=== PATIENT | male | born 1995 ===

== ENCOUNTER 2018-08-06 10:58 | Inpatient (IN) | payer OTHER ==
[~2018-08-06] VITALS: Ht 167.6 cm; Wt 66.7 kg
[2018-08-07 02:30] VITALS: BP 116/72
[2018-08-07] MEDS ORDERED: magnesium hydroxide 30ml (MOM) UD suspension PO PRN (02:40)
[2018-08-07] MEDS ORDERED: mag hydrox/Alum hydrox/simeth 30ml oral suspension PO PRN (02:40)
--- NOTE | 2018-08-07 03:26 | NUR ---
Pt admitted to the unit at 0130, he was ambulatory, he was in leg and arm shackles, was escorted by security, [facility] Interventional Radiology Tech, and [facility]. Pt here by court order to try to restore competency so he can stand trial for his charges (shoplifting, false ID to police officers). Pt was cooperative with admit, he did appear somewhat paranoid, eyes were wide open, would look around when there were noises in the hallway. He denies any A/V hallucinations, denies any delusions, he is a poor historian and does not know the year, month, date, does not understand why he is here. He denies any hx of mental hx tx or dx in the past. He denies any current ETOH or drug use and tox screen negative. Skin check completed by myself and [facility] and pt has no issues at this time.
[2018-08-07 07:45] VITALS: BP 108/70
[2018-08-07 09:06] LABS: HEMOGLOBIN A1C 5.3 % (4.5-6.2)
[2018-08-07 09:07] LABS: CHOL/HDL RATIO 2.8 (0.00-4.99); CHOLESTEROL 122 MG/DL (0-200); HDL CHOLESTEROL 44 MG/DL (35-60); LDL CHOLESTEROL 72 MG/DL (50-100); TRIGLYCERIDES 42 MG/DL (20-135)
[2018-08-07] MEDS ORDERED: tuberculin, purif. prot. deriv. 5 units/0.1ml ID ONE (10:00)
--- NOTE | 2018-08-07 15:29 | NUR ---
Nursing Note: Chief Complaint: Compet[facility] for competency Report received from nurse with use of SBAR: MAGGIE Brown Diagnosis/presenting symptoms: Patient is only oriented x 1. Assessment What has happened this shift: Patient sleeping at change of shift and up before breakfast sitting in Community Room. Patient isolates and is only oriented x 1. Patient does not know the year, the season or who is President. Patient denies Suicidal ideation and depression. Patient is soft spoken and small in stature. Patient states he lives with his family and he was in [facility]. Patient found several times during the day staring at signs and from a distance then close up. Patient does not appear to be psychotic but appears to be disorganized. Bizarre behavior. Possibly thought blocking. S/I, H/I: Denies A/VH: N/A Sleep: no naps during the day ADL's: Independent Group attendance: no Were meds taken: yes Any med S/E: No Mental Status Exam Appearance:Neat and clean Eye contact: Fair Behavior: Pleasant, but guarded and withdrawn Speech: Soft, WNL Mood: Cooperative Affect: Blunted Thought process: Poverty of thought, blocking, disorganized. Thought Content: Cognition: Oriented x 1 Insight: Poor Judgment: Poor Interventions PRN's used: None Therapeutic interventions: Established rapport, provided active listening, maintained a safe and therapeutic environment, ensured pt. contract for safety, provided medication education, encouraged group attendance, and maintained Q 15 min safety checks. Restraints/seclusion/emergency medication: N/A Justification of Continued Inpatient Treatment: Court ordered treatment.
[2018-08-07 19:48] VITALS: BP 115/75
--- NOTE | 2018-08-07 21:16 | NUR ---
Nursing Note: Chief Complaint: Competency Legal hold: Court Ordered, [facility] for Competency Client on involuntary status for competency Report received from nurse with use of SBAR: MAGGIE Brown Diagnosis/presenting symptoms: Patient is only oriented x 1. Assessment What has happened this shift: Pt was walking in the hallway at change of shift. 1:1 completed at bedside. Pt denies s/i. pt is slow to answer questions, unable to state why he is here. Pt is internally preoccupied and talks to himself at times. Pt reports sleep, appetite are good. Pt spends the evening, pacing the hallways and staring out windows. Pt nods to answer questions rather than saying yes or no at times. Pt thought process is disorganized. S/I, H/I: Denies A/VH: Pt was noticed to be responding to internal stimuli. Sleep: pt states "good" ADL's: Independent Group attendance: no Were meds taken: yes Any med S/E: No Mental Status Exam Appearance: adequately groomed/dressed Eye contact: Fair, pt looks at this financial underwriter briefly during conversation when answering then quickly looks away. Behavior: cooperative, directable Speech: Soft, WNL Mood: pleasant, denies depression, denies anxiety/worry/sadness Affect: Blunted Thought process: Poverty of thought, blocking, disorganized. Thought Content: pt states he is from [place], shows me his scrub top to tell me where he is. Cognition: Oriented x 1 Insight: Poor Judgment: Poor Interventions PRN's used: None Therapeutic interventions: Established rapport, provided active listening, maintained a safe and therapeutic environment, ensured pt. contract for safety, and maintained Q 15 min safety checks. Restraints/seclusion/emergency medication: N/A Justification of Continued Inpatient Treatment: Court ordered treatment.
[2018-08-08 08:00] VITALS: BP 93/67
--- NOTE | 2018-08-08 14:11 | NUR ---
Nursing Note: Chief Complaint: [facility]et[facility] for competency Report received from nurse with use of SBAR: Nasir SERRANO Diagnosis/presenting symptoms: Patient is only oriented x 1. Assessment What has happened this shift: Patient sleeping at change of shift and up before breakfast and pacing in the ybarra. Patient isolates and is only oriented x 1. Patient does not initiate conversation with peers or staff. Patient answers questions in short sentences or 1-2 word answers. Patient does not know the year, the season but was able to identify President Ena as president. Patient denies Suicidal ideation and depression. Patient is soft spoken and small in stature. Patient still staring a wall posters for long periods of time. Patient also came out of his room without a shirt and was advised to put a shirt on and pt complied. Pt denies visual/auditory hallucinations but appears to be disorganized, with bizarre behavior. Possibly thought blocking. S/I, H/I: Denies A/VH: N/A Sleep: no naps during the day ADL's: Independent Group attendance: no Were meds taken: yes Any med S/E: No Mental Status Exam Appearance:Neat and clean Eye contact: Fair Behavior: Pleasant, but guarded and withdrawn Speech: Soft, WNL Mood: Cooperative Affect: Blunted Thought process: Poverty of thought, blocking, disorganized. Thought Content: Cognition: Oriented x 1 Insight: Poor Judgment: Poor Interventions PRN's used: None Therapeutic interventions: Established rapport, provided active listening, maintained a safe and therapeutic environment, ensured pt. contract for safety, provided medication education, encouraged group attendance, and maintained Q 15 min safety checks. Restraints/seclusion/emergency medication: N/A Justification of Continued Inpatient Treatment: Court ordered treatment.
[2018-08-08 19:56] VITALS: BP 122/80
--- NOTE | 2018-08-08 20:24 | NUR ---
Patients previous elopement band was not on him, when asked about it his answer was not legible. This video game script writer placed a new elopement band on the patient. He seemed irritated by this and flipped off this video game script writer and resumed pacing.
--- NOTE | 2018-08-09 00:08 | NUR ---
Nursing Note: Chief Complaint: Competency Legal hold: Court Ordered, [facility] for Competency Client on involuntary status for competency Report received from nurse with use of SBAR: Mable SERRANO Diagnosis/presenting symptoms: Patient is only oriented x 1. Assessment What has happened this shift: Patient paces the halls, stares at doors and signs for long periods of time. When aligner typewriter says hello to pt he just stares, and keeps walking. Pt agreed to assessment but looks afraid when aligner typewriter is listening to his lungs and bowel sounds. Sterilization Tech reassures pt constantly while talking. Pt refuses any medication, aligner typewriter educates pt on the medications prescribed but he politely declines and keeps pacing. Pt had elopement band on yesterday, staff noticed it was off, put a new one on which he was upset about and stuck his middle finger up at staff member after she applied it to his wrist. Pt admits to being tired but will not go to bed and continues to pace and look around nervously as if someone is following him. He will stop randomly in front of doorways and just stare at a spot on the wall for minutes at a time. He also laughs to himself or smiles occasionally while pacing. S/I, H/I: Denies A/VH: denies, but appears to be responding to internal stimuli at times Sleep:see sleep assessment notation ADL's: Independent Group attendance: shift mgr, no groups Were meds taken: pt refused medication Any med S/E: None reported, none observed Mental Status Exam Appearance:Neat and clean Eye contact: Fair Behavior: paces the hallways, looks around in paranoia, polite but withdrawn Speech: Soft, sparse Mood: anxious Affect: withdrawn, paranoid Thought process: Poverty of thought, blocking, disorganized. Thought Content: unable to assess Cognition: Oriented x 1 Insight: Poor Judgment: Poor Interventions PRN's used: None Therapeutic interventions: 1:1 provided active listening, maintained a safe and therapeutic environment, provided medication education, encouraged group attendance, and maintained Q 15 min safety checks. Restraints/seclusion/emergency medication: N/A Justification of Continued Inpatient Treatment: Court ordered treatment.
[2018-08-09 08:00] VITALS: BP 103/56
--- NOTE | 2018-08-09 14:17 | NUR ---
Nursing Note: Chief Complaint: Competency [facility] hold[facility] for competency Report received from nurse with use of SBAR: MAGGIE Krishna Diagnosis/presenting symptoms: Patient is only oriented x 1. Assessment What has happened this shift: Patient sleeping at change of shift and had to be awoken for breakfast. Patient isolates and is only oriented x 1. Patient looks less bright today with depressed affect. Patient asked questions and all his answers were "I don't know." When patient asked about depression and suicidal ideation still says he doesn't know. Patient still acting bizarre and staring at the wall. Now patient is sitting in the T.V. room staring out the window. Pt appears to be disorganized, with bizarre behavior. S/I, H/I: unk A/VH: N/A Sleep: no naps during the day ADL's: Independent Group attendance: no Were meds taken: no Any med S/E: No Mental Status Exam Appearance:Neat and clean Eye contact: Fair Behavior: Pleasant, but guarded and withdrawn Speech: Soft, WNL Mood: Cooperative Affect: Blunted, depressed Thought process: Poverty of thought, blocking, disorganized. Thought Content: unknown Cognition: Oriented x 1 Insight: Poor Judgment: Poor Interventions PRN's used: None Therapeutic interventions: Established rapport, attempted to provided active listening, maintained a safe and therapeutic environment, ensured pt. contract for safety, provided medication education, encouraged group attendance, and maintained Q 15 min safety checks. Restraints/seclusion/emergency medication: N/A Justification of Continued Inpatient Treatment: Court ordered treatment.
--- NOTE | 2018-08-09 16:56 | NUR ---
Psychosocial and Activity Assessments: Assessments were completed by this therapist and entered. Patient was aloof/withdrawn providing very little information to this therapist. What is known, was based on the evaluation report provided by [facility] psychiatrist, Dr. Allan M.D. 08/08/18. Mary Perea MA., POLYMERIZATION HELPER #[id number] [facility] Art Therapist
[2018-08-09 19:44] VITALS: BP 106/54
[2018-08-09] MEDS: olanzapine 10mg tablet PO SCH (20:30)
--- NOTE | 2018-08-09 22:48 | NUR ---
Nursing Note: Chief Complaint: Competency Legal hold: Court Ordered, [facility] for Competency Client on involuntary status for competency Report received from nurse with use of SBAR: Mable SERRANO Diagnosis/presenting symptoms: Patient is only oriented x 1. Assessment What has happened this shift: Patient paces the halls this shift, smiles politely at fiction and nonfiction writer prose and says hello and walks away. Pt is in green hospital scrubs, then disappears into his room and is wearing jeans, a t-shirt and sneakers. He takes a handful of snacks from the community room and walks down the ybarra carrying them. Pt is unaware that anyone is watching him and abruptly stops in the hallway and throws all the food and drinks up into the air and watches them fall around him. He then quickly gathers them back up into his arms smiling and keeps walking. Pt took his medication tonight without issue. When fiction and nonfiction writer prose asked if he is feeling suicidal or depressed he answers, "no I'm not. " Business Analyst Ecommerce then asks if patient is having any auditory or visual hallucinations to which he denies but fiction and nonfiction writer prose witnesses him staring at the wall or at the floor for long periods of time as if something is there. he also watches his right foot suspiciously for a few minutes after conversing with fiction and nonfiction writer prose. Business Analyst Ecommerce encourages pt to lay down soon to try to get some sleep. Pt agrees that he will but continues to look down at his foot. S/I, H/I: Denies A/VH: denies, but appears to be responding to internal stimuli at times Sleep:see sleep assessment notation ADL's: Independent Group attendance: night order selector, no groups Were meds taken:yes Any med S/E: None reported, none observed Mental Status Exam Appearance:Neat and clean Eye contact: Fair Behavior: paces the hallways, looks around in paranoia, polite but withdrawn Speech: Soft, sparse Mood: anxious Affect: bizarre Thought process: Poverty of thought, blocking, disorganized. Thought Content: unable to assess Cognition: Oriented x 1 Insight: Poor Judgment: Poor Interventions PRN's used: None Therapeutic interventions: 1:1 provided active listening, maintained a safe and therapeutic environment, provided medication education, encouraged group attendance, and maintained Q 15 min safety checks. Restraints/seclusion/emergency medication: N/A Justification of Continued Inpatient Treatment: Court ordered treatment.
[2018-08-10 08:00] VITALS: BP 103/53
--- NOTE | 2018-08-10 12:32 | NUR ---
Patient brought from [facility] by court order, incompetent to stand trial. Addendum: 08/10/18 at 1234 by Marlin Hastings RN Amended: Links added.
--- NOTE | 2018-08-10 17:21 | NUR ---
Nursing Note: Chief Complaint: Competency Legal hold[facility] for competency Report received from nurse with use of SBAR: Anju SERRANO Diagnosis/presenting symptoms: F29 - Unspecified psychosis not due to a substance or known physiological condition Assessment What has happened this shift: Patient is observed sitting by the window watching the rain. He states that he slept well the night before and is observed resting periodically during the day. He denies AV/H but is observed talking to self in the ybarra. He eats meals provided and also consumes multiple sugar packets. He does not answer when asked why he is eating sugar packets. RN attempted to educate patient r/t high sugar consumption, patient walked away. S/I, H/I: Denies A/VH: denies, observed talking to self Sleep: slept well at night and took naps during the day ADL's: Independent Group attendance: no Were meds taken: no morning meds to administer Any med S/E: None reported, no IMs or tremors observed Mental Status Exam Appearance: appropriate Eye contact: direct occasionally, looks around often Behavior: paces the hallways, looks around in paranoia, polite but withdrawn Speech: Soft tone, not conversational Mood: reports good mood, appears anxious Affect: restricted Thought process: Poverty of thought Thought Content: unable to assess Cognition: Oriented x 2 Insight: Poor Judgment: Poor Interventions PRN's used: None Therapeutic interventions: 1:1 communication including active listening and positive feedback, maintained a safe and therapeutic environment, provided medication education, encouraged group attendance, and maintained Q 15 min safety checks. Restraints/seclusion/emergency medication: N/A Justification of Continued Inpatient Treatment: Court ordered treatment.
[2018-08-10 20:00] VITALS: BP 116/70
[2018-08-10] MEDS: olanzapine 10mg tablet PO SCH (20:20)
--- NOTE | 2018-08-10 22:11 | NUR ---
Nursing Note: Chief Complaint: Competency Legal hold: Court Ordered, [facility] for Competency Client on involuntary status for competency Report received from nurse with use of SBAR: Marie SERRANO Diagnosis/presenting symptoms: Patient is only oriented x 1. Assessment What has happened this shift: Patient paces the halls, smiles at staff occasionally. He stops and stand sin the hallway and stares at the wall for a few minutes. He also talks to himself under his breath. Pt has snack in the community room and is using the remote to change the channel. He doesn't stay on a single channel for more than 15 seconds at a time. He then gets [employer] magazines out and opens them up on the table and is seen flexing his arm muscles over them looking down at the magazines whispering things to himself. Pt denies any suicidal ideation or hallucinations but is seen responding to internal stimuli multiple times. Pt asks communications writer, "how do you feel?" Tire Stripper says "I am good" and pt gets up and walks away abruptly. S/I, H/I: Denies A/VH: denies, but appears to be responding to internal stimuli at times Sleep:see sleep assessment notation ADL's: Independent Group attendance: operations supervisor 2nd shift, no groups Were meds taken:yes Any med S/E: None reported, none observed Mental Status Exam Appearance:clean Eye contact: Fair Behavior: paces the hallways smiles occasionally, talks to self Speech: Soft, sparse Mood: anxious Affect: bizarre Thought process: Poverty of thought, blocking, disorganized. Thought Content: unable to assess Cognition: Oriented x 1 Insight: Poor Judgment: Poor Interventions PRN's used: None Therapeutic interventions: 1:1 provided active listening, maintained a safe and therapeutic environment, and maintained Q 15 min safety checks. Restraints/seclusion/emergency medication: N/A Justification of Continued Inpatient Treatment: Court ordered treatment.
[2018-08-11 07:27] VITALS: BP 101/47
--- NOTE | 2018-08-11 17:04 | NUR ---
Nursing Note: Chief Complaint: Competency Legal hold: Court Ordered, [facility] for Competency Client on involuntary status for competency Report received from nurse with use of SBAR: Anju SERRANO Diagnosis/presenting symptoms: F29 - Unspecified psychosis not due to a substance or known physiological condition Assessment What has happened this shift: Patient is observed sleeping at change of shift. He gets up and eats with others for both breakfast and lunch. He states that he slept ok the night before. He denies AV/H but appears to be responding to internal stimuli as he is observed talking to self and saying things under his breath. He paces the ybarra throughout the day. He makes eye contact and asks staff for a towel to take a shower. His overall demeanor is calm and pleasant. Patient appears to be paranoid at times, looking around often. S/I, H/I: Denies A/VH: denies, observed talking to self Sleep: slept well at night and took naps during the day ADL's: Independent, showered Group attendance: yes Were meds taken: no morning meds to administer Any med S/E: None reported, no IMs or tremors observed Mental Status Exam Appearance: clean, well groomed Eye contact: direct occasionally, looks around often Behavior: paces the hallways, polite but reserved Speech: Soft tone, answers most questions, not conversational Mood: good Affect: restricted Thought process: Thought Content: unable to formally assess Cognition: Oriented x 3 Insight: Poor, denies hallucinations Judgment: fair Interventions PRN's used: none Therapeutic interventions: 1:1 communication including active listening and positive feedback, maintained a safe and therapeutic environment, encouraged group attendance, and maintained Q 15 min safety checks. Restraints/seclusion/emergency medication: N/A Justification of Continued Inpatient Treatment: Court ordered treatment.
[2018-08-11 20:09] VITALS: BP 107/69
[2018-08-11] MEDS ORDERED: olanzapine 10mg tablet PO SCH (21:00)
[2018-08-11] MEDS: olanzapine 10mg tablet PO SCH (21:28)
[2018-08-11] MEDS ORDERED: OLANZapine 2.5MG tablet PO ONE ×2 (23:15→23:25)
--- NOTE | 2018-08-12 00:25 | NUR ---
Nursing Note: Chief Complaint: Psychosis Legal hold: Court Ordered, [facility] for Competency Client on involuntary status for GD/Competency to stand trial Report received from nurse with use of SBAR: MAGGIE Isaac Why are they here: Pt. sent to [facility] for evaluation from [facility] in order to assess his competency to stand trial for shoplifting, showing false ID, and indecent exposure. Per report pt. has been "Zoning out" at home, exhibiting possible s/s of psychosis, and does not understand what he is being charged for. Diagnosis/presenting symptoms: Pt. exhibits s/s of paranoid delusions and possible h/a AEB restlessness, pacing, mumbling to self, and exhibiting internalized preoccupation. Assessment What has happened this shift: Pt. up pacing the hallway at beginning of the shift, he continued to do this throughout the shift until going to bed at approximately 2300. He was also observed by staff to be intently staring at exits or out windows, mumbling to self, and intently tracing the braille lettering at the entrance of room doorways. This senior grant writer approached pt. and attempted to establish rapport, he presents as paranoid, restless, and abruptly walks away down the hallway. 1:1 completed, pt. continues to exhibit s/s of paranoid delusions and possible h/a AEB restlessness, pacing, mumbling to self, and exhibiting internalized preoccupation. He will answer questions with minimal response, exhibits latency of response, and minimally engages. This senior grant writer questions pt. regarding what time he would like to take his HS medication, he states, "I don't take medication," however he is cooperative with taking medications and care this shift. S/I, H/I: Denies A/VH: Denies, however mumbles to self and is internally preoccupied Sleep: Reports he is able to sleep well ADL's: Ambulates, eats, and uses BR independently Group attendance: Attended HS snack Were meds taken: Yes, Zyprexa increased to 10mg this HS, pt. compliant with medication increase. Any med S/E: None Mental Status Exam Appearance: Neat and appropriately dressed in hospital attire. Eye contact: Poor, continually looks away as it he is seeing things that are not there Behavior: Cooperative, however withdrawn and restless Speech: Mumbles, inaudible at times, responds only minimally to questions Mood: Paranoid Affect: Flat Thought process: Thought blocking and poverty of thought r/t mental illness Thought Content: Paranoid delusions, possible A/V/H, and internally preoccupied Cognition: A&O X2 (name and town) Insight: Poor Judgment: Poor Interventions PRN's used: None Therapeutic interventions: Introduced self and established rapport, maintained a safe and therapeutic environment, reoriented to reality as needed, monitored behaviors and assessed need for intervention, and maintained Q 15 min safety checks. Restraints/seclusion/emergency medication: N/A Justification of Continued Inpatient Treatment: Pt. requires medication adjustments and continued therapeutic intervention. He is not at baseline and not competent to stand trial.
[2018-08-12 08:00] VITALS: BP 124/77
--- NOTE | 2018-08-12 17:13 | NUR ---
Nursing Note: Chief Complaint: Compet[facility] hold[facility] for competency Report received from nurse with use of SBAR: MAGGIE Salvador Diagnosis/presenting symptoms: F29 - Unspecified psychosis not due to a substance or known physiological condition Assessment What has happened this shift: Patient is observed sleeping at change of shift. He joins others for breakfast in the group room. He requests to take a shower and politely waits for a turn. Direct eye contact is made. Patients eyes dart around less today than in previous shifts worked and response to questions asked has improved. Responses continue to be minimal, patient is not conversational. He paces the ybarra. S/I, H/I: Denies A/VH: denies, observed talking to self Sleep: slept well at night and took naps during the day ADL's: Independent, showered Group attendance: yes Were meds taken: no morning meds to administer Any med S/E: None reported, no IMs or tremors observed Mental Status Exam Appearance: clean, well groomed Eye contact: direct occasionally, looks around often Behavior: paces the hallways, polite but reserved Speech: Soft tone, answers most questions, not conversational Mood: good Affect: restricted Thought process: Thought Content: unable to formally assess Cognition: Oriented x 3 Insight: Poor, denies hallucinations Judgment: fair Interventions PRN's used: none Therapeutic interventions: 1:1 communication including active listening and positive feedback, maintained a safe and therapeutic environment, encouraged group attendance, and maintained Q 15 min safety checks. Restraints/seclusion/emergency medication: N/A Justification of Continued Inpatient Treatment: Court ordered treatment.
[2018-08-12 19:00] VITALS: BP 120/77
[2018-08-12] MEDS ORDERED: olanzapine 10mg tablet PO SCH ×2 (21:00)
[2018-08-12] MEDS: OLANZapine 5mg rapidly disint. tablet PO SCH (21:01)
--- NOTE | 2018-08-12 23:55 | NUR ---
Nursing Note: Chief Complaint: Psychosis Legal hold: Court Ordered, [facility] for Competency Client on involuntary status for GD/Competency to stand trial Report received from nurse with use of SBAR: MAGGIE Isaac Why are they here: Pt. sent to [facility] for evaluation from [facility] in order to assess his competency to stand trial for shoplifting, showing false ID, and indecent exposure. Per report pt. has been "Zoning out" at home, exhibiting possible s/s of psychosis, and does not understand what he is being charged for. He remains incompetent to stand trial. Diagnosis/presenting symptoms: Pt. exhibits s/s of paranoid delusions and response to internal stimuli AEB continued restlessness, pacing, mumbling to self at times, and difficulty with reciprocal interactions. Assessment What has happened this shift: Pt. up pacing the hallway at beginning of the shift, however intensity with which he does so is decreased and pt. is not checking exits/staring out windows as he was doing yesterday. 1:1 completed, pt. continues to be cooperative with medications and assessment. This teletypewriter installer questioned him about how his day was, pt. stated, "Ok, I went to a group but then I left." Pt. presents with decreased paranoia and is able to respond more clearly to questions without muttering to self, longer responses to questions, and decreased latency in response time. However, continues to exhibit s/s of paranoid delusions and response to internal stimuli AEB continued restlessness, pacing, mumbling to self at times, and difficulty with reciprocal interactions. S/I, H/I: Denies A/VH: Denies, however mumbles to self and is internally preoccupied Sleep: Reports he is able to sleep well ADL's: Pt. is unable to assist this teletypewriter installer with making his bed this shift r/t in ability to focus long enough on the task, states, "I'm going to walk." Group attendance: Attended one group today, however walked out early Were meds taken: Yes, Zyprexa increased to 15mg this HS, pt. compliant with medication increase. Any med S/E: None Mental Status Exam Appearance: Neat and appropriately dressed in hospital attire. Eye contact: Improving, able to focus with less difficulty and less distractible Behavior: Cooperative, with continued restlessness/pacing Speech: Able to respond more clearly to questions without muttering, longer responses to questions, and decreased latency in response time. Mood: Pleasant, decreased paranoia Affect: Flat Thought process: Thought blocking and poverty of thought r/t mental illness Thought Content: Paranoid delusions, possible A/V/H, and internally preoccupied Cognition: A&O X2 (name and town) Insight: Poor Judgment: Poor Interventions PRN's used: None Therapeutic interventions: Provided active listening, maintained a safe and therapeutic environment, reoriented to reality as needed, monitored behaviors and assessed need for intervention, provided medication education, and maintained Q 15 min safety checks. Restraints/seclusion/emergency medication: N/A Justification of Continued Inpatient Treatment: Pt. requires medication adjustments and continued therapeutic intervention. He is not at baseline and not competent to stand trial.
[2018-08-13 08:02] VITALS: BP 104/71
--- NOTE | 2018-08-13 16:03 | NUR ---
Initial: Pt admit psychosis,NOS to Behavioral Health unit. PO intake 75-100% meeting nutrition needs. Pt has no edema or wounds. No nutritional diagnosis at this time. [facility] 08/12/18. Will continue to follow. Rec: 1. Continue with regular diet 2. wt per rx Addendum: 08/13/18 at [address] Amended: Links added. Addendum: 08/13/18 at [address] I have reviewed and agree with note by [employer]. Janet Gatica RD
--- NOTE | 2018-08-13 16:33 | NUR ---
RN Nursing Note: Chief Complaint: Competency Legal hold: Court Ordered, [facility] for Competency Client on involuntary status for competency Report received from nurse Madeleine RN w/use of SBAR Diagnosis/presenting symptoms: F29 - Unspecified psychosis not due to a substance or known physiological condition Assessment What has happened this shift: Responses continue to be minimal, patient is not conversational. He paces the halls. He eats his meals w/peers and attends groups w/prompting. He remains isolated most of the day does not interact w/peers or staff. S/I, H/I: Denies A/VH: denies yet seen talking to self as he paces the halls Sleep: Sleeps on and off throughout the dayshift ADL's: Independent Group attendance: Y Were Meds taken: No AM Meds prescribed Any med S/E: None observed or reported Mental Status Exam Appearance: clean, well groomed Eye contact: direct occasionally, looks around often Behavior: paces the hallways, reserved Speech: Soft tone, answers most questions, not conversational Mood: good Affect: restricted Thought process: unk Thought Content: unable to formally assess Cognition: A/Ox3 Insight: Poor, denies hallucinations Judgment: fair Interventions PRN's used: N/A Therapeutic interventions: 1:1 assessment established rapport, provided active listening, maintained a safe and therapeutic environment, encouraged ADLs and group attendance, and maintained Q 15 min safety checks. Restraints/seclusion/emergency medication: N/A Justification of Continued Inpatient Treatment: Court ordered treatment.
[2018-08-13 19:30] VITALS: BP 124/73
[2018-08-13] MEDS: OLANZapine 5mg rapidly disint. tablet PO SCH (20:15)
--- NOTE | 2018-08-14 01:14 | NUR ---
RN Nursing Note: Chief Complaint: Competency Legal hold: Court Ordered, [facility] for Competency Client on involuntary status for competency Report received from nurse Khalida RN w/use of SBAR Diagnosis/presenting symptoms: F29 - Unspecified psychosis not due to a substance or known physiological condition Assessment What has happened this shift: Patient is in his room or pacing the halls save for his time sleeping. He responds to direct questions. The patient responds politely to this specification writer. His affect is restricted. The patient is advised that he is in a safe place. S/I, H/I: Denies A/VH: Patient denies at this time. Sleep: Sleeps on senior account director. ADL's: Independent Group attendance: No group on nights. Were Meds taken: Patient is medication compliant. Any med S/E: None observed or reported Mental Status Exam Appearance: clean, well groomed Eye contact: direct occasionally, looks around often Behavior: paces the hallways, reserved Speech: Soft tone, answers most questions, not conversational Mood: good Affect: restricted Thought process: unk Thought Content: unable to formally assess Cognition: A/Ox3 Insight: Poor, denies hallucinations Judgment: fair Interventions PRN's used: N/A Therapeutic interventions: 1:1 assessment established rapport, provided active listening, maintained a safe and therapeutic environment, encouraged ADLs and group attendance, and maintained Q 15 min safety checks. Restraints/seclusion/emergency medication: N/A Justification of Continued Inpatient Treatment: Court ordered treatment.
[2018-08-14 08:37] VITALS: BP 107/66
--- NOTE | 2018-08-14 17:02 | NUR ---
RN Nursing Note: Chief Complaint: Competency Legal hold: Court Ordered, [facility] for Competency Client on involuntary status for competency Report received from nurse MAGGIE Iyer w/use of SBAR Diagnosis/presenting symptoms: F29 - Unspecified psychosis not due to a substance or known physiological condition Assessment What has happened this shift: Pt changed clothes at least four times today; he changed from campoverde t-shirt and blue jeans to green scrubs back and forth multiple times. He also paced the halls most of the day with a pleasant smile on his face. He continues to be seen with his mouth moving at times and makes poor eye contact looking away as if he is seeing something beside or behind him. Responses continue to be minimal. He eats his meals w/peers rarely stays in groups. JUAN CARLOS Colvin added am Zyprexa 5mg. S/I, H/I: Denies A/VH: denies yet seen talking to self as he paces the halls Sleep: Sleeps on and off throughout the dayshift ADL's: Independent Group attendance: Y Were Meds taken: No AM Meds prescribed today starting tomorrow low AM dose of olanzapine. Any med S/E: None observed or reported Mental Status Exam Appearance: clean, well groomed Eye contact: direct occasionally, looks around often Behavior: paces the hallways, reserved Speech: Soft tone, answers most questions, not conversational Mood: good Affect: restricted Thought process: unk Thought Content: unable to formally assess Cognition: A/Ox3 Insight: Poor, denies hallucinations Judgment: fair Interventions PRN's used: N/A Therapeutic interventions: 1:1 assessment established rapport, provided active listening, maintained a safe and therapeutic environment, encouraged ADLs and group attendance, and maintained Q 15 min safety checks. Restraints/seclusion/emergency medication: N/A Justification of Continued Inpatient Treatment: Court ordered treatment.
[2018-08-14 19:00] VITALS: BP 123/79
[2018-08-14] MEDS: OLANZapine 5mg rapidly disint. tablet PO SCH (22:00)
--- NOTE | 2018-08-15 03:09 | NUR ---
RN Nursing Note: Chief Complaint: Competency Legal hold: Court Ordered, [facility] for Competency Client on involuntary status for competency Report received from nurse MAGGIE Iyer w/use of SBAR Diagnosis/presenting symptoms: F29 - Unspecified psychosis not due to a substance or known physiological condition Assessment What has happened this shift: Patient paces the hallways during most of the shift prior to going to sleep. He is awake and well oriented. He is well groomed. Patient only answers direct questions. Patient denies S/I or H/I. His affect is flat his mood restricted. When asked how he would describe his thoughts the patient states "I can't." The day shift RN reports the patient was speaking to himself earlier while pacing the halls. The patient is polite. He appears depressed but will not discuss this. Patient is reassured that he is in a safe place. Q15 minute rounding is being done for patient safety. S/I, H/I: Denies A/VH: Patient denies at this time. Sleep: Sleeping following NOC medication administration. ADL's: Independent Group attendance: None on nights. Were Meds taken: Patient is medication compliant. Any med S/E: None observed or reported Mental Status Exam Appearance: clean, well groomed Eye contact: direct occasionally, looks around often Behavior: paces the hallways, reserved Speech: Soft tone, answers most questions, not conversational Mood: good Affect: restricted Thought process: Unknown. Thought Content: Unable to formally assess Cognition: A/Ox3 Insight: Poor, denies hallucinations Judgment: Fair Interventions PRN's used: N/A Therapeutic interventions: 1:1 assessment established rapport, provided active listening, maintained a safe and therapeutic environment, encouraged ADLs and group attendance, and maintained Q 15 min safety checks. Restraints/seclusion/emergency medication: N/A Justification of Continued Inpatient Treatment: Court ordered treatment. Addendum: 08/15/18 at 0321 by Jaylon Grimaldo RN The above report should have read report received from MAGGIE Gaxiola with use of [place].
[2018-08-15 07:49] VITALS: BP 107/71
[2018-08-15] MEDS: OLANZapine 5mg rapidly disint. tablet PO SCH ×2 (08:20→21:24)
--- NOTE | 2018-08-15 13:47 | NUR ---
RN Nursing Note: Chief Complaint: Competency Legal hold: Court Ordered, [facility] for Competency Client on involuntary status for competency Report received from nurse MAGGIE Iyer w/use of SBAR Diagnosis/presenting symptoms: F29 - Unspecified psychosis not due to a substance or known physiological condition Assessment What has happened this shift: Pt awake, alert, paces unit, isolates to self, is restricted and avoidant of staff, has poor eye contact and poverty of speech, possible thought blocking though denies having difficulty formulating thoughts, denies depression, anxiety, SI/HI/AH/VH, answers, "no" to most questions, occasionally will throw in a "not really." Pt is unable to verbalize why he is here, [place] [facility], knew it was Thursday but thought the year was 2017, was unable to state the month, pt reluctantly took his morning Zydis, comes to the community room for meals, showered today, P.A. increased his HS Zydis from 15 mg to 20 mg today. Pt was tachycardic this am with a pulse of 115, not an unusual finding for this pt. S/I, H/I: Pt denies A/VH: Patient denies. Sleep: Slept per noc shift report ADL's: Independent Group attendance: No groups so far today Were Meds taken: Yes Any med S/E: None observed or reported Mental Status Exam Appearance: clean, well groomed Eye contact: poor Behavior: Guarded, restrictive, isolative to self, paces unit Speech: Clear, soft, limited Mood: Stable Affect: Flat Thought process: No obvious disorganization, difficult to determine due to poverty of speech Thought Content: Unable to assess, pt does not express his thoughts Cognition: A/O X 2 Insight: Poor Judgment: Fair Interventions PRN's used: N/A Therapeutic interventions: 1:1 assessment, reality orientation, encouragement to ask questions and express thoughts/feelings, encouragement to perform ADLs, medication administration/monitoring, Q 15 minute checks. Restraints/seclusion/emergency medication: N/A Justification of Continued Inpatient Treatment: Court ordered treatment until determination made as to pt's competency to stand trial.
[2018-08-15 19:55] VITALS: BP 115/82
--- NOTE | 2018-08-16 04:57 | NUR ---
RN Nursing Note: Chief Complaint: Competency Legal hold: Court Ordered, [facility] for Competency Client on involuntary status for competency Report received from nurse MAGGIE Iyer w/use of SBAR Diagnosis/presenting symptoms: F29 - Unspecified psychosis not due to a substance or known physiological condition Assessment What has happened this shift: Pt awake, alert, one word answers or no answers at all to questions. Poor eye contact and poverty of speech. Pt denies depression, anxiety, SI/HI/AH/VH, Pt is unable to verbalize why he is here. Cooperative with care took HS meds without problem. Mother here to visit. [place]er speaking only. Niece was able to interpret. Pt agreed to have information shared and was present with Mom and Niece. All questions about medications and program here answered. Mom cried through much of the visit. Pt unemotional. Mom has questions for physician encouraged to call tomorrow, note left for Dr. Lemus. S/I, H/I: Pt denies A/VH: Patient denies. Sleep: Asleep at this time. ADL's: Independent Group attendance: No groups so far today Were Meds taken: Yes Any med S/E: None observed or reported Mental Status Exam Appearance: clean, well groomed Eye contact: poor Behavior: Guarded, restrictive, isolative to self, paces unit Speech: Clear, soft, limited Mood: Stable Affect: Flat Thought process: No obvious disorganization, difficult to determine due to poverty of speech
[2018-08-16 08:00] VITALS: BP 111/64
[2018-08-16] MEDS: OLANZapine 5mg rapidly disint. tablet PO SCH ×2 (08:00→20:29)
--- NOTE | 2018-08-16 17:27 | NUR ---
RN Nursing Note Chief Complaint: Competency Legal hold: Court Ordered, [facility] for Competency Client on involuntary status for competency Report received from nurse Lisha RN w/use of SBAR Diagnosis/presenting symptoms: F29 - Unspecified psychosis not due to a substance or known physiological condition Assessment What has happened this shift: Pt up at change of shift, pacing the hallways. Pt mumbles to himself as he paces. Makes fair eye contact; attempt to engage patient in conversation while walking with him in the hallway. He answers questions with brief responses. Oriented to self and place. Believes it is 2017, but could not guess a month. Oriented patient to July 2018, and he replies "Oh, nice!". Did not participate in any group activities today. S/I, H/I: denies A/VH: denies. Sleep: no complaints or reports of poor sleep from staff ADL's: Independent Group attendance: no Were Meds taken: yes Any med S/E: None observed or reported Mental Status Exam Appearance: clean, well groomed Eye contact: poor Behavior: Guarded, paces, isolates Speech: clear, quiet, hypoverbal Mood: Stable Affect: constricted Thought process: No obvious disorganization, difficult to determine due to poverty of speech Thought Content: Unable to assess Cognition: A/O X 2 Insight: Poor Judgment: Fair Interventions PRN's used: N/A Therapeutic interventions: 1:1 assessment, reality orientation, encouraged to participate in groups and to engage in conversation, provided therapeutic environment Restraints/seclusion/emergency medication: N/A Justification of Continued Inpatient Treatment: Court ordered treatment until determination made as to pt's competency to stand trial.
[2018-08-16 19:55] VITALS: BP 110/70
--- NOTE | 2018-08-17 03:09 | NUR ---
RN Nursing Note: Chief Complaint: Competency Legal hold: Court Ordered, [facility] for Competency Client on involuntary status for competency Report received from nurse MAGGIE Iyer w/use of SBAR Diagnosis/presenting symptoms: F29 - Unspecified psychosis not due to a substance or known physiological condition Assessment What has happened this shift: Pt awake, alert, one word answers or no answers at all to questions. Eye contact slightly improved since last shift. Pt denies depression, anxiety, SI/HI/AH/VH, Pt is unable to verbalize why he is here. Cooperative with care took HS meds without problem. S/I, H/I: Pt denies A/VH: Patient denies. Sleep: Asleep at this time. ADL's: Independent Group attendance: No groups so far today Were Meds taken: Yes Any med S/E: None observed or reported Mental Status Exam Appearance: clean, well groomed Eye contact: poor Behavior: Guarded, restrictive, isolative to self, paces unit Speech: Clear, soft, limited Mood: Stable Affect: Flat Thought process: No obvious disorganization, difficult to determine due to poverty of speech
[2018-08-17 08:03] VITALS: BP 115/83
[2018-08-17] MEDS: OLANZapine 5mg rapidly disint. tablet PO SCH ×2 (08:10→20:48)
--- NOTE | 2018-08-17 17:01 | NUR ---
RN Nursing Note Chief Complaint: Competency Legal hold: Court Ordered, [facility] for Competency Client on involuntary status, 1370, for competency Report received from nurse Lisha RN w/use of SBAR Diagnosis/presenting symptoms: F29 - Unspecified psychosis not due to a substance or known physiological condition Assessment What has happened this shift: Pt up at change of shift pacing the hallway as he was yesterday morning. Attempted to engage patient in conversation, but he only responds with "I don't know". He did report the correct month and year. Does not attend groups despite encouragement to attend. S/I, H/I: denies A/VH: denies Sleep: no complaints ADL's: Independent Group attendance: no Were Meds taken: yes Any med S/E: None observed or reported Mental Status Exam Appearance: wearing green scrubs Eye contact: fair Behavior: guarded, paces Speech: quiet, mumbles, poverty of speech Mood: no complaints Affect: constricted Thought process: difficult to assess due to poverty of speech Thought Content: Unable to assess Cognition: A/O X 3 Insight: Poor Judgment: Fair Interventions PRN's used: N/A Therapeutic interventions: 1:1 assessment, reality orientation, encouraged to participate in groups and to engage in conversation, provided therapeutic environment Restraints/seclusion/emergency medication: N/A Justification of Continued Inpatient Treatment: Court ordered treatment until determination made as to pt's competency to stand trial.
[2018-08-17 20:20] VITALS: BP 124/79
--- NOTE | 2018-08-18 02:03 | NUR ---
RN Nursing Note Chief Complaint: Competency Legal hold: Court Ordered, [facility] for Competency Client on involuntary status, 1370, for competency Report received from nurse Mary RN w/use of SBAR Diagnosis/presenting symptoms: F29 - Unspecified psychosis not due to a substance or known physiological condition Assessment What has happened this shift: Pt pacing the hallway at change of shift. Poor eye contact, one word or no answers to questions. Attempted to engage patient in conversation, but he only responds with "I don't know". Came to snack and said "Thank you for the popcorn" without any prompting. S/I, H/I: denies A/VH: denies Sleep: no complaints ADL's: Independent Group attendance: no Were Meds taken: yes Any med S/E: None observed or reported Mental Status Exam Appearance: wearing green scrubs Eye contact: poor Behavior: guarded, paces Speech: quiet, mumbles, poverty of speech Mood: no complaints Affect: constricted Thought process: difficult to assess due to poverty of speech Thought Content: Unable to assess Cognition: A/O X 3 Insight: Poor Judgment: Fair Interventions PRN's used: N/A Therapeutic interventions: 1:1 assessment, reality orientation, encouraged to participate in groups and to engage in conversation, provided therapeutic environment Restraints/seclusion/emergency medication: N/A Justification of Continued Inpatient Treatment: Court ordered treatment until determination made as to pt's competency to stand trial.
[2018-08-18 08:00] VITALS: BP 112/70
[2018-08-18] MEDS: OLANZapine 5mg rapidly disint. tablet PO SCH ×2 (08:53→20:12)
[2018-08-18 09:42] VITALS: BP 112/70
--- NOTE | 2018-08-18 16:51 | NUR ---
RN Nursing Note Chief Complaint: Competency Legal hold: Court Ordered, [facility] for Competency Client on involuntary status, 1370, for competency Report received from nurse Lisha RN w/use of SBAR Diagnosis/presenting symptoms: F29 - Unspecified psychosis not due to a substance or known physiological condition Assessment What has happened this shift: Client awake at shift change and walking in ybarra. Attempts made throughout day to engage in conversation. Responds with one word answers. Eating many sugar packets on AM, resulting in sugar and other condiments being kept in nurses station. When asked about his eating sugar, he responded saying I dont know. Attended meals but did not engage in groups. Appears content to walk halls and simply be on the unit without distress. Paces halls often and stares out windows. S/I, H/I: denies A/VH: denies Sleep: no complaints ADL's: Independent Group attendance: no Were Meds taken: yes Any med S/E: None observed or reported Mental Status Exam Appearance: wearing green scrubs Eye contact: fair Behavior: guarded, paces Speech: quiet, mumbles, poverty of speech Mood: no complaints Affect: constricted Thought process: difficult to assess due to poverty of speech Thought Content: Unable to assess Cognition: A/O X 3 Insight: Poor Judgment: Fair Interventions PRN's used: N/A Therapeutic interventions: 1:1 assessment, reality orientation, encouraged to participate in groups and to engage in conversation, provided therapeutic environment Restraints/seclusion/emergency medication: N/A Justification of Continued Inpatient Treatment: Court ordered treatment until determination made as to pt's competency to stand trial.
[2018-08-18 19:54] VITALS: BP 124/78
--- NOTE | 2018-08-18 21:14 | NUR ---
RN Nursing Note Chief Complaint: Competency Legal hold: Court Ordered, [facility] for Competency Why are they here: Client on involuntary status, 1370, for competency review Report received from MAGGIE Gupta Diagnosis/presenting symptoms: F29 - Unspecified psychosis not due to a substance or known physiological condition Assessment What has happened this shift: Pt was pacing in the hallway at change of shift. Had pt show me to his room and had pt assist me with making his beds. Pts bedding wall all piled up on his bed and the bed wasnt made. He seemed happy to help. Pt was pleasant and cooperative. He answered questions minimally and kept attempting to leave the room. I kept asking him to come back to finish the assessment and towards the end he became somewhat agitated. He is content to just pace the hallway. Pt denies s/i, denies hearing voices, seems bothered when asking about his medications and gets up to leave the room. Pt is somewhat avoidant w/staff and stares at doors leading out of the unit, but isnt attempting to open them. Pt was med compliant. S/I, H/I: denies A/VH: denies Sleep: nods yes when asked about sleep and sleeps during the night, ADL's: Independent Group attendance: states he attended but isnt able to talk about what they discussed today Were Meds taken: yes Any med S/E: None observed or reported Mental Status Exam Appearance: wearing scrubs, fixes hair in the mirror before going to bed, adequately groomed. Eye contact: fair Behavior: pacing the hallway, stays away from other staff and patients Speech: quiet, mumbles, poverty of speech Mood: pleasant, cooperative Affect: constricted Thought process: difficult to assess due to poverty of speech Thought Content: Unable to assess Cognition: A/O X 3 Insight: Poor Judgment: Fair Interventions PRN's used: N/A Therapeutic interventions: 1:1 assessment, reality orientation, encouraged to participate in groups and to engage in conversation, provided therapeutic environment Restraints/seclusion/emergency medication: N/A Justification of Continued Inpatient Treatment: Court ordered treatment until determination made as to pt's competency to stand trial.
[2018-08-19 08:00] VITALS: BP 112/68
[2018-08-19] MEDS: OLANZapine 5mg rapidly disint. tablet PO SCH ×2 (08:04→20:55)
--- NOTE | 2018-08-19 09:45 | NUR ---
Reassessment: Documented PO intake continues at 100% meeting nutrient needs. [facility] 08/18. Will continue to follow. Recommendations: 1) Continue with regular diet 2) Weekly wt Addendum: 08/19/18 at [address] Amended: Links added.
--- NOTE | 2018-08-19 17:40 | NUR ---
Nursing Progress Note: Chief Complaint: Competency Legal hold: 1370 Court Ordered [facility] Client on involuntary status for competency. Report received from MAGGIE New with use of SBAR. Why are they here: Pt is here on a court order to help determine competency. Diagnosis/presenting symptoms: Unspecified psychosis Assessment What has happened this shift: Pt was sleeping at the change of shift. He was cooperative with medication administration. He indicated that he slept OK. Pt was sitting in a chair in his room during the assessment. He avoided eye contact. Pt answered questions with a "yes" or "no" and did not offer additional information. Unable to fully assess pt because he walked out of the room during the assessment. Pt paced in the halls during the day. He was socially withdrawn and did not interact with other patients. His affect was constricted. Pt appeared to be responding to internal stimuli as he spent time staring at an area on the wall, looked away and then began staring at the area again. When asked what he was looking at, he did not respond. A meeting was conducted with the pt, Dr. Sanford, and several staff members to educate the pt regarding his upcoming court appearance. Pt was cooperative, but repeatedly looked around the room. He answered questions with minimal words. When asked his age, he said 20 and then 23. He is actually 22. S/I, H/I: unable to assess A/VH: unable to assess Sleep: pt indicated he slept well ADL's: independent Group attendance: no Were meds taken: yes Any med S/E: none noted Mental Status Exam Appearance: Pt is neatly groomed with his hair well-combed. Eye contact: avoidant Behavior: Pacing Speech: Minimal speech Mood: Guarded Affect: Constricted Thought process: Appears to be responding to internal stimuli Thought Content: unable to assess Cognition: A&Ox3 Insight: poor Judgment: poor Interventions PRN's used: None Therapeutic interventions: 1:1 therapeutic assessment, active listening, medication education, Q15min safety checks, therapeutic milieu Restraints/seclusion/emergency medication: None Justification of Continued Inpatient Treatment: pt here to assess competency. Pt appears to respond to internal stimuli, paces, isolates, and has minimal communication with staff.
[2018-08-19 20:00] VITALS: BP 134/79
[2018-08-19 21:45] VITALS: BP 134/79
--- NOTE | 2018-08-20 03:23 | NUR ---
Nursing Note: Chief Complaint: Psychosis Legal hold: Court Ordered, [facility] for Competency Client on involuntary status for GD/Competency to stand trial Report received from nurse with use of SBAR: MAGGIE Lopez Why are they here: Pt. sent to [facility] for evaluation from [facility] in order to assess his competency to stand trial for shoplifting, showing false ID, and indecent exposure. Per report pt. has been "Zoning out" at home, exhibiting possible s/s of psychosis. Pt. attended a mock trial today, 08/19/18 and was able to voice to staff that he understands what he is being charged for and feels ashamed for what he did. Diagnosis/presenting symptoms: Pt. continues to exhibits s/s of psychosis, paranoia, and response to internal stimuli AEB continued restlessness, pacing, mumbling to self at times, and difficulty with reciprocal interactions. However, response length to questions has improved along with attention span. Assessment What has happened this shift: Pt. up pacing the hallway at beginning of the shift, continues to do so throughout the shift, however does make eye contact with and smile at this caption writer several times and paranoia appears to be improved. However, pt does stop and stare at the wall periodically as if experiencing visual h/a and continues to mumble under his breath. 1:1 completed, pt. is cooperative and remains guarded, however appears able to focus with less difficulty and is less distractible. His response length to questions has improved along with his attention span. Pt. denies any S/I, H/I, or H/A. He agrees that his medications are helpful and states, "They help me retain knowledge." When questioned regarding groups, pt. reports he has been attending all groups and feels that they are also helpful, "We talk and do art; it helps for a while." He also reports he feels he is ready to go home, and voices that he lives with his parents and has a good relationship with them. S/I, H/I: Denies A/VH: Denies, however mumbles to self and is internally preoccupied Sleep: Reports he is able to sleep well ADL's: Pt. preforms tasks independently and attention span has improved Group attendance: Pt. reports he has been attending groups and enjoys them Were meds taken: Yes Any med S/E: None Mental Status Exam Appearance: Neat and appropriately dressed in hospital attire. Eye contact: Fair Behavior: Cooperative, with continued restlessness/pacing, psychomotor activity WNL Speech: Soft, mumbles at times, but will repeat self when asked to Mood: Pleasant, decreased paranoia Affect: Flat Thought process: Thought blocking and poverty of thought r/t mental illness Thought Content: Paranoid delusions, possible A/V/H, and internally preoccupied Cognition: A&O X3 (not to reason here) Insight: Poor Judgment: Poor to fair Interventions PRN's used: None Therapeutic interventions: Provided active listening, maintained a safe and therapeutic environment, reoriented to reality as needed, monitored behaviors and assessed need for intervention, provided medication education, and maintained Q 15 min safety checks. Restraints/seclusion/emergency medication: N/A Justification of Continued Inpatient Treatment: Pt. requires continued therapeutic intervention, he is not at baseline and not competent to stand trial.
[2018-08-20 08:00] VITALS: BP 124/74
[2018-08-20] MEDS: OLANZapine 5mg rapidly disint. tablet PO SCH ×2 (08:00→21:29)
--- NOTE | 2018-08-20 17:23 | NUR ---
Nursing Progress Note: Chief Complaint: Competency Legal hold: 137[address] Court Ordered [facility] Client on involuntary status for competency. Report received from MAGGIE Escobar with use of SBAR. Why are they here: Pt is here on a court order to help determine competency. Diagnosis/presenting symptoms: Unspecified psychosis Assessment What has happened this shift: Pt was pacing the halls at the change of shift. He avoided eye contact while walking by this assembly instructions writer in the hallway. Minimal response to questions. The pt was observed watching TV at times. He did not attend groups. Pt appeared to be responding to internal stimuli and talking as he was walking in the hallway. He is quiet and withdrawn. Avoids social interactions with staff and other patients. He changed his clothes multiple times throughout the day. S/I, H/I: unable to assess A/VH: unable to assess Sleep: napped ADL's: independent Group attendance: no Were meds taken: yes Any med S/E: none noted Mental Status Exam Appearance: Pt initially dressed in scrubs, but changed into street clothes. Eye contact: Pt avoided eye contact Behavior: Pacing, avoided social interactions with staff and other patients Speech: Minimal speech Mood: Isolating to self Affect: Constricted Thought process: Appears to be responding to internal stimuli Thought Content: unable to assess Cognition: A&Ox3 Insight: poor Judgment: poor Interventions PRN's used: None Therapeutic interventions: 1:1 therapeutic assessment, active listening, medication education, Q15min safety checks, therapeutic milieu Restraints/seclusion/emergency medication: None Justification of Continued Inpatient Treatment: pt here to assess competency. Pt appears to respond to internal stimuli, paces, isolates, and has minimal communication with staff.
[2018-08-20 19:05] VITALS: BP 125/78
--- NOTE | 2018-08-21 04:33 | NUR ---
Chief Complaint: Competency Legal hold: 137[address] Court Ordered [facility] Client on involuntary status for competency. Report received from MAGGIE Lopez with use of SBAR. Why are they here: Pt is here on a court order to help determine competency. Diagnosis/presenting symptoms: Unspecified psychosis Assessment: This patient paces the hallways for the first hour and a half following shift change. The patient does not speak until spoken to, he will however nod in recognition in the hallway. When questioned the patient denies hallucinations, he denies S/I or H/I. This patients affect is flat. Patient is medication compliant, he smiles once in a while. The patient did not eat his dinner. He is polite. He did not eat his dinner. S/I, H/I: unable to assess A/VH: unable to assess Sleep: Good. ADL's: Independent Group Attendance: No groups on night. Were meds taken: yes Any med S/E: No Mental Status Exam Appearance: Street clothes. Eye contact: Pt avoided eye contact Behavior: Pacing, avoided social interactions with staff and other patients Speech: Minimal speech Mood: Isolating to self Affect: Constricted Thought process: Appears to be responding to internal stimuli Thought Content: unable to assess Cognition: A&Ox3 Insight: poor Judgment: poor Interventions PRN's used: None Therapeutic interventions: 1:1 therapeutic assessment, active listening, medication education, Q15min safety checks, therapeutic milieu Restraints/seclusion/emergency medication: None Justification of Continued Inpatient Treatment: pt here to assess competency. Pt appears to respond to internal stimuli, paces, isolates, and has minimal communication with staff.
[2018-08-21] MEDS: OLANZapine 5mg rapidly disint. tablet PO SCH ×2 (07:49→20:32)
[2018-08-21 08:00] VITALS: BP 108/75
--- NOTE | 2018-08-21 14:15 | NUR ---
NURSING PROGRESS NOTE Chief Complaint: Psychosis Legal hold: Court Ordered, [facility] for Competency Client on involuntary status for GD/Competency to stand trial Report received from nurse with use of SBAR: MAGGIE Lopez Why are they here: Pt. sent to [facility] for evaluation from [facility] in order to assess his competency to stand trial for shoplifting, showing false ID, and indecent exposure. Per report pt. has been "Zoning out" at home, exhibiting possible s/s of psychosis. Pt. attended a mock trial today, 08/19/18 and was able to voice to staff that he understands what he is being charged for and feels ashamed for what he did. Diagnosis/presenting symptoms: Pt. continues to exhibits s/s of psychosis, paranoia, and response to internal stimuli AEB continued restlessness, pacing, mumbling to self at times, and difficulty with reciprocal interactions. However, response length to questions has improved along with attention span. Assessment What has happened this shift: Pt. up pacing the hallway. Changes clothing several times during shift, however does make eye contact with and smile at times. Cooperative and quiet. Denies any S/I, H/I, or H/A. He is not attending therapy groups today but he did go out on the patio with others. No other changes today. S/I, H/I: Denies A/VH: Denies, however mumbles to self and is internally preoccupied Sleep: Reports he is able to sleep well ADL's: Pt. preforms tasks independently and attention span has improved Group attendance: None Were meds taken: Yes Any med S/E: None Mental Status Exam Appearance: Neat and appropriately dressed in hospital attire. Eye contact: Fair Behavior: Cooperative, with continued restlessness/pacing, psychomotor activity WNL Speech: Soft, mumbles at times, but will repeat self when asked to Mood: Pleasant, decreased paranoia Affect: Flat Thought process: Thought blocking and poverty of thought r/t mental illness Thought Content: Paranoid delusions, possible A/V/H, and internally preoccupied Cognition: A&O X3 Insight: Poor Judgment: Poor to fair Interventions PRN's used: None Therapeutic interventions: Provided active listening, maintained a safe and therapeutic environment, reoriented to reality as needed, monitored behaviors and assessed need for intervention, provided medication education, and maintained Q 15 min safety checks. Restraints/seclusion/emergency medication: N/A Justification of Continued Inpatient Treatment: Pt. requires continued therapeutic intervention, he is not at baseline and not competent to stand trial.
[2018-08-21 19:00] VITALS: BP 124/73
--- NOTE | 2018-08-22 00:34 | NUR ---
NURSING PROGRESS NOTE Chief Complaint: Psychosis Legal hold: Court Ordered, [facility] for Competency Client on involuntary status for GD/Competency to stand trial Report received from nurse with use of SBAR: MAGGIE Centeno Why are they here: Pt. sent to [facility] for evaluation from [facility] in order to assess his competency to stand trial for shoplifting, showing false ID, and indecent exposure. Per report pt. has been "Zoning out" at home, exhibiting possible s/s of psychosis. Pt. attended a mock trial today, 08/19/18 and was able to voice to staff that he understands what he is being charged for and feels ashamed for what he did. Diagnosis/presenting symptoms: F29.9 Psychosis NOS F12.10 Cannibis abuse Pt. continues to exhibits s/s of psychosis, paranoia, and response to internal stimuli AEB continued restlessness, pacing, mumbling to self at times, and difficulty with reciprocal interactions. However, response length to questions has improved along with attention span. Assessment Patient visible on the unit pacing most of the beginning of the shift. Patient is responding more when staff initiates interaction with him, but patient does not initiate interaction with others. Patient affect remains flat and patient observed responding to internal stimuli at times. Patient does deny depression and denies suicidal thoughts and denies auditory hallucinations. Patient asleep by 2200. S/I, H/I: Denies A/VH: Denies, however mumbles to self and is internally preoccupied Sleep: Reports he is able to sleep well ADL's: Pt. preforms tasks independently and attention span has improved Group attendance: None Were meds taken: Yes Any med S/E: None Mental Status Exam Appearance: Neat and appropriately dressed in hospital attire. Eye contact: Fair Behavior: Cooperative, with continued restlessness/pacing, psychomotor activity WNL Speech: Soft, mumbles at times, but will repeat self when asked to Mood: Pleasant, decreased paranoia Affect: Flat Thought process: Thought blocking and poverty of thought r/t mental illness Thought Content: Paranoid delusions, possible A/V/H, and internally preoccupied Cognition: A&O X3 Insight: Poor Judgment: Poor to fair Interventions PRN's used: None Therapeutic interventions: Provided active listening, maintained a safe and therapeutic environment, reoriented to reality as needed, monitored behaviors and assessed need for intervention, provided medication education, and maintained Q 15 min safety checks. Restraints/seclusion/emergency medication: N/A Justification of Continued Inpatient Treatment: Pt. requires continued therapeutic intervention, he is not at baseline and not competent to stand trial.
[2018-08-22 08:00] VITALS: BP 106/58
[2018-08-22] MEDS: OLANZapine 5mg rapidly disint. tablet PO SCH ×2 (08:06→20:23)
--- NOTE | 2018-08-22 12:39 | NUR ---
NURSING PROGRESS NOTE Chief Complaint: Psychosis Legal hold: Court Ordered, [facility] for Competency Client on involuntary status for GD/Competency to stand trial Report received from nurse with use of SBAR: MAGGIE Fortune Why are they here: Pt. sent to [facility] for evaluation from [facility] in order to assess his competency to stand trial for shoplifting, showing false ID, and indecent exposure. Diagnosis/presenting symptoms: F29.9 Psychosis NOS F12.10 Cannibis abuse Pt exhibits some negative symptoms of psychosis such as poor eye contact, avoidance, isolating to self, impaired social skills, pacing, frequent clothing changes, and poverty of speech. Assessment: What has happened this shift: Pt continues to isolate to self, avoids social interaction and eye contact, paces hallways, returns to room and comes out wearing different clothes, he is cooperative with meds and assessment but continues to have poverty of speech, answers questions with 1-2 word answers, denies all symptoms, does not have any questions regarding his situation or treatment plan. S/I, H/I: Pt denies A/VH: Pt denies though hesitant/paused when asked about hearing voices, asked him if he heard anything else such as music or noises, pt again responded "no." Sleep: Slept well per noc shift report ADL's: Independent, needs reminders/encouragement for showers Group attendance: No groups today Were meds taken: Yes Any med S/E: None noted or reported Mental Status Exam Appearance: Clean Eye contact: Fair Behavior: Calm, restless, paces most of shift, frequent clothing changes, isolates to self/does not socialize with staff or peers Speech: Soft, clear, limited (poverty of speech) Mood: Pleasant Affect: Flat Thought process: Poverty of thought, thought blocking Thought Content: Pt does not express thoughts or feelings remains constricted, avoidant Cognition: A&O X 2 Insight: Poor Judgment: Poor to fair Interventions PRN's used: None Therapeutic interventions: 1:1 assessment, attempt to establish rapport, encouragement of self care, encourage to express thoughts/feelings, medication administration/monitoring, Q 15 minute checks. Restraints/seclusion/emergency medication: N/A Justification of Continued Inpatient Treatment: Pt exhibiting negative symptoms, does not seem competent to stand trial.
--- NOTE | 2018-08-23 03:12 | NUR ---
Nursing Note: Chief Complaint: Competency Legal hold: Court Ordered, [facility] for Competency Client on involuntary status for competency Report received from nurse with use of SBAR: Marguerite SERRANO Diagnosis/presenting symptoms: Patient is only oriented x 1. Assessment What has happened this shift: Patient paces the halls, smiles at staff occasionally. He says hello to justowriter operator and asks how writers day was. He stands nervously fidgeting with his hands and after a few words walks away. Pt takes his medication without issue. When asked if he is feeling suicidal or depressed he denies both. He smiles nervously and walks away again. He also talks to himself under his breath occasionally but remains pleasant. S/I, H/I: Denies A/VH: denies, but appears to be responding to internal stimuli at times Sleep:see sleep assessment notation ADL's: Independent Group attendance: cage shift manager, no groups Were meds taken:yes Any med S/E: None reported, none observed Mental Status Exam Appearance:clean Eye contact: Fair Behavior: paces the hallways smiles occasionally, talks to self Speech: Soft, sparse Mood: anxious Affect: pleasant Thought process: Poverty of thought, blocking, disorganized. Thought Content: unable to assess Cognition: Oriented x 1 Insight: Poor Judgment: Poor Interventions PRN's used: None Therapeutic interventions: 1:1 provided active listening, maintained a safe and therapeutic environment, and maintained Q 15 min safety checks. Restraints/seclusion/emergency medication: N/A Justification of Continued Inpatient Treatment: Court ordered treatment.
[2018-08-23] MEDS: OLANZapine 5mg rapidly disint. tablet PO SCH ×2 (07:55→20:48)
[2018-08-23 08:00] VITALS: BP 120/69
--- NOTE | 2018-08-23 16:51 | NUR ---
Nursing Progress Note: Chief Complaint: Competency Legal hold: Court Ordered, [facility] for Competency Client on involuntary status for competency Report received from [facility] with use of SBAR. Diagnosis/presenting symptoms: Patient is only oriented x 1. Assessment What has happened this shift: Patient paces hallways, talks to himself under his breath. Was seen staring at ceiling for a few minutes. Did not want to talk, answers one or two questions, then leaves room. S/I, H/I: Denies A/VH: denies, but appears to be responding to internal stimuli at times Sleep: Good. ADL's: Independent Group attendance: None. Were meds taken:yes Any med S/E: None reported, none observed Mental Status Exam Appearance:clean Eye contact: Avoidance. Behavior: paces the hallways smiles occasionally, talks to self Speech: Soft, clear. Mood: Depressed. Affect: flat. Thought process: Poverty of thought, blocking, disorganized. Thought Content: unable to assess Cognition: Oriented x 1 Insight: Poor Judgment: Poor Interventions PRN's used: None Therapeutic interventions: 1:1 provided active listening, maintained a safe and therapeutic environment, and maintained Q 15 min safety checks. Restraints/seclusion/emergency medication: N/A Justification of Continued Inpatient Treatment: Court ordered treatment.
[2018-08-23 20:23] VITALS: BP 135/80
--- NOTE | 2018-08-24 03:06 | NUR ---
Nursing Note: Chief Complaint: [facility] for [facility] Report received from nurse with use of SBAR: Nasima SERRANO Diagnosis/presenting symptoms: Patient is only oriented x 1. Assessment What has happened this shift: Patient paces the hallways. He is pleasant on approach and says hello but keeps moving. He is constantly fidgeting with his hands and if he stands still he shifts foot to foot. He looks around nervously at times. Patient changed his clothes twice this shift. Manager Summer asks how patient is feeling he says, "good." Manager Summer then asks if patient has a favorite color he says, "green." Manager Summer then asks if he has a favorite animal and he replies, "a lion because he's the melissa of the [employer]." Patient still denies any depression or thoughts of suicide. S/I, H/I: Denies A/VH: denies, but appears to be responding to internal stimuli at times Sleep:see sleep assessment notation ADL's: Independent Group attendance: casino shift manager, no groups Were meds taken:yes Any med S/E: None reported, none observed Mental Status Exam Appearance:clean Eye contact: Fair Behavior: paces the hallways smiles occasionally Speech: Soft, sparse Mood: anxious Affect: bizarre at times Thought process: Poverty of thought, blocking, disorganized. Thought Content: unable to assess Cognition: Oriented x 1 Insight: Poor Judgment: Poor Interventions PRN's used: None Therapeutic interventions: 1:1 provided active listening, maintained a safe and therapeutic environment, and maintained Q 15 min safety checks. Restraints/seclusion/emergency medication: N/A Justification of Continued Inpatient Treatment: Court ordered treatment.
[2018-08-24 08:00] VITALS: BP 122/67
[2018-08-24] MEDS: OLANZapine 5mg rapidly disint. tablet PO SCH ×2 (08:36→20:35)
--- NOTE | 2018-08-24 17:26 | NUR ---
Nursing Progress Note: Chief Complaint: Competency Legal hold: Court Ordered, [facility] for Competency Client on involuntary status for competency Report received from [facility] with use of SBAR. Diagnosis/presenting symptoms: Patient is only oriented x 1. Assessment What has happened this shift: Patient paces hallways, talks to himself under his breath. Patient was avoidant of conversation only answering a few questions, then walked away. S/I, H/I: Denies A/VH: denies, but appears to be responding to internal stimuli at times Sleep: Good. ADL's: Independent Group attendance: None. Were meds taken:yes Any med S/E: None reported, none observed Mental Status Exam Appearance:clean Eye contact: Avoidance. Behavior: paces the hallways smiles occasionally, talks to self. Withdrawn. Speech: Soft, clear. Mood: Depressed. Affect: flat. Thought process: Poverty of thought, blocking, disorganized. Thought Content: unable to assess Cognition: Oriented x 1 Insight: Poor Judgment: Poor Interventions PRN's used: None Therapeutic interventions: 1:1 provided active listening, maintained a safe and therapeutic environment, and maintained Q 15 min safety checks. Restraints/seclusion/emergency medication: N/A Justification of Continued Inpatient Treatment: Court ordered treatment. Addendum: 08/24/18 at 1733 by Mary Rodriguez RN Mary Daly RN logged into my computer. Note written by Jose M Vasquez RN
[2018-08-24 20:00] VITALS: BP 113/73
--- NOTE | 2018-08-25 02:48 | NUR ---
Nursing Note: Chief Complaint: Competency Legal hold: Court Ordered, [facility] for Competency Client on involuntary status for competency Report received from nurse with use of SBAR: Nasima SERRANO Diagnosis/presenting symptoms: Patient is only oriented x 1. Assessment What has happened this shift: Patient's mother and older brother came to visit. He sits with them for awhile talking. He occasionally gets up and walks away from them and down the ybarra then returns to their company in the community room. After they leave engineering writer asks how his visit went, he responds ,"good." He has a small piece of string wrapped tightly around his finger that looks like it cam from his scrubs. He wraps it and unwraps it nervously while talking with engineering writer then throws it away sporadically. S/I, H/I: Denies A/VH: denies, but appears to be responding to internal stimuli at times Sleep:see sleep assessment notation ADL's: Independent Group attendance: night time nanny, no groups Were meds taken:yes Any med S/E: None reported, none observed Mental Status Exam Appearance:clean Eye contact: Fair Behavior: paces the hallways, fidgets Speech: Soft spoken Mood: anxious Affect: withdrawn Thought process: Poverty of thought, blocking, disorganized. Thought Content: unable to assess Cognition: Oriented x 1 Insight: Poor Judgment: Poor Interventions PRN's used: None Therapeutic interventions: 1:1 provided active listening, maintained a safe and therapeutic environment, and maintained Q 15 min safety checks. Restraints/seclusion/emergency medication: N/A Justification of Continued Inpatient Treatment: Court ordered treatment.
[2018-08-25 08:00] VITALS: BP 115/67
[2018-08-25] MEDS: OLANZapine 5mg rapidly disint. tablet PO SCH ×2 (08:26→20:30)
--- NOTE | 2018-08-25 17:24 | NUR ---
RN Progress Note: Chief Complaint: Competency Legal hold: Court Ordered, [facility] for Competency Client on involuntary status for competency Report received from MAGGIE Patel with use of SBAR. Diagnosis/presenting symptoms: Patient is only oriented x 1. Assessment What has happened this shift: Patient quiet; refuses groups when encouraged; isolates and paces hallway. S/I, H/I: Denies A/VH: appears to be responding to internal stimuli mumbles while pacing halls Sleep: Good. ADL's: Independent Group attendance: N/A Were meds taken: Y Any med S/E: None reported or observed Mental Status Exam Appearance: hospital scrubs neat and clean Eye contact: Poor, avoids Behavior: withdrawn; avoids all contact. Speech: Soft, clear. Mood: depressed Affect: flat. Thought process: Poverty of thought Thought Content: unable to assess Cognition: unable to assess Insight: Poor Judgment: Poor Interventions PRN's used: None Therapeutic interventions: attempted to establish rapport; encouraged pm group; maintained safe and therapeutic environment; monitored q15min safety checks Restraints/seclusion/emergency medication: N/A Justification of Continued Inpatient Treatment: Court ordered treatment.
[2018-08-25 20:00] VITALS: BP 125/77
--- NOTE | 2018-08-25 23:40 | NUR ---
Nursing Note: Chief Complaint: Competency Legal hold: Court Ordered, [facility] for Competency Client on involuntary status for competency. Report received from nurse Khalida RN with use of SBAR Diagnosis/presenting symptoms: Patient is only oriented x 1. Assessment What has happened this shift: Patient is in bed at change of shift, he gets up shortly after and paces the ybarra. HE tells this conventional underwriter his day was "good" and while trying to initiate 1:1 assessment he walks the halls. Patient presents as preoccupied, and when attempting to have conversation patient appears to always be ready to leave, and not engaged. HE even ate his evening snack while walking the halls. He stops and stares randomly at the atkins, doors, and looks up into the air. He is compliant with his evening medications. S/I, H/I: Denies A/VH: Denies, but does appear to be responding to internal stimuli Sleep: Currently sleeping ADL's: Independent Group attendance: None this shift Were meds taken: Yes Any med S/E: None reported, none observed Mental Status Exam Appearance: Clean Eye contact: Fair Behavior: Constantly pacing the hallways when awake Speech: Soft spoken, one worded responses Mood: Anxious Affect: Congruent to mood, and seems withdrawn Thought process: Poverty of thought Thought Content: Unable to assess Cognition: Some deficits Insight: Poor Judgment: Poor Interventions PRN's used: None Therapeutic interventions: 1:1 assessment, provided active listening to help establish rapport. Maintained a safe and therapeutic environment. Administered medications as ordered. Maintained Q 15 minute checks for safety. Restraints/seclusion/emergency medication: N/A Justification of Continued Inpatient Treatment: Court ordered treatment.
[2018-08-26 08:00] VITALS: BP 94/63
[2018-08-26] MEDS: OLANZapine 5mg rapidly disint. tablet PO SCH ×2 (08:10→20:53)
--- NOTE | 2018-08-26 10:56 | NUR ---
Reassessment: Documented PO intake 75-100% however noted that pt refused dinner 08/25; pt likely meeting nutrient needs. LBM 08/24. Will continue to follow. Recommendations: 1) Continue with regular diet 2) Weekly wt Addendum: 08/26/18 at [address] Amended: Links added.
--- NOTE | 2018-08-26 14:12 | NUR ---
RN Progress Note: Chief Complaint: Competency Legal hold: Court Ordered, [facility] for Competency Client on involuntary status for competency Report received from MAGGIE Coleman with use of SBAR. Diagnosis/presenting symptoms: Patient is only oriented x 1. Assessment What has happened this shift: Patient quiet; refuses groups when encouraged; isolates and paces hallway. This nurse asked him if he feels better now compared to admit he responded, yes. S/I, H/I: Denies A/VH: appears to be responding to internal stimuli mumbles while pacing halls Sleep: Good. ADL's: Independent Group attendance: N/A Were meds taken: Y Any med S/E: None reported or observed Mental Status Exam Appearance: hospital scrubs neat and clean Eye contact: Poor, avoids Behavior: withdrawn; avoids all contact. Speech: Soft, clear. Mood: depressed Affect: flat. Thought process: Poverty of thought Thought Content: unable to assess Cognition: unable to assess Insight: Poor Judgment: Poor Interventions PRN's used: None Therapeutic interventions: attempted to establish rapport; encouraged all groups; maintained safe and therapeutic environment; monitored q15min safety checks Restraints/seclusion/emergency medication: N/A Justification of Continued Inpatient Treatment: Court ordered treatment.
[2018-08-26 19:00] VITALS: BP 134/84
--- NOTE | 2018-08-26 23:13 | NUR ---
Nursing Note: Chief Complaint: Competency Legal hold: Court Ordered, [facility] for Competency Client on involuntary status for competency. Report received from nurse Khalida RN with use of SBAR Diagnosis/presenting symptoms: Patient is only oriented x 1. Assessment What has happened this shift: Patient walking the ybarra at the change of shift. He randomly stops and will stare at the wall or breonna hinges. He does not interact with others and when not walking the halls he sits in a chair in his room in the dark. He agrees to a 1:1 assessment at the bedside, he makes fair eye contact but only answers with 1 worded responses to questions. He is compliant with his evening medications, and after he eats snack he turns himself to bed. S/I, H/I: Denies A/VH: Denies, but does appear to be responding to internal stimuli Sleep: Currently sleeping ADL's: Independent Group attendance: None this shift Were meds taken: Yes Any med S/E: None reported, none observed Mental Status Exam Appearance: Well groomed, but food stains are ntoed on his green scrubs Eye contact: Fair Behavior: Constantly pacing the hallways when awake Speech: Soft spoken, one worded responses Mood: Anxious Affect: Congruent to mood, and seems withdrawn Thought process: Poverty of thought Thought Content: Unable to assess Cognition: Some deficits Insight: Poor Judgment: Poor Interventions PRN's used: None Therapeutic interventions: 1:1 assessment, provided active listening to help establish rapport. Maintained a safe and therapeutic environment. Administered medications as ordered. Maintained Q 15 minute checks for safety. Restraints/seclusion/emergency medication: N/A Justification of Continued Inpatient Treatment: Court ordered treatment.
[2018-08-27 07:52] VITALS: BP 103/54
[2018-08-27] MEDS: OLANZapine 5mg rapidly disint. tablet PO SCH ×2 (08:33→20:19)
--- NOTE | 2018-08-27 16:07 | NUR ---
RN Nursing Note Chief Complaint: Competency Legal hold: Court Ordered, [facility] for Competency Client on involuntary status for competency. Report received from nurse Virginia RN with use of SBAR Diagnosis/presenting symptoms: Pt. sent to [facility] for evaluation from [facility] in order to assess his competency to stand trial for shoplifting, showing false ID, and indecent exposure. Assessment: What has happened this shift: Patient hallways throughout the day. He eats meals in the main room w/peers. He attends groups but leaves in between pacing the halls again. He agrees to 1:1 assessment and is cooperative throughout the assessment however does not answer questions. S/I, H/I: Denies A/VH: Denies, appears to be responding to internal stimuli as he is seen and heard mumbling to self. Sleep: does not sleep this shift ADL's: Independent Group attendance: In and out does not participate Were meds taken: Y Any med S/E: None reported, none observed Mental Status Exam Appearance: Well groomed Eye contact: Fair Behavior: Constantly pacing the hallways when awake Speech: Soft spoken, one worded responses Mood: Anxious Affect: Congruent to mood, and seems withdrawn Thought process: Poverty of thought Thought Content: Unable to assess Cognition: Some deficits Insight: Poor Judgment: Poor Interventions PRN's used: None Therapeutic interventions: 1:1 assessment, provided active listening to help establish rapport. Encouraged attendance and participation w/groups. Encouraged ADLs in afternoon. Maintained a safe and therapeutic environment. Administered medications as ordered. Monitored for SEs. Maintained Q 15 minute checks for safety. Restraints/seclusion/emergency medication: N/A Justification of Continued Inpatient Treatment: Court ordered treatment.
[2018-08-27 19:54] VITALS: BP 123/67
--- NOTE | 2018-08-27 22:10 | NUR ---
Nursing Note: Chief Complaint: Competency Legal hold: Court Ordered, [facility] for Competency Client on involuntary status for competency. Report received from nurse Khalida RN with use of SBAR Diagnosis/presenting symptoms: Patient is only oriented x 1. Assessment What has happened this shift: Patient is in his room in bed at the change of shift. He agrees to a 1:1 assessment. He states his day was "good" when asked if he did anything fun today he states "No." pauses then states "Just slept and ate." He responds to questions appropriately, and appears less nervous this evening around staff. He walks the halls a couple times, eats a snack in his room. He is compliant with his evening medications, then goes to bed. S/I, H/I: Denies A/VH: Denies, but does appear to be responding to internal stimuli Sleep: Currently sleeping ADL's: Independent Group attendance: None this shift Were meds taken: Yes Any med S/E: None reported, none observed Mental Status Exam Appearance: Well groomed, clean clothes this shift Behavior: Occasional pacing, then sits in room in the dark Speech: Soft spoken, one worded responses Mood: Anxious Affect: Congruent to mood, and seems withdrawn Thought process: Poverty of thought Thought Content: Unable to assess Cognition: Some deficits Insight: Poor Judgment: Poor Interventions PRN's used: None Therapeutic interventions: 1:1 assessment, provided active listening to help establish rapport. Maintained a safe and therapeutic environment. Administered medications as ordered. Maintained Q 15 minute checks for safety. Restraints/seclusion/emergency medication: N/A Justification of Continued Inpatient Treatment: Court ordered treatment.
[2018-08-28] MEDS: OLANZapine 5mg rapidly disint. tablet PO SCH ×2 (07:55→20:26)
[2018-08-28 08:00] VITALS: BP 117/106
[2018-08-28 09:30] VITALS: BP 110/66
--- NOTE | 2018-08-28 16:15 | NUR ---
RN Nursing Note Chief Complaint: Competency Legal hold: Court Ordered, [facility] for Competency Client on involuntary status for competency. Report received from MAGGIE Bond with use of SBAR. Diagnosis/presenting symptoms: PC [id number] F29 Psychosis NOS F12.10 Cannibis abuse Pt. sent to [facility] for evaluation from [facility] in order to assess his competency to stand trial for shoplifting, showing false ID, and indecent exposure. Assessment: What has happened this shift: Received patient pacing hallways which he did periodically throughout the shift. Patient more responsive to staff initiating interaction with him. Patient more open to answering questions during nursing assessment. Patient continues to have flat affect; though, patient denies auditory and visual hallucinations and denies suicidal thoughts. Patient out for meals, but refused both groups. S/I, H/I: Denies A/VH: Denies, appears to be responding to internal stimuli as he is seen and heard mumbling to self. Sleep: does not sleep this shift ADL's: Independent Group attendance: In and out does not participate Were meds taken: Y Any med S/E: None reported, none observed Mental Status Exam Appearance: Well groomed Eye contact: Fair Behavior: Constantly pacing the hallways when awake Speech: Soft spoken, one worded responses Mood: Anxious Affect: Congruent to mood, and seems withdrawn Thought process: Poverty of thought Thought Content: Unable to assess Cognition: Some deficits Insight: Poor Judgment: Poor Interventions PRN's used: None Therapeutic interventions: 1:1 assessment, provided active listening to help establish rapport. Encouraged attendance and participation w/groups. Encouraged ADLs in afternoon. Maintained a safe and therapeutic environment. Administered medications as ordered. Monitored for SEs. Maintained Q 15 minute checks for safety. Restraints/seclusion/emergency medication: N/A Justification of Continued Inpatient Treatment: Court ordered treatment.
[2018-08-28 19:00] VITALS: BP 112/77
[2018-08-28] MEDS: LORazepam 1 MG tablet PO PRN (20:28)
--- NOTE | 2018-08-29 03:13 | NUR ---
RN PROGRESS NOTE: Chief Complaint: Incompetent to stand trial. Legal hold: Court Ordered. Client on involuntary status for competency. Report received from nurse with use of SBAR: Jorge SERRANO Diagnosis/presenting symptoms: Psychosis, paranoia, isolation, antisocial. Assessment: Why are they here: The patient brought in by Torrey Екатерина on court order to try and restore competency so he can stand trial for indecent exposure, shoplifting, and showing false ID to officers. What has happened this shift: the patient was pacing the halls at shift change. He agreed to 1:1 in his room. "I don't know why I'm here, [facility] brought me." The patient gives poor eye contact, has latency when responding, and avoids contact with people. He gives mostly one word answers and walks away when he's done talking. The patient spent most of the evening pacing or standing still staring at atkins. He accepted snacks, was provided HS meds, then went to bed. S/I, H/I: Denies A/VH: Denies, but can be seen apparently talking to himself. Sleep: has been asleep since HS med pass. ADL's: Independent Group attendance: No groups at night. Were meds taken:yes Any med S/E: None noted. Mental Status Exam: Appearance:Clean well groomed man wearing street clothes. Eye contact: Avoids. Behavior: Paces the halls, isolates to self. Speech: Soft, latent responses. Mood: Blunted,Anxious Affect: Flat Thought process: Thought blocking, poverty. Thought Content: Unable to assess. Cognition: Oriented x 1 Insight: Poor Judgment: Poor Interventions: PRN's used: None Therapeutic interventions: 1:1 provided active listening, maintained a safe and therapeutic environment, and maintained Q 15 min safety checks. Restraints/seclusion/emergency medication: N/A Justification of Continued Inpatient Treatment: Court ordered treatment.
[2018-08-29 07:39] VITALS: BP 122/61
[2018-08-29] MEDS: OLANZapine 5mg rapidly disint. tablet PO SCH ×2 (08:47→20:46)
--- NOTE | 2018-08-29 17:20 | NUR ---
RN Nursing Note Chief Complaint: Competency Legal hold: Court Ordered, [facility] for Competency Client on involuntary status for competency. Report received from nurse Nasir RN with use of SBAR Diagnosis/presenting symptoms: Pt. sent to [facility] for evaluation from [facility] in order to assess his competency to stand trial for shoplifting, showing false ID, and indecent exposure. Assessment: Patient stayed in bed throughout the shift except to get up for meals. Accepted medication without event. Chose not to speak with staff when approached. What has happened this shift: S/I, H/I: Denies A/VH: Denies, appears to be responding to internal stimuli as he is seen and heard mumbling to self. Sleep: does not sleep this shift ADL's: Independent Group attendance: N/A Were meds taken: Y Any med S/E: None reported, none observed Mental Status Exam Appearance: Well groomed Eye contact: Fair Behavior: Isolated in his room today Speech: Soft spoken, one worded responses Mood: Anxious Affect: Congruent to mood, and seems withdrawn Thought process: Poverty of thought Thought Content: Unable to assess Cognition: Some deficits Insight: Poor Judgment: Poor Interventions PRN's used: None Therapeutic interventions: 1:1 assessment, provided active listening to help establish rapport. Patient chose not to participate. Encouraged attendance and participation w/groups. Encouraged ADLs in afternoon. Maintained a safe and therapeutic environment. Administered medications as ordered. Monitored for SEs. Maintained Q 15 minute checks for safety. Restraints/seclusion/emergency medication: N/A Justification of Continued Inpatient Treatment: Court ordered treatment.
[2018-08-29 20:32] VITALS: BP 124/80
--- NOTE | 2018-08-30 02:03 | NUR ---
RN PROGRESS NOTE: Chief Complaint: Incompetent to stand trial. Legal hold: Court Ordered. Client on involuntary status for competency. Report received from nurse with use of SBAR: Leesa SERRANO Diagnosis/presenting symptoms: Schizophrenia, paranoia, isolation, antisocial behavior. Assessment: Why are they here: The patient brought in by [facility] on court order to try and restore competency, so he can stand trial for indecent exposure, shoplifting, and showing false ID to Officers. What has happened this shift: the patient was found isolating in his room. He had a visit from his parents in the group room, but the patient just sits there, and doesn't engage in conversation with them. They don't seem bothered by his silence, as it seems to be his normal behavior. The patient only stayed in group room with them for ~15 minutes, then got up and walked out. This also didn't seem to disturb them. The patient walked back to his room and climbed on his bed. He chose not to speak to staff when approached. The patient accepted his HS medication, then went to sleep. S/I, H/I: Denies A/VH: Denies, but can be seen apparently talking to himself. Sleep: has been asleep since HS med pass. ADL's: Independent. Group attendance: No groups at night. Were meds taken: Yes. Any med S/E: None noted. Mental Status Exam: Appearance:Clean well groomed man with jet black hair wearing green scrubs. Eye contact: Avoids. Behavior: Paces the halls, isolates to self and room. Speech: Soft, latent responses. Mood: Anxious. Affect: Flat. Thought process: Thought blocking, poverty. Thought Content: Unable to assess. Cognition: Oriented to self and place. Insight: Poor. Judgment: Poor. Interventions: PRN's used: None. Therapeutic interventions: 1:1 provided active listening, encouraged participation, maintained a safe and therapeutic environment, and maintained Q 15 min safety checks. Restraints/seclusion/emergency medication: N/A Justification of Continued Inpatient Treatment: Court ordered treatment.
[2018-08-30 08:00] VITALS: BP 111/58
[2018-08-30] MEDS: OLANZapine 5mg rapidly disint. tablet PO SCH ×2 (08:09→20:30)
--- NOTE | 2018-08-30 16:21 | NUR ---
RN Progress Note Chief Complaint: Paranoid Schizophrenia Legal hold: 5250 ends 09/08@3725 Client on involuntary status for GD Report received from MAGGIE Best with use of SBAR. Why are they here: History of paranoid schizophrenia diagnosed at age 24. Found by family in his apartment on the floor in a catatonic state, admitted to [facility] two weeks ago for stabilization of electrolytes, catatonia, and extremely low WBC count. Medically stable, admitted for medication stabilization. Diagnosis/presenting symptoms: paranoid schizophrenia catatonia Assessment: What has happened this shift: This morning during 1:1 assessment reinforced unit rules; by encouraging pt. to not eat in his room; participation in the program requires attending groups and good hygiene requires daily showers. When his breakfast tray first came pt refused to come out of his room so his tray was left in the eating area. Pt later joined the others coming out of his room with some prompting and ate his breakfast. At lunch pt again came out and ate with the his peers. He also joined the others during the am group for a few minutes. S/I, H/I:Denies A/VH: Denies Sleep: Naps on and off throughout the day ADL's: Independent Group attendance: No Were meds taken: Y Any med S/Es: Y Mental Status Exam Appearance: Disheveled; wearing the same clothes he has worn for the past week. Eye contact: Fair Behavior: Quiet; keeps to himself will isolate if allowed too. Speech: Clear, pressured Mood: Withdrawn Affect: Blunted Thought process: Paranoid Thought Content: Appears paranoid Cognition: Some deficit Insight: Poor Judgment: Poor Interventions PRN's used: N/A Therapeutic interventions: provided active listening, established rapport; maintained safe and therapeutic environment; educated unit program; educated on medication and medication side effects; monitored for side effects; maintained Q 15 minute safety checks. Restraints/seclusion/emergency medication: none Justification of Continued Inpatient Treatment: Pt is in need of further medication stabilization he remains paranoid appears to be responding to internal stimuli; remains GD.
[2018-08-30 20:00] VITALS: BP 115/79
--- NOTE | 2018-08-30 22:31 | NUR ---
RN PROGRESS NOTE: Chief Complaint: Incompetent to stand trial. Legal hold: Court Ordered. Client on involuntary status for competency. Report received from nurse with use of SBAR: Leesa SERRANO Diagnosis/presenting symptoms: Schizophrenia, paranoia, isolation, antisocial behavior. Assessment: Why are they here: The patient brought in by [facility] on court order to try and restore competency, so he can stand trial for indecent exposure, shoplifting, and showing false ID to Officers. What has happened this shift: The patient was in his room alone at shift change He was approached later for 1:1, but would only say that he's "OK." The patient later came out to get some snacks, then went right to his room. He patient accepted his HS meds, then went to bed. S/I, H/I: Denies A/VH: Denies. Sleep: Good. ADL's: Independent. Group attendance: No groups at night. Were meds taken: Yes. Any med S/E: None noted. Mental Status Exam: Appearance:Clean well groomed man with jet black hair wearing green scrubs. Eye contact: Avoids. Behavior: Paces the halls, isolates to self and room. Speech: Soft, latent responses. Mood: Anxious. Affect: Flat. Thought process: Thought blocking, poverty. Thought Content: Unable to assess. Cognition: Oriented to self and place. Insight: Poor. Judgment: Poor. Interventions: PRN's used: None. Therapeutic interventions: 1:1 provided active listening, encouraged participation, maintained a safe and therapeutic environment, and maintained Q 15 min safety checks. Restraints/seclusion/emergency medication: N/A Justification of Continued Inpatient Treatment: Court ordered treatment.
[2018-08-31] MEDS: OLANZapine 5mg rapidly disint. tablet PO SCH ×2 (07:29→20:28)
[2018-08-31 08:00] VITALS: BP 103/57
--- NOTE | 2018-08-31 14:39 | NUR ---
RN Nursing Note Chief Complaint: Competency Legal hold: Court Ordered, [facility] for Competency Client on involuntary status for competency. Report received from nurse Nasir RN with use of SBAR Diagnosis/presenting symptoms: Pt. sent to [facility] for evaluation from [facility] in order to assess his competency to stand trial for shoplifting, showing false ID, and indecent exposure. Assessment What has happened this shift: Patient spent the majority of his day in bed. He was easily awakened in the morning and took his medications without incident. He got up for meals but slept inbetween. He answers closed questions. He states his mood is "good" and that he is just tired. He only says a few words, but it is more than last time this nurse worked with him. S/I, H/I: Denies A/VH: Denies Sleep: napping ADL's: Independent. Group attendance: None this shift Were meds taken: Yes Any med S/E: None reported or observed Mental Status Exam Appearance: disheveled, poor hygiene Eye contact: good Behavior: calm, cooperative Speech: Normal rate and rhythm Mood: "good" Affect: slightly restricted Thought process: unable to assess Thought Content: unable to assess Cognition: A/Ox4 Insight: Poor Judgment: Poo Interventions PRN's used: None Therapeutic interventions: 1:1 assessment, provided active listening to help establish rapport. Patient chose not to participate. Encouraged attendance and participation w/groups. Encouraged ADLs in afternoon. Maintained a safe and therapeutic environment. Administered medications as ordered. Monitored for SE Maintained Q 15 minute checks for safety. Restraints/seclusion/emergency medication: N/A Justification of Continued Inpatient Treatment: Court ordered treatment.
[2018-08-31 19:42] VITALS: BP 120/72
--- NOTE | 2018-08-31 21:50 | NUR ---
RN Nursing Note Chief Complaint: Competency Legal hold: Court Ordered, [facility] for Competency Client on involuntary status for competency. Report received from nurse CHAVO RN with use of SBAR Diagnosis/presenting symptoms: Pt. sent to [facility] for evaluation from [facility] in order to assess his competency to stand trial for shoplifting, showing false ID, and indecent exposure. Assessment What has happened this shift: PT was in his room at change of shift. 1:1 assessment completed at bedside. Pt is more talkative than usual. He generally answers closed ended questions only but today he added more to his statements. Denies S/I, states his day was good and he did "art" and saw someone "wearing doctors clothes." Pt reports he is sleeping good and appetite is good. Pts mother and another female, possibly his aunt came to visit. Pt told them he was too tired to visit and said some things in sami to them. Encouraged pt to spend some time visiting but he states he just wants to go to bed and returned to his bed. Pt was med compliant. Pts visitors speak limited occitan, sami is their first language. They would like to meet with the doctor in person to speak about pts care. Offered to provide their phone contact to the doctor but they would like to come in and they will be back Thursday or Thursday at 10am visit. S/I, H/I: Denies A/VH: Denies Sleep: reports he has been sleeping good at night ADL's: Independent. Group attendance: pt states he went to art group but notes for day shift show no attendance. Were meds taken: Yes Any med S/E: None reported or observed Mental Status Exam Appearance: disheveled, poor hygiene Eye contact: good Behavior: calm, cooperative Speech: Normal rate and rhythm, soft spoken Mood: "good" Affect: constricted Thought process: thought blocking, hesitates before answering questions Thought Content: unable to assess Cognition: A/Ox3 Insight: Poor Judgment: Poor Interventions PRN's used: None Therapeutic interventions: 1:1 assessment, encouraged visit w/his family, Maintained a safe and therapeutic environment. Administered medications as ordered. Monitored for SE Maintained Q 15 minute checks for safety. Restraints/seclusion/emergency medication: N/A Justification of Continued Inpatient Treatment: Court ordered treatment.
[2018-09-01 07:52] VITALS: BP 105/49
[2018-09-01] MEDS: OLANZapine 5mg rapidly disint. tablet PO SCH ×2 (08:29→20:28)
--- NOTE | 2018-09-01 09:40 | NUR ---
Reassessment: Documented PO intake fluctuates with recent intake 75-100% meeting nutrient needs. Current wt is stable with admit wt. LB 08/31. Will continue to follow. Recommendations: 1) Continue with regular diet 2) Monitor need for ONS 3) Weekly wt Addendum: 09/01/18 at [address] Amended: Links added.
--- NOTE | 2018-09-01 15:37 | NUR ---
RN Nursing Note Chief Complaint: Competency Legal hold: Court Ordered, [facility] for Competency Client on involuntary status for competency. Report received from nurse Virgen RN with use of SBAR Diagnosis/presenting symptoms: Pt. sent to [facility] for evaluation from [facility] in order to assess his competency to stand trial for shoplifting, showing false ID, and indecent exposure. Assessment What has happened this shift: Pt continues to isolated to self, went back to bed after meals today, declines to attend groups, observed pacing in the halls though less than usual, did not observe any outfit changes this shift, so far pt has remained in green scrubs with a long sleeved shirt underneath. When asked the pt how he was doing today he replied, "good." Pt denied depression, anxiety and all other symptoms. Notified STEWART Atkins and IDT that the pt's mom is planning on visiting this Thursday between -, she is Cypriot speaking only and would like to speak with his doctor. SW stated she could arrange for a topper packer to be present. S/I, H/I: Pt denies A/VH: Pt denies Sleep: no complaints, naps after meals ADL's: Independent. Group attendance: Pt declined to attend groups Were meds taken: Yes Any med S/E: None reported or observed Mental Status Exam Appearance: disheveled Eye contact: fair to good Behavior: calm, withdrawn, isolative, paces Speech: soft spoken, poverty of speech Mood: "good" Affect: blunted, constricted Thought process: thought blocking Thought Content: poverty of thought Cognition: A/Ox3 Insight: Poor Judgment: Poor Interventions PRN's used: None Therapeutic interventions: 1:1 assessment, encouragement to attend groups, express thoughts and feelings, medication administration/monitoring, Q 15 min checks. Restraints/seclusion/emergency medication: N/A Justification of Continued Inpatient Treatment: Court ordered treatment.
[2018-09-01 19:45] VITALS: BP 119/78
[2018-09-01 20:00] VITALS: BP 119/78
--- NOTE | 2018-09-01 21:38 | NUR ---
Nursing Progress note The patient has been isolating to his room in the dark and then periodically walks out in the ybarra. He initiates no social contact with peers or staff. He was observed mumbling to himself but he denies psychotic symptoms. He appears clean and appropriately dressed. During the evening assessment he was polite and have minimal verbal responses during the evening nursing assessment. He stated his mood was "good" and his energy level was "good" He denies anxiety. He denied having auditory or visual hallucinations despite being observed mumbling to himself. He denies thoughts to harm himself or others. He denies side effects to medications. He did know he was taking zyprexa. He was oriented to day and date. He stated he did not know his mental health diagnosis. His insight is poor. He does not believe he has a mental illness and he denies feeling he needs to take psychiatric medications. He was not able to state why he was court mandated into treatment.
[2018-09-02 08:00] VITALS: BP 98/51
[2018-09-02] MEDS: OLANZapine 5mg rapidly disint. tablet PO SCH (08:00)
--- NOTE | 2018-09-02 09:37 | NUR ---
Zyprexa zydis 5mg not available until now, 0937.
--- NOTE | 2018-09-02 16:54 | NUR ---
RN Nursing Note Chief Complaint: Competency Legal hold: Court Ordered, [facility] for Competency Client on involuntary status for competency. Report received from nurse Josie RN with use of SBAR Diagnosis/presenting symptoms: F29 - Unspecified psychosis not due to a substance or known physiological condition Pt. sent to [facility] in order to assess his competency to stand trial for shoplifting, showing false ID, and indecent exposure. Assessment What has happened this shift: Patient isolates to his room. Occasionally he is observed walking the halls. He eats his meals with others in the group room. He takes all his medications as prescribed without any issue. He denies any needs. He is not conversational but answers all questions asked. Pt's mom is planning on visiting this Thursday, interpretor will be provided. S/I, H/I: Pt denies A/VH: Pt denies Sleep: no complaints, naps after meals ADL's: Independent. Group attendance: no Were meds taken: Yes Any med S/E: None reported or observed Mental Status Exam Appearance: appropriate Eye contact: fair to good Behavior: calm, withdrawn, isolative, paces Speech: soft spoken, poverty of speech Mood: states he is good Affect: blunted, constricted Thought process: thought blocking Thought Content: unable to formally assess. Cognition: A/Ox3 Insight: Poor Judgment: fair Interventions PRN's used: None Therapeutic interventions: 1:1 assessment, therapeutic communication that included positive feedback, medication education, maintained safe and therapeutic environment, Q 15 min checks. Restraints/seclusion/emergency medication: N/A Justification of Continued Inpatient Treatment: Court ordered treatment.
[2018-09-02 19:00] VITALS: BP 120/70
[2018-09-02] MEDS: olanzapine 10mg tablet PO SCH (21:13)
--- NOTE | 2018-09-03 01:28 | NUR ---
Nursing Note: Chief Complaint: Competency Legal hold: Court Ordered, [facility] for Competency Client on involuntary status for competency Report received from nurse with use of SBAR: Marie RN Diagnosis/presenting symptoms: Patient is only oriented x 1. Assessment What has happened this shift: Patient is asleep at shift change. He sleeps the entirety of the shift except when sign writer letterer or painter assesses him and HS medication administration. Pt was cooperative and polite. He answered questions but was not conversational. He does not say much and goes back to sleep after assessment. S/I, H/I: Denies A/VH: denies Sleep:see sleep assessment notation ADL's: Independent Group attendance: cook night, no groups Were meds taken:yes Any med S/E: None reported, none observed Mental Status Exam Appearance:clean Eye contact: Fair Behavior: sleeps in bed, only wakes up for assessment Speech: Soft spoken Mood: tired Affect: bland Thought process: Poverty of thought, blocking, disorganized. Thought Content: unable to assess Cognition: Oriented x 1 Insight: Poor Judgment: Poor Interventions PRN's used: None Therapeutic interventions: 1:1 provided active listening, maintained a safe and therapeutic environment, and maintained Q 15 min safety checks. Restraints/seclusion/emergency medication: N/A Justification of Continued Inpatient Treatment: Court ordered treatment.
[2018-09-03 07:48] VITALS: BP 94/59
[2018-09-03] MEDS: OLANZAPINE 5 MG TABLET PO SCH (08:00)
--- NOTE | 2018-09-03 14:10 | NUR ---
RN Progress Note: Chief Complaint: Competency Legal hold: Court Ordered, [facility] for Competency Client on involuntary status for competency. Report received from nurse Anju SERRANO with use of SBAR Diagnosis/presenting symptoms: Psychosis NOS, cannabis abuse. Pt. sent to [facility] for evaluation from [facility] in order to assess his competency to stand trial for shoplifting, showing false ID, and indecent exposure, pt isolative, poverty of thought & speech Assessment What has happened this shift: Pt denied depression, anxiety, SI/HI/AH/VH, returned to room after breakfast and napped. Pt is A/O X 4, however, often answers questions initially with "I don't know" but when questions repeated or worded again another way, he answers correctly. Pt continues to isolate to self, does attend groups if encouraged to go or walked to group with staff. Mom was supposed to come for a visit today and speak with psychiatrist but she did not show up. S/I, H/I: Pt denies A/VH: Pt denies Sleep: no complaints, naps after meals ADL's: Independent. Group attendance: Pt attended groups but leaves early Were meds taken: Yes Any med S/E: None noted or reported Mental Status Exam Appearance: disheveled Eye contact: fair to good Behavior: calm, withdrawn, isolative, paces at times Speech: soft spoken, poverty of speech Mood: "good" Affect: blunted, constricted Thought process: thought blocking Thought Content: poverty of thought Cognition: A/Ox4 Insight: Poor Judgment: Poor Interventions PRN's used: None Therapeutic interventions: 1:1 assessment, encouragement to attend groups, express thoughts and feelings, medication administration/monitoring, Q 15 min checks. Restraints/seclusion/emergency medication: N/A Justification of Continued Inpatient Treatment: Court ordered treatment.
[2018-09-03 20:00] VITALS: BP 110/63
[2018-09-03] MEDS: olanzapine 10mg tablet PO SCH (21:22)
--- NOTE | 2018-09-04 00:47 | NUR ---
Nursing Note: Chief Complaint: Competency Legal hold: Court Ordered, [facility] for Competency Client on involuntary status for competency Report received from nurse with use of SBAR: Marguerite SERRANO Diagnosis/presenting symptoms: Patient is only oriented x 1. Assessment What has happened this shift: Patient rests in bed most of shift quietly. He gets up occasionally to get a snack and pace a few times before laying back down. Pt was pleasant and polite. He answers questions but does not engage in conversation. He is cooperative during assessment and smiles occasionally. S/I, H/I: Denies A/VH: denies Sleep:see sleep assessment notation ADL's: Independent Group attendance: film processing shift supervisor, no groups Were meds taken:yes Any med S/E: None reported, none observed Mental Status Exam Appearance:clean Eye contact: Fair Behavior: paces the hallways or rests in bed Speech: Soft, sparse Mood: tired Affect: flat Thought process: Poverty of thought, blocking, disorganized. Thought Content: unable to assess Cognition: Oriented x 1 Insight: Poor Judgment: Poor Interventions PRN's used: None Therapeutic interventions: 1:1 provided active listening, maintained a safe and therapeutic environment, and maintained Q 15 min safety checks. Restraints/seclusion/emergency medication: N/A Justification of Continued Inpatient Treatment: Court ordered treatment.
[2018-09-04 08:00] VITALS: BP 109/69
[2018-09-04] MEDS: OLANZAPINE 5 MG TABLET PO SCH (08:17)
--- NOTE | 2018-09-04 15:50 | NUR ---
RN Progress Note: Chief Complaint: Competency Legal hold: Court Ordered, [facility] for Competency Client on involuntary status for competency. Report received from nurse Anju SERRANO with use of SBAR Diagnosis/presenting symptoms: Psychosis NOS, cannabis abuse. Pt. sent to [facility] for evaluation from [facility] in order to assess his competency to stand trial for shoplifting, showing false ID, and indecent exposure, pt isolative, poverty of thought & speech Assessment What has happened this shift: Pt up out of bed more today, continues to deny all symptoms. Pt encouraged to attend groups, attended both groups, leaves early but attempts to stick it out for awhile, pt observed sitting in community room during morning group in very back row of chairs, bouncing his knees up and down. Tech also reported that he had noticed that the pt was moving his legs more today. Spoke with pt to assess for possible side effects of meds, pt denies having difficulty keeping his legs still or feeling as though he has to move all the time, "no, I'm good." Acknowledged the efforts that the patient has been making in attending groups, gave positive feedback, pt nodded, improved eye contact noted. Pt also sits for short periods of time watching TV or movies in rec room and community room, continues to pace frequently. S/I, H/I: Pt denies A/VH: Pt denies Sleep: slept 9 hours per noc shift report ADL's: Independent. Group attendance: Pt attended groups but leaves early Were meds taken: Yes Any med S/E: pt denies medication side effects Mental Status Exam Appearance: messy hair Eye contact: good Behavior: calm, cooperative, restless Speech: soft spoken, poverty of speech Mood: "I'm good." Affect: anxious, restricted Thought process: organized, answers questions with very short appropriate responses Thought Content: poverty of thought, does not express thoughts or feelings Cognition: A/Ox4 Insight: Poor Judgment: fair Interventions PRN's used: None Therapeutic interventions: 1:1 assessment, encouragement to attend groups, express thoughts and feelings, medication administration/monitoring for effect/side effects, Q 15 min checks. Restraints/seclusion/emergency medication: N/A Justification of Continued Inpatient Treatment: Court ordered treatment.
[2018-09-04 20:00] VITALS: BP 123/77
[2018-09-04] MEDS: olanzapine 10mg tablet PO SCH (20:41)
--- NOTE | 2018-09-04 22:20 | NUR ---
RN Progress Note Chief Complaint: Competency Legal hold: Court Ordered, [facility] for Competency Report received from MAGGIE Brown with use of SBAR Diagnosis/presenting symptoms: Psychosis NOS, cannabis abuse. Pt sent to [facility] from [facility] in order to assess his competency to stand trial for shoplifting, showing false ID, and indecent exposure. Assessment What has happened this shift: Pt awake and walking the halls at change of shift. Met with RN for 1:1 assessment at the bedside after dinner. Pt lying in bed with the covers pulled up around his face, but opens his eyes and makes eye contact immediately when this RN walked in the room. He is able to name the day of the week, month, and year, and knows where he is. Repeatedly states "I don't know" when asked when his last BM was or of any adverse effects to medications, though no involuntary movements or tremors are observed. Pt unable to name the medication he is taking, and when told it is Zyprexa and asked if he knows what it is for, he responds "bowel movements?" Educated patient on use of Zyprexa, but he is not able to demonstrate comprehension. Asked pt what he did today, and he responds "I woke up, ate, and that's about it". S/I, H/I: denies A/VH: denies Sleep: no sleep issues reported ADL's: Independent. Group attendance: no evening groups Were meds taken: Yes Any med S/E: pt denies medication side effects, no tremors observed Mental Status Exam Appearance: messy hair, unshaven, wearing green scrubs Eye contact: good Behavior: calm, cooperative Speech: soft spoken, poverty of speech, mumbles at times Mood: no complaints Affect: constricted Thought process: goal-directed Thought Content: does not express thoughts, difficult to assess Cognition: A/Ox4 Insight: Poor Judgment: fair Interventions PRN's used: None Therapeutic interventions: 1:1 assessment, encouragement to engage in conversation, medication education Restraints/seclusion/emergency medication: N/A Justification of Continued Inpatient Treatment: Court ordered treatment.
[2018-09-05 07:43] VITALS: BP 135/65
[2018-09-05] MEDS: OLANZAPINE 5 MG TABLET PO SCH (08:53)
--- NOTE | 2018-09-05 15:03 | NUR ---
RN Progress Note: Chief Complaint: Competency Legal hold: Court Ordered, [facility] for Competency Client on involuntary status for competency. Report received from nurse Del Real RN with use of SBAR Diagnosis/presenting symptoms: Psychosis NOS, cannabis abuse. Pt. sent to [facility] for evaluation from [facility] in order to assess his competency to stand trial for shoplifting, showing false ID, and indecent exposure, pt isolative, poverty of thought & speech Assessment What has happened this shift: Pt presents with improved eye contact, more receptive of staff interaction, still denies all symptoms, can't remember when he last had a bowel movement but denies any discomfort, abdomen soft, bowel sounds present X 4. Asked pt if he knew why he was taking Zyprexa, pt replied, "because it's necessary." Pt could not elaborate further but agrees that he is doing better and seems to realize that the medication has been helping, medication education provided. Offered to listen anytime pt wants to talk or share how he is feeling, or if he has any questions or concerns. S/I, H/I: Pt denies A/VH: Pt denies Sleep: slept well per noc shift report ADL's: Independent. Group attendance: No groups today Were meds taken: Yes Any med S/E: pt denies medication side effects Mental Status Exam Appearance: messy hair Eye contact: good Behavior: calm, pleasant, cooperative Speech: soft spoken, poverty of speech Mood: Improved Affect: blunted, restricted Thought process: organized, answers questions with short appropriate responses Thought Content: Does not often express thoughts or feelings Cognition: A/Ox4 Insight: fair Judgment: fair Interventions PRN's used: None Therapeutic interventions: 1:1 assessment, therapeutic conversation, encouragement to express thoughts and feelings, medication education, administration/monitoring for effect/side effects, Q 15 min checks. Restraints/seclusion/emergency medication: N/A Justification of Continued Inpatient Treatment: Court ordered treatment.
[2018-09-05 20:00] VITALS: BP 106/56
[2018-09-05] MEDS: olanzapine 10mg tablet PO SCH (20:57)
--- NOTE | 2018-09-05 21:42 | NUR ---
RN PROGRESS NOTE: Chief Complaint: Incompetent to stand trial. Legal hold: Court Ordered. Client on involuntary status for competency. Report received from nurse with use of SBAR: Kevin SERRANO Diagnosis/presenting symptoms: Schizophrenia, paranoia, isolation, antisocial behavior. Assessment: Why are they here: The patient brought in by [facility] on court order to try and restore competency, so he can stand trial for indecent exposure, shoplifting, and showing false ID to Officers. What has happened this shift: The patient was found asleep at shift change. When his room was entered for 1:1, he immediately sat up. When asked if he wanted to come out of his room for a snack, "no." He was asked if he felt uncomfortable around other people, "no." the patient did not want to answer any questions. He took his HS meds, then went back to bed. S/I, H/I: Denies A/VH: Denies. Sleep: Good. ADL's: Independent. Group attendance: No groups at night. Were meds taken: Yes. Any med S/E: None noted. Mental Status Exam: Appearance: Disheveled man with messy, jet black hair wearing street clothes. Eye contact: Avoids. Behavior: Isolates to self and room. Speech: Soft, latent responses. Mood: Blunted. Affect: Flat. Thought process: Thought blocking, poverty. Thought Content: Unable to assess. Cognition: Oriented to self and place. Insight: Poor. Judgment: Poor. Interventions: PRN's used: None. Therapeutic interventions: 1:1 provided active listening, encouraged participation, maintained a safe and therapeutic environment, and maintained Q 15 min safety checks. Restraints/seclusion/emergency medication: N/A Justification of Continued Inpatient Treatment: Court ordered treatment.
[2018-09-06 08:00] VITALS: BP 108/65
[2018-09-06] MEDS: OLANZAPINE 5 MG TABLET PO SCH (08:02)
--- NOTE | 2018-09-06 09:35 | NUR ---
Reassessment: Documented PO intake fluctuates with recent intake 75-100% meeting nutrient needs. Current wt is stable with admit wt. Will continue to follow. Recommendations: 1) Continue with regular diet 2) Weekly wt Addendum: 09/06/18 at [address] Amended: Links added.
--- NOTE | 2018-09-06 16:28 | NUR ---
RN Progress Note: Chief Complaint: Competency Legal hold: Court Ordered, [facility] for Competency Client on involuntary status for competency. Report received from nurse Kika SERRANO with use of SBAR Diagnosis/presenting symptoms: Psychosis NOS, cannabis abuse. Pt. sent to [facility] for evaluation from [facility] in order to assess his competency to stand trial for shoplifting, showing false ID, and indecent exposure, pt isolative, poverty of thought & speech Assessment What has happened this shift: Received pt in bed sleeping w/o distress. Awoke and ate breakfast in group room. Reports feeling good. Did not want to shower today and appears a bit disheveled wearing green scrubs. Continues to communicate with one and two word answers. Mood is pleasant and pt cooperative with staff and other pts. Was seen eating multiple sugar packets and when asked why, he just shrugs his shoulders. Attended afternoon group and stated he enjoyed it. Spent large portion of day pacing the halls. Encouraged him to make his needs known to staff to which he responds ok. Does not seem to be bothered by being in a locked unit. Encouraged continued group attendance and communication with staff. S/I, H/I: Pt denies A/VH: Pt denies Sleep: slept well per noc shift report ADL's: Independent. Group attendance: Attended afternoon group Were meds taken: Yes Any med S/E: pt denies medication side effects Mental Status Exam Appearance: messy hair Eye contact: good Behavior: calm, pleasant, cooperative Speech: soft spoken, poverty of speech Mood: Improved Affect: blunted, restricted Thought process: organized, answers questions with short appropriate responses Thought Content: Does not often express thoughts or feelings Cognition: A/Ox4 Insight: fair Judgment: fair Interventions PRN's used: None Therapeutic interventions: 1:1 assessment, therapeutic conversation, encouragement to express thoughts and feelings, medication education, administration/monitoring for effect/side effects, Q 15 min checks. Restraints/seclusion/emergency medication: N/A Justification of Continued Inpatient Treatment: Court ordered treatment.
[2018-09-06 20:00] VITALS: BP 113/76
[2018-09-06] MEDS: olanzapine 10mg tablet PO SCH (21:23)
--- NOTE | 2018-09-07 04:20 | NUR ---
RN PROGRESS NOTE: Chief Complaint: Incompetent to stand trial. Legal hold: Court Ordered. Client on involuntary status for competency. Report received from nurse with use of SBAR: MAGGIE Gupta. Diagnosis/presenting symptoms: Schizophrenia, paranoia, isolation, antisocial behavior. Assessment: Why are they here: The patient brought in by [facility] on court order to try and restore competency, so he can stand trial for indecent exposure, shoplifting, and showing false ID to Officers. What has happened this shift: The patient was found asleep at shift change. When his room was entered for 1:1, he did not want to wake up. He would not talk. He was offered snacks if he came out, but shook his head no. He takes his HS meds without problem, then lies down and covers his head. He makes no complaints and voices no needs or wants. S/I, H/I: Denies A/VH: Denies. Sleep: Good. ADL's: Independent. Group attendance: No groups at night. Were meds taken: Yes. Any med S/E: None noted. Mental Status Exam: Appearance: Disheveled man with messy, jet black hair, wearing green scrubs. Eye contact: Avoids. Behavior: Isolates to self and room. Speech: Soft, latent responses. Mood: Blunted. Affect: Flat. Thought process: Thought blocking, poverty. Thought Content: Unable to assess. Cognition: Oriented to self and place. Insight: Poor. Judgment: Poor. Interventions: PRN's used: None. Therapeutic interventions: 1:1 provided active listening, encouraged participation, maintained a safe and therapeutic environment, and maintained Q 15 min safety checks. Restraints/seclusion/emergency medication: N/A Justification of Continued Inpatient Treatment: Court ordered treatment.
--- NOTE | 2018-09-07 07:50 | NUR ---
RN Progress Note: Out of room dressed in green scrubs, using a walker to move down the ybarra, due to left foot incisional wound that makes pressure on foot painful. Patient stated he was ready to take his medications if he could have applesauce "because my stomach hurts me every morning when I wake up." Patient given applesauce and medications. Refused Motrin due to stomach upset. Dr. Nash here to see patient. Informed of patient's daily upset stomach. Dr. Nash stated he would change patient's AM Pepcid to Protonix. Dr. Nash also stated he would be changing patient's Ativan to Klonopin this morning. When speaking with patient, he admits "to hearing voices, they're bad, really bad." Patient believes "I'm not gonna get better. I doubt these meds will help. I'm too far gone." Patient stated "Last night was bad. The voices were loud and I was feeling really horny. It made me feel like a bad person." Informed it was normal for him to feel sexual desires. Patient stated "No, it's never gonna happen." Patient presents as anxious and restless while talking to staff. Legs are shaking back and forth. Says he has to get up and "move around." Addendum: 09/07/18 at 1808 by Gisselle Chamorro RN Notes are not for this patient
[2018-09-07 08:00] VITALS: BP 99/54
[2018-09-07] MEDS: OLANZAPINE 5 MG TABLET PO SCH (09:43)
--- NOTE | 2018-09-07 18:09 | NUR ---
RN Nursing Note Chief Complaint: Competency Legal hold: Court Ordered, [facility] for Competency Client on involuntary status for competency. Report received from nurse Nasir RN with use of SBAR Diagnosis/presenting symptoms: Pt. sent to [facility] for evaluation from [facility] in order to assess his competency to stand trial for shoplifting, showing false ID, and indecent exposure. Assessment: Patient stayed in bed throughout the shift except to get up for meals and occasionally pace the halls. Stays dressed in green scrubs. Accepted medication without event or comment. Chose not to speak with staff when approached or participate in any assessments. Attended group therapies briefly. What has happened this shift: S/I, H/I: Denies A/VH: Denies, appears to be responding to internal stimuli as he is seen and heard mumbling to self. Sleep: does not sleep this shift ADL's: Independent Group attendance: N/A Were meds taken: Y Any med S/E: None reported, none observed Mental Status Exam Appearance: Well groomed Eye contact: Fair Behavior: Isolated in his room today Speech: Soft spoken, one worded responses Mood: Anxious Affect: Congruent to mood, and seems withdrawn Thought process: Poverty of thought Thought Content: Unable to assess Cognition: Some deficits Insight: Poor Judgment: Poor
[2018-09-07] MEDS: olanzapine 10mg tablet PO SCH (20:12)
[2018-09-07 20:13] VITALS: BP 111/79
--- NOTE | 2018-09-07 23:32 | NUR ---
Nursing Progress Note: The patient has mainly been isolating in his room in bed in the dark. He has not been observed socializing with peers or staff. During the evening assessment he replies with vague minimal soft, monotone responses. He was oriented to day and date. When asked directly he denies any psychiatric symptoms and every thing was "good" He denies auditory or visual hallucinations. He denied feeling paranoid. His insight and judgement are very poor. He did not know that he was in a psychiatric hospital or why he was here. He stated he did not believe he had a mental illness or that he needed medications. He was compliant with his HS zyprexa but did not know what he was taking. Medication education provided. He denied that he had side effects to medications. He stated that his discharge plan was to return home to live with his family.
[2018-09-08 08:00] VITALS: BP 115/75
[2018-09-08] MEDS: OLANZAPINE 5 MG TABLET PO SCH (08:34)
--- NOTE | 2018-09-08 17:21 | NUR ---
RN Progress Note: Asleep upon change of shift observation. Awakened for vital signs and notified of breakfast. Patient got up, dressed in green scrubs. Ate 100% of his meal. Accepted AM medication without event. Allowed staff to minimally interact with him. When asked what brought him to the hospital, patient responded "indecent exposure." Asked if he graduated high school, patient responded "it was a continuation school." When asked if he ever had a job patient said "no." When asked what he did after high school, patient stated "I worked at [employer]. I was bad" Patient then got up and walked away. Remained in green scrubs throughout the day. Paced up and down the halls for greater part of the shift. Per mother, patient is obsessed with walking and exercise. Patient presents as intellectually delayed. Lacks insight and cause and effect reasoning at this time. Also presents with poor social skills and will not initiate conversation with anyone. Guarded and keeps to himself.
[2018-09-08 20:00] VITALS: BP 115/66
[2018-09-08] MEDS: olanzapine 10mg tablet PO SCH (20:03)
--- NOTE | 2018-09-09 01:45 | NUR ---
Nursing Note: Chief Complaint: Competency Legal hold: Court Ordered, [facility] for Competency Client on involuntary status for competency Report received from nurse with use of SBAR: Leesa RN Diagnosis/presenting symptoms: Patient is only oriented x 1. Assessment What has happened this shift: Patient rests in bed most of shift quietly. He gets up occasionally to get a snack and pace a few times before laying back down. Pt was pleasant and polite. He answers questions but does not engage in conversation. He is cooperative during assessment and smiles occasionally. S/I, H/I: Denies A/VH: denies Sleep:see sleep assessment notation ADL's: Independent Group attendance: awake overnight monitor, no groups Were meds taken:yes Any med S/E: None reported, none observed Mental Status Exam Appearance:clean Eye contact: Fair Behavior: paces the hallways or rests in bed Speech: Soft, sparse Mood: tired Affect: flat Thought process: Poverty of thought, blocking, disorganized. Thought Content: unable to assess Cognition: Oriented x 1 Insight: Poor Judgment: Poor Interventions PRN's used: None Therapeutic interventions: 1:1 provided active listening, maintained a safe and therapeutic environment, and maintained Q 15 min safety checks. Restraints/seclusion/emergency medication: N/A Justification of Continued Inpatient Treatment: Court ordered treatment.
[2018-09-09 07:54] VITALS: BP 108/77
[2018-09-09] MEDS: OLANZAPINE 5 MG TABLET PO SCH (08:15)
--- NOTE | 2018-09-09 16:22 | NUR ---
RN Progress Note: Chief Complaint: Competency Legal hold: Court Ordered, [facility] for Competency Client on involuntary status for competency. Report received from Anju SERRANO with use of SBAR Diagnosis/presenting symptoms: Psychosis NOS, cannabis abuse. Pt. sent to [facility] for evaluation from [facility] in order to assess his competency to stand trial for shoplifting, showing false ID, and indecent exposure, pt isolative, poverty of thought & speech Assessment What has happened this shift: Received pt in bed sleeping w/o distress. Awoke and ate breakfast in group room. Reports feeling OK without any physical issues or pain. Did not shower today and appears unkempt wearing green scrubs. Continues to communicate with one and two word answers. Mood is pleasant and pt cooperative with staff and other pts. Attended groups with minimal participation. Walked up and down hallways and took naps with his free time. Participated in mock court exercise today. Encouraged continued group attendance and communication with staff, as he remains withdrawn and minimally communicative. Attended and ate breakfast and lunch with others and tolerated it well. Took AM med w/o complaint or question. S/I, H/I: Pt denies A/VH: Pt denies Sleep: slept well per noc shift report ADL's: Independent. Group attendance: Attended groups today Were meds taken: Yes Any med S/E: pt denies medication side effects Mental Status Exam Appearance: messy hair Eye contact: good Behavior: calm, pleasant, cooperative Speech: soft spoken, poverty of speech Mood: Improved Affect: blunted, restricted Thought process: organized, answers questions with short appropriate responses Thought Content: Does not often express thoughts or feelings Cognition: A/Ox4 Insight: fair Judgment: fair Interventions PRN's used: None Therapeutic interventions: 1:1 assessment, therapeutic conversation, encouragement to express thoughts and feelings, medication education, administration/monitoring for effect/side effects, Q 15 min checks. Restraints/seclusion/emergency medication: N/A Justification of Continued Inpatient Treatment: Court ordered treatment.
[2018-09-09 19:00] VITALS: BP 123/69
[2018-09-09] MEDS: olanzapine 10mg tablet PO SCH (20:38)
--- NOTE | 2018-09-10 00:45 | NUR ---
Nursing Note: Chief Complaint: Competency Legal hold: Court Ordered, [facility] for Competency Client on involuntary status for competency Report received from nurse with use of SBAR: MAGGIE Gupta Diagnosis/presenting symptoms: Patient is only oriented x 1. Assessment What has happened this shift: Patient is in his room laying in bed in the dark at ilana change of shift. He occasionally will come out pace the halls, and then return back to his room in the dark. He is cooperative this shift for a 1:1 assessment, and is compliant with his evening medications. He answers with one worded responses, and appears anxious/nervous during assessment. After his evening medications he spends the remainder of his shift in bed. S/I, H/I: Denies A/VH: Denies Sleep:see Currently sleeping see sleep assessment ADL's: Independent Group attendance: No groups this shift Were meds taken:Yes Any med S/E: None reported, none observed Mental Status Exam Appearance: WNL, in clean green scrubs Eye contact: Fair Behavior: Stays in his bed or paces halls Speech: Soft, minimal Mood: "good" Affect: Flat Thought process: Poverty of thought, thought blocking Thought Content: Unable to assess Cognition: Oriented x 1 Insight: Poor Judgment: Poor Interventions PRN's used: None Therapeutic interventions: 1:1 assessment, provided active listening to help maintain rapport. Maintained a safe and therapeutic environment. Administered medications as ordered. Maintained Q 15 minute checks for safety. Restraints/seclusion/emergency medication: N/A Justification of Continued Inpatient Treatment: Court ordered treatment.
[2018-09-10 08:00] VITALS: BP 102/62
[2018-09-10] MEDS: OLANZAPINE 5 MG TABLET PO SCH (08:24)
--- NOTE | 2018-09-10 17:34 | NUR ---
Nursing Note: Chief Complaint: Competency Legal hold: Court Ordered, [facility] for Competency Client on involuntary status for competency Report received from nurse with use of SBAR: MAGGIE Coleman Diagnosis/presenting symptoms: PC 1368C-Rastafari F29 Psychosis NOS F12.10 Cannibis abuse Assessment What has happened this shift: Received patient awake pacing the unit. Patient up in visible on the unit most of the day. Patient does not initiate interaction with others, but does respond when staff talk to him. Patient will exhibit slight smile but generally has a flat/blunted affect. Patient denies depression and denies auditory hallucinations at this time. Patient attended group with minimal participation and was out of his room for meals. S/I, H/I: Denies A/VH: Denies Sleep:8.5 hours last night ADL's: Independent Group attendance: No groups this shift Were meds taken:Yes Any med S/E: None reported, none observed Mental Status Exam Appearance: WNL, in clean green scrubs Eye contact: Fair Behavior: Stays in his bed or paces halls Speech: Soft, minimal Mood: "good" Affect: Flat Thought process: Poverty of thought, thought blocking Thought Content: Unable to assess Cognition: Oriented x 1 Insight: Poor Judgment: Poor Interventions PRN's used: None Therapeutic interventions: 1:1 assessment, provided active listening to help maintain rapport. Maintained a safe and therapeutic environment. Administered medications as ordered. Maintained Q 15 minute checks for safety. Restraints/seclusion/emergency medication: N/A Justification of Continued Inpatient Treatment: Court ordered treatment.
[2018-09-10 19:00] VITALS: BP 116/71
[2018-09-10] MEDS: olanzapine 10mg tablet PO SCH (21:11)
--- NOTE | 2018-09-11 02:53 | NUR ---
Chief Complaint: Competency Legal hold: Court Ordered, [facility] for Competency Client on involuntary status for competency Report received from nurse with use of SBAR: MAGGIE Patel Diagnosis/presenting symptoms: PC 1368C-Islam; F29 Psychosis NOS; F12.10 Cannibis abuse Assessment What has happened this shift: Patient pacing in ybarra when received, then returned to room to lie down the rest of the shift. Administered medications without incident. cooperative with 1:1 assessment, answered questions with short answers. Flat, nonengaging affect. S/I, H/I: Denies A/VH: Denies Sleep: see sleep assessment notation ADL's: Independent Group attendance: assembler 1st shift, no group Were meds taken:Yes Any med S/E: none reported or observed Mental Status Exam Appearance: clean, wearing green scrubs Eye contact: Fair Behavior: pacing in ybarra at shift change, in bed in the dark the rest of the shift Speech: clear, soft spoken, short answers Mood: Quiet, restless Affect: Flat Thought process: Unable to assess, pt does not engage in conversation Thought Content: Unable to assess Cognition: Oriented x 2 Insight: Poor Judgment: Poor PRN's used: N/A Therapeutic interventions: 1:1 assessment, . Maintained a safe and therapeutic environment. Administered medications as ordered. Maintained Q 15 minute checks for safety. Restraints/seclusion/emergency medication: N/A Justification of Continued Inpatient Treatment: Court ordered treatment
[2018-09-11 07:59] VITALS: BP 107/61
[2018-09-11] MEDS: OLANZAPINE 5 MG TABLET PO SCH (08:40)
--- NOTE | 2018-09-11 17:39 | NUR ---
Nursing Note: Chief Complaint: [facility] for competency Report received from nurse with use of SBAR: MAGGIE Rene Diagnosis/presenting symptoms: PC 1368C-Taoist F29 Psychosis NOS F12.10 Cannabis abuse Assessment What has happened this shift: Patient continues to be visible on the unit pacing the hallways slowly for a lot of the shift. Patient did attend meals and groups. Patient would begin the group sitting in the back with minimal to no participation and get up partway through the group, pays for a few minutes and then return for a few minutes. Patient more agreeable with nursing assessment today and stated that he denied auditory hallucinations and suicidal thoughts at this time. Patient thinks hes ready for his court hearing and stated he was not scared or anxious for the hearing. Patient affect remains flat. S/I, H/I: Denies A/VH: Denies Sleep:8.5 hours last night ADL's: Independent Group attendance: No groups this shift Were meds taken:Yes Any med S/E: None reported, none observed Mental Status Exam Appearance: WNL, in clean green scrubs Eye contact: Fair Behavior: Stays in his bed or paces halls Speech: Soft, minimal Mood: "good" Affect: Flat Thought process: Poverty of thought, thought blocking Thought Content: Unable to assess Cognition: Oriented x 1 Insight: Poor Judgment: Poor Interventions PRN's used: None Therapeutic interventions: 1:1 assessment, provided active listening to help maintain rapport. Maintained a safe and therapeutic environment. Administered medications as ordered. Maintained Q 15 minute checks for safety. Restraints/seclusion/emergency medication: N/A Justification of Continued Inpatient Treatment: Court ordered treatment.
[2018-09-11 19:20] VITALS: BP 123/73
[2018-09-11] MEDS: olanzapine 10mg tablet PO SCH (21:03)
--- NOTE | 2018-09-12 00:21 | NUR ---
Nursing Note: Chief Complaint: Competency Legal hold: Court Ordered, [facility] for Competency Client on involuntary status for competency Report received from nurse with use of SBAR: MAGGIE Rene Diagnosis/presenting symptoms: PC 1368C-Caodaism F29 Psychosis NOS F12.10 Cannabis abuse Assessment What has happened this shift: Received patient pacing the unit slowly. Patient continues to have flat affect and resistive to conversation, keeping all answers very short. Patient does not initiate interaction with peers. Patient denies depression and denies suicidal ideation. Patient denies auditory hallucinations. Patient asleep by 2245. S/I, H/I: Denies A/VH: Denies Sleep:8.5 hours last night ADL's: Independent Group attendance: No groups this shift Were meds taken:Yes Any med S/E: None reported, none observed Mental Status Exam Appearance: WNL, in clean green scrubs Eye contact: Fair Behavior: Stays in his bed or paces halls Speech: Soft, minimal Mood: "good" Affect: Flat Thought process: Poverty of thought, thought blocking Thought Content: Unable to assess Cognition: Oriented x 1 Insight: Poor Judgment: Poor Interventions PRN's used: None Therapeutic interventions: 1:1 assessment, provided active listening to help maintain rapport. Maintained a safe and therapeutic environment. Administered medications as ordered. Maintained Q 15 minute checks for safety. Restraints/seclusion/emergency medication: N/A Justification of Continued Inpatient Treatment: Court ordered treatment.
[2018-09-12 07:50] VITALS: BP 115/60
[2018-09-12] MEDS: OLANZAPINE 5 MG TABLET PO SCH (08:16)
--- NOTE | 2018-09-12 15:52 | NUR ---
Nursing Progress Note: Chief Complaint: Competency Legal hold: Court Ordered, [facility] for Competency Client on involuntary status for competency Report received from Jorge with use of SBAR Diagnosis/presenting symptoms: PC 1368C-Zoroastrian F29 Psychosis NOS F12.10 Cannabis abuse Assessment What has happened this shift: Patient is awake for breakfast and then paced halls for much of the day. Sits in group room for a few minutes and wanders hallways again. Took nap after breakfast. Patient is resistant to care, conversation. Patient is medication compliant. Answers a few questions, then leaves. S/I, H/I: Denies A/VH: Denies Sleep: 6.75 hours. ADL's: Independent Group attendance: No Were meds taken:Yes Any med S/E: None reported, none observed Mental Status Exam Appearance: Dark complected young man with facial hair, wearing green scrubs. Eye contact: Fair Behavior: Stays in his bed or paces halls Speech: Soft, minimal Mood: "good" Affect: Flat Thought process: Poverty of thought, thought blocking Thought Content: Unable to assess Cognition: Oriented x 1 Insight: Poor Judgment: Poor Interventions PRN's used: None Therapeutic interventions: 1:1 assessment, provided active listening to help maintain rapport. Maintained a safe and therapeutic environment. Administered medications as ordered. Maintained Q 15 minute checks for safety. Restraints/seclusion/emergency medication: N/A Justification of Continued Inpatient Treatment: Court ordered treatment.
[2018-09-12 19:29] VITALS: BP 119/69
[2018-09-12] MEDS: olanzapine 10mg tablet PO SCH (20:45)
--- NOTE | 2018-09-12 22:47 | NUR ---
Nursing Progress Note: Chief Complaint: Competency Legal hold: Court Ordered, [facility] for Competency Client on involuntary status for competency Report received from RN with use of SBAR Diagnosis/presenting symptoms: PC 1368C-Yarsanism F29 Psychosis NOS F12.10 Cannabis abuse Assessment What has happened this shift: Patient is awake pacing halls. Engaged patient in small talke asking him how many miles he thinks he walks in a day, he responsed with "a couple". Sits in group room for a few minutes and wanders hallways again. Patient is responsive to taking medications however remains resistant to care, conversation. Answers a few questions, poor eye contact, quickly walks away. S/I, H/I: Denies A/VH: Denies Sleep: See sleep assessment ADL's: Independent Group attendance: NA Were meds taken:Yes Any med S/E: None reported, none observed Mental Status Exam Appearance: Dark complected young man with facial hair, wearing green scrubs. Eye contact: Fair Behavior: Stays in his bed or paces halls Speech: Soft, minimal Mood: "good" Affect: Flat Thought process: Poverty of thought, thought blocking Thought Content: Unable to assess Cognition: Oriented x 1 Insight: Poor Judgment: Poor Interventions PRN's used: None Therapeutic interventions: 1:1 assessment, provided active listening to help maintain rapport. Maintained a safe and therapeutic environment. Administered medications as ordered. Maintained Q 15 minute checks for safety. Restraints/seclusion/emergency medication: N/A Justification of Continued Inpatient Treatment: Court ordered treatment.
[2018-09-13 08:00] VITALS: BP 103/56
[2018-09-13] MEDS: OLANZAPINE 5 MG TABLET PO SCH (08:08)
--- NOTE | 2018-09-13 13:37 | NUR ---
Reassessment: Pt PO 75-100% meals meeting needs. LBM 09/12. No nutrition concerns at this time. Recommendations: 1) Continue with regular diet 2) Weekly wt Addendum: 09/13/18 at [address] Amended: Links added.
--- NOTE | 2018-09-13 16:46 | NUR ---
Nursing Progress Note: Chief Complaint: Competency Legal hold: Court Ordered, [facility] for Competency Client on involuntary status for competency Report received from Stephanie with use of SBAR Diagnosis/presenting symptoms: PC 1368C-Jew F29 Psychosis NOS F12.10 Cannabis abuse Assessment What has happened this shift: Patient in community room for meals, groups today. States that he is "good". Patient wanders the halls for much of the day with naps after meals. S/I, H/I: Denies A/VH: Denies Sleep: 7.0 hours. ADL's: Independent Group attendance: Yes. Were meds taken:Yes Any med S/E: None reported, none observed Mental Status Exam Appearance: Dark complected young man with facial hair, wearing green scrubs. Clean and appropriate. Eye contact: Minimal. Behavior: Patient is med compliant, attending groups, participating in milieu. Speech: Soft, minimal Mood: "good" Affect: Flat Thought process: Poverty of thought, thought blocking Thought Content: Unable to assess Cognition: Oriented x 1 Insight: Poor Judgment: Poor Interventions PRN's used: None Therapeutic interventions: 1:1 assessment, provided active listening to help maintain rapport. Maintained a safe and therapeutic environment. Administered medications as ordered. Maintained Q 15 minute checks for safety. Restraints/seclusion/emergency medication: N/A Justification of Continued Inpatient Treatment: Court ordered treatment.
[2018-09-13] MEDS: olanzapine 10mg tablet PO SCH (20:08)
[2018-09-13 20:44] VITALS: BP 114/68
--- NOTE | 2018-09-13 22:17 | NUR ---
Nursing Progress Note: Chief Complaint: Competency Legal hold: Court Ordered, [facility] for Competency Client on involuntary status for competency Report received from MAGGIE Del Real with use of SBAR Diagnosis/presenting symptoms: PC 1368C-Sabianist F29 Psychosis NOS F12.10 Cannabis abuse Assessment What has happened this shift: Patient is awake pacing halls. Engaged patient in small talke asking him how many miles he thinks he walks in a day, he responsed with "a couple". Sits in group room for a few minutes and wanders hallways again. Patient is responsive to taking medications however remains resistant to care, conversation. Answers a few questions, poor eye contact, quickly walks away. S/I, H/I: Denies A/VH: Denies Sleep: See sleep assessment ADL's: Independent Group attendance: NA Were meds taken:Yes Any med S/E: None reported, none observed Mental Status Exam Appearance: Dark complected young man with facial hair, wearing green scrubs. Eye contact: Fair Behavior: Stays in his bed or paces halls Speech: Soft, minimal Mood: "good" Affect: Flat Thought process: Poverty of thought, thought blocking Thought Content: Unable to assess Cognition: Oriented x 1 Insight: Poor Judgment: Poor Interventions PRN's used: None Therapeutic interventions: 1:1 assessment, provided active listening to help maintain rapport. Maintained a safe and therapeutic environment. Administered medications as ordered. Maintained Q 15 minute checks for safety. Restraints/seclusion/emergency medication: N/A Justification of Continued Inpatient Treatment: Court ordered treatment.
[2018-09-14 07:00] VITALS: BP 90/48
[2018-09-14] MEDS: OLANZAPINE 5 MG TABLET PO SCH (08:06)
--- NOTE | 2018-09-14 17:14 | NUR ---
Nursing Progress Note: Chief Complaint: Competency Legal hold: Court Ordered, [facility] for Competency Client on involuntary status for competency Report received from Stephanie with use of SBAR Diagnosis/presenting symptoms: PC 1368C-Latter-Day F29 Psychosis NOS F12.10 Cannabis abuse Assessment What has happened this shift: Patient up on unit for breakfast, paces hallways muttering under breath. Changing clothes frequently throughout day. During 1:1 patient was able to tell me month, year, favorite color, where he is currently residing. Patient states that his mother is coming to see him tomorrow. He was more agreeable today to answer a short series of questions. S/I, H/I: Denies A/VH: Denies Sleep: 8.0 hours. ADL's: Independent Group attendance: Yes. Were meds taken:Yes Any med S/E: None reported, none observed Mental Status Exam Appearance: Dark complected young man with facial hair, wearing green scrubs. Clean and appropriate. Eye contact: Minimal. Behavior: Patient is med compliant, attending groups, participating in milieu. Speech: Soft, minimal Mood: "good" Affect: Flat Thought process: thought blocking Thought Content: Unable to assess Cognition: Oriented x 3 Insight: Poor Judgment: Poor PRN's used: None Therapeutic interventions: 1:1 to assess for severity of symptoms, provided active listening to help maintain rapport. Maintained a safe and therapeutic environment. Encouraged p.o. intake of water to keep BP stable. Maintained Q 15 minute checks for safety. Restraints/seclusion/emergency medication: N/A Justification of Continued Inpatient Treatment: Court ordered treatment.
[2018-09-14] MEDS: olanzapine 10mg tablet PO SCH (20:38)
[2018-09-14 20:57] VITALS: BP 118/76
--- NOTE | 2018-09-15 03:34 | NUR ---
Chief Complaint: Psychosis Legal hold: Court hold Client on a court mandated hold 2nd to being incompetent to stand trial. Report received from nurse with use of SBAR: Nasima SERRANO Why are they here: [facility] determined that he was incompetent to stand trial on various charges ie shoplifting, indecent exposure. Diagnosis: Psychosis What has happened this shift: The patient was observed pacing back and forth in the hallway. He does not initiate any social contact with peers or staff. He is polite and was cooperative with the evening assessment. He answered all questions asked of him but his answers were general and vague. He did deny that he felt he as having any side effects to medications. He reports his last shower was two days ago. He was dressed appropriately. He describes his sleep as "good" He denies problems with depression, anxiety, concentration or psychotic symptoms. He has not been observed talking to himself. He stated he was not aware of why he as here. He denies having a psychiatric illness. He denies that he needs to be here. He did state that he felt the medications were helping him and when asked how he stated, "help me feel clearer throughout the day" S/I, H/I: Denies A/VH: Denies Sleep: Denies problems ADL's: Needs prompting Were meds taken: The patient was medication compliant Any med S/E: Denies Mental Status Exam Appearance: appropriately dressed, internally focused. Eye contact:Fair Behavior: Quiet, polite, not social with peers or staff Speech: spontaneous Mood: Presents as calm, denies depression or anxiety Affect: Normal for circumstances Thought process: Vague Thought Content: Minimal verbal replies Cognition: Poor recall. Confused as to why he is here Insight: Poor Judgment:poor Interventions PRN's used: NONE Therapeutic interventions: One to one with the patient to assess severity of disordered thoughts and self harm risk. Provided medication and medication education. Evaluated for medication side effects. Reminded of why he was here and the goal for his treatment. Restraints/seclusion/emergency medication: None needed Justification of Continued Inpatient Treatment: The patient continues to have a poor understanding of why he is here but does seem to be improving. He was more cooperative with the assessment process.
[2018-09-15 08:00] VITALS: BP 101/57
[2018-09-15] MEDS: OLANZAPINE 5 MG TABLET PO SCH (08:20)
--- NOTE | 2018-09-15 16:23 | NUR ---
RN Progress Note: Chief Complaint: Competency Legal hold: Court Ordered, [facility] for Competency Client on involuntary status for competency. Report received from Josie SERRANO with use of SBAR Diagnosis/presenting symptoms: Psychosis NOS, cannabis abuse. Pt. sent to [facility] for evaluation from [facility] in order to assess his competency to stand trial for shoplifting, showing false ID, and indecent exposure, pt isolative, poverty of thought & speech Assessment What has happened this shift: Received pt in bed sleeping w/o distress. Awoke and ate breakfast in group room. Reports feeling OK without any physical issues or pain and spoke clearly with internal communications writer. Did not shower today but brushed hair and is wearing green scrubs. Continues to communicate with one and two word answers, yet more clear and louder. Mood is pleasant and pt cooperative with staff and other pts. Visited with mother in am. States he is ready for his court appearance and is not nervous. Attended afternoon group. Walked up and down hallways and took naps with his free time. Encouraged continued group attendance and communication with staff, as he remains withdrawn and minimally communicative. Took AM med w/o any issues. S/I, H/I: Pt denies A/VH: Pt denies Sleep: slept well per noc shift report ADL's: Independent. Group attendance: Attended PM group today Were meds taken: Yes Any med S/E: pt denies medication side effects Mental Status Exam Appearance: Combed hair in green scrubs Eye contact: good Behavior: calm, pleasant, cooperative Speech: soft spoken, poverty of speech Mood: Improved Affect: blunted, restricted Thought process: organized, answers questions with short appropriate responses Thought Content: Does not often express thoughts or feelings Cognition: A/Ox4 Insight: fair Judgment: fair Interventions PRN's used: None Therapeutic interventions: 1:1 assessment, therapeutic conversation, encouragement to express thoughts and feelings, medication education, administration/monitoring for effect/side effects, Q 15 min checks. Restraints/seclusion/emergency medication: N/A Justification of Continued Inpatient Treatment: Court ordered treatment
[2018-09-15 20:00] VITALS: BP 132/79
[2018-09-15] MEDS: olanzapine 10mg tablet PO SCH (20:17)
--- NOTE | 2018-09-16 00:43 | NUR ---
RN Progress Note: Chief Complaint: Competency; Psychosis Legal hold: 1370 (Court Ordered, [facility] for Competency) Client on involuntary status for competency. Report received from Alonso SERRANO with use of SBAR Diagnosis/presenting symptoms: Psychosis NOS, cannabis abuse. Pt. sent to [facility] for evaluation from [facility] in order to assess his competency to stand trial for shoplifting, showing false ID, and indecent exposure, pt isolative, poverty of thought & speech Assessment What has happened this shift: Received pt walking the halls and occasionally sitting in the ybarra chair. Attended snack. Reports feeling "okay" compared to yesterday because "the evening is longer". Pt's speech in clear, eye contact intermittently maintained, Denies SI, Denies A/V H. Continues to communicate with primarily one and two word answers. He is cooperative and pleasant. Walked up and down hallways until he turned in for sleep at 2100. S/I, H/I: Denies A/VH: Denies Sleep: See Charting ADL's: Independent. Group attendance: Attended snack group Were meds taken: Y Any med S/E: pt denies medication side effects Mental Status Exam Appearance: Combed hair in green scrubs Eye contact: fair to good Behavior: calm, pleasant, cooperative Speech: soft spoken, poverty of speech Mood: Improved per pt Affect: blunted, restricted Thought process: organized, answers questions with short appropriate responses Thought Content: Does not often express thoughts or feelings Cognition: A/Ox4 Insight: fair Judgment: fair Interventions PRN's used: None Therapeutic interventions: 1:1 assessment, therapeutic conversation, encouragement to express thoughts and feelings, medication education, administration/monitoring for effect/side effects, Q 15 min checks. Restraints/seclusion/emergency medication: N/A Justification of Continued Inpatient Treatment: Court ordered treatment; to be at [facility] awaiting trial set for 09/22
[2018-09-16 07:58] VITALS: BP 103/50
[2018-09-16 07:59] VITALS: BP 103/60
[2018-09-16] MEDS: OLANZAPINE 5 MG TABLET PO SCH (08:21)
--- NOTE | 2018-09-16 14:50 | NUR ---
RN Progress Note: Chief Complaint: Competency; Psychosis Legal hold: 1370 (Court Ordered, [facility] for Competency) Client on involuntary status for competency. Report received from Keri SERRANO with use of SBAR Diagnosis/presenting symptoms: Psychosis NOS, cannabis abuse. Pt. sent to [facility] for evaluation from [facility] in order to assess his competency to stand trial for shoplifting, showing false ID, and indecent exposure, pt isolative, poverty of thought & speech Assessment What has happened this shift: Pt pleasant, cooperative, denies all symptoms, continues to isolate to self, pace the halls at times, poverty of thought and speech. S/I, H/I: Pt denies A/VH: Pt denies Sleep: Slept 6 hours per noc shift report ADL's: Independent. Group attendance: Pt did not attend groups today Were meds taken: Yes Any med S/E: None noted or reported Mental Status Exam Appearance: Messy hair Eye contact: Good Behavior: cooperative, restless; paces in ybarra, isolative to self Speech: limited, soft spoken, poverty of speech Mood: "Good" Affect: Restricted, blunted Thought process: linear, thought blocking Thought Content: Does not often express thoughts or feelings Cognition: A/Ox4 Insight: Fair Judgment: Fair Interventions PRN's used: None Therapeutic interventions: 1:1 assessment, therapeutic conversation, encouragement to express thoughts and feelings & perform personal hygiene, medication education, administration/monitoring for effect/side effects, Q 15 min checks. Restraints/seclusion/emergency medication: N/A Justification of Continued Inpatient Treatment: Court ordered treatment; to be at [facility] awaiting trial set for 09/22/18 at 0830. Addendum: 09/16/18 at 1529 by Marguerite Clemons RN (Lee) Pt attended afternoon group.
[2018-09-16 19:00] VITALS: BP 145/86
[2018-09-16] MEDS: olanzapine 10mg tablet PO SCH (20:35)
--- NOTE | 2018-09-16 21:24 | NUR ---
RN Progress Note: Chief Complaint: Competency; Psychosis Legal hold: 1370 (Court Ordered, [facility] for Competency) Client on involuntary status for competency. Report received from Kevin SERRANO with use of SBAR Diagnosis/presenting symptoms: Psychosis NOS, cannabis abuse. Pt. sent to [facility] for evaluation from [facility] in order to assess his competency to stand trial for shoplifting, showing false ID, and indecent exposure, pt isolative, poverty of thought & speech Assessment What has happened this shift: pt was in the hallway pacing at change of shift. 1:1 assessment completed at bedside. Pt denies a/vh, denies s/i. Pt reports appetite is good and he states he sleeps good. When asked about his day pt states "I just saw whatever river or ocean they had in art group or I listened to records." Pt answers "I dont know" to other questions. S/I, H/I: Pt denies A/VH: Pt denies Sleep: Sleeping well ADL's: Independent. Group attendance: No evening groups offered Were meds taken: Yes Any med S/E: None noted or reported Mental Status Exam Appearance: Messy hair, acne. Asked pt when he had a shower last and he states "I dont know. When someone tells me to take one." Eye contact: Good Behavior: cooperative, restless; paces in ybarra, isolates to self Speech: limited, soft spoken, poverty of speech Mood: pleasant withdrawn Affect: Restricted, blunted Thought process: linear, thought blocking Thought Content: Does not often express thoughts or feelings Cognition: A/Ox4 Insight: Fair Judgment: Fair Interventions PRN's used: None Therapeutic interventions: 1:1 assessment, therapeutic conversation, encouragement to express thoughts and feelings & perform personal hygiene, medication education, administration/monitoring for effect/side effects, Q 15 min checks. Restraints/seclusion/emergency medication: N/A Justification of Continued Inpatient Treatment: Court ordered treatment; to be at [facility] awaiting trial set for 09/22/18 at 0830.
[2018-09-17] MEDS: OLANZAPINE 5 MG TABLET PO SCH (07:49)
[2018-09-17 07:51] VITALS: BP 97/58
[2018-09-17 10:26] LABS: ALANINE AMINOTRANSFERASE 72 U/L (12-78); ALBUMIN 3.7 G/DL (3.4-5.0); ALBUMIN/GLOBULIN RATIO 1.1 (1.1-1.5); ALKALINE PHOSPHATASE 66 IU/L (20-180); ANION GAP 8 (8-16); ASPARTATE AMINO TRANSFERASE 28 U/L (10-37); BILIRUBIN,TOTAL 0.4 MG/DL (0.1-1.0); BLOOD UREA NITROGEN 19 MG/DL (7-18); BUN/CREATININE RATIO 21.1 (5.4-32.0); CALCIUM 9.2 MG/DL (8.5-10.1); CHLORIDE 103 MMOL/L (99-107); GLUCOSE 89 MG/DL (70-104); POTASSIUM 3.8 MMOL/L (3.5-5.1); SODIUM 140 MMOL/L (135-145); TOTAL CARBON DIOXIDE 28.8 MMOL/L (24-32); TOTAL PROTEIN 7.2 G/DL (6.4-8.2); eGFR > 90 ML/MIN
[2018-09-17 10:27] LABS: BASOPHILS % (AUTO) 0.7 % (0-1); EOSINOPHILS # (AUTO) 0.2 X10'3 (0-0.9); HEMATOCRIT 46.2 % (42.0-52.0); HEMOGLOBIN 15.3 g/dl (14.0-17.9); LYMPHOCYTES # (AUTO) 1.7 X10'3 (1.1-4.8); LYMPHOCYTES % (AUTO) 26.2 % (21-51); MEAN CORPUSCULAR HEMOGLOBIN 29.1 PG (27.0-31.0); MEAN CORPUSCULAR HGB CONC 33.1 g/dL (33.0-36.5); MEAN CORPUSCULAR VOLUME 87.8 FL (78-98); MEAN PLATELET VOLUME 9.1 FL (7.4-10.4); MONOCYTES # (AUTO) 0.5 X10'3 (0-0.9); MONOCYTES % (AUTO) 7.6 % (2-12); NEUTROPHILS # (AUTO) 4.1 X10'3 (1.8-7.7); NEUTROPHILS % (AUTO) 62.5 % (42-75); PLATELET COUNT 178 X10'3 (140-440); RED BLOOD COUNT 5.27 X10'6 (4.70-6.10); RED CELL DISTRIBUTION WIDTH 12.8 % (11.5-14.5); WHITE BLOOD COUNT 6.5 X10'3 (4.5-11.0)
--- NOTE | 2018-09-17 15:44 | NUR ---
RN Progress Note: Chief Complaint: Competency; Psychosis Legal hold: 1370 (Court Ordered, [facility] for Competency) Client on involuntary status for competency. Report received from Virgen SERRANO with use of SBAR Diagnosis/presenting symptoms: Psychosis NOS, cannabis abuse. Pt. sent to [facility] for evaluation from [facility] in order to assess his competency to stand trial for shoplifting, showing false ID, and indecent exposure, pt isolative, poverty of thought & speech Assessment What has happened this shift: Pt states that he is "good," denies depression, anxiety, SI/HI/AH/VH, needs prompting for showers and personal hygiene, pt showered today, encouraged washing his face with soap to help with facial acne, attended groups though is a passive participant, paces in ybarra, isolates to self, no unsafe behaviors noted. S/I, H/I: Pt denies A/VH: Pt denies Sleep: Slept 6.5 hours per noc shift report ADL's: Independent. Group attendance: Pt attended groups Were meds taken: Yes Any med S/E: None noted or reported Mental Status Exam Appearance: Messy hair in morning, neat & clean after shower Eye contact: Good Behavior: cooperative, restless; paces in ybarra, isolative to self Speech: limited, soft spoken, poverty of speech, usually 1-3 word responses, frequently responds with , "I don't know." Mood: "Good" Affect: Restricted, blunted Thought process: linear, thought blocking Thought Content: Does not often express thoughts or feelings despite encouragement, appears nervous and uncomfortable when pressured for further elaboration. Cognition: A/Ox 4 Insight: Fair Judgment: Fair Interventions PRN's used: None Therapeutic interventions: 1:1 assessment, therapeutic conversation, encouragement to express thoughts and feelings & perform personal hygiene, medication education, administration/monitoring for effect/side effects, Q 15 min checks. Restraints/seclusion/emergency medication: N/A Justification of Continued Inpatient Treatment: Court ordered treatment; to be at [facility] awaiting trial set for 09/22/18 at 0830.
[2018-09-17 19:00] VITALS: BP 120/84
--- NOTE | 2018-09-17 19:43 | NUR ---
RN Progress Note: Chief Complaint: Competency; Psychosis Legal hold: 1370 (Court Ordered, [facility] for Competency) Client on involuntary status for competency. Report received from Virgen SERRANO with use of SBAR Diagnosis/presenting symptoms: Psychosis NOS, cannabis abuse. Pt. sent to [facility] for evaluation from [facility] in order to assess his competency to stand trial for shoplifting, showing false ID, and indecent exposure, pt isolative, poverty of thought & speech Assessment What has happened this shift: Pt was pacing in the ybarra at change of shift. 1:1 assessment completed at bedside. Pt gives one word answers to most questions, states his day was "good". Pt continues to have disorganized thinking, asked how he feels about being here and he states "I dont care, till its time." Asked pt about groups and he states "I just sat there, behavior symptoms, stress." Pt denies s/i, a/vh, h/i. Reports appetite adn sleep are "good." Asked pt about his medications and he replies, "medicine helps me throughout the day" S/I, H/I: Pt denies A/VH: Pt denies Sleep: "good" ADL's: Independent, encouraged to wash face before bed to help w/acne. Group attendance: Pt attended groups Were meds taken: Yes Any med S/E: None noted or reported Mental Status Exam Appearance: adequately groomed, dressed in green scrubs. Acne shows improvement Eye contact: Good Behavior: cooperative, restless; paces in ybarra, isolative to self Speech: limited, soft spoken, poverty of speech, usually 1-3 word responses, frequently responds with , "I don't know." Mood: "Good" Affect: Restricted, blunted Thought process: disorganized at times Thought Content: Does not often express thoughts or feelings despite encouragement, appears nervous and uncomfortable when pressured for further elaboration. Cognition: A/Ox 4 Insight: Fair Judgment: Fair Interventions PRN's used: None Therapeutic interventions: 1:1 assessment, therapeutic conversation, encouragement to express thoughts and feelings & perform personal hygiene, medication education, administration/monitoring for effect/side effects, Q 15 min checks. Restraints/seclusion/emergency medication: N/A Justification of Continued Inpatient Treatment: Court ordered treatment; to be at [facility] awaiting trial set for 09/22/18 at 0830.
[2018-09-17] MEDS: olanzapine 10mg tablet PO SCH (20:13)
[2018-09-18 08:00] VITALS: BP 102/74
[2018-09-18] MEDS: OLANZAPINE 5 MG TABLET PO SCH (08:10)
--- NOTE | 2018-09-18 16:05 | NUR ---
RN Progress Note: Chief Complaint: Competency; Psychosis Legal hold: 1370 (Court Ordered, [facility] for Competency) Client on involuntary status for competency. Report received from Virgen SERRANO with use of SBAR Diagnosis/presenting symptoms: Psychosis NOS, cannabis abuse. Pt. sent to [facility] for evaluation from [facility] in order to assess his competency to stand trial for shoplifting, showing false ID, and indecent exposure, pt isolative, poverty of thought & speech Assessment What has happened this shift: Pt denies all symptoms, out of room for meals and am group, paces in the ybarra, continues to isolate to self though appears more comfortable around staff and peers. No unsafe behaviors noted. S/I, H/I: Pt denies A/VH: Pt denies Sleep: Slept per noc shift report ADL's: Independent. Group attendance: Pt attended am group Were meds taken: Yes Any med S/E: None noted or reported Mental Status Exam Appearance: neat, appropriate Eye contact: Good Behavior: cooperative, restless; paces in ybarra, isolative to self Speech: limited, rushed, soft spoken, poor enunciation, poverty of speech, usually 1-3 word responses, although did say, "I'm just waiting for snack." Mood: "Good" Affect: Restricted, blunted Thought process: linear, thought blocking Thought Content: Does not often express thoughts or feelings despite encouragement, appears nervous and uncomfortable when pressured for further elaboration. Cognition: A/Ox 4 Insight: Fair Judgment: Fair Interventions PRN's used: None Therapeutic interventions: 1:1 assessment, therapeutic conversation, encouragement to express thoughts and feelings, perform personal hygiene, and attend groups, medication education, administration/monitoring for effect/side effects, Q 15 min checks. Restraints/seclusion/emergency medication: N/A Justification of Continued Inpatient Treatment: Court ordered treatment; to be at [facility] awaiting trial set for 09/22/18 at 0830.
[2018-09-18 19:00] VITALS: BP 124/62
[2018-09-18] MEDS: olanzapine 10mg tablet PO SCH (20:23)
--- NOTE | 2018-09-18 22:00 | NUR ---
RN Progress Note: Chief Complaint: Competency; Psychosis Legal hold: 1370 (Court Ordered, [facility] for Competency) Client on involuntary status for competency. Report received from Kevin SERRANO with use of SBAR Diagnosis/presenting symptoms: Psychosis NOS, cannabis abuse. Pt. sent to [facility] for evaluation from [facility] in order to assess his competency to stand trial for shoplifting, showing false ID, and indecent exposure, pt isolative, poverty of thought & speech Assessment What has happened this shift: Pt pacing in the halls at change of shift, sometimes sits in the chair in the hallway then resumes pacing after some time. Pt makes nonsensical statements and speaks softly and will change his response if asked to repeat himself. Pt states "I went to some and slept some" when asked about his day. Pt nods his head in response to questions at times. Pt replies that sleep and appetite are "good." Pt was observed eating snacks and drinking juice during snack. Pt was given clean socks tonight and reminded to wash his face and brush teeth before bed. Pt denies s/i, denies a/vh. Isolates to self. S/I, H/I: Pt denies A/VH: Pt denies Sleep: Sleeps good ADL's: Independent. Group attendance: No evening groups Were meds taken: Yes Any med S/E: None noted or reported Mental Status Exam Appearance: wearing green hospital scrubs, black undershirt, and non skid socks. Eye contact: Good Behavior: cooperative, restless; paces in ybarra, isolative to self Speech: soft spoken, Mood: "Good" Affect: constricted Thought process: linear, thought blocking Thought Content: Does not often express thoughts or feelings despite encouragement, appears nervous and uncomfortable when pressured for further elaboration. Cognition: A/Ox 4 Insight: Fair Judgment: Fair Interventions PRN's used: None Therapeutic interventions: 1:1 assessment, therapeutic conversation, perform personal hygiene, and attend groups, medication education, administration/monitoring for effect/side effects, Q 15 min checks. Restraints/seclusion/emergency medication: N/A Justification of Continued Inpatient Treatment: Court ordered treatment; to be at [facility] awaiting trial set for 09/22/18 at 0830.
[2018-09-19 07:47] VITALS: BP 122/59
[2018-09-19] MEDS: OLANZAPINE 5 MG TABLET PO SCH (08:16)
--- NOTE | 2018-09-19 15:48 | NUR ---
RN Progress Note: Chief Complaint: Competency; Psychosis Legal hold: 1370 (Court Ordered, [facility] for Competency) Client on involuntary status for competency. Report received from Virgen SERRANO with use of SBAR Diagnosis/presenting symptoms: Psychosis NOS, cannabis abuse. Pt. sent to [facility] for evaluation from [facility] in order to assess his competency to stand trial for shoplifting, showing false ID, and indecent exposure, pt isolative, poverty of thought & speech Assessment What has happened this shift: Pt states that his mood is "good" today, denied all other symptoms with a shake "no" of his head, out of room frequently throughout the day for meals, snacks, pacing, and TV watching, pleasant, cooperative, restricted, isolative to self. S/I, H/I: Pt denies A/VH: Pt denies Sleep: Slept 6.5 hous per noc shift report ADL's: Independent. Group attendance: No groups today Were meds taken: Yes Any med S/E: None noted or reported Mental Status Exam Appearance: neat, appropriate Eye contact: Good Behavior: cooperative, restless; paces in ybarra, isolative to self Speech: limited, poverty of speech Mood: "Good" Affect: Restricted, blunted Thought process: linear, thought blocking Thought Content: Does not often express thoughts or feelings despite encouragement, appears nervous and uncomfortable when pressured for further elaboration. Cognition: A/Ox 4 Insight: Poor Judgment: Fair Interventions PRN's used: None Therapeutic interventions: 1:1 assessment, therapeutic conversation, encouragement to express thoughts and feelings and perform personal hygiene, medication education, administration/monitoring for effect/side effects, Q 15 min checks. Restraints/seclusion/emergency medication: N/A Justification of Continued Inpatient Treatment: Court ordered treatment; to be at [facility] awaiting trial set for 09/22/18 at 0830.
[2018-09-19 19:00] VITALS: BP 119/70
[2018-09-19] MEDS: olanzapine 10mg tablet PO SCH (20:30)
--- NOTE | 2018-09-19 22:25 | NUR ---
RN Progress Note: Chief Complaint: Competency; Psychosis Legal hold: 1370 (Court Ordered, [facility] for Competency) Client on involuntary status for competency. Report received from Kevin SERRANO with use of SBAR Diagnosis/presenting symptoms: Psychosis NOS, cannabis abuse. Pt. sent to [facility] for evaluation from [facility] in order to assess his competency to stand trial for shoplifting, showing false ID, and indecent exposure, pt isolative, poverty of thought & speech Assessment What has happened this shift: Patient observed pacing the hallway. States he is "good" poor eye contact. Appears more anxious than his usual, but denies when asked. Does appear to have increased acne on his face and nose. Took medications without incident. S/I, H/I: Pt denies A/VH: Pt denies Sleep: See sleep assessment ADL's: Independent. Group attendance: NA Were meds taken: Yes Any med S/E: None noted or reported Mental Status Exam Appearance: neat, appropriate Eye contact: Poor Behavior: cooperative, restless; paces in ybarra, isolative to self Speech: limited, poverty of speech Mood: Flat Affect: Restricted, blunted Thought process: linear, thought blocking Thought Content: avoids opportunities to determine Cognition: A/Ox 4 Insight: Poor Judgment: Fair Interventions PRN's used: None Therapeutic interventions: 1:1 assessment, therapeutic conversation, encouragement to express thoughts and feelings and perform personal hygiene, medication education, administration/monitoring for effect/side effects, Q 15 min checks. Restraints/seclusion/emergency medication: N/A Justification of Continued Inpatient Treatment: Court ordered treatment; to be at [facility] awaiting trial set for 09/22/18 at 0830.
[2018-09-20 07:34] VITALS: BP 111/51
[2018-09-20] MEDS: OLANZAPINE 5 MG TABLET PO SCH (07:41)
--- NOTE | 2018-09-20 13:53 | NUR ---
Reassessment: Pt PO 75-100% meals meeting needs. LBM 09/18. No nutrition concerns at this time. Addendum: 09/20/18 at [address] Amended: Links added.
--- NOTE | 2018-09-20 17:15 | NUR ---
RN Progress Note: Chief Complaint: Competency; Psychosis Legal hold: 1370 (Court Ordered, [facility] for Competency) Client on involuntary status for competency. Report received from Virgen SERRANO with use of SBAR Diagnosis/presenting symptoms: Psychosis NOS, cannabis abuse. Pt. sent to [facility] for evaluation from [facility] in order to assess his competency to stand trial for shoplifting, showing false ID, and indecent exposure, pt isolative, poverty of thought & speech Assessment What has happened this shift: Pt states that his mood is "good" today. Patient was out of room frequently throughout the day for meals, snacks, pacing, and TV watching, pleasant, cooperative, restricted, isolative to self. S/I, H/I: Pt denies A/VH: Pt denies Sleep: Slept 6.5 hous per noc shift report ADL's: Independent. Group attendance: No groups today Were meds taken: Yes Any med S/E: None noted or reported Mental Status Exam Appearance: neat, appropriate Eye contact: Good Behavior: cooperative, restless; paces in ybarra, isolative to self Speech: limited, poverty of speech Mood: "Good" Affect: Restricted, blunted Thought process: linear, thought blocking Thought Content: Does not often express thoughts or feelings despite encouragement, appears nervous and uncomfortable when pressured for further elaboration. Cognition: A/Ox 4 Insight: Poor Judgment: Fair Interventions PRN's used: None Therapeutic interventions: 1:1 assessment, therapeutic conversation, encouragement to express thoughts and feelings and perform personal hygiene, medication education, administration/monitoring for effect/side effects, Q 15 min checks. Restraints/seclusion/emergency medication: N/A Justification of Continued Inpatient Treatment: Court ordered treatment; to be at [facility] awaiting trial set for 09/22/18 at 0830.
[2018-09-20] MEDS: olanzapine 10mg tablet PO SCH (20:31)
[2018-09-20 21:01] VITALS: BP 132/78
--- NOTE | 2018-09-21 03:38 | NUR ---
RN Progress Note: Chief Complaint: Competency; Psychosis Legal hold: (Court Ordered, [facility] for Competency) Client on involuntary status for competency. Report received from grecia Rodriguez with use of SBAR Diagnosis/presenting symptoms: Psychosis NOS, cannabis abuse. Pt. sent to [facility] for evaluation from [facility] in order to assess his competency to stand trial for shoplifting, showing false ID, and indecent exposure, pt isolative, poverty of thought & speech Assessment What has happened this shift: Pt was pacing the ybarra way til going to bed. States he is "good" poor eye contact. Pt denies suicidal thought nor hallucination. Pt told me he participated group activity today but didnt have interaction with other patients. He answers questions in very soft voice and in short sentences. S/I, H/I: Pt denies A/VH: Pt denies Sleep: See sleep assessment ADL's: Independent. Group attendance: NA Were meds taken: Yes Any med S/E: None noted or reported Mental Status Exam Appearance: neat, appropriate Eye contact: Poor Behavior: cooperative, restless; paces in ybarra, isolative to self Speech: limited, poverty of speech Mood: Flat Affect: Restricted, blunted Thought process: linear, thought blocking Thought Content: avoids opportunities to determine Cognition: A/Ox 4 Insight: Poor Judgment: Fair Interventions PRN's used: None Therapeutic interventions: 1:1 assessment, therapeutic conversation, encouragement to express thoughts and feelings and perform personal hygiene, medication education, administration/monitoring for effect/side effects, Q 15 min checks. Restraints/seclusion/emergency medication: N/A Justification of Continued Inpatient Treatment: Court ordered treatment; to be at [facility] awaiting trial set for 09/22/18 at 0830.
[2018-09-21 08:00] VITALS: BP 92/59
[2018-09-21] MEDS: OLANZAPINE 5 MG TABLET PO SCH (08:29)
--- NOTE | 2018-09-21 16:53 | NUR ---
RN Progress Note: Chief Complaint: Competency; Psychosis Legal hold: 1370 (Court Ordered, [facility] for Competency) Client on involuntary status for competency. Report received from Virginia Andrade RN with use of SBAR Diagnosis/presenting symptoms: Psychosis NOS, cannabis abuse. Pt. sent to [facility] for evaluation from [facility] in order to assess his competency to stand trial for shoplifting, showing false ID, and indecent exposure, pt isolative, poverty of thought & speech Assessment What has happened this shift: Patient was asleep at change of shift and awoken for breakfast. Patient is quiet and states he is doing good. Patient appears a little more talkative. Patients hair is greasy and patient's skin has broken out. [facility] that patient is going to court tomorrow morning (Thursday) at 0800 and they will be picking him up at 0600. Patient to take all his belongings just in case he is incarcerated and there is a possibility patient will come back to [facility]. RN advised patient to take a shower and have all his clothes washed today which patient did. Patient has flat affect. Patient stated that RN has told this to him before but it never happened. RN advised patient that he is going to be picked up in the morning. Patient verbalized understanding. S/I, H/I: Pt denies A/VH: Pt denies Sleep: Slept 7.0 hours per noc shift report ADL's: Independent. Group attendance: No groups today Were meds taken: Yes Any med S/E: None noted or reported Mental Status Exam Appearance:greasy hair, but combed Eye contact: Good Behavior: cooperative, restless; paces in ybarra, isolative to self Speech: limited, poverty of speech Mood: "Good" Affect: Restricted, blunted Thought process: linear, thought blocking Thought Content: Does not often express thoughts or feelings despite encouragement, appears nervous and uncomfortable when pressured for further elaboration. Cognition: A/Ox 4 Insight: Poor Judgment: Fair Interventions PRN's used: None Therapeutic interventions: 1:1 assessment, therapeutic conversation, encouragement to express thoughts and feelings and perform personal hygiene, medication education, administration/monitoring for effect/side effects, Q 15 min checks. Restraints/seclusion/emergency medication: N/A Justification of Continued Inpatient Treatment: Court ordered treatment; to be at [facility] awaiting trial set for 09/22/18 at 0830.
[2018-09-21 20:00] VITALS: BP 118/73
[2018-09-21] MEDS: olanzapine 10mg tablet PO SCH (21:42)
--- NOTE | 2018-09-22 01:05 | NUR ---
Nursing Note: Chief Complaint: Psychosis Legal hold: Court Ordered, [facility] for Competency Client on involuntary status for GD/Competency to stand trial Report received from nurse with use of SBAR: MAGGIE Menjivar Why are they here: Pt. sent to [facility] for evaluation from [facility] in order to assess his competency to stand trial for shoplifting, showing false ID, and indecent exposure. Per report pt. has been "Zoning out" at home, exhibiting possible s/s of psychosis. Pt. has been attending mock trials and is able to voice to staff that he understands what he is being charged for and feels ashamed for what he did. Dr. Lemus informed [facility] that he believes the pt. is able to stand trial, and he will be leaving to do so tomorrow morning 08/22/18. It is unsure what the court will decide for pt. following trial so he will be sent with his belongings in case he does not return to [facility]. Diagnosis/presenting symptoms: Pt. continues to present with flat affect, restlessness, some pacing, and difficulty with reciprocal interactions. However, response length to questions has improved along with attention span, and he voices understanding regarding plans for tomorrow. Assessment What has happened this shift: Pt. up pacing the hallway between his room and Group Room throughout the shift, however pacing appears to be less intense and pt. will sit down for periods of time and makes occasional eye contact with this headline writer. 1:1 completed, pt. is cooperative and remains guarded, however continues to appear to focus with less difficulty and is less distractible. He is A&O X 4 and states, "I am going to court tomorrow." When this headline writer asked him if he is ready he states, "Yes, it's time to leave." Pt. continues to present with difficulty regarding reciprocal interactions, however his attention span has improved. He denies any H/A and does not appear to be responding to internal stimuli. This headline writer educated pt. that he will be awoken early in the AM in order to inventory his belongings before he leaves, pt. voiced understanding. S/I, H/I: Denies A/VH: Denies, and internal preoccupation appears to be improved Sleep: Reports he is able to sleep well ADL's: Pt. preforms tasks independently, however requires prompting and encouragement by staff and continues to have shortened attention span Group attendance: Pt. reports he has been attending groups, however is unable to identify any learned coping skills Were meds taken: Yes Any med S/E: None Mental Status Exam Appearance: Neat and appropriately dressed in hospital attire. Eye contact: Fair Behavior: Cooperative, restless, guarded, and withdrawn. Psychomotor activity WNL Speech: Soft, minimally responsive, but WNL Mood: Pleasant, however guarded Affect: Flat Thought process: Thought blocking and poverty of thought r/t mental illness Thought Content: Phobia and preoccupation with own thoughts Cognition: A&O X4 Insight: Fair Judgment: Fair Interventions PRN's used: None Therapeutic interventions: Provided active listening, maintained a safe and therapeutic environment, reoriented to reality as needed, monitored behaviors and assessed need for intervention, provided education regarding plan for tomorrow, and maintained Q 15 min safety checks. Restraints/seclusion/emergency medication: N/A Justification of Continued Inpatient Treatment: Pt. continues to require a safe and supportive environment while he awaits to stand trial.
--- NOTE | 2018-09-22 06:44 | NUR ---
[facility] Court Hearing Today Patient awoken from sleep and already dressed for the day. [facility] and taken off unit to go to court at 0800. Patient took all his belongings. Patient was not discharged until [facility] finds out the results of the Court hearing. Patient was calm and cooperative.
[2018-09-22] MEDS: OLANZAPINE 5 MG TABLET PO SCH (08:00)
--- NOTE | 2018-09-22 11:35 | NUR ---
Patient brought back by [facility]'s officers handcuff and shackled and was released back onto the unit. Patient calm and cooperative. Patient had not been fed this morning so RN got patient a PB&J, chips and juice.
--- NOTE | 2018-09-22 16:50 | NUR ---
RN Progress Note: Chief Complaint: Competency; Psychosis Legal hold: 1370 (Court Ordered, [facility] for Competency) Client on involuntary status for competency. Report received from Virginia Andrade RN with use of SBAR Diagnosis/presenting symptoms: Psychosis NOS, cannabis abuse. Pt. sent to [facility] for evaluation from [facility] in order to assess his competency to stand trial for shoplifting, showing false ID, and indecent exposure, pt isolative, poverty of thought & speech Assessment What has happened this shift: Patient was asleep at change of shift and awoken at 0640 to be taken to [facility] for court. Pt left in shackles and handcuffs. Patient was calm and cooperative. Patient arrived back in [facility] at 1125 in shackles and handcuffs. Patient plead guilty and instead of sending patient to custodial, patient was sent back to [facility], as recommended by Dr Lemus, to obtain psychiatric treatment. Patient denies depression and said he is happy to be back. Patient denies SI/HI and denies hearing voices. Patient still pacing in the ybarra. S/I, H/I: Pt denies A/VH: Pt denies Sleep: Pt slept well. ADL's: Independent. Group attendance: No groups today Were meds taken: Yes Any med S/E: None noted or reported Mental Status Exam Appearance: Clean and neat Eye contact: Good Behavior: cooperative, restless; paces in ybarra, isolative to self Speech: limited, poverty of speech Mood: "Good" Affect: Restricted, blunted Thought process: linear, thought blocking Thought Content: Does not often express thoughts or feelings despite encouragement, appears nervous and uncomfortable when pressured for further elaboration. Cognition: A/Ox 4 Insight: Poor Judgment: Fair Interventions PRN's used: None Therapeutic interventions: 1:1 assessment, therapeutic conversation, encouragement to express thoughts and feelings and perform personal hygiene, medication education, administration/monitoring for effect/side effects, Q 15 min checks. Restraints/seclusion/emergency medication: N/A Justification of Continued Inpatient. Patient sent to [facility] in lieu of custodial.
[2018-09-22 20:00] VITALS: BP 131/80
[2018-09-22] MEDS: olanzapine 10mg tablet PO SCH (21:29)
--- NOTE | 2018-09-22 23:41 | NUR ---
Nursing Note: Chief Complaint: Psychosis Legal hold: Court Ordered, [facility] for Competency Client on involuntary status for GD/Competency to stand trial Report received from nurse with use of SBAR: MAGGIE Menjivar Why are they here: Pt. sent to [facility] for evaluation from [facility] in order to assess his competency to stand trial for shoplifting, showing false ID, and indecent exposure. Per report pt. has been "Zoning out" at home, exhibiting possible s/s of psychosis. Pt. has been attending mock trials and is able to voice to staff that he understands what he is being charged for and feels ashamed for what he did. Dr. Lemus informed [facility] that he believes the pt. is able to stand trial, next court date scheduled for 10/20/18. Assessment What has happened this shift: Pt. up continually pacing the hallway between his room and Group Room throughout the shift; he is observed by staff to be frequently mumbling under his breath. 1:1 completed, pt. is cooperative, however remains restless and guarded. When this bond writer questioned him in regards to what occurred during court today, he smiled and stated, "Court went good, I have four more weeks here and then follow-up again." Pt. continues to present with difficulty regarding reciprocal interactions, however his attention span continues to improve and he is able to answer questions appropriately. S/I, H/I: Denies A/VH: Denies, however pt. witnessed to be mumbling to himself while pacing up and down the halls by staff. ADL's: Pt. preforms tasks independently, however requires prompting and encouragement by staff and continues to have shortened attention span Group attendance: Pt. reports he attended art group today, and when asked by this bond writer if he enjoys art, he agreed. Were meds taken: Yes Any med S/E: None Mental Status Exam Appearance: Neat and appropriately dressed in hospital attire. Eye contact: Fair Behavior: Cooperative, restless, guarded, and withdrawn. Psychomotor activity WNL Speech: Soft, minimally responsive, but WNL Mood: Pleasant, however guarded Affect: Flat, however does smile and animate occasionally with conversation Thought process: Thought blocking and poverty of thought r/t mental illness Thought Content: Continued preoccupation with own thoughts Cognition: A&O X4 Insight: Fair Judgment: Fair to good Interventions PRN's used: None Therapeutic interventions: Provided active listening, maintained a safe and therapeutic environment, reoriented to reality as needed, monitored behaviors and assessed need for intervention, provided education regarding plan for tomorrow, and maintained Q 15 min safety checks. Restraints/seclusion/emergency medication: N/A Justification of Continued Inpatient Treatment: Pt. continues to require a safe and supportive environment while he awaits second trial date.
[2018-09-23 08:00] VITALS: BP 115/61
[2018-09-23] MEDS: OLANZAPINE 5 MG TABLET PO SCH (08:03)
--- NOTE | 2018-09-23 12:11 | NUR ---
RN Progress Note: Chief Complaint: Competency; Psychosis Legal hold: 1370 (Court Ordered, [facility] for Competency) Client on involuntary status for competency. Report received from Virginia Andrade RN with use of SBAR Diagnosis/presenting symptoms: Psychosis NOS, cannabis abuse. Pt. sent to [facility] for evaluation from [facility] in order to assess his competency to stand trial for shoplifting, showing false ID, and indecent exposure, pt isolative, poverty of thought & speech Assessment What has happened this shift: Patient was asleep at change of shift but soon patient was up and pacing the halls. Patient stated he is not depressed. Patient denies SI/HI and denies visual hallucinations. Patient states he is glad he is here. RN asked patient if he has seen or spoken to his family. Patient states "not in a while." RN asked patient if he wanted to call his family and he said no. Later this morning patient's father came to visit him. Patient appeared to have a good visit. Patient with flat affect and looks a little depressed today. Patient did not go to group today. S/I, H/I: Pt denies A/VH: Pt denies Sleep: Pt slept well. ADL's: Independent. Group attendance: No groups today Were meds taken: Yes Any med S/E: None noted or reported Mental Status Exam Appearance: Clean and neat Eye contact: Good Behavior: cooperative, restless; paces in ybarra, isolative to self Speech: limited, poverty of speech Mood: "Good" Affect: Restricted, blunted Thought process: linear, thought blocking Thought Content: Does not often express thoughts or feelings despite encouragement, appears nervous and uncomfortable when pressured for further elaboration. Cognition: A/Ox 4 Insight: Poor Judgment: Fair Interventions PRN's used: None Therapeutic interventions: 1:1 assessment, therapeutic conversation, encouragement to express thoughts and feelings and perform personal hygiene, medication education, administration/monitoring for effect/side effects, Q 15 min checks. Restraints/seclusion/emergency medication: N/A Justification of Continued Inpatient. Patient sent to [facility] in lieu of long-term.
[2018-09-23 20:00] VITALS: BP 113/72
[2018-09-23] MEDS: olanzapine 10mg tablet PO SCH (21:14)
--- NOTE | 2018-09-24 01:14 | NUR ---
Nursing Note: Chief Complaint: Psychosis Legal hold: Court Ordered, [facility] for Competency Client on involuntary status for GD/Competency to stand trial Report received from nurse with use of SBAR: MAGGIE Menjivar Why are they here: Pt. sent to [facility] for evaluation from [facility] in order to assess his competency to stand trial for shoplifting, showing false ID, and indecent exposure. Per report pt. has been "Zoning out" at home, exhibiting possible s/s of psychosis. Pt. has been attending mock trials and is able to voice to staff that he understands what he is being charged for and feels ashamed for what he did. Dr. Lemus informed [facility] that he believes the pt. is able to stand trial, next court date scheduled for 10/20/18. Assessment What has happened this shift: Pt. up continually pacing the hallway between his room and Group Room throughout the shift; occasionally witnessed to be mumbling to himself. 1:1 completed, pt. is cooperative, however remains restless and guarded. He denies any anxiety, depression, or h/a and states, "I'm fine." He reports he continues to await his next court date. Pt. continues to present with difficulty regarding reciprocal interactions, however his attention span continues to improve and he is able to answer questions appropriately. S/I, H/I: Denies A/VH: Denies, however pt. occasionally witnessed to be mumbling to himself while pacing up and down the halls. ADL's: Pt. preforms tasks independently, however requires prompting and encouragement by staff and continues to have shortened attention span Group attendance: Pt. did not attend groups today Were meds taken: Yes Any med S/E: None Mental Status Exam Appearance: Neat and appropriately dressed in hospital attire. Eye contact: Fair Behavior: Cooperative, restless, guarded, and withdrawn. Psychomotor activity WNL Speech: Soft, minimally responsive, but WNL Mood: Pleasant, however guarded Affect: Flat, however more animated with conversation Thought process: Thought blocking and poverty of thought r/t mental illness Thought Content: Continued preoccupation with own thoughts and distractibility Cognition: A&O X4 Insight: Fair Judgment: Fair to good Interventions PRN's used: None Therapeutic interventions: Provided active listening, maintained a safe and therapeutic environment, reoriented to reality as needed, monitored behaviors and assessed need for intervention, provided education regarding plan for tomorrow, and maintained Q 15 min safety checks. Restraints/seclusion/emergency medication: N/A Justification of Continued Inpatient Treatment: Pt. continues to require a safe and supportive environment while he awaits second trial date.
[2018-09-24 08:17] VITALS: BP 110/55
[2018-09-24] MEDS: OLANZAPINE 5 MG TABLET PO SCH (08:18)
--- NOTE | 2018-09-24 17:33 | NUR ---
RN Progress Note: Legal hold: 1370 (Court Ordered, [facility] for Competency) Client on involuntary status for competency. Report received from Luz SERRANO with use of SBAR Assessment Pt was asleep at change of shift. He went to the group room for meals. He frequently paced the halls. Pt was cooperative with assessment and answered most questions. He denied depression, SI, and A/VH. He did not answer when asked about his last BM. His affect was constricted. He had little interaction with other patients and did not attend groups. S/I, H/I: Denies A/VH: Denies Sleep: Pt stated he slept well ADL's: Independent. Group attendance: No Were meds taken: Yes Any med S/E: None noted Mental Status Exam Appearance: Clean and neat Eye contact: Fair Behavior: Isolated, but responds when spoken to. Speech: Minimal Speech Mood: CARMEN, pt did not state Affect: Blunted Thought process: Blocking Thought Content: Pt has minimal speech, unable to assess thought content Cognition: A/Ox 4 Insight: Poor Judgment: Poor Interventions PRN's used: None Therapeutic interventions: 1:1 therapeutic assessment, active listening, medication education, therapeutic milieu, and maintained Q 15 min checks. Restraints/seclusion/emergency medication: N/A Justification of Continued Inpatient. Patient sent to [facility] in lieu of senior living.
[2018-09-24 20:00] VITALS: BP 113/70
[2018-09-24] MEDS: olanzapine 10mg tablet PO SCH (21:17)
--- NOTE | 2018-09-25 02:57 | NUR ---
Nursing Note: Chief Complaint: Psychosis Legal hold: Court Ordered, [facility] for Competency Client on involuntary status for GD/Competency to stand trial Report received from nurse with use of SBAR: MAGGIE Lopez Why are they here: Pt. sent to [facility] for evaluation from [facility] in order to assess his competency to stand trial for shoplifting, showing false ID, and indecent exposure. Per report pt. has been "Zoning out" at home, exhibiting possible s/s of psychosis. Pt. has been attending mock trials and is able to voice to staff that he understands what he is being charged for and feels ashamed for what he did. Dr. Lemus informed [facility] that he believes the pt. is able to stand trial, next court date scheduled for 10/20/18. Assessment What has happened this shift: Pt. up pacing the hallway between his room and Group Room throughout the shift, however was observed to be sitting in the Recreation Room watching TV for approximately 15 minutes X1 this shift. 1:1 completed, pt. is cooperative, however remains restless and guarded. He continues to deny anxiety, depression, or h/a. When questioned regarding group attendance, pt. states, "No, I slept today." Pt. continues to present with difficulty regarding reciprocal interactions, however he is able to answer questions appropriately. Later pt. requested to shave his hill, and was able to do so independently while being monitored by Tech for safety precautions. S/I, H/I: Denies A/VH: Denies, however pt. occasionally witnessed to be mumbling to himself while pacing up and down the halls. ADL's: Pt. preforms tasks independently, however requires prompting and encouragement by staff and continues to have shortened attention span Group attendance: Pt. did not attend groups today Were meds taken: Yes Any med S/E: None Mental Status Exam Appearance: Neat and appropriately dressed in hospital attire. Pt. shaved this shift Eye contact: Fair Behavior: Cooperative, restless, guarded, and withdrawn. Psychomotor activity WNL Speech: Soft, minimally responsive, but WNL Mood: Pleasant, however guarded Affect: Flat Thought process: Thought blocking and poverty of thought r/t mental illness Thought Content: Continued preoccupation with own thoughts and distractibility Cognition: A&O X4 Insight: Fair Judgment: Fair to good Interventions PRN's used: None Therapeutic interventions: Provided active listening, maintained a safe and therapeutic environment, reoriented to reality as needed, monitored behaviors and assessed need for intervention, provided education regarding plan for tomorrow, and maintained Q 15 min safety checks. Restraints/seclusion/emergency medication: N/A Justification of Continued Inpatient Treatment: Pt. continues to require a safe and supportive environment while he awaits second trial date.
[2018-09-25] MEDS: OLANZAPINE 5 MG TABLET PO SCH (08:26)
[2018-09-25 08:34] VITALS: BP 102/64
--- NOTE | 2018-09-25 17:50 | NUR ---
RN Progress Note: Legal hold: 1370 (Court Ordered, [facility] for Competency) Client on involuntary status for competency. Report received from Luz SERRANO with use of SBAR Assessment Pt was asleep at change of shift w/o distress. He went to the group room for meals. He frequently paced the halls. Pt was cooperative and pleasant and answered most questions with one or two word answers. Pt denies SI or AH/VH. Appearance is in green scrubs and well shaven, which is new. Does not interact much with other clients, but tolerates others well and is compliant with morning meds. Encouraged groups but he did not want to attend. S/I, H/I: Denies A/VH: Denies Sleep: Pt stated he slept well ADL's: Independent. Group attendance: No Were meds taken: Yes Any med S/E: None noted Mental Status Exam Appearance: Clean and neat Eye contact: Fair Behavior: Isolated, but responds when spoken to. Speech: Minimal Speech Mood: Appears euthymic Affect: Blunted Thought process: Blocking Thought Content: Pt has minimal speech, unable to assess thought content Cognition: A/Ox 4 Insight: Poor Judgment: Poor Interventions PRN's used: None Therapeutic interventions: 1:1 therapeutic assessment, active listening, medication education, therapeutic milieu, and maintained Q 15 min checks. Restraints/seclusion/emergency medication: N/A Justification of Continued Inpatient. Patient sent to [facility] in lieu of fci.
[2018-09-25 20:00] VITALS: BP 118/73
[2018-09-25] MEDS: olanzapine 10mg tablet PO SCH (21:04)
--- NOTE | 2018-09-25 22:14 | NUR ---
RN Progress Note: Legal hold: 1370 (Court Ordered, [facility] for Competency) Client on involuntary status for competency. Report received from RN with use of SBAR Assessment Pt was pacing halls at change of shift w/o distress. He went to the group room for snack. He frequently paced the halls. Pt was cooperative and pleasant and answered most questions with one or two word answers. maintained good eye contact during brief assessment and medication pass. His father and two other relatives visited and pt seemed engaged during short conversation. His father hugged him for an extended period even after Pt. had dropped is arms to his side. Pt denies SI or AH/VH. Appearance is in green scrubs and well shaven, which is new. Does not interact much with other clients, but tolerates others well and is compliant with medications. S/I, H/I: Denies A/VH: Denies Sleep: see sleep assessment ADL's: Independent. Group attendance: N/A Were meds taken: Yes Any med S/E: None noted Mental Status Exam Appearance: Clean and neat Eye contact: Fair Behavior: Isolated, but responds when spoken to. Speech: Minimal Speech Mood: Appears euthymic Affect: Blunted Thought process: Blocking Thought Content: Pt has minimal speech, unable to assess thought content Cognition: A/Ox 4 Insight: Poor Judgment: Poor Interventions PRN's used: None Therapeutic interventions: 1:1 therapeutic assessment, active listening, medication education, therapeutic milieu, and maintained Q 15 min checks. Restraints/seclusion/emergency medication: N/A Justification of Continued Inpatient. Patient sent to [facility] in lieu of residential.
[2018-09-26 07:31] VITALS: BP 99/58
[2018-09-26] MEDS: OLANZAPINE 5 MG TABLET PO SCH (10:04)
--- NOTE | 2018-09-26 16:43 | NUR ---
RN Progress Note What Happened This Shift: Noticeable change in patient's mood and affect today. Sad down with staff and engaged in conversation, meaning he answered questions presented to him versus staying silent or walking away. Stated being in the hospital was "a ggod thing" because "I'm not in snf." Patient will remain in the hospital until his next court date later this month. Facial expression is blank. Stares at staff before answering. When asked if had taken a shower yesterday patient said "no." When asked to take a shower today, patient said "okay." Took a shower without event. Continues to pace up and down the halls when he is not in bed sleeping. Attends meals with minimal encouragement. Denies suicidal ideation or intent.
[2018-09-26] MEDS: ibuprofen tablet 400 MG TABLET PO SCH (17:03)
[2018-09-26 20:00] VITALS: BP 111/68
[2018-09-26] MEDS: olanzapine 10mg tablet PO SCH (20:32)
--- NOTE | 2018-09-27 02:28 | NUR ---
RN Progress Note: Legal hold: 1370 (Court Ordered, [facility] for Competency) Client on involuntary status for competency. Report received from RN with use of SBAR Assessment Pt was pacing halls at change of shift w/o distress. He frequently paced the halls. Pt was cooperative and pleasant. He went to the group room for snack.Pt was cooperative and pleasant and answered most questions with one or two word answers. Maintained good eye contact during brief assessment and medication pass. Pt denies SI or AH/VH. Appearance is in green scrubs and well shaven, Does not interact much with other clients, but tolerates others well and is compliant with medications. S/I, H/I: Denies A/VH: Denies Sleep: see sleep assessment ADL's: Independent. Group attendance: N/A Were meds taken: Yes Any med S/E: None noted Mental Status Exam Appearance: Clean and neat Eye contact: Fair Behavior: Isolated, but responds when spoken to. Speech: Minimal Speech Mood: Appears euthymic Affect: Blunted Thought process: Blocking Thought Content: Pt has minimal speech, unable to assess thought content Cognition: A/Ox 4 Insight: Poor Judgment: Poor Interventions PRN's used: None Therapeutic interventions: 1:1 therapeutic assessment, active listening, medication education, therapeutic milieu, and maintained Q 15 min checks. Restraints/seclusion/emergency medication: N/A Justification of Continued Inpatient. Patient sent to [facility] in lieu of correction.
[2018-09-27 07:39] VITALS: BP 102/62
[2018-09-27] MEDS: OLANZAPINE 5 MG TABLET PO SCH (08:17)
[2018-09-27] MEDS: ibuprofen tablet 400 MG TABLET PO SCH ×3 (08:30→17:30)
--- NOTE | 2018-09-27 17:25 | NUR ---
Legal hold: 1370 (Court Ordered, [facility] for Competency) Client on involuntary status for competency. Report received from RN with use of SBAR Assessment Stayed in room for greater part of shift. Came out for meals when notified food cart was on the unit. Sat with staff briefly in the morning. Stated he was "all right." When asked if he felt more comfortable and relaxed with the staff now that he had been here for some time patient stated "yes." S/I, H/I: Denies A/VH: Denies Sleep: see sleep assessment ADL's: Independent. Group attendance: N/A Were meds taken: Yes Any med S/E: None noted Mental Status Exam Appearance: Clean and neat Eye contact: Fair Behavior: Isolated, but responds when spoken to. Speech: Minimal Speech Mood: Appears euthymic Affect: Blunted Thought process: Blocking Thought Content: Pt has minimal speech, unable to assess thought content Cognition: A/Ox 4 Insight: Poor Judgment: Poor Interventions PRN's used: None Therapeutic interventions: 1:1 therapeutic assessment, active listening, medication education, therapeutic milieu, and maintained Q 15 min checks. Restraints/seclusion/emergency medication: N/A Justification of Continued Inpatient. Patient sent to [facility] in lieu of fpc.
[2018-09-27 20:00] VITALS: BP 127/60
[2018-09-27] MEDS: olanzapine 10mg tablet PO SCH (20:32)
--- NOTE | 2018-09-28 04:19 | NUR ---
RN Progress Note: Legal hold: 1370 (Court Ordered, [facility] for Competency) Client on involuntary status for competency. Report received from RN with use of SBAR Assessment Pt was pacing halls at change of shift w/o distress. Stops when spoken to. Very short answers to questions cooperative and pleasant. He went to the group room for snack. Maintained good eye contact during brief assessment and medication pass. Pt denies SI or AH/VH. Does not interact much with other clients, but tolerates others well and is compliant with medications. S/I, H/I: Denies A/VH: Denies Sleep: see sleep assessment ADL's: Independent. Group attendance: N/A Were meds taken: Yes Any med S/E: None noted Mental Status Exam Appearance: Clean and neat Eye contact: Fair Behavior: Isolated, but responds when spoken to. Speech: Minimal Speech Mood: Appears euthymic Affect: Blunted Thought process: Blocking Thought Content: Pt has minimal speech, unable to assess thought content Cognition: A/Ox 4 Insight: Poor Judgment: Poor Interventions PRN's used: None Therapeutic interventions: 1:1 therapeutic assessment, active listening, medication education, therapeutic milieu, and maintained Q 15 min checks. Restraints/seclusion/emergency medication: N/A Justification of Continued Inpatient. Patient sent to [facility] in lieu of longterm.
[2018-09-28 07:37] VITALS: BP 92/56
[2018-09-28] MEDS: ibuprofen tablet 400 MG TABLET PO SCH (09:03)
[2018-09-28] MEDS: OLANZAPINE 5 MG TABLET PO SCH (09:03)
--- NOTE | 2018-09-28 11:13 | NUR ---
Reassessment: Pt PO 75-100% meals meeting needs. LBM 3/4. No nutrition concerns at this time. Recommend: 1. Continue regular diet 2. Bowel care as needed 3. Weekly wts Addendum: 09/28/18 at [address] Amended: Links added.
[2018-09-28] MEDS ORDERED: ibuprofen tablet 400 MG TABLET PO PRN (12:50)
--- NOTE | 2018-09-28 18:53 | NUR ---
RN Progress Note: Legal hold: 1370 (Court Ordered, [facility] for Competency) Client on involuntary status for competency. Report received from MAGGIE Husain with use of SBAR Assessment Pt sleeping at the change of shift. He was cooperative with assessment. He reported sleeping well. He denied depression, anxiety, SI, and A/V H. He was guarded, but answered questions appropriately. He frequently walked in the halls. While passing pt in the hallway, he would make eye contact and reply when spoken to. Pt attended the afternoon group. He received Motrin for 7/10 pain. He indicated that for the past two weeks he has had pain in his bones. S/I, H/I: Denies A/VH: Denies Sleep: No sleep issues ADL's: Independent. Group attendance: Afternoon group Were meds taken: Yes Any med S/E: None noted Mental Status Exam Appearance: Neat, clean Eye contact: Fair Behavior: Isolated, but responds when spoken to. Speech: He had minimal speech Mood: Guarded Affect: Constricted Thought process: Blocking Thought Content: Unable to assess Cognition: A/Ox 4 Insight: Poor Judgment: Poor Interventions PRN's used: None Therapeutic interventions: 1:1 therapeutic assessment, active listening, medication education, therapeutic milieu, and maintained Q 15 min checks. Restraints/seclusion/emergency medication: N/A Justification of Continued Inpatient. Pt in [facility] by court order. Patient sent to [facility] lieu of penitentiary.
[2018-09-28 20:00] VITALS: BP 117/70
[2018-09-28] MEDS: olanzapine 10mg tablet PO SCH (20:46)
--- NOTE | 2018-09-29 04:09 | NUR ---
RN Progress Note: Legal hold: 1370 (Court Ordered, [facility] for Competency) Client on involuntary status for competency. Report received from RN with use of SBAR Assessment Pt continues to pace in halls Attempts to engage him in conversation or encouraging him to participate in activities unsuccessful. Very short answers to questions cooperative and pleasant. He went to the group room for snack. Maintained good eye contact during brief assessment and medication pass. Pt denies SI or AH/VH. Compliant with medications. S/I, H/I: Denies A/VH: Denies Sleep: see sleep assessment ADL's: Independent. Group attendance: N/A Were meds taken: Yes Any med S/E: None noted Mental Status Exam Appearance: Clean and neat Eye contact: Fair Behavior: Isolated, but responds when spoken to. Speech: Minimal Speech Mood: Appears euthymic Affect: Blunted Thought process: Blocking Thought Content: Pt has minimal speech, unable to assess thought content Cognition: A/Ox 4 Insight: Poor Judgment: Poor Interventions PRN's used: None Therapeutic interventions: 1:1 therapeutic assessment, active listening, medication education, therapeutic milieu, and maintained Q 15 min checks. Restraints/seclusion/emergency medication: N/A Justification of Continued Inpatient. Patient sent to [facility] in lieu of [facility].
[2018-09-29 08:00] VITALS: BP 113/52
[2018-09-29] MEDS: OLANZAPINE 5 MG TABLET PO SCH (08:21)
--- NOTE | 2018-09-29 13:08 | NUR ---
RN Progress Note: Legal hold: 1370 (Court Ordered, [facility] for Competency) Client on involuntary status for competency. Report received from MAGGIE Husain with use of SBAR Assessment Pt sleeping at the change of shift and up for breakfast. When RN gave him his medication he was laying in his bed with his eyes open. Patient was cooperative with assessment. Patient denied depression, anxiety, SI, and hallucinations. Patient is cooperative and speaks a little more than when he first arrived. He walks the halls but not as often as when he first arrived. Patient makes eye contact when talking to patient. Patient takes his medication. Patient did not attend morning group today. S/I, H/I: Denies A/VH: Denies Sleep: No sleep issues ADL's: Independent. Group attendance: no Were meds taken: Yes Any med S/E: None noted Mental Status Exam Appearance: Neat, clean Eye contact: Fair Behavior: Isolated, but responds when spoken to. Speech: He had minimal speech Mood: Guarded Affect: Constricted Thought process: Blocking Thought Content: Unable to assess Cognition: A/Ox 4 Insight: Poor Judgment: Poor Interventions PRN's used: None Therapeutic interventions: 1:1 therapeutic assessment, active listening, medication education, therapeutic milieu, and maintained Q 15 min checks. Restraints/seclusion/emergency medication: N/A Justification of Continued Inpatient. Pt in [facility] by court order. Patient sent to [facility] in lieu of penitentiary.
[2018-09-29 20:00] VITALS: BP 116/75
[2018-09-29] MEDS: olanzapine 10mg tablet PO SCH (20:20)
--- NOTE | 2018-09-30 00:02 | NUR ---
Nursing Note: Chief Complaint: Psychosis Legal hold: Court Ordered, [facility] for Competency Client on involuntary status for GD/Competency to stand trial Report received from nurse with use of SBAR: MAGGIE Menjivar Why are they here: Pt. sent to [facility] for evaluation from [facility] in order to assess his competency to stand trial for shoplifting, showing false ID, and indecent exposure. Per report pt. has been "Zoning out" at home, exhibiting possible s/s of psychosis. Pt. has been attending mock trials and is able to voice to staff that he understands what he is being charged for and feels ashamed for what he did. Dr. Lemus informed [facility] that he believes the pt. is able to stand trial, next court date scheduled for 10/20/18. Assessment What has happened this shift: Pt. up pacing the hallway between his room and Group Room throughout the shift, however does take breaks occasionally and appears better able to focus on tasks. 1:1 completed, pt. is cooperative, however remains restless and guarded. He continues to deny anxiety, depression, or h/a (not observed to be muttering to self while pacing this shift). When questioned regarding group attendance, pt. states with animation, "Yes, I meseret a lock and jimenez and wrote, path to mental wellness today." He reports his medications continue to help him think more clearly, and he plans to keep taking them when he leaves. Pt. presents as better able to participate in reciprocal interactions, and eye contact is much improved. S/I, H/I: Denies A/VH: Denies, not observed to be muttering to self while pacing up and down the halls this shift. ADL's: Pt. preforms tasks independently, however requires some prompting and encouragement by staff. Group attendance: Pt. reports he has been attending groups and enjoys them Were meds taken: Yes Any med S/E: None Mental Status Exam Appearance: Neat and appropriately dressed in hospital attire. Hair nicely styled Eye contact: Fair to good Behavior: Cooperative, restless, and guarded. Psychomotor activity WNL Speech: Soft, minimally responsive, but WNL. Mood: Pleasant, however guarded Affect: Flat, however animates slightly with conversation Thought process: Thought blocking and poverty of thought r/t mental illness Thought Content: Continued preoccupation with own thoughts Cognition: A&O X4 Insight: Fair Judgment: Fair to good Interventions PRN's used: None Therapeutic interventions: Provided active listening, maintained a safe and therapeutic environment, reoriented to reality as needed, monitored behaviors and assessed need for intervention, provided education regarding plan for tomorrow, and maintained Q 15 min safety checks. Restraints/seclusion/emergency medication: N/A Justification of Continued Inpatient Treatment: Pt. continues to require a safe and supportive environment while he awaits second trial date.
[2018-09-30 08:00] VITALS: BP 111/54
[2018-09-30] MEDS: OLANZAPINE 5 MG TABLET PO SCH (08:41)
--- NOTE | 2018-09-30 17:00 | NUR ---
Nursing Note: Alonso Garcia Chief Complaint: Psychosis Legal hold: Court Ordered, [facility] for Competency Client on involuntary status for GD/Competency to stand trial Report received from nurse with use of SBAR: MAGGIE Menjivar Why are they here: Pt. sent to [facility] for evaluation from [facility] in order to assess his competency to stand trial for shoplifting, showing false ID, and indecent exposure. Per report pt. has been "Zoning out" at home, exhibiting possible s/s of psychosis. Pt. has been attending mock trials and is able to voice to staff that he understands what he is being charged for and feels ashamed for what he did. Dr. Lemus informed [facility] that he believes the pt. is able to stand trial, next court date scheduled for 10/20/18. Assessment Pt. up during and isolating during beginning of shift. During RNs assessment pt. was very withdrawn, and gave delayed, 1 word answers. Pt.'s affect slightly brighter this afternoon. Pt. paced up and down hallway during the afternoon. Pt. ate meals in community room. Pt. attended groups. Pt. did not want to talk to Dr. Lemus this afternoon. S/I, H/I: Denies A/VH: Denies ADL's: Pt. preforms tasks independently, however requires some prompting and encouragement by staff. Group attendance: Pt. attending groups. Were meds taken: Yes Any med S/E: None Mental Status Exam Appearance: Neat and appropriately dressed in hospital attire. Hair nicely styled Eye contact: Fair to good Behavior: Cooperative, restless, and guarded. Psychomotor activity WNL Speech: Soft, minimally responsive, but WNL. Mood: Pleasant, however guarded Affect: Flat, however animates slightly with conversation Thought process: Thought blocking and poverty of thought r/t mental illness Thought Content: Continued preoccupation with own thoughts Cognition: A&O X4 Insight: Fair Judgment: Fair to good Interventions PRN's used: None Therapeutic interventions: Provided active listening, maintained a safe and therapeutic environment, reoriented to reality as needed, monitored behaviors and assessed need for intervention, provided education regarding plan for tomorrow, and maintained Q 15 min safety checks. Restraints/seclusion/emergency medication: N/A Justification of Continued Inpatient Treatment: Pt. continues to require a safe and supportive environment while he awaits second trial date.
[2018-09-30 20:00] VITALS: BP 104/74
[2018-09-30] MEDS: olanzapine 10mg tablet PO SCH (20:41)
--- NOTE | 2018-10-01 00:38 | NUR ---
Nursing Note: Chief Complaint: Psychosis Legal hold: Court Ordered, [facility] for Competency Client on involuntary status for GD/Competency to stand trial Report received from nurse with use of SBAR: MAGGIE Gross Why are they here: Pt. sent to [facility] for evaluation from [facility] in order to assess his competency to stand trial for shoplifting, showing false ID, and indecent exposure. Per report pt. has been "Zoning out" at home, exhibiting possible s/s of psychosis. Pt. has been attending mock trials and is able to voice to staff that he understands what he is being charged for and feels ashamed for what he did. Dr. Lemus informed [facility] that he believes the pt. is able to stand trial, next court date scheduled for 10/20/18. Assessment What has happened this shift: Pt. up pacing the hallway between his room and Group Room throughout the shift, however focus on tasks continues to improve. 1:1 completed, pt. is cooperative, however presents as more restless and withdrawn this shift. He continues to deny anxiety, depression, or h/a (not observed to be muttering to self while pacing this shift), states, "I feel good." When questioned regarding group attendance, pt. reports he did not attend groups today because he was tired and he stayed in bed, however day shift reported pt. did attend groups. This sign writer hand encouraged pt. to attend groups tomorrow and agreed. He showed this sign writer hand with pride, a picture he had drawn in art group portraying a door with a jimenez and stated, "That's my door to freedom, and being free from stress." Picture was very neatly drawn and appeared to be very meaningful to pt. Pt's participation in reciprocal interactions and eye contact continues to improve. S/I, H/I: Denies A/VH: Denies, not observed to be muttering to self while pacing up and down the halls this shift. ADL's: Pt. preforms tasks independently, however requires some prompting and encouragement by staff. Group attendance: Pt. reports he did not attend groups today because he was tired and he stayed in bed, however day shift reported pt. did attend groups. Were meds taken: Yes Any med S/E: None Mental Status Exam Appearance: Neat and appropriately dressed in hospital attire. Eye contact: Fair to good Behavior: Cooperative, restless, and guarded. Psychomotor activity WNL Speech: Soft, minimally responsive, but WNL. Mood: Pleasant, however guarded Affect: Flat, however animates slightly with conversation Thought process: Thought blocking and poverty of thought r/t mental illness Thought Content: Continued preoccupation with own thoughts Cognition: A&O X4 Insight: Fair Judgment: Fair to good Interventions PRN's used: None Therapeutic interventions: Provided active listening, maintained a safe and therapeutic environment, reoriented to reality as needed, monitored behaviors and assessed need for intervention, provided encouragement regarding group attendance and performance of ADLs, and maintained Q 15 min safety checks. Restraints/seclusion/emergency medication: N/A Justification of Continued Inpatient Treatment: Pt. continues to require a safe and supportive environment while he awaits second trial date.
[2018-10-01 07:54] VITALS: BP 97/55
[2018-10-01] MEDS: OLANZAPINE 5 MG TABLET PO SCH (08:14)
--- NOTE | 2018-10-01 17:39 | NUR ---
RN Progress Note: Legal hold: 1370 (Court Ordered, [facility] for Competency) Client on involuntary status for competency. Report received from MAGGIE Husain with use of SBAR Assessment Pt sleeping at the change of shift. He was cooperative with assessment. He indicated he slept well. He denied depression, anxiety, SI, and A/VH. He slept for much of the morning. When asked to go to afternoon group he indicated he was tired, but went to group with prompting. S/I, H/I: Denies A/VH: Denies Sleep: Tired, slept during the morning ADL's: Independent. Group attendance: Afternoon group Were meds taken: Yes Any med S/E: None noted Mental Status Exam Appearance: Neat, clean Eye contact: Fair Behavior: Isolates Speech: He had minimal speech, but responds appropriately to questions. Mood: Guarded Affect: Constricted Thought process: Blocking Thought Content: Unable to assess Cognition: A/Ox 4 Insight: Poor Judgment: Poor Interventions PRN's used: None Therapeutic interventions: 1:1 therapeutic assessment, active listening, medication education, therapeutic milieu, and maintained Q 15 min checks. Restraints/seclusion/emergency medication: N/A Justification of Continued Inpatient. Pt in [facility] by court order. Patient sent to [facility] in lieu of prison.
[2018-10-01 19:55] VITALS: BP 145/82
[2018-10-01] MEDS: olanzapine 10mg tablet PO SCH (20:47)
--- NOTE | 2018-10-01 22:43 | NUR ---
RN Progress Note: Legal hold: 1370 (Court Ordered, [facility] for Competency) Client on involuntary status for competency. Report received from MAGGIE Lopez with use of SBAR Assessment Pt pacing floor at change of shift. He appears more anxious, however when asked, he denies. He was cooperative with assessment and medication administration. Would not make good eye contact with this signwriter. This signwriter approached him numerous times to see if he needed anything and patient answered only with yes/no. He denied depression, anxiety, SI, and A/VH. Charge nurse offered patient new socks which he took. Per charge nurse, when asked if his feet hurt, he replied yes, when asked if she could look at them, he stated clearly no. Patients ongoing pacing, reminded this signwriter of a caged animal Desperate for freedom. S/I, H/I: Denies A/VH: Denies Sleep: See sleep assessment ADL's: Independent. Group attendance: NA did not interact with others on unit Were meds taken: Yes Any med S/E: None noted Mental Status Exam Appearance: Neat, clean Eye contact: Fair Behavior: Isolates Speech: He had minimal speech, but responds appropriately to questions. Mood: Guarded Affect: Constricted Thought process: Blocking Thought Content: Unable to assess Cognition: A/Ox 4 Insight: Poor Judgment: Poor Interventions PRN's used: None Therapeutic interventions: 1:1 therapeutic assessment, active listening, medication education, therapeutic milieu, and maintained Q 15 min checks. Restraints/seclusion/emergency medication: N/A Justification of Continued Inpatient. Pt in [facility] by court order. Patient sent to [facility] in lieu of half-way.
[2018-10-02 07:49] VITALS: BP 92/48
[2018-10-02] MEDS: OLANZAPINE 5 MG TABLET PO SCH (08:06)
--- NOTE | 2018-10-02 17:40 | NUR ---
RN Progress Note: Legal hold: 1370 (Court Ordered, [facility] for Competency) Client on involuntary status for competency. Report received from MAGGIE New with use of SBAR Assessment Patient visible on the unit as always, today. Pacing the hallways at times or laying on his bed. Patient did take a shower this morning and take care of his hygiene needs. Patient denies auditory hallucinations, depression and suicidal thoughts. Patient does not initiate interaction with others, but when this nurse begin conversation with the patient, patient appears very calm and not distracted by internal stimuli or paranoid thoughts as he was before. Patient able to state that hes here waiting his next court date on October 20. Patient did attend a.m. group, but chose not to attend afternoon group. S/I, H/I: Denies A/VH: Denies Sleep: Tired, slept during the morning ADL's: Independent. Group attendance: Afternoon group Were meds taken: Yes Any med S/E: None noted Mental Status Exam Appearance: Neat, clean Eye contact: Fair Behavior: Isolates Speech: He had minimal speech, but responds appropriately to questions. Mood: Guarded Affect: Constricted Thought process: Blocking Thought Content: Unable to assess Cognition: A/Ox 4 Insight: Poor Judgment: Poor Interventions PRN's used: None Therapeutic interventions: 1:1 therapeutic assessment, active listening, medication education, therapeutic milieu, and maintained Q 15 min checks. Restraints/seclusion/emergency medication: N/A Justification of Continued Inpatient. Pt in [facility] by court order. Patient sent to [facility] in lieu of residential.
[2018-10-02 19:43] VITALS: BP 129/77
[2018-10-02] MEDS: olanzapine 10mg tablet PO SCH (20:24)
--- NOTE | 2018-10-02 23:48 | NUR ---
RN Progress Note: Legal hold: 1370 (Court Ordered, [facility] for Competency) Client on involuntary status for competency. Report received from MAGGIE New with use of SBAR Assessment Patient visible on the unit pacing the beginning of the shift. Patient continues to have no interaction with staff or peers unless initiated by someone else. And even then patient is resistive to ongoing conversation. Patient did state his feet were a little sore from all the walking but declined putting on his sandals with staff gave him the idea. Patient stated he was OK and had no complaints this evening. Patient up for snack and then went to his room around 2215 and fell sleep. S/I, H/I: Denies A/VH: Denies Sleep: Tired, slept during the morning ADL's: Independent. Group attendance: Afternoon group Were meds taken: Yes Any med S/E: None noted Mental Status Exam Appearance: Neat, clean Eye contact: Fair Behavior: Isolates Speech: He had minimal speech, but responds appropriately to questions. Mood: Guarded Affect: Constricted Thought process: Blocking Thought Content: Unable to assess Cognition: A/Ox 4 Insight: Poor Judgment: Poor Interventions PRN's used: None Therapeutic interventions: 1:1 therapeutic assessment, active listening, medication education, therapeutic milieu, and maintained Q 15 min checks. Restraints/seclusion/emergency medication: N/A Justification of Continued Inpatient. Pt in [facility] by court order. Patient sent to [facility].
[2018-10-03 08:00] VITALS: BP 106/53
[2018-10-03] MEDS: OLANZAPINE 5 MG TABLET PO SCH (08:12)
--- NOTE | 2018-10-03 17:55 | NUR ---
RN Progress Note: Legal hold: 1370 (Court Ordered, [facility] for Competency) Client on involuntary status for competency. Report received from MAGGIE New with use of SBAR Assessment: Patient in his room resting at change of shift. He gets up for breakfast and joins others in the group room. He takes his medication without any issue. He kindly tells staff that his breakfast is not ordered correct. After breakfast he returns to his room and rests. He is observed pacing the halls of the unit after lunch and looking out the windows. Patient answers questions in a pleasant manner but is not conversational. S/I, H/I: none reported A/VH: none reported Sleep: rested after breakfast ADL's: Independent. Group attendance: no Were meds taken: Yes Any med S/E: None reported, no IMs or tremors observed Mental Status Exam Appearance: Neat, clean, hair brushed back Eye contact: occasional Behavior: Isolative but pleasant demeanor Speech: He had minimal speech, but responds appropriately to questions. Mood: appears to be in a good mood Affect: restricted with a small soft smile Thought process: Blocking Thought Content: Unable to assess Cognition: A/Ox 4 Insight: Poor Judgment: Poor Interventions PRN's used: None Therapeutic interventions: 1:1 therapeutic assessment, active listening, medication education, therapeutic milieu, and maintained Q 15 min checks. Restraints/seclusion/emergency medication: N/A Justification of Continued Inpatient. Pt in [facility] by court order. Patient sent to [facility] in lieu of alf.
[2018-10-03 19:40] VITALS: BP 133/70
--- NOTE | 2018-10-03 20:00 | NUR ---
Adelso helton in halls, one end to the other, stopped and met in room for assessment, speaks very few words. states no delusions, and no desire to hurt himself. calm and pleasant. Addendum: 10/03/18 at 2257 by Rose Marie Hurtado RN Amended: Links added.
[2018-10-03] MEDS: olanzapine 10mg tablet PO SCH (20:46)
--- NOTE | 2018-10-04 00:40 | NUR ---
RN Progress Note: Legal hold: 1370 (Court Ordered, [facility] for Competency) Client on involuntary status for competency. Report received from MAGGIE Isaac with use of SBAR Assessment: Patient is pacing in [place]bar[place] doorway to doorway at change of shift. He is calm and pleasant, speaks few words, but cooperative. Took all his medications without any issues. Pt spoke with father on phone tonight. Pt states he did not get to go outside today. He did introduce himself to new roommate tonight. S/I, H/I: none reported A/VH: none reported Sleep: slept well ADL's: Independent. Group attendance: no Were meds taken: Yes Any med S/E: None reported, no IMs or tremors observed Mental Status Exam Appearance: Neat, clean, hair brushed back Eye contact: occasional Behavior: Isolative but pleasant demeanor Speech: He had minimal speech, but responds appropriately to questions. Mood: appears to be in a good mood Affect: restricted with a small soft smile Thought process: Blocking Thought Content: Unable to assess Cognition: A/Ox 4 Insight: Poor Judgment: Poor Interventions PRN's used: None Therapeutic interventions: 1:1 therapeutic assessment, active listening, medication education, therapeutic milieu, and maintained Q 15 min checks. Restraints/seclusion/emergency medication: N/A Justification of Continued Inpatient. Pt in [facility] by court order. Patient sent to [facility] in lieu of [facility].
--- NOTE | 2018-10-04 05:38 | NUR ---
Patient woke up once during shift, amb in ybarra briefly, and went back to bed.
[2018-10-04 08:00] VITALS: BP 120/64
[2018-10-04] MEDS: OLANZAPINE 5 MG TABLET PO SCH (08:03)
--- NOTE | 2018-10-04 17:34 | NUR ---
RN Progress Note: Legal hold: 1370 (Court Ordered, [facility] for Competency) Client on involuntary status for competency. Report received from MAGGIE Trotter with use of SBAR Assessment: Patient is observed sleeping at change of shift. He is awoken easily and takes his medication without any issue. He is friendly and slightly more talkative than in past shifts. He smiles and is actively attentive to what you are saying. He joins others for breakfast and lunch. Though his demeanor is more friendly he is not social with others, he remains quiet and to himself. He paces the ybarra of unit in the afternoon. S/I, H/I: none reported A/VH: none reported Sleep: rested after breakfast ADL's: Independent. Group attendance: no Were meds taken: Yes Any med S/E: None reported, no IMs or tremors observed Mental Status Exam Appearance: Neat, clean, hair brushed back Eye contact: appropriate Behavior: Isolative but pleasant demeanor Speech: He had minimal speech, but responds appropriately to questions. Mood: appears to be in a good mood Affect: restricted with a small soft smile Thought process: Blocking Thought Content: Unable to assess Cognition: A/Ox 4 Insight: Poor Judgment: Poor Interventions PRN's used: None Therapeutic interventions: 1:1 therapeutic assessment, active listening, medication education, therapeutic milieu, and maintained Q 15 min checks. Restraints/seclusion/emergency medication: N/A Justification of Continued Inpatient. Pt in [facility] by court order. Patient sent to [facility] in lieu of shelter.
[2018-10-04 20:00] VITALS: BP 120/71
[2018-10-04] MEDS: olanzapine 10mg tablet PO SCH (20:29)
--- NOTE | 2018-10-05 01:11 | NUR ---
Nursing Note: Chief Complaint: Competency Legal hold: Court Ordered, [facility] for Competency Client on involuntary status for competency Report received from nurse with use of SBAR: Marie SERRANO Diagnosis/presenting symptoms: Patient is only oriented x 1. Assessment Patient paces the hallways for a few hours until he goes to his room to sleep. He is pleasant upon approach and compliments fiction and nonfiction writer prose saying, "I like the way you have your hair." He tells fiction and nonfiction writer prose he has been feeling achy all over. Senior Talent Acquisition Specialist gives him Motrin and does medication education with him on this, which he verbalizes understanding. Pt makes direct eye contact and smiles occasionally. S/I, H/I: Denies A/VH: denies Sleep:see sleep assessment notation ADL's: Independent Group attendance: shift coordinator, no groups Were meds taken:yes Any med S/E: None reported, none observed Mental Status Exam Appearance:clean Eye contact: Fair Behavior: paces the hallways Speech: Soft, sparse Mood: tired Affect: flat to pleasant Thought process: Poverty of thought, blocking Thought Content: unable to assess Cognition: improving Insight: Poor Judgment: Poor Interventions PRN's used: Motrin for muscle aches Therapeutic interventions: 1:1 provided active listening, maintained a safe and therapeutic environment, and maintained Q 15 min safety checks. Restraints/seclusion/emergency medication: N/A Justification of Continued Inpatient Treatment: Court ordered treatment.
[2018-10-05 08:00] VITALS: BP 100/64
[2018-10-05] MEDS: OLANZAPINE 5 MG TABLET PO SCH (08:30)
--- NOTE | 2018-10-05 15:35 | NUR ---
Nursing Progress Note: Legal hold:[1370] Client on involuntary status for court ordered. Report received from nurse with use of SBAR. Why are they here:[Pt court ordered to be here for mental health help for a court hearing]. Assessment What has happened this shift:[Pt pacing the halls. Pt does not attend the group therapy session] S/I, H/I:[denies] A/VH: [denies] Sleep:[good] ADL's:[self] Group attendance:[none] Were meds taken:[yes] Any med S/E[denies] Mental Status Exam Appearance:[clean] Eye contact:[appropriate] Behavior:[isolative] Speech:[restricted] Mood:[good] Affect:[flat] Thought process:[A&Ox4] Thought Content:[normal] Cognition:[normal] Insight:[poor] Judgment:[poor] Interventions PRN's used:[NA] Therapeutic interventions:[1:1 nursing intervention] Restraints/seclusion/emergency medication:[none] Justification of Continued Inpatient Treatment:[Pt is court ordered 1370 for treatment]
[2018-10-05 20:00] VITALS: BP 119/81
[2018-10-05] MEDS: olanzapine 10mg tablet PO SCH (20:32)
--- NOTE | 2018-10-05 23:47 | NUR ---
Nursing Note: Chief Complaint: Competency Legal hold: Court Ordered, [facility] for Competency Client on involuntary status for competency Report received from nurse with use of SBAR: Edgard SERRANO Diagnosis/presenting symptoms: Patient is only oriented x 1. Assessment Patient paces the hallways. He is pleasant on approach. He avoids eye contact but smiles occasionally. His speech is clear but brief. he denies any SI/HI/AH/VH. When asked if he went to groups today he answers, " no, I just eat and sleep, I just can't stay." He answers questions but has trouble standing in one spot for more than a few seconds at a time. After speaking with staff he begins to pace again. Patient Registration Specialist does not see him interact with any of his peers. S/I, H/I: Denies A/VH: denies Sleep:see sleep assessment notation ADL's: Independent Group attendance: cook night, no groups Were meds taken:yes Any med S/E: None reported, none observed Mental Status Exam Appearance:clean Eye contact: avoids Behavior: paces the hallways Speech: Soft, sparse Mood: anxious Affect: flat to pleasant Thought process: Poverty of thought, blocking Thought Content: unable to assess Cognition: improving Insight: Poor Judgment: Poor Interventions PRN's used: none Therapeutic interventions: 1:1 provided active listening, maintained a safe and therapeutic environment, and maintained Q 15 min safety checks. Restraints/seclusion/emergency medication: N/A Justification of Continued Inpatient Treatment: Court ordered treatment.
[2018-10-06] MEDS: OLANZAPINE 5 MG TABLET PO SCH (07:52)
[2018-10-06 08:00] VITALS: BP 97/66
--- NOTE | 2018-10-06 12:22 | NUR ---
Reassessment: Pt PO 75-100% meals meeting needs. LBM 10/06. No nutrition concerns at this time. Recommend: 1. Continue regular diet 2. Bowel care as needed 3. Weekly wts Addendum: 10/06/18 at [address] Amended: Links added.
--- NOTE | 2018-10-06 14:35 | NUR ---
Nursing Note: Chief Complaint: [facility] for competency Report received from nurse with use of SBAR: Anju SERRANO Diagnosis/presenting symptoms: 22 year old male admitted on 08/06/18 as incompetent to stand trial and is admitted for confucianist/treatment. Assessment What happened this shift: The patient was asleep at change of shift. He got up for breakfast, walks down hallway, makes eye contact with nurse and says,"hello." He is quiet, calm, and cooperative. He attends all meals but does not attend groups. He is med compliant. Makes brief eye contact when interviewed and after thoughtful consideration answers every question. Denies AH, VH, SI, HI. Reports his father is trying to get an apartment for him which he states would make him very happy. He paces the ybarra and lays in his bed throughout the day. He states he feels prepared for his upcoming court date. S/I, H/I: Denies A/VH: Denies Sleep: Napped ADL's: Independent Group attendance: No Were meds taken:yes Any med S/E: None reported, none observed Mental Status Exam Appearance: Neat and clean Eye contact: brief Behavior: paces the hallways and lies in bed Speech: Soft, sparse Mood: Calm Affect: bland Thought process: Poverty of thought, blocking Thought Content: unable to assess Cognition: improving Insight: Poor Judgment: Poor Interventions PRN's used: none Therapeutic interventions: 1:1 provided active listening, maintained a safe and therapeutic environment, and maintained Q 15 min safety checks. Restraints/seclusion/emergency medication: N/A Justification of Continued Inpatient Treatment: Court ordered treatment.
[2018-10-06 19:36] VITALS: BP 114/73
[2018-10-06] MEDS: olanzapine 10mg tablet PO SCH (20:55)
--- NOTE | 2018-10-07 01:05 | NUR ---
Nursing Note: Chief Complaint: Competency Legal hold: Court Ordered, [facility] for Competency Client on involuntary status for competency Report received from nurse with use of SBAR: MAGGIE Centeno Diagnosis/presenting symptoms: 22 year old male admitted on 08/06/18 as incompetent to stand trial and is admitted for pentecostal/treatment. Assessment What happened this shift: The patient was pacing the ybarra at shift shift. Pt responded to sign writer letterer or painter when addressed. Pt is pleasant and cooperative. Asked if he was excited about getting his own place and pt stated "yes." Pt displayed a smile when I asked if he had a dog. Pt stated "I think it is a lab". Pt stated he did attend group today. Denies any SI, AV/VH. S/I, H/I: None reported or observed A/VH: None reported or observed Sleep: See sleep assessment notation ADL's: Independent Group attendance: third shift lieutenant, no group Were meds taken: Yes Any med S/E: None reported, none observed Mental Status Exam Appearance: Neat and clean Eye contact: Avoidant Behavior: Paces the hallways Speech: Soft, sparse Mood: Calm Affect: [place] Thought process: Poverty of thought, blocking Thought Content: Unable to assess Cognition: Improving Insight: Poor Judgment: Poor Interventions PRN's used: None Therapeutic interventions: 1:1 provided active listening, maintained a safe and therapeutic environment, and maintained Q 15 min safety checks. Restraints/seclusion/emergency medication: N/A Justification of Continued Inpatient Treatment: Court ordered treatment.
[2018-10-07 08:00] VITALS: BP 93/52
[2018-10-07] MEDS: OLANZAPINE 5 MG TABLET PO SCH (08:04)
--- NOTE | 2018-10-07 17:02 | NUR ---
Nursing Note: Chief Complaint: Competency Legal hold: Court Ordered, [facility] for Competency Client on involuntary status for competency Report received from nurse with use of SBAR: Nikki SERRANO Diagnosis/presenting symptoms: 22 year old male admitted on 08/06/18 as incompetent to stand trial and is admitted for mandaen/treatment. Assessment What happened this shift: The patient was asleep at change of shift. He is quiet, calm, and cooperative. He attends all meals and attempted to sit in on groups today, he was able to attend for 10-15 mins. He walks in the ybarra frequently. He is med compliant. Makes brief eye contact. Denies AH, VH, SI, HI. He reports he has not heard from his father regarding apartment. . He appears a bit more upbeat today, answers questions easily. S/I, H/I: Denies A/VH: Denies Sleep: Napped ADL's: Independent Group attendance: yes briefly Were meds taken:yes Any med S/E: None reported, none observed Mental Status Exam Appearance: Neat and clean Eye contact: brief Behavior: paces the hallways and lies in bed Speech: Soft, sparse Mood: Calm Affect: bland Thought process: Poverty of thought, blocking Thought Content: unable to assess Cognition: improving Insight: Poor Judgment: Poor Interventions PRN's used: none Therapeutic interventions: 1:1 provided active listening, maintained a safe and therapeutic environment, and maintained Q 15 min safety checks. Restraints/seclusion/emergency medication: N/A Justification of Continued Inpatient Treatment: Court ordered treatment.
[2018-10-07 19:00] VITALS: BP 126/74
[2018-10-07] MEDS: olanzapine 10mg tablet PO SCH (20:16)
--- NOTE | 2018-10-08 00:10 | NUR ---
Nursing Note: Chief Complaint: Competency Legal hold: Court Ordered, [facility] for Competency Client on involuntary status for competency Report received from nurse with use of SBAR: Taryn SERRANO Why they are here: 22 year old male admitted on 08/06/18 as incompetent to stand trial and is admitted for druze/treatment. Assessment What happened this shift: Pt was pacing in the ybarra at change of shift. 1;1 assessment completed in group room. Pt had visit this evening from his mother and was much more talkative than usual. He explains he attended group earlier but didnt do any coloring instead he looked at pictures. He denies a/vh, denies s/i. Encouraged pt to wash his face and he states he only washes his face when he takes showers. S/I, H/I: Denies A/VH: Denies Sleep: Napped ADL's: Independent Group attendance: yes briefly Were meds taken:yes Any med S/E: None reported, none observed Mental Status Exam Appearance: Pts face is broken out, was encouraged to wash his face, he is somewhat disheveled, encouraged pt to shower and he states he will tomorrow. Eye contact: good Behavior: paces the hallway, cooperative Speech: Soft, sparse Mood: Calm Affect: flat Thought process: thought blocking Thought Content: Pt talkin about art group Cognition: impaired Insight: Poor Judgment: Poor Interventions PRN's used: none Therapeutic interventions: 1:1 provided active listening, maintained a safe and therapeutic environment, and maintained Q 15 min safety checks. Restraints/seclusion/emergency medication: N/A Justification of Continued Inpatient Treatment: Court ordered treatment.
[2018-10-08 08:00] VITALS: BP 93/71
[2018-10-08] MEDS: OLANZAPINE 5 MG TABLET PO SCH (08:11)
--- NOTE | 2018-10-08 12:34 | NUR ---
BARGE MASTER [employer]TA[employer] - Otto Lomax @ [phone]. Left message for patient's labor relations consultant in regards to court date on 10/20/18.
--- NOTE | 2018-10-08 17:03 | NUR ---
Nursing Note: Chief Complaint: Competency Legal hold: Court Ordered, [facility] for Competency Client on involuntary status for competency Report received from nurse with use of SBAR: Virgen SERRANO Diagnosis/presenting symptoms: 22 year old male admitted on 08/06/18 as incompetent to stand trial and is admitted for presybeterian/treatment. Assessment What happened this shift: Patient visible on unit, attending all meals. Patient did attend one group today and also was visible pacing the unit. Patient has flat affect, but denies depression and suicidal thoughts. Patient also denies auditory hallucinations. Patient taking initiative to care for his hygiene needs and he requested a razor and was allowed to shave today with staff monitoring. Patient says he is bored here and is looking forward to being discharged. S/I, H/I: Denies A/VH: Denies Sleep: Napped ADL's: Independent Group attendance: yes briefly Were meds taken:yes Any med S/E: None reported, none observed Mental Status Exam Appearance: Neat and clean Eye contact: brief Behavior: paces the hallways and lies in bed Speech: Soft, sparse Mood: Calm Affect: bland Thought process: Poverty of thought, blocking Thought Content: unable to assess Cognition: improving Insight: Poor Judgment: Poor Interventions PRN's used: none Therapeutic interventions: 1:1 provided active listening, maintained a safe and therapeutic environment, and maintained Q 15 min safety checks. Restraints/seclusion/emergency medication: N/A Justification of Continued Inpatient Treatment: Court ordered treatment.
[2018-10-08 19:00] VITALS: BP 126/82
--- NOTE | 2018-10-08 19:10 | NUR ---
Nursing Note: Chief Complaint: Competency Legal hold: Court Ordered, [facility] for Competency Client on involuntary status for competency Report received from nurse with use of SBAR: Jorge SERRANO Diagnosis/presenting symptoms: 22 year old male admitted on 08/06/18 as incompetent to stand trial and is admitted for pentecostal/treatment. Assessment What happened this shift: Pt was in the ybarra pacing at change of shift. 1:1 assessment completed at bedside. Pts affect has brightened and he is more talkative. He denies s/i. Denies depression. Pt states "I took a shower today and shaved, I get released soon, on my next court date." Asked pt what his plans are when he is released and he states "I dont know, maybe I will live with my dad, or maybe I will get my own place by my dad. " Pt reports his appetite is good and he ate all of his meals today. He reports meds are "good" and he sleeps good at night. Pt still nods his head yes to most questions, or just replies "good". Open ended questions are answered w a shrug of the shoulders or he states "I dont know." Pt is goal oriented and looking forward to be released. S/I, H/I: Denies A/VH: Denies Sleep: reports sleep is good ADL's: independent reports showering and shaving today Group attendance: no evening groups Were meds taken:yes Any med S/E: None reported, none observed Mental Status Exam Appearance: Neat and clean Eye contact: brief Behavior: paces and takes short breaks sitting in the group room or his bedroom before going to bed. Speech: Guarded, soft spoken Mood: Pleasant, calm, hopeful Affect: constricted, but brighter Thought process: Poverty of thought, blocking, future oriented Thought Content: talking about going home and hoping to be released next court date Cognition: improving Insight: Poor Judgment: Poor Interventions PRN's used: none Therapeutic interventions: 1:1 provided active listening, maintained a safe and therapeutic environment, and maintained Q 15 min safety checks, encouraged hygiene. Restraints/seclusion/emergency medication: N/A Justification of Continued Inpatient Treatment: Court ordered treatment.
[2018-10-08] MEDS: olanzapine 10mg tablet PO SCH (20:11)
[2018-10-09] MEDS: OLANZAPINE 5 MG TABLET PO SCH (07:51)
[2018-10-09 08:00] VITALS: BP 98/59
--- NOTE | 2018-10-09 16:25 | NUR ---
RN Progress Note: Legal hold: 1370 (Court Ordered, [facility] for Competency) Client on involuntary status for competency. Report received from MAGGIE New with use of SBAR Assessment Pt sleeping at the change of shift. He was cooperative with assessment. He indicated he slept well. He denied depression, anxiety, SI, and A/VH. He slept for much of the morning. Pt denied having any pain. Pt talked about his family. He said he calls them once in a while. He discussed that he hopes to leave in 11 days. Will continue to monitor. S/I, H/I: Denies A/VH: Denies Sleep: Tired, slept during the morning ADL's: Independent. Group attendance: No Were meds taken: Yes Any med S/E: None noted Mental Status Exam Appearance: Neat, clean Eye contact: Fair Behavior: Walks in the hallway. Responds with a smile when smiled at. Speech: He had minimal speech, but responds appropriately to questions. Mood: Guarded Affect: Constricted, smiled at times Thought process: Linear Thought Content: Hoping to leave soon. Cognition: A/Ox 4 Insight: Poor Judgment: Poor Interventions PRN's used: None Therapeutic interventions: 1:1 therapeutic assessment, active listening, medication administration and education, therapeutic milieu, and maintained Q 15 min checks. Restraints/seclusion/emergency medication: N/A Justification of Continued Inpatient. Pt in [facility] by court order. Patient sent to [facility] in lieu of senior care.
--- NOTE | 2018-10-09 19:57 | NUR ---
RN Progress Note: Legal hold: 1370 (Court Ordered, [facility] for Competency) Client on involuntary status for competency. Report received from MAGGIE Lopez with use of SBAR Assessment Pt was walking in the ybarra at change of shift. 1:1 assessment completed at bedside. Pt denies s/i, denies avh. Pt states he didnt go to group today because he has too much work and pointed to a pile of papers on his nightstand. He says he noticed other people leaving w/a lot of things and he doesnt want to take a lot of stuff with him when he leaves. pt is looking forward to his court appt on 10/20 and anticipates going home to his family. Pt is in a pleasant mood, reports good sleep and appetite. S/I, H/I: Denies A/VH: Denies Sleep: good ADL's: Independent. Group attendance: No Were meds taken: Yes Any med S/E: None noted Mental Status Exam Appearance: Neat, clean Eye contact: Fair Behavior: Walks in the hallway. cooperative and pleasant Speech: He had minimal speech, but responds appropriately to questions. Mood: Guarded, denies depression, calm pleasant Affect: Constricted Thought process: Linear Thought Content: goal oriented looking forward to court date Cognition: A/Ox 4 Insight: Poor Judgment: Poor Interventions PRN's used: None Therapeutic interventions: 1:1 therapeutic assessment, active listening, medication administration and education, therapeutic milieu, and maintained Q 15 min checks. Restraints/seclusion/emergency medication: N/A Justification of Continued Inpatient. Pt in [facility] by court order. Patient sent to [facility] in lieu of group home.
[2018-10-09 20:00] VITALS: BP 115/68
[2018-10-09] MEDS: olanzapine 10mg tablet PO SCH (20:14)
[2018-10-10 08:06] VITALS: BP 95/54
[2018-10-10] MEDS: OLANZAPINE 5 MG TABLET PO SCH (08:07)
--- NOTE | 2018-10-10 15:21 | NUR ---
NURSING PROGRESS NOTE Legal hold: Court Ordered, [facility] for Competency Report received from nurse Virgen RN with use of SBAR Assessment What happened this shift: Patient asleep at change of shift. Pt paces the halls or goes to his bed and lays down. S/I, H/I: Denies A/VH: Denies Sleep: Napped ADL's: Independent Group attendance: N Were meds taken: Y Any med S/E: None noted or reported Mental Status Exam Appearance: Neat and clean Eye contact: Poor Behavior: Paces the halls and gets in and out of his bed; at times naps Speech: Soft, normal rate and rhythm Mood: Calm Affect: Flat Thought process: Poverty of thought, blocking Thought Content: unable to assess Cognition: improving Insight: Poor Judgment: Poor Interventions PRN's used: N/A Therapeutic interventions: 1:1 therapeutic assessment, provided therapeutic communication with active listening, administration of medications and monitoring for SEs, encouraged compliance of medications, shower and attendance of groups , maintained Q 15 min safety checks. Restraints/seclusion/emergency medication: N/A Justification of Continued Inpatient Treatment: Court ordered treatment for medication stabilization.
[2018-10-10 19:47] VITALS: BP 117/75
[2018-10-10] MEDS: olanzapine 10mg tablet PO SCH (20:11)
--- NOTE | 2018-10-11 01:24 | NUR ---
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 He is pleasant on approach and smiles at marketing underwriter but does not hold eye contact for long. When asked what he enjoys doing he responds, "I like swimming, hiking, and sports." Checker And Packer asks what type of sports, he responds" soccer." He also asks marketing underwriter how her day is. He os compliant with HS medications and assessment. He denies any SI,HI,A/VH. Checker And Packer does not see him interact with any of his peers. S/I, H/I: Denies A/VH: denies Sleep:see sleep assessment notation ADL's: Independent Group attendance: veterinary hospital shift lead, no groups Were meds taken:yes Any med S/E: None reported, none observed Mental Status Exam Appearance:clean Eye contact: avoids Behavior: paces the hallways Speech: Soft, sparse Mood: anxious Affect: flat to pleasant Thought process: Poverty of thought, blocking Thought Content: unable to assess Cognition: improving Insight: Poor Judgment: Poor Interventions PRN's used: none Therapeutic interventions: 1:1 provided active listening, maintained a safe and therapeutic environment, and maintained Q 15 min safety checks. Restraints/seclusion/emergency medication: N/A Justification of Continued Inpatient Treatment: Court ordered treatment.
[2018-10-11 08:00] VITALS: BP 105/53
[2018-10-11] MEDS: OLANZAPINE 5 MG TABLET PO SCH (08:18)
--- NOTE | 2018-10-11 16:01 | NUR ---
NURSING PROGRESS NOTE Legal hold: Court Ordered, [facility] for Competency Report received from nurse Anju RN with use of SBAR Assessment What happened this shift: Patient asleep at change of shift. Pt paces the halls or goes to his bed and lays down. Pt continues to isolate. He shares today that he likes music unsure what type of music he likes. He does not like groups and states he does not want to go. He shares with this telegraphic typewriter installer he is not hearing voices and denies ever hearing voices but states the medicine helps me. S/I, H/I: Denies A/VH: Denies Sleep: lays down appears to be sleeping. ADL's: Independent Group attendance: N Were meds taken: Y Any med S/E: None noted or reported Mental Status Exam Appearance: Neat and clean Eye contact: Poor Behavior: Paces the halls and gets in and out of his bed; at times naps Speech: Soft, normal rate and rhythm Mood: Calm Affect: Flat Thought process: Poverty of thought, blocking Thought Content: unable to assess Cognition: improving Insight: Poor Judgment: Poor Interventions PRN's used: N/A Therapeutic interventions: 1:1 therapeutic assessment, provided therapeutic communication with active listening, administration of medications and monitoring for SEs, encouraged compliance of medications, shower and encouraged attendance of groups, maintained Q 15 min safety checks. Restraints/seclusion/emergency medication: N/A Justification of Continued Inpatient Treatment: Court ordered treatment for medication stabilization.
[2018-10-11 20:00] VITALS: BP 139/83
[2018-10-11] MEDS: olanzapine 10mg tablet PO SCH (20:25)
--- NOTE | 2018-10-12 01:03 | NUR ---
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 Chargeback Analyst asks how pt's day was, he replied "it was ok." Chargeback Analyst asks if he has a favorite movie, he replied, "finding sudeep." Then abruptly walked away. He is compliant with HS medications and assessment. He denies any SI,HI,A/VH. Chargeback Analyst does not see him interact with any of his peers. S/I, H/I: Denies A/VH: denies Sleep:see sleep assessment notation ADL's: Independent Group attendance: manager shift, no groups Were meds taken:yes Any med S/E: None reported, none observed Mental Status Exam Appearance:clean Eye contact: avoids Behavior: paces the hallways Speech: Soft, sparse Mood: anxious Affect: flat to pleasant Thought process: Poverty of thought, blocking Thought Content: unable to assess Cognition: improving Insight: Poor Judgment: Poor Interventions PRN's used: none Therapeutic interventions: 1:1 provided active listening, maintained a safe and therapeutic environment, and maintained Q 15 min safety checks. Restraints/seclusion/emergency medication: N/A Justification of Continued Inpatient Treatment: Court ordered treatment.
[2018-10-12 08:00] VITALS: BP 92/61
[2018-10-12] MEDS: OLANZAPINE 5 MG TABLET PO SCH (08:05)
--- NOTE | 2018-10-12 14:31 | NUR ---
NURSING PROGRESS NOTE Legal hold: Court Ordered, [facility] for Competency Report received from nurse Anju RN with use of SBAR Assessment What happened this shift: Patient sleeping at change of shift and staff awoke patient for breakfast. Patient is withdrawn but answers questions appropriately. Patient denies suicidal ideation. Patient denies voices. Patient denies depression. Patient looks a little brighter today. Patient attended both groups. Patient has court scheduled on 10/20/18. Patient to speak to his flame annealing machine operator tomorrow with JUAN CARLOS Bonilla. S/I, H/I: Denies A/VH: Denies Sleep: lays down appears to be sleeping. ADL's: Independent Group attendance: N Were meds taken: Y Any med S/E: None noted or reported Mental Status Exam Appearance: Hair is greasy. Eye contact: Fair Behavior: Paces the halls and gets in and out of his bed; at times naps Speech: Soft, normal rate and rhythm Mood: Calm Affect: Flat Thought process: Poverty of thought, blocking Thought Content: unable to assess Cognition: improving Insight: Fair Judgment: Fair Interventions PRN's used: N/A Therapeutic interventions: 1:1 therapeutic assessment, provided therapeutic communication with active listening, administration of medications and monitoring for SEs, encouraged compliance of medications, shower and encouraged attendance of groups, maintained Q 15 min safety checks. Restraints/seclusion/emergency medication: N/A Justification of Continued Inpatient Treatment: Court ordered treatment for medication stabilization.
[2018-10-12 20:00] VITALS: BP 137/74
[2018-10-12] MEDS: olanzapine 10mg tablet PO SCH (20:37)
--- NOTE | 2018-10-13 03:13 | NUR ---
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 He smiles at race and sports book writer on approach and asks race and sports book writer how her day is. Pt was walking by race and sports book writer and she asked if he could please let the charge nurse know race and sports book writer needed help (with a different pt). He went and got the charge nurse. Afterward race and sports book writer thanked him for helping and he smiled very big and his affect became very bright and said, "yea, you are welcome" and stood still looking at race and sports book writer for a few seconds before beginning to pace again. He is cooperative with assessment and denies any SI/HI/VH/AH. S/I, H/I: Denies A/VH: denies Sleep:see sleep assessment notation ADL's: Independent Group attendance: overnight babysitter, no groups Were meds taken:yes Any med S/E: None reported, none observed Mental Status Exam Appearance:clean Eye contact: avoids Behavior: paces the hallways Speech: Soft, sparse Mood: anxious Affect: flat to pleasant Thought process: Poverty of thought, blocking Thought Content: unable to assess Cognition: improving Insight: Poor Judgment: Poor Interventions PRN's used: none Therapeutic interventions: 1:1 provided active listening, maintained a safe and therapeutic environment, and maintained Q 15 min safety checks. Restraints/seclusion/emergency medication: N/A Justification of Continued Inpatient Treatment: Court ordered treatment.
[2018-10-13] MEDS: OLANZAPINE 5 MG TABLET PO SCH (07:52)
[2018-10-13 08:00] VITALS: BP 101/60
--- NOTE | 2018-10-13 17:28 | NUR ---
NURSING PROGRESS NOTE Legal hold: Court Ordered, [facility] for Competency Report received from nurse MAGGIE Rene with use of SBAR Assessment What happened this shift: Milton behavior is unchanged. He was received in bed sleeping. He woke for breakfast when woken up. Alonso attended all meals but did not attend groups. Patient paced the unit or laid in his bed during free time. Patient did not initiate interaction with peers or staff. When questioned patient resist conversation and keeps his answers to one word. Patient offers no complaints and denies auditory hallucinations and denies suicidal thoughts. S/I, H/I: Denies A/VH: Denies Sleep: lays down appears to be sleeping. ADL's: Independent Group attendance: N Were meds taken: Y Any med S/E: None noted or reported Mental Status Exam Appearance: hospital scrubs Eye contact: Fair Behavior: Paces the halls and gets in and out of his bed; at times naps Speech: Soft, normal rate and rhythm Mood: Calm Affect: Flat Thought process: Poverty of thought, blocking Thought Content: unable to assess Cognition: improving Insight: Fair Judgment: Fair Interventions PRN's used: N/A Therapeutic interventions: 1:1 therapeutic assessment, provided therapeutic communication with active listening, administration of medications and monitoring for SEs, encouraged compliance of medications, shower and encouraged attendance of groups, maintained Q 15 min safety checks. Restraints/seclusion/emergency medication: N/A Justification of Continued Inpatient Treatment: Court ordered treatment for medication stabilization.
[2018-10-13 19:47] VITALS: BP 116/77
[2018-10-13] MEDS: olanzapine 10mg tablet PO SCH (19:59)
--- NOTE | 2018-10-13 21:54 | NUR ---
Nursing Progress Note Legal hold: Court Ordered treatment Client on voluntary/involuntary status for being incompetent to stand trial Report received from nurse with use of MADISON Gross RN Why are they here: The patient was admitted on 08/06/[address] order because he was found to be incompetent to stand trial. Assessment What has happened this shift:The patient has been quietly pacing up and down in the hallway. He is withdrawn from peers and has minimal socialization. He was cooperative with the evening assessment but his replies were superficial and minimal. The patient stated that he would like to live with his father after discharge if he doesn't have to go back to [facility]. He denies medication side effects. He takes his medications but he has no idea what he is taking or why he is taking medications and he doesn't retain the information/education given to him. He stated he did not realize he was on a psychiatric unit and he does not believe he has any psychiatric problems. He does not feel he needs psychiatric medications. He did state his mood was good. He was oriented to month and year. S/I, H/I: The patient denies A/VH: The patient denies but does appear to be internally focused on his own thoughts Sleep: The patient denies problems with sleep ADL's: The patient appeared to be unkempt and had greasy hair. He stated his last shower was approximately one week ago. He was encouraged to shower to night or tomorrow and opted to shower tonight. Group attendance: No evening group Were meds taken:Yes Any med S/E The patient denies Mental Status Exam Appearance: Disheveled Eye contact: Intermittent Behavior: Withdrawn, quiet, cooperative Speech: soft, monotone and minimal Mood: "good" Affect: Blunted Thought process: Disorganized Thought Content: concrete Cognition: some confusion as to where he is at. Does not retain information given to him Insight:Poor Judgment: Poor Interventions PRN's used: None Therapeutic interventions: One to one with the patient to assess for the severity of thought disorder. Educated him to his medications and where he was at Restraints/seclusion/emergency medication:NA Justification of Continued Inpatient Treatment: The patient lacks insight and judgement.
[2018-10-14 07:41] VITALS: BP 113/65
[2018-10-14] MEDS: OLANZAPINE 5 MG TABLET PO SCH (08:07)
--- NOTE | 2018-10-14 11:59 | NUR ---
Reassessment: Pt PO 75-100% meals meeting needs. LBM 10/12. No nutrition concerns at this time. Recommend: 1. Continue regular diet 2. Bowel care as needed 3. Weekly wts Addendum: 10/14/18 at [address] Amended: Links added.
--- NOTE | 2018-10-14 17:00 | NUR ---
Nursing Progress Note: Legal hold: Court Ordered treatment Client on voluntary/involuntary status for being incompetent to stand trial Report received from nurse with use of MADISON Chaidez RN Why are they here: The patient was admitted on 08/06/[address] order because he was found to be incompetent to stand trial. Assessment What has happened this shift: Pt. laying in bed at beginning of shift. Pt. gives one word replys. pt. reports he is "good" today and that he slept "good" last night. Pt. then begins to pace up and down the hallway. Pt. talks about being discharged in 5 days either going to correction or to home. RN asked pt. what he will do when he gets home today, pt. replies, "hang out at the park... watch TV. Pt. pacing up and down hallway, lays down in bed intermittently. S/I, H/I: The patient denies A/VH: The patient denies but does appear to be internally focused on his own thoughts Sleep: The patient denies problems with sleep ADL's: Pt. showered last night. Pt. needs encouragement for ADLs. Group attendance: Y Were meds taken: Y Any med S/E The patient denies Mental Status Exam Appearance: WNL Eye contact: Intermittent Behavior: Withdrawn, quiet, cooperative Speech: soft, monotone and minimal Mood: "good" Affect: Blunted Thought process: Disorganized Thought Content: concrete Cognition: some confusion as to where he is at. Does not retain information given to him Insight:Poor Judgment: Poor
[2018-10-14 20:00] VITALS: BP 124/78
[2018-10-14] MEDS: olanzapine 10mg tablet PO SCH (20:15)
--- NOTE | 2018-10-15 00:53 | NUR ---
Nursing Progress Note: Legal hold: Court ordered treatment Client on voluntary/involuntary status 2nd to [address] order for being incompetent to stand trial Report received from nurse with use of MADISON Gross RN Why are they here: The patient was admitted on 08/07 from [facility] after being found incompetent to stand trial. Assessment What has happened this shift: The patient was up on the unit walking up and down the hallway or periodically resting on his bed. He makes no social contact with others S/I, H/I: The patient denies A/VH: The patient denies Sleep: Reports he is sleeping well ADL's: appears appropriately dressed Group attendance: NA Were meds taken:Yes Any med S/E Denies Mental Status Exam Appearance: appropriately dressed and groomed Eye contact: fair Behavior: withdrawn, quiet, cooperative Speech: Soft and monotone, minimal Mood: "good" Affect: Blunted Thought process: Difficult to assess 2nd to patient's minimal verbal responses Thought Content: Looking forward to court and going home Cognition: Alert Insight: Improved Judgment:impaired Interventions PRN's used:NA Therapeutic interventions: One to one with the patient to assess severity of thought disorder Restraints/seclusion/emergency medication: Justification of Continued Inpatient Treatment: The patient is going to be going back to court soon but it is unclear of where he is going after that.
[2018-10-15 07:30] VITALS: BP 101/52
[2018-10-15] MEDS: OLANZAPINE 5 MG TABLET PO SCH (08:03)
--- NOTE | 2018-10-15 17:00 | NUR ---
[facility] Nursing Progress Note: Legal hold: Court ordered treatment Client on voluntary/involuntary status 2nd to court order for being incompetent to stand trial Report received from nurse with use of MADISON Gross RN Why are they here: The patient was admitted on 08/07 from [facility] after being found incompetent to stand trial. Assessment What has happened this shift: Pt. pacing intermittently today. Pt. did not go to group, when asked, pt. states, "I just didn't feel like it." Pt. seen smiling at times today. Pt. seen by his business lawyer today, pt. is not going to court tomorrow because pt.'s business lawyer will reportedly parachute cushion installer for him. Pt.'s business lawyer reportedly waiting on [facility] to conserve him. An investegator hasn't come up here yet for conservetorship. Could be 4-6weeks before conservetorship. The patient was up on the unit walking up and down the hallway or periodically resting on his bed. He makes no social contact with others. RN encouraged pt. to shower today, pt. said he did not want to shower because he showered 2 days ago. S/I, H/I: The patient denies A/VH: The patient denies Sleep: Reports he is sleeping well ADL's: appears appropriately dressed Group attendance: NA Were meds taken:Yes Any med S/E Denies Mental Status Exam Appearance: appropriately dressed and groomed Eye contact: fair Behavior: withdrawn, quiet, cooperative Speech: Soft and monotone, minimal Mood: "good" Affect: Blunted Thought process: Pt. gives one word replys. Thought Content: Looking forward to court and going home Cognition: Alert Insight: Improved Judgment:impaired Interventions PRN's used:NA Therapeutic interventions: One to one with the patient to assess severity of thought disorder Restraints/seclusion/emergency medication: Justification of Continued Inpatient Treatment: The patient is going to be going back to court soon but it is unclear of where he is going after that.
[2018-10-15 19:00] VITALS: BP 126/70
[2018-10-15] MEDS: olanzapine 10mg tablet PO SCH (20:17)
--- NOTE | 2018-10-16 02:35 | NUR ---
Nursing Progress Note: Legal hold: Court ordered treatment Client on involuntary status 2nd to court order for being incompetent to stand trial Report received from nurse with use of MADISON Gross RN Why are they here: The patient was admitted on 08/07 from [facility] after being found incompetent to stand trial. Assessment What has happened this shift: The patient was walking the halls at shift change. Pt was cooperative and pleasant. Responded with a hello when greeted by senior technical writer. Pt did not engage in conversation. Pt stated he didn't go to group today "didn't feel like it." Compliant with medications. S/I, H/I: None reported or observed A/VH: None reported or observed Sleep: See sleep assessment notation ADL's: Needs some prompting Group attendance: general road production manager, no groups Were meds taken:Yes Any med S/E: None reported or observed Mental Status Exam Appearance: Appropriately dressed and groomed Eye contact: Direct when spoken too Behavior: Withdrawn, quiet, cooperative Speech: Soft and monotone, minimal Mood: "Good" Affect: Flat Thought process: Poverty of thought Thought Content: Unable to assess - minimal verbal response Cognition: Alert Insight: Poor Judgment: Poor Interventions PRN's used: N/A Therapeutic interventions: 1:1 therapeutic assessment, provided therapeutic communication with active listening, administered medications and monitored for SE's, maintained q15 safety checks. Restraints/seclusion/emergency medication: N/A Justification of Continued Inpatient Treatment: Court ordered treatment for medication stabilization.
[2018-10-16 08:00] VITALS: BP 102/54
[2018-10-16] MEDS: OLANZAPINE 5 MG TABLET PO SCH (08:31)
--- NOTE | 2018-10-16 14:49 | NUR ---
Nursing Note: Chief Complaint: Competency Legal hold: 137[address] Court Ordered, [facility] for Competency Client on involuntary status for competency Report received from nurse with use of SBAR: Nikki SERRANOslip cover operator, what happened this shift: Pt pleasant and cooperative with staff and unit procedures, denies depression, anxiety, SI/HI/AH/VH, pt was able to state that he had his last BM yesterday. Asked pt if he knew what the plan was for him, he replied, "board and care." Asked pt to describe what a board and care is, he responded, "it's a house." Discussed board and care set-ups, pt expressed understanding though indicated he had been hoping to be able to return home with his parents. S/I, H/I: Pt denies A/VH: Pt denies Sleep: Slept 7.75 hours per noc shift report ADL's: Independent Group attendance: Declined to attend groups today despite encouragement Were meds taken: Yes Any med S/E: None reported or observed Mental Status Exam Appearance: appropriate, appears mildly anxious with staff interaction Eye contact: Fair Behavior: Pleasant, cooperative, isolates to self but interacts with staff when approached Speech: Soft, normal rate & rhythm, verbalizing more that he has in the past Mood: states he is "good" Affect: blunted, mildly anxious at times Thought process: Poverty of thought though much improved from admit Thought Content: Processing the idea of going to a board and care. Cognition: A/O X 3, not always oriented to time Insight: Fair Judgment: Fair Interventions PRN's used: none Therapeutic interventions: 1:1 assessment, therapeutic conversation, discharge planning/education, medication administration/monitoring, encouragement to express thoughts and feelings, encouragement to attend groups, Q 15 min safety checks. Restraints/seclusion/emergency medication: N/A Justification of Continued Inpatient Treatment: Court ordered treatment, pt has a court date on 10/20, his patent prosecution attorney will sit in for him, plan is to conserve the pt which could take 4-6 weeks and then discharge him to a board and care.
[2018-10-16 19:00] VITALS: BP 109/71
[2018-10-16] MEDS: olanzapine 10mg tablet PO SCH (20:52)
--- NOTE | 2018-10-16 23:59 | NUR ---
Nursing Progress Note: Legal hold: Court ordered treatment Client on involuntary status 2nd to court order for being incompetent to stand trial Report received from nurse with use of MADISON Brown RN Why are they here: The patient was admitted on 08/07 from [facility] after being found incompetent to stand trial. Assessment What has happened this shift: Observed patient's baseline of walking the halls. Pt was cooperative and pleasant. Responded with a hello when greeted by medical underwriter. Pt verbalized that court was in 3 days. Aware that he will be going to a B&C and not home with his parents. Said "thank you" when this medical underwriter complimented on how well he was doing. S/I, H/I: None reported or observed A/VH: None reported or observed Sleep: See sleep assessment notation ADL's: Needs some prompting Group attendance: creative art director, no groups Were meds taken:Yes Any med S/E: None reported or observed Mental Status Exam Appearance: Appropriately dressed, hair greasy Eye contact: Direct when spoken too Behavior: Withdrawn, quiet, cooperative Speech: Soft and monotone, minimal Mood: "Good" Affect: Flat Thought process: Poverty of thought Thought Content: Processing his discharge to a B&C and home to parents Cognition: Alert Insight: Poor Judgment: Poor Interventions PRN's used: N/A Therapeutic interventions: 1:1 therapeutic assessment, provided therapeutic communication with active listening, administered medications and monitored for SE's, maintained q15 safety checks. Restraints/seclusion/emergency medication: N/A Justification of Continued Inpatient Treatment: Court ordered treatment for medication stabilization.
[2018-10-17 07:41] VITALS: BP 98/57
[2018-10-17] MEDS: OLANZAPINE 5 MG TABLET PO SCH (08:12)
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
[2018-10-17 20:00] VITALS: BP 123/76
[2018-10-17] MEDS: olanzapine 10mg tablet PO SCH (21:21)
--- NOTE | 2018-10-18 03:29 | NUR ---
Nursing Note: Chief Complaint: Court ordered treatment Legal hold: 9370 Court Ordered, [facility] Client on court ordered involuntary status Report received from nurse with use of SBAR: Kevin SERRANOriveter, what happened this shift: Pt paced in [place]barra almost non-stop from start of shift till he went to bed about 21:30. Pt denied depression SI, or hallucinations. When asked about mood, pt stated he was "good." Pt answers questions with brief answers does not initiate conversation. Told pt that father feels that pt needs more 1:1 therapy outpatient. Pt agreed, seemed enthusiastic but did not elaborate. S/I, H/I: Pt denies A/VH: Pt denies Sleep: Sleeping at this time. ADL's: Independent Group attendance: No groups today Were meds taken: Yes Any med S/E: None reported or observed Mental Status Exam Appearance: Neat Eye contact: Fair Behavior: Pleasant, cooperative, isolates to self, somewhat avoidant of staff though interacts when approached Speech: Soft, normal rate & rhythm, verbalizing more that he has in the past Mood: states he is "good" Affect: blunted, mildly anxious at times Thought process: Poverty of thought though much improved from admit Thought Content: Unable to assess Cognition: A/O X 3, not always oriented to time Insight: Fair Judgment: Fair Interventions PRN's used: none Therapeutic interventions: 1:1 assessment, therapeutic conversation, discharge planning/education, medication administration/monitoring, encouragement to express thoughts and feelings, Q 15 min safety checks. Restraints/seclusion/emergency medication: N/A Justification of Continued Inpatient Treatment: Court ordered treatment, pt has a court date on 10/20, his immigration attorney will sit in for him, plan is to conserve the pt which could take 4-6 weeks and then discharge him to a board and care.
[2018-10-18 08:00] VITALS: BP 107/60
[2018-10-18] MEDS: OLANZAPINE 5 MG TABLET PO SCH (08:05)
--- NOTE | 2018-10-18 14:46 | NUR ---
RN Progress Note: Legal hold: 1370 (Court Ordered, [facility] for Competency) Client on involuntary status for competency. Report received from MAGGIE Husain with use of SBAR Assessment Pt sleeping at the change of shift. Pt was compliant with medication administration and cooperative with 1:1 therapeutic assessment. He denies depression, anxiety, SI, and A/VH. He stated that the medicine is helping. Pt answered questions appropriately. He shared that his court date is the and he hopes to go to a board and care facility. Pt napped throughout the morning. He did not attend groups. S/I, H/I: Denies A/VH: Denies Sleep: Napped throughout the morning ADL's: Independent. Group attendance: No Were meds taken: Yes Any med S/E: None noted Mental Status Exam Appearance: Neat, clean, dressed in green scrubs Eye contact: Fair Behavior: Walks in the hallway. Minimal response to this jingle writer greeting while passing in the hallways. Speech: Minimal speech, responds appropriately to questions. Mood: Guarded Affect: Constricted Thought process: Linear Thought Content: Hoping to be sent to a board and detention Cognition: A/Ox 4 Insight: Poor Judgment: Poor Interventions PRN's used: None Therapeutic interventions: 1:1 therapeutic assessment, active listening, medication administration and education, therapeutic milieu, and maintained Q 15 min checks. Restraints/seclusion/emergency medication: N/A Justification of Continued Inpatient. Pt in [facility] by court order. Patient sent to [facility] in lieu of custodial. Next court date is scheduled for October 20.
[2018-10-18 20:27] VITALS: BP 119/70
[2018-10-18] MEDS: olanzapine 10mg tablet PO SCH (20:47)
--- NOTE | 2018-10-19 03:13 | NUR ---
RN Progress Note: Legal hold: 1370 (Court Ordered, [facility] for Competency) Client on involuntary status for competency. Report received from MAGGIE Husain with use of SBAR Assessment Pt pacing in halls at start of shift. Pt was compliant with medication administration and cooperative with 1:1 therapeutic assessment. He denies depression, anxiety, SI, and A/VH. He stated that the medicine is helping. Pt answered questions appropriately. Pt said at discharge he would like to go home. S/I, H/I: Denies A/VH: Denies Sleep: asleep at this time ADL's: Independent. Group attendance: No Were meds taken: Yes Any med S/E: None noted Mental Status Exam Appearance: Neat, clean, dressed in green scrubs Eye contact: Fair Behavior: Walks in the hallway. Minimal response to this card writer hand greeting while passing in the hallways. Speech: Minimal speech, responds appropriately to questions. Mood: Guarded Affect: Constricted Thought process: Linear Thought Content: Would like to go home at discharge. Cognition: A/Ox 4 Insight: Poor Judgment: Poor Interventions PRN's used: None Therapeutic interventions: 1:1 therapeutic assessment, active listening, medication administration and education, therapeutic milieu, and maintained Q 15 min checks. Restraints/seclusion/emergency medication: N/A Justification of Continued Inpatient. Pt in [facility] by court order. Patient sent to [facility] in lieu of alf. Next court date is scheduled for October 20.
[2018-10-19] MEDS: OLANZAPINE 5 MG TABLET PO SCH (07:47)
[2018-10-19 08:02] VITALS: BP 129/56
--- NOTE | 2018-10-19 17:47 | NUR ---
RN Progress Note: Legal hold: 1370 (Court Ordered, [facility] for Competency) Client on involuntary status for competency. Report received from MAGGIE Husain with use of SBAR Why are they here: The patient was admitted on 08/07 from [facility] after being found incompetent to stand trial. Assessment Pt. asleep at start of shift. pt. pacing the halls intermittently. Pt was compliant with medication administration and cooperative with 1:1 therapeutic assessment but gave limited replies. He denies depression, anxiety, SI, and A/VH. Pt. states his medcation is helping him by giving him clear thoughts. Pt said at discharge he would like to go home but understands he may be conserved to a assisted. Pt. showered today. S/I, H/I: Denies A/VH: Denies Sleep: asleep at this time ADL's: Independent. Group attendance: No Were meds taken: Yes Any med S/E: None noted Mental Status Exam Appearance: Neat, clean, dressed in green scrubs Eye contact: Fair Behavior: Walks in the hallway. Minimal response to this junior copywriter greeting while passing in the hallways. Speech: Minimal speech, responds appropriately to questions. Mood: Guarded Affect: Constricted Thought process: Linear, poverty of speech. Thought Content: Would like to go home at discharge. Cognition: A/Ox 4 Insight: Poor Judgment: Poor Interventions PRN's used: None Therapeutic interventions: 1:1 therapeutic assessment, active listening, medication administration and education, therapeutic milieu, and maintained Q 15 min checks. Restraints/seclusion/emergency medication: N/A Justification of Continued Inpatient. Pt in [facility] by court order. Patient sent to [facility] in lieu of [facility]. Next court date is scheduled for October 20.
[2018-10-19 20:31] VITALS: BP 121/72
[2018-10-19] MEDS: olanzapine 10mg tablet PO SCH (20:51)
--- NOTE | 2018-10-20 03:28 | NUR ---
RN Progress Note: Legal hold: 1370 (Court Ordered, [facility] for Competency) Client on involuntary status for competency. Report received from MAGGIE Gross with use of SBAR Why are they here: The patient was admitted on 08/07 from [facility] after being found incompetent to stand trial. Assessment Pt. pacing the halls at start of shift till he went to bed. Did come to group room for snack. Pt was compliant with medication administration and cooperative with 1:1 therapeutic assessment but gave limited replies. When asked how he was doing said "good throughout the day." He denies depression, anxiety, SI, and A/VH. S/I, H/I: Denies A/VH: Denies Sleep: asleep at this time ADL's: Independent. Group attendance: Came to group room for snack. Were meds taken: Yes Any med S/E: None noted Mental Status Exam Appearance: Neat, clean, dressed in green scrubs Eye contact: Fair Behavior: Walks in the hallway. Minimal response to greeting while passing in the hallways. Speech: Minimal speech, responds appropriately to questions. Mood: Guarded Affect: Constricted Thought process: Linear, poverty of speech. Thought Content: Would like to go home at discharge. Cognition: A/Ox 4 Insight: Poor Judgment: Poor Interventions PRN's used: None Therapeutic interventions: 1:1 therapeutic assessment, active listening, medication administration and education, therapeutic milieu, and maintained Q 15 min checks. Restraints/seclusion/emergency medication: N/A Justification of Continued Inpatient. Pt in [facility] by court order. Patient sent to [facility] in lieu of penitentiary. Next court date is scheduled for October 20.
[2018-10-20] MEDS: OLANZAPINE 5 MG TABLET PO SCH (07:50)
[2018-10-20 08:09] VITALS: BP 109/50
--- NOTE | 2018-10-20 17:00 | NUR ---
RN Progress Note: Legal hold: 1370 (Court Ordered, [facility] for Competency) Client on involuntary status for competency. Report received from MAGGIE Huasin with use of SBAR Why are they here: The patient was admitted on 08/07 from [facility] after being found incompetent to stand trial. Assessment Pt. asleep at start of shift. pt. pacing the halls intermittently. Pt was compliant with medication administration and cooperative with 1:1 therapeutic assessment but gave limited replies. He denies depression, anxiety, SI, and A/VH. Pt. states his medcation is helping him by giving him clear thoughts. Pt said at discharge he would like to go home but understands he may be conserved to a retirement. S/I, H/I: Denies A/VH: Denies Sleep: asleep at this time ADL's: Independent. Group attendance: No Were meds taken: Yes Any med S/E: None noted Mental Status Exam Appearance: Neat, clean, dressed in green scrubs Eye contact: Fair Behavior: Walks in the hallway. Minimal response to this physician underwriter greeting while passing in the hallways. Speech: Minimal speech, responds appropriately to questions. Mood: Guarded Affect: Constricted Thought process: Linear, poverty of speech. Thought Content: Would like to go home at discharge. Cognition: A/Ox 4 Insight: Poor Judgment: Poor Interventions PRN's used: None Therapeutic interventions: 1:1 therapeutic assessment, active listening, medication administration and education, therapeutic milieu, and maintained Q 15 min checks. Restraints/seclusion/emergency medication: N/A Justification of Continued Inpatient. Pt in [facility] by court order. Patient sent to [facility] in lieu of halfway. Next court date is scheduled for October 20.
[2018-10-20] MEDS: LORazepam 1 MG tablet PO PRN (18:54)
[2018-10-20 20:00] VITALS: BP 116/68
[2018-10-20] MEDS: olanzapine 10mg tablet PO SCH (20:31)
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
[2018-10-21] MEDS: OLANZAPINE 5 MG TABLET PO SCH (07:56)
[2018-10-21 08:00] VITALS: BP 94/53
--- NOTE | 2018-10-21 10:09 | NUR ---
Reassessment: PO intake fluctuates with average 75-100% on regular diet meeting nutrient needs. [facility] 10/21. Will continue to follow. Recommend: 1. Continue regular diet 2. Bowel care as needed 3. Weekly wts Addendum: 10/21/18 at [address] Amended: Links added.
--- NOTE | 2018-10-21 14:02 | NUR ---
NURSING PROGRESS NOTE Legal hold: 1370 (Court Ordered, [facility] for Competency) Client on involuntary status for competency. Report received from MAGGIE Coleman with use of SBAR Why are they here: The patient was admitted on 08/[address] [facility] after being found incompetent to stand trial. Assessment What happened this shift: The patient was asleep at change of shift. He gets up for all meals and at times isolates to room lying on bed. He spends a significant amount of time pacing in the hallway. Reports feeling good about possibly being discharged "to a place where I can do more, go outside and be around other places but still get help with stuff." He has a small smile at times and is calm and cooperative. S/I, H/I: Denies A/VH: Denies Sleep: Napped ADL's: Independent. Group attendance: None Were meds taken: Yes Any med S/E: None noted Mental Status Exam: Appearance: Neat, clean Eye contact: Fair Behavior: Paces hallways Speech: Minimal speech, responds appropriately to questions. Mood: Guarded Affect: Constricted Thought process: Linear Thought Content: regarding discharge possibilities Cognition: alert and oriented to self and place Insight: Poor Judgment: Poor Interventions: PRN's used: None Therapeutic interventions: 1:1 assessment with patient, provided active listening, maintained a safe and therapeutic environment to help establish rapport. Provided positive reinforcement. Medication administration and education. Maintained Q 15 minute checks for safety. Justification of Continued Inpatient. Pt in [facility] by court order. Patient sent to [facility] in lieu of assisted. Court disposition
[2018-10-21 19:36] VITALS: BP 131/81
[2018-10-21] MEDS: LORazepam 1 MG tablet PO PRN (19:42)
[2018-10-21] MEDS: acetaminophen 325mg tablet PO PRN (19:42)
[2018-10-21] MEDS: olanzapine 10mg tablet PO SCH (20:19)
--- NOTE | 2018-10-22 00:24 | NUR ---
RN Progress Note: Legal hold: 1370 (Court Ordered, [facility] for Competency) Client on involuntary status for competency. Report received from MAGGIE Centeno with use of SBAR Why are they here: The patient was admitted on 08/07 from [facility] after being found incompetent to stand trial. Assessment Patient was up pacing the halls at change of shift. He requested pain meds and meds for anxiety this evening. He described his pain stating My bones ache in the evening, they feel like aluminum. Patient paces the halls all day and after further examination it appears that towards the end of the day patient may begin to feel stiff form all his walking. He is cooperative for a 1:1 assessment later in the shift, he talks about enjoying being outside and hoping to go to a place where he can be outside, but still get help. He feels board here, he likes being active and states that is why he walks the hallway. Compliant for all evening medications. S/I, H/I: Denies A/VH: Denies Sleep: Currently sleeping, see sleep assessment ADL's: Independent. Group attendance: None this shift Were meds taken: Yes Any med S/E: None noted Mental Status Exam Appearance: Neat, clean Eye contact: Fair Behavior: Paces hallways Speech: Minimal speech, responds appropriately to questions. Mood: Good Affect: Constricted Thought process: Linear Thought Content: Discharge to a place where he can go outside. Cognition: A/Ox 4 Insight: Poor Judgment: Poor Interventions PRN's used: Ativan, Tylenol Therapeutic interventions: 1:1 assessment with patient, provided active listening, maintained a safe and therapeutic environment to help establish rapport. Provided positive reinforcement. Medication administration and education. Maintained Q 15 minute checks for safety. Justification of Continued Inpatient. Pt in [facility] by court order. Patient sent to [facility] in lieu of group home.
[2018-10-22] MEDS: OLANZAPINE 5 MG TABLET PO SCH (07:45)
[2018-10-22 08:00] VITALS: BP 96/49
--- NOTE | 2018-10-22 12:54 | NUR ---
NURSING PROGRESS NOTE Legal hold: 1370 (Court Ordered, [facility] for Competency) Client on involuntary status for competency. Report received from MAGGIE Coleman with use of SBAR Why are they here: The patient was admitted on 08/07 from [facility] after being found incompetent to stand trial. Assessment What happened this shift: The patient was asleep at change of shift. He gets up for all meals and at times isolates to room lying on bed. He spends a significant amount of time pacing in the hallway. Depressed mood, flat affect. No other changes today. S/I, H/I: Denies A/VH: Denies Sleep: Napped ADL's: Independent. Group attendance: None Were meds taken: Yes Any med S/E: None noted Mental Status Exam: Appearance: Neat, clean Eye contact: Fair Behavior: Paces hallways Speech: Minimal speech, responds appropriately to questions. Mood: Depressed Affect: Flat Thought process: Linear Thought Content: regarding discharge possibilities Cognition: alert and oriented to self and place Insight: Poor Judgment: Poor Interventions: PRN's used: None Therapeutic interventions: 1:1 assessment with patient, provided active listening, maintained a safe and therapeutic environment to help establish rapport. Provided positive reinforcement. Medication administration and education. Maintained Q 15 minute checks for safety. Justification of Continued Inpatient. Pt in [facility] by court order. Patient sent to [facility] in lieu of [facility]. Court disposition
[2018-10-22 19:00] VITALS: BP 121/75
[2018-10-22] MEDS: olanzapine 10mg tablet PO SCH (20:32)
--- NOTE | 2018-10-23 01:46 | NUR ---
RN Progress Note: Legal hold: 1370 (Court Ordered, [facility] for Competency) Client on involuntary status for competency. Report received from MAGGIE Centeno with use of SBAR Why are they here: The patient was admitted on 08/07 from [facility] after being found incompetent to stand trial. Assessment Patient is pacing the halls at change of shift. He is cooperative for a 1:1 assessment. He talks about how he felt board today, he stated he didn't go outside today but was unable to identify why. It is noted that patient has become more verbal and has recently been starting to ask staff for things he needs/wants which is new for him, patient does not usually interact much with others. In example this evening he wanted to watch TV and approached staff asking to help him locate the remote. He was compliant with his evening medications. S/I, H/I: Denies A/VH: Denies Sleep: Currently sleeping, see sleep assessment ADL's: Independent. Group attendance: None this shift Were meds taken: Yes Any med S/E: None noted Mental Status Exam Appearance: Neat, clean Eye contact: Fair Behavior: Paces hallways Speech: Low volume, normal rate, rhythm. Mood: Good Affect: Constricted Thought process: Linear Thought Content: Discharge to a place where he can go outside. Cognition: A/Ox 4 Insight: Poor Judgment: Poor Interventions PRN's used: Ativan, Tylenol Therapeutic interventions: 1:1 assessment with patient, provided active listening, maintained a safe and therapeutic environment to help establish rapport. Provided positive reinforcement. Medication administration and education. Maintained Q 15 minute checks for safety. Justification of Continued Inpatient. Pt in [facility] by court order. Patient sent to [facility] in lieu of prison.
[2018-10-23] MEDS: OLANZAPINE 5 MG TABLET PO SCH (07:47)
[2018-10-23 08:00] VITALS: BP 104/63
--- NOTE | 2018-10-23 17:04 | NUR ---
PROGRESS NOTE Legal hold: 1370 (Court Ordered, [facility] for Competency) Client on involuntary status for competency. Report received from MAGGIE Coleman with use of SBAR Why are they here: The patient was admitted on 08/[address] [facility] after being found incompetent to stand trial. Assessment What happened this shift: The patient was asleep at change of shift. He gets up for all meals and at times isolates to room lying on bed. He spends a significant amount of time pacing in the hallway. Depressed mood, flat affect. Smiled some while walking in hallway. No other changes today. S/I, H/I: Denies A/VH: Denies Sleep: Napped ADL's: Independent. Group attendance: None Were meds taken: Yes Any med S/E: None noted Mental Status Exam: Appearance: Neat, clean Eye contact: Fair Behavior: Paces hallways Speech: Minimal speech, responds appropriately to questions. Mood: Depressed Affect: Flat Thought process: Linear Thought Content: regarding discharge possibilities Cognition: alert and oriented to self and place Insight: Poor Judgment: Poor Interventions: PRN's used: None Therapeutic interventions: 1:1 assessment with patient, provided active listening, maintained a safe and therapeutic environment to help establish rapport. Provided positive reinforcement. Medication administration and education. Maintained Q 15 minute checks for safety. Justification of Continued Inpatient. Pt in [facility] by court order. Patient sent to [facility] in lieu of penitentiary. Court disposition
[2018-10-23 20:00] VITALS: BP 124/73
[2018-10-23] MEDS: olanzapine 10mg tablet PO SCH (20:30)
[2018-10-23] MEDS: acetaminophen 325mg tablet PO PRN (20:33)
--- NOTE | 2018-10-24 04:01 | NUR ---
RN Progress Note: Legal hold: 1370 (Court Ordered, [facility] for Competency) Client on involuntary status for competency. Report received from MAGGIE Centeno with use of SBAR Why are they here: The patient was admitted on 08/07 from [facility] after being found incompetent to stand trial. Assessment What did they do this shift: The patient was found pacing the hallway at shift change. He agreed to 1:1 in his room, but does not say much. He did say that he's probably going to end up in a intermediate of some sort, and he wished it would be his home instead. He had a visit from his father and some family friends, and he's talking to them, instead of not interacting with them when they're here. When they left, he continued his pacing until HS med pass, then he went to sleep. S/I, H/I: Denies A/VH: Denies Sleep: Has been asleep since HS med pass. ADL's: Independent. Group attendance: None this shift Were meds taken: Yes Any med S/E: None noted Mental Status Exam Appearance: Neat, clean, wearing green hospital scrubs. Eye contact: Fair Behavior: Paces hallways Speech: Low volume, normal rate, rhythm. Mood: Good Affect: Constricted Thought process: Linear Thought Content: Thinking about his discharge. Cognition: A/Ox 4 Insight: Poor Judgment: Poor Interventions PRN's used: Tylenol Therapeutic interventions: 1:1 assessment with patient, provided active listening, maintained a safe and therapeutic environment to help establish rapport. Provided positive reinforcement. Medication administration and education. Maintained Q 15 minute checks for safety. Justification of Continued Inpatient. Pt in [facility] by court order. Patient sent to [facility] in lieu of assisted.
[2018-10-24] MEDS: OLANZAPINE 5 MG TABLET PO SCH (07:55)
[2018-10-24 08:00] VITALS: BP 105/60
--- NOTE | 2018-10-24 10:05 | NUR ---
Nursing Note: Chief Complaint: Court ordered treatment Legal hold: 1370 Court Ordered, [facility] Client on court ordered involuntary status Report received from nurse with use of SBAR: Nasir SERRANOstraight knife cutter machine, what happened this shift: Pt was up before breakfast, walks/paces quickly in hallway, pt does not socialize, continues to isolate to self, does not initiate conversation and when spoken to, responds with short, often 1 word answers. Pt denies depression, anxiety, SI/HI/AH/VH. Pt states he showered yesterday. Pt declined to go outside on the patio today despite it being warm and thea, when asked why not, he replied that he just didn't want to. This RN has never seen the pt go outside though he has been here for months. S/I, H/I: Pt denies A/VH: Pt denies Sleep: Slept per noc shift report ADL's: Independent Group attendance: No groups today Were meds taken: Yes Any med S/E: None reported or observed Mental Status Exam Appearance: Disheveled Eye contact: Fair Behavior: Pleasant, cooperative, isolates to self, somewhat avoidant of staff though interacts when approached, paces in ybarra Speech: Clear, audible, poverty of speech Mood: states he is "good" Affect: blunted Thought process: Poverty of thought Thought Content: Pt did not express his thought or feelings this morning, even when asked if he was anxious about how his hearing went. Cognition: A/O X 3, not always oriented to time Insight: Fair Judgment: Fair Interventions PRN's used: none Therapeutic interventions: 1:1 assessment, therapeutic conversation, medication administration/monitoring, encouragement to express thoughts and feelings, encouragement to perform personal care, Q 15 min safety checks. Restraints/seclusion/emergency medication: N/A Justification of Continued Inpatient Treatment: Court ordered treatment, plan is to conserve the pt which could take 4-6 weeks and then discharge him to a board and care.
[2018-10-24 20:00] VITALS: BP 103/70
[2018-10-24] MEDS: olanzapine 10mg tablet PO SCH (20:10)
[2018-10-24] MEDS: acetaminophen 325mg tablet PO PRN (21:15)
--- NOTE | 2018-10-25 02:03 | NUR ---
Nursing Note: Chief Complaint: Competency Legal hold: Court Ordered, [facility] Client on involuntary status for competency Report received from nurse with use of SBAR: Marguerite SERRANOfinal application reviewer Patient watches TV in the rec room. He requests Tylenol because, "my body hurts." When asked what specifically hurt he replied, "just in general." He is compliant with HS medications and assessment. He denies any SI,HI,A/VH. Chief Data Officer does not see him interact with any of his peers, but does say hello to staff. S/I, H/I: Denies A/VH: denies Sleep:see sleep assessment notation ADL's: Independent Group attendance: manager night, no groups Were meds taken:yes Any med S/E: None reported, none observed Mental Status Exam Appearance:clean Eye contact: avoids Behavior: watches TV in rec room Speech: Soft, sparse Mood: anxious Affect: flat to pleasant Thought process: Poverty of thought, blocking Thought Content: unable to assess Cognition: improving Insight: Poor Judgment: Poor Interventions PRN's used: none Therapeutic interventions: 1:1 provided active listening, maintained a safe and therapeutic environment, and maintained Q 15 min safety checks. Restraints/seclusion/emergency medication: N/A Justification of Continued Inpatient Treatment: Court ordered treatment.
[2018-10-25 07:49] VITALS: BP 95/52
[2018-10-25] MEDS: OLANZAPINE 5 MG TABLET PO SCH (08:06)
--- NOTE | 2018-10-25 14:07 | NUR ---
Nursing Note: Chief Complaint: Court ordered treatment Legal hold: 1370 Court Ordered, [facility] Client on court ordered involuntary status Report received from nurse with use of SBAR: Anju SERRANO5th grade teacher, what happened this shift: Pt denied depression, anxiety, SI/HI/AH/VH, denied pain. Pt stated that "I have to call my translator around ten." At 1300 asked pt if he had spoken with his translator, he replied, "No, I called but he hasn't answered," asked if he left a message for the translator to call him back, pt replied, "yeah." Pt observed pacing in hallway,eats in community room, attended groups, no unsafe behaviors noted. S/I, H/I: Pt denies A/VH: Pt denies Sleep: Slept 7.25 hours per noc shift report ADL's: Independent Group attendance: yes Were meds taken: Yes Any med S/E: None reported or observed Mental Status Exam Appearance: Clean, dressed Eye contact: Avoids eye contact unless spoken to and then makes direct eye contact Behavior: Pleasant, cooperative, isolates to self, somewhat avoidant of staff though interacts when approached, paces in ybarra Speech: Clear, audible, poverty of speech Mood: states, "good" Affect: blunted Thought process: Poverty of thought Thought Content: trying to get ahold of his translator as he wishes to know what the outcome of his hearing was Cognition: A/O X 3, not always oriented to date Insight: Fair Judgment: Fair Interventions PRN's used: none Therapeutic interventions: 1:1 assessment, therapeutic conversation, medication administration/monitoring, encouragement to express thoughts and feelings, encouragement to perform personal care,encouragement to attend groups, Q 15 min safety checks. Restraints/seclusion/emergency medication: N/A Justification of Continued Inpatient Treatment: Court ordered, awaiting outcome of hearing.
[2018-10-25] MEDS: olanzapine 10mg tablet PO SCH (20:41)
[2018-10-25 20:54] VITALS: BP 136/80
--- NOTE | 2018-10-26 04:05 | NUR ---
Nursing Note: Chief Complaint: Court ordered treatment Legal hold: 6930 Court Ordered, [facility] Client on court ordered involuntary status Report received from nurse with use of SBAR: Marguerite SERRANOship surveyor, what happened this shift: Pt pacing in halls at start of shift. Pt improved in making needs known for example he approached Nurses station and asked for remote control. At admit he would not have been able to do this. Pt had a visit from Mom. Asked afterward if Mom had any news from professional services specialist pt said there might be another court date. He said he will know in a couple of days. Pt pleasant and cooperative with care. Took meds. Went to sleepwithout problem. S/I, H/I: Pt denies A/VH: Pt denies Sleep: sleeping now ADL's: Independent Group attendance: yes Were meds taken: Yes Any med S/E: None reported or observed Mental Status Exam Appearance: Clean, dressed Eye contact: Avoids eye contact unless spoken to and then makes direct eye contact Behavior: Pleasant, cooperative, isolates to self, somewhat avoidant of staff though interacts when approached, paces in ybarra Speech: Clear, audible, poverty of speech Mood: states, "good" Affect: blunted Thought process: Poverty of thought Thought Content: trying to get a hold of his professional services specialist as he wishes to know what the outcome of his hearing was Cognition: A/O X 3, not always oriented to date Insight: Fair Judgment: Fair Interventions PRN's used: none Therapeutic interventions: 1:1 assessment, therapeutic conversation, medication administration/monitoring, encouragement to express thoughts and feelings, encouragement to perform personal care,encouragement to attend groups, Q 15 min safety checks. Restraints/seclusion/emergency medication: N/A Justification of Continued Inpatient Treatment: Court ordered, awaiting outcome of hearing.
[2018-10-26 07:54] VITALS: BP 123/60
[2018-10-26] MEDS: OLANZAPINE 5 MG TABLET PO SCH (07:57)
--- NOTE | 2018-10-26 10:13 | NUR ---
Nursing Note: Chief Complaint: Court ordered treatment Legal hold: 3870 Court Ordered, [facility] Client on court ordered involuntary status Report received from nurse with use of SBAR: Lisha SERRANOfloral department specialist, what happened this shift: Pt denied all symptoms, reported last BM as this morning. Per report, pt's mom visited last night, she believes he may have another hearing, stated pt should hear something in 2-3 days, discussed in flash meeting this morning, IDT will follow up. S/I, H/I: Pt denies A/VH: Pt denies Sleep: Slept 7.25 hours per noc shift report ADL's: Independent Group attendance: pt has been attending groups, plans to attend today Were meds taken: Yes Any med S/E: None reported or observed Mental Status Exam Appearance: Clean, dressed Eye contact: Avoids eye contact unless spoken to and then makes direct eye contact Behavior: Pleasant, cooperative, isolates to self, somewhat avoidant of staff though interacts when approached, paces in ybarra Speech: Clear, audible, poverty of speech Mood: states, "good" Affect: blunted Thought process: Poverty of thought Thought Content: wants to know what happened at his hearing, wants to go home Cognition: A/O X 3, not always oriented to date Insight: Fair Judgment: Fair Interventions PRN's used: none Therapeutic interventions: 1:1 assessment, therapeutic conversation, medication administration/monitoring, encouragement to express thoughts and feelings, encouragement to perform personal care,encouragement to attend groups, Q 15 min safety checks. Restraints/seclusion/emergency medication: N/A Justification of Continued Inpatient Treatment: Court ordered, awaiting outcome of hearing, plan is to discharge home with dad who per report, has an apartment for him.
[2018-10-26 20:00] VITALS: BP 123/74
[2018-10-26 21:28] VITALS: BP 123/74
[2018-10-26] MEDS: olanzapine 10mg tablet PO SCH (21:43)
[2018-10-26] MEDS: acetaminophen 325mg tablet PO PRN (21:48)
--- NOTE | 2018-10-27 04:04 | NUR ---
Nursing Note: Chief Complaint: Court ordered treatment Legal hold: 6[address] Court Ordered, [facility] Client on court ordered involuntary status Report received from nurse with use of SBAR: Marguerite SERRANOcake mixer, what happened this shift: Pt walking in halls at start of shift. Came into group room and when asked picked a song he wanted to hear on [employer]. Later requested and given Tylenol for headache. Pt pleasant and cooperative with care. Took meds. Went to sleep without problem. S/I, H/I: Pt denies A/VH: Pt denies Sleep: sleeping now ADL's: Independent Group attendance: yes Were meds taken: Yes Any med S/E: None reported or observed Mental Status Exam Appearance: Clean, dressed Eye contact: Avoids eye contact unless spoken to and then makes direct eye contact Behavior: Pleasant, cooperative, isolates to self, becoming more social. Speech: Clear, audible, poverty of speech Mood: states, "good" Affect: blunted Thought process: Poverty of thought Thought Content: trying to get a hold of his superintendent recreation as he wishes to know what the outcome of his hearing was Cognition: A/O X 3, not always oriented to date Insight: Fair Judgment: Fair Interventions PRN's used: none Therapeutic interventions: 1:1 assessment, therapeutic conversation, medication administration/monitoring, encouragement to express thoughts and feelings, encouragement to perform personal care,encouragement to attend groups, Q 15 min safety checks. Restraints/seclusion/emergency medication: N/A Justification of Continued Inpatient Treatment: Court ordered, await
[2018-10-27 07:50] VITALS: BP 104/64
[2018-10-27] MEDS: OLANZAPINE 5 MG TABLET PO SCH (07:56)
--- NOTE | 2018-10-27 17:30 | NUR ---
Nursing Note: Chief Complaint: Court ordered treatment Legal hold: 0620 Court Ordered, [facility] Client on court ordered involuntary status Report received from nurse with use of SBAR: Lisha SERRANOfinish repairer, what happened this shift: Pt. sleeping at beginning of shift. Pt. reports he is going home with dad on [address]. Pt. showered today. Pt. pacing intermittently throughout the day. Pt. attended both groups. S/I, H/I: Pt denies A/VH: Pt denies Sleep: Pt. napped x1 today. ADL's: Independent Group attendance: yes Were meds taken: Yes Any med S/E: None reported or observed Mental Status Exam Appearance: Clean, dressed Eye contact: Avoids eye contact unless spoken to and then makes direct eye contact Behavior: Pleasant, cooperative, isolates to self, becoming more social. Speech: Clear, audible, poverty of speech Mood: Calm Affect: Falt Thought process: Poverty of thought Thought Content: Poverty of thought Cognition: A/O X 4 Insight: Fair Judgment: Fair Interventions PRN's used: none Therapeutic interventions: 1:1 assessment, therapeutic conversation, medication administration/monitoring, encouragement to express thoughts and feelings, encouragement to perform personal care,encouragement to attend groups, Q 15 min safety checks. Restraints/seclusion/emergency medication: N/A Justification of Continued Inpatient Treatment: Court ordered, await
[2018-10-27 20:00] VITALS: BP 119/75
[2018-10-27] MEDS: olanzapine 10mg tablet PO SCH (20:37)
--- NOTE | 2018-10-28 01:13 | NUR ---
Nursing Progress Note: Legal hold: Court ordered treatment Client here for court order Report received from nurse with use of MADISON Gross RN Why are they here: The patient is here from [facility] after he was arrested and was found incompetent to stand trial Assessment What has happened this shift: The patient was up on the unit and repeatedly pacing the halls. He is quiet and withdrawn from peers and staff. He is cooperative with the evening assessment. His insight is poor but he did smile when stating that he was hoping to get out early to go home and live with is father. When asked what he would like to do once he is discharged he had no goals or plans. S/I, H/I: NO A/VH: Patient Denies Sleep:[] ADL's: independent but at times needs prompting Group attendance:NA Were meds taken:NA Any med S/E No Mental Status Exam Appearance: Dressed in green hospital scrubs Eye contact:poor Behavior: quiet withdrawn and frequent pacing. He makes no effort to socialize with others Speech: Soft, minimal Mood: "fine" Affect:blunted Thought process: Difficult to fully assess 2nd to patient's minimal verbal replies Thought Content: wants to discharge Cognition:alert Insight: Poor Judgment: Poor Interventions PRN's used: none Therapeutic interventions: One to one with the patient to assess for continued disordered thought process Restraints/seclusion/emergency medication:NO Justification of Continued Inpatient Treatment: The patient is here until his next court date
[2018-10-28] MEDS: OLANZAPINE 5 MG TABLET PO SCH (07:45)
[2018-10-28 07:48] VITALS: BP 107/66
--- NOTE | 2018-10-28 17:45 | NUR ---
Nursing Progress Note: Legal hold: Court ordered treatment Client here for court order Report received from nurse with use of MADISON Chaidez RN Why are they here: The patient is here from [facility] after he was arrested and was found incompetent to stand trial Assessment What has happened this shift: The patient was up on the unit and repeatedly pacing the halls. He is quiet and withdrawn from peers and staff. He is cooperative with with his assessment but his insight is poor, when asked his discharged he had no goals or plans. Pt. did S/I, H/I: NO A/VH: Patient Denies Sleep: Pt. napped x2 today. ADL's: independent but at times needs prompting. Pt. showered yesterday. Group attendance:NA Were meds taken:NA Any med S/E No Mental Status Exam Appearance: Dressed in green hospital scrubs Eye contact:poor Behavior: quiet withdrawn and frequent pacing. He makes no effort to socialize with others Speech: Soft, minimal Mood: "good" Affect:blunted Thought process: Difficult to fully assess 2nd to patient's minimal verbal replies Thought Content: poverty of content Cognition:alert Insight: Poor Judgment: Poor Interventions PRN's used: none Therapeutic interventions: One to one with the patient to assess for continued disordered thought process Restraints/seclusion/emergency medication:NO Justification of Continued Inpatient Treatment: The patient is here until his next court date
[2018-10-28 19:00] VITALS: BP 130/75
[2018-10-28] MEDS: acetaminophen 325mg tablet PO PRN (20:44)
[2018-10-28] MEDS: olanzapine 10mg tablet PO SCH (20:45)
--- NOTE | 2018-10-29 00:20 | NUR ---
Nursing Progress Note: Legal hold: Court ordered treatment Report received from MAGGIE Hernandez with use of SBAR Why are they here: The patient is here from [facility] after he was arrested and was found incompetent to stand trial Assessment What has happened this shift: The patient was walking the halls at shift change, repeatedly pacing the halls. He is quiet and withdrawn from peers, but will answer questions when spoken too. He is cooperative with his assessment, but his insight is poor, when asked about his discharge he has no goals or plans. Pt c/o of generalized pain and asked for a Tylenol. S/I, H/I: None reported or observed A/VH: None reported or observed Sleep: See sleep assessment notation ADL's: Independent but at times needs prompting. Group attendance: healthcare consultant, no group Were meds taken: Yes Any med S/E: None reported or observed Mental Status Exam Appearance: Dressed in [facility] scrubs, hair appears greasy Eye contact: Good when spoken too, however when walking in halls eye contact is brief Behavior: Quiet withdrawn, but occasionally smiles, frequent pacing. He makes no effort to socialize with others, but will engage if spoken to staff. Speech: Soft, minimal Mood: "Good" Affect: Blunted Thought process: Difficult to fully assess 2nd to patient's minimal verbal replies Thought Content: Poverty of content Cognition: Alert Insight: Poor Judgment: Poor Interventions PRN's used: Tylenol Therapeutic interventions: One to one with the patient to assess for continued disordered thought process. Maintained a safe and supportive environment, administered medications as ordered. Restraints/seclusion/emergency medication: N/A Justification of Continued Inpatient Treatment: The patient is here until his next court date
[2018-10-29 07:57] VITALS: BP 119/60
[2018-10-29] MEDS: OLANZAPINE 5 MG TABLET PO SCH (08:12)
--- NOTE | 2018-10-29 15:23 | NUR ---
Reassessment: PO intake fluctuates with average 75% on regular diet meeting nutrient needs. [facility] 10/29. Will continue to follow. Recommend: 1. Continue regular diet 2. Bowel care as needed 3. Weekly wts Addendum: 10/29/18 at [address] Amended: Links added.
--- NOTE | 2018-10-29 17:25 | NUR ---
Nursing Progress Note: Legal hold: Court ordered treatment Report received from Virginia Andrade RN with use of SBAR Why are they here: The patient is here from [facility] after he was arrested and was found incompetent to stand trial Assessment What has happened this shift: Pt. alseep at start of shift. Pt. in day room for meals. Pt. took medications. Pt. pacing hallways at times. He is quiet and withdrawn from peers. Pt. did not attend morning group. Pt. offered one word responses to questions during assessment. S/I, H/I: None reported or observed A/VH: None reported or observed Sleep: Pt. napped x1 today. ADL's: Independent but at times needs prompting. Pt. states he showered yesterday. Group attendance: third shift lieutenant, no group Were meds taken: Yes Any med S/E: None reported or observed Mental Status Exam Appearance: Dressed in green hospital scrubs, hair appears greasy Eye contact: Good when spoken too, however when walking in halls eye contact is brief Behavior: Quiet withdrawn, but occasionally smiles, frequent pacing. He makes no effort to socialize with others, but will engage if spoken to staff. Speech: Soft, minimal Mood: "Good" Affect: Blunted Thought process: Difficult to fully assess 2nd to patient's minimal verbal replies Thought Content: Poverty of content Cognition: Alert Insight: Poor Judgment: Poor Interventions PRN's used: Tylenol Therapeutic interventions: One to one with the patient to assess for continued disordered thought process. Maintained a safe and supportive environment, administered medications as ordered. Restraints/seclusion/emergency medication: N/A Justification of Continued Inpatient Treatment: The patient is here until his next court date
[2018-10-29 19:00] VITALS: BP 114/66
[2018-10-29] MEDS: olanzapine 10mg tablet PO SCH (21:53)
--- NOTE | 2018-10-30 03:49 | NUR ---
Nursing Progress Note: Legal hold: Court ordered treatment Report received from Elena SERRANO with use of SBAR Why are they here: The patient is here from [facility] after he was arrested and was found incompetent to stand trial Assessment What has happened this shift: The patient was walking the halls at shift change. Pt was observed sitting in T.V watching T.V with other peers. Pt would get up and walk the halls then go back into T.V room. Pt is quite and withdrawn, but did not isolate to his room this shift. When asked if pt was ready for his 2100 meds, pt hesitated, so this sheet writer asked if he wanted to wait until a little bit later and he said yes. My opinion was that he wanted to spend more time with the peers in the T.V room because that is where he kept going back to. After giving meds pt said thank you and went to bed. S/I, H/I: None reported or observed A/VH: None reported or observed Sleep: See sleep assessment notation ADL's: Independent but at times needs prompting. Group attendance: family service center director, no group Were meds taken: Pt is med compliant Any med S/E: None reported or observed Mental Status Exam Appearance: Dressed in green hospital scrubs, hair appears greasy Eye contact: Good when spoken too, however when walking in halls eye contact is brief Behavior: Quiet withdrawn, but occasionally smiles, frequent pacing. Pt made an effort to socialize with others by sitting in T.V room most of shift. Speech: Soft, minimal Mood: "Good" Affect: Blunted Thought process: Difficult to fully assess 2nd to patient's minimal verbal replies Thought Content: Poverty of content Cognition: Alert Insight: Poor Judgment: Poor Interventions PRN's used: None Therapeutic interventions: One to one with the patient to assess for continued disordered thought process. Maintained a safe and supportive environment, administered medications as ordered. Restraints/seclusion/emergency medication: N/A Justification of Continued Inpatient Treatment: The patient is here until his next court date
[2018-10-30 08:00] VITALS: BP 107/70
[2018-10-30] MEDS: OLANZAPINE 5 MG TABLET PO SCH (08:09)
--- NOTE | 2018-10-30 18:27 | NUR ---
RN Progress Note: Legal hold: 1370 (Court Ordered, [facility] for Competency) Client on involuntary status for competency. Report received from LUANN Vance Assessment Pt sleeping at the change of shift. Pt was compliant with medication administration and cooperative with 1:1 therapeutic assessment. He denies depression, anxiety, SI, and A/VH. Pt frequently walked in the hallways. Pt did not attend groups. S/I, H/I: Denies A/VH: Denies Sleep: Napped ADL's: Independent. Group attendance: No Were meds taken: Yes Any med S/E: None noted Mental Status Exam Appearance: Neat, clean, dressed in green scrubs Eye contact: Fair Behavior: Walks in the hallway. Speech: Minimal speech, responds appropriately to questions. Mood: Guarded Affect: Blunted Thought process: Linear Thought Content: Unremarkable Cognition: A/Ox 4 Insight: Poor Judgment: Poor Interventions PRN's used: None Therapeutic interventions: 1:1 therapeutic assessment, active listening, medication administration and education, therapeutic milieu, and maintained Q 15 min checks. Restraints/seclusion/emergency medication: N/A Justification of Continued Inpatient. Pt in [facility] by court order. Patient sent to [facility] in lieu of [facility].
[2018-10-30 19:00] VITALS: BP 113/76
[2018-10-30] MEDS: olanzapine 10mg tablet PO SCH (21:34)
[2018-10-30] MEDS: acetaminophen 325mg tablet PO PRN (21:37)
--- NOTE | 2018-10-30 23:53 | NUR ---
Nursing Progress Note: Legal hold: Court ordered treatment Report received from Jessica SERRANO with use of SBAR Why are they here: The patient is here from [facility] after he was arrested and was found incompetent to stand trial Assessment What has happened this shift: Received pt watching [employer] tournament in the T.V room. This mortgage or loan underwriter and patient talked about basketball, pt also stated that soccer was another sport he enjoyed watching. Pt stated he plays soccer. S/I, H/I: None reported or observed A/VH: None reported or observed Sleep: See sleep assessment notation ADL's: Independent but at times needs prompting. Group attendance: bindery worker, no group Were meds taken: Pt is med compliant Any med S/E: None reported or observed Mental Status Exam Appearance: Dressed in green hospital scrubs, hair combed Eye contact: Good when spoken too, however when walking in halls eye contact is brief Behavior: Quiet,withdrawn, but occasionally smiles, frequent pacing. A little more anxious than last night. Speech: Soft, minimal, responds appropriately to questions Mood: "Good" Affect: Blunted Thought process: Linear Thought Content: Poverty of thought Cognition: Alert Insight: Poor Judgment: Poor Interventions PRN's used: Tylenol Therapeutic interventions: 1:1 therapeutic assessment, active listening, medication administration and education, therapeutic milieu, and maintained Q 15 min checks. Restraints/seclusion/emergency medication: N/A Justification of Continued Inpatient Treatment: The patient is here until his next court date.
[2018-10-31 08:00] VITALS: BP 104/62
[2018-10-31] MEDS: OLANZAPINE 5 MG TABLET PO SCH (08:00)
--- NOTE | 2018-10-31 11:17 | NUR ---
Legal hold: 1370 (Court Ordered, [facility] for Competency) Client on involuntary status for competency. Report received from RN with use of SBAR Assessment Stayed in room for greater part of shift and appeared to be sleeping. Came out for meals when notified food cart was on the unit. Sat with staff briefly in the morning. Stated he was "all right." When asked if he felt more comfortable and relaxed with the staff now that he had been here for some time patient stated "yes." Later in the afternoon walked around for a few minutes. Discharge plans are for pt to live with his father and pt was agreeable to the plan of discharge. S/I, H/I: Denies A/VH: Denies Sleep: Napped off and of throughout day ADL's: Independent. Group attendance: Yes Were meds taken: Yes Any med S/E: None noted Mental Status Exam Appearance: Clean and neat Eye contact: Fair Behavior: Isolated, but responds when spoken to. Speech: Minimal Speech Mood: Appears euthymic Affect: Blunted Thought process: Blocking Thought Content: Pt has minimal speech, unable to assess thought content Cognition: A/Ox 4 Insight: Poor Judgment: Poor Interventions PRN's used: None Therapeutic interventions: 1:1 therapeutic assessment, active listening, medication education, therapeutic milieu, and maintained Q 15 min checks. Restraints/seclusion/emergency medication: N/A Justification of Continued Inpatient. Patient sent to [facility] in lieu of penitentiary.
[2018-10-31] MEDS: olanzapine 10mg tablet PO SCH (20:24)
[2018-10-31] MEDS: acetaminophen 325mg tablet PO PRN (20:44)
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
[2018-11-01 08:00] VITALS: BP 107/66
[2018-11-01] MEDS: OLANZAPINE 5 MG TABLET PO SCH (08:05)
--- NOTE | 2018-11-01 17:09 | NUR ---
Nursing Progress Note: Legal hold: 1370 (Court Ordered, [facility] for Competency) Client on involuntary status for competency. Report received from LUANN Rodriguez with use of SBAR Assessment Pt sleeping at the change of shift. Pt was compliant with medication administration and cooperative with 1:1 therapeutic assessment. He denies depression, anxiety, SI, and A/VH. When asked how he was doing he stated, "Good." He indicated he slept well. He attended all groups. His responses to questions was minimal. Poor eye contact and response when greeted in ybarra. S/I, H/I: Denies A/VH: Denies Sleep: Napped ADL's: Independent. Group attendance: Yes Were meds taken: Yes Any med S/E: None noted Mental Status Exam Appearance: Clean, green scrubs Eye contact: Intermittent Behavior: Isolates, naps and walks in the hallway. Speech: Normal rate and rhythm, but minimal response to questions Mood: Guarded Affect: Blunted Thought Process: Blocking Thought Content: Unable to assess Cognition: A/Ox 4 Insight: Poor Judgment: Poor Interventions PRN's used: None Therapeutic interventions: 1:1 therapeutic assessment, active listening, medication administration and education, therapeutic milieu, and maintained Q 15 min checks. Restraints/seclusion/emergency medication: N/A Justification of Continued Inpatient. Pt in [facility] by court order. Patient sent to [facility] in lieu of group home.
[2018-11-01] MEDS: olanzapine 10mg tablet PO SCH (20:36)
[2018-11-01 20:45] VITALS: BP 127/74
--- NOTE | 2018-11-01 21:11 | NUR ---
Nursing Progress Note: Legal hold: 1370 (Court Ordered, [facility] for Competency) Client on involuntary status for competency. Report received from LUANN Rodriguez with use of SBAR Assessment Pt was in the ybarra pacing at change of shift. 1:1 assessment completed at bedside. Pt denies s/i, denies depression. Pt reports sleeping good and appetite is good. He is med compliant, pleasant/cooperative. Pt spent time visiting w/his mother this evening. Pt is gaurded tonight, gives short answers to questions and is self isolating outside of visit w/his mother. S/I, H/I: Denies A/VH: Denies Sleep: reports sleeps good at night ADL's: Independent. Group attendance: Yes Were meds taken: Yes Any med S/E: None noted Mental Status Exam Appearance: Clean, green scrubs Eye contact: Intermittent Behavior: Isolates, naps and walks in the hallway. Speech: Normal rate and rhythm, but minimal response to questions Mood: Guarded Affect: Blunted Thought Process: Blocking Thought Content: Unable to assess Cognition: A/Ox 4 Insight: Poor Judgment: Poor Interventions PRN's used: None Therapeutic interventions: 1:1 therapeutic assessment, active listening, medication administration and education, therapeutic milieu, and maintained Q 15 min checks. Restraints/seclusion/emergency medication: N/A Justification of Continued Inpatient. Pt in [facility] by court order. Patient sent to [facility] in lieu of long term.
[2018-11-02 07:00] VITALS: BP 105/54
[2018-11-02] MEDS: OLANZAPINE 5 MG TABLET PO SCH (07:56)
--- NOTE | 2018-11-02 17:43 | NUR ---
[facility] Nursing Progress Note: Legal hold: 1370 (Court Ordered, [facility] for Competency) Client on involuntary status for competency. Report received from MAGGIE Brown with use of SBAR Assessment What happened on this shift: Pt. was in bed at beginning of shfit. Pt was in the ybarra pacing at change of shift. 1:1 assessment completed at bedside. Pt denies s/i, denies depression. Pt reports sleeping good and appetite is good. He is med compliant, pleasant/cooperative. Pt. showered. S/I, H/I: Denies A/VH: Denies Sleep: reports sleeps good at night ADL's: Independent. Group attendance: Yes Were meds taken: Yes Any med S/E: None noted Mental Status Exam Appearance: Clean, green scrubs Eye contact: Intermittent Behavior: Isolates, naps and walks in the hallway. Speech: Normal rate and rhythm, but minimal response to questions Mood: calm Affect: flat Thought Process: thought Blocking Thought Content: poor Cognition: A/Ox 4 Insight: Poor Judgment: Poor Interventions PRN's used: None Therapeutic interventions: 1:1 therapeutic assessment, active listening, medication administration and education, therapeutic milieu, and maintained Q 15 min checks. Restraints/seclusion/emergency medication: N/A Justification of Continued Inpatient. Pt in [facility] by court order. Patient sent to [facility] in lieu of alf.
[2018-11-02 20:00] VITALS: BP 138/93
[2018-11-02] MEDS: olanzapine 10mg tablet PO SCH (20:33)
--- NOTE | 2018-11-02 22:25 | NUR ---
Nursing Progress Note: Legal hold: 1370 (Court Ordered, [facility] for Competency) Client on involuntary status for competency. Report received from MAGGIE Rene with use of SBAR Assessment What happened on this shift: Pt was pacing the ybarra at change of shift. 1:1 assessment completed at bedside. Pt gives short answers to questions, reports attending groups today.Pt denies a/vh, denies s/i, denies depression. Pt is med compliant. S/I, H/I: Denies A/VH: Denies Sleep: reports sleeps good at night ADL's: Independent. Group attendance: Yes Were meds taken: Yes Any med S/E: None noted Mental Status Exam Appearance: Clean, green scrubs Eye contact: Good Behavior: Isolates, naps and walks in the hallway. Speech: Normal rate and rhythm, but minimal response to questions Mood: calm Affect: flat Thought Process: thought Blocking, Thought Content: poor Cognition: A/Ox 4 Insight: Poor Judgment: Poor Interventions PRN's used: None Therapeutic interventions: 1:1 therapeutic assessment, active listening, medication administration and education, therapeutic milieu, and maintained Q 15 min checks. Restraints/seclusion/emergency medication: N/A Justification of Continued Inpatient. Pt in [facility] by court order. Patient sent to [facility] in lieu of fdc.
[2018-11-03] MEDS: OLANZAPINE 5 MG TABLET PO SCH (07:50)
[2018-11-03 08:00] VITALS: BP 113/63
--- NOTE | 2018-11-03 16:23 | NUR ---
Nursing Progress Note: Legal hold: 1370 (Court Ordered, [facility] for Competency) Client on involuntary status for competency. Report received from MAGGIE Brown with use of SBAR Assessment What happened on this shift: Pt. was in bed at the beginning of shift. Pt. ate all his breakfast and took his medications. Pt. gives limited responses during assessment. Pt. did not go to morning group or afternoon group because he stated he was "too tired". Pt. was pacing the hallways throughout the shift. Pt was pacing the ybarra at change of shift. 1:1 assessment completed at bedside. Pt gives short answers to questions, reports attending groups today.Pt denies a/vh, denies s/i, denies depression. Pt is med compliant. S/I, H/I: Denies A/VH: Denies Sleep: Pt. napped x2 ADL's: Independent. Group attendance: Yes Were meds taken: Yes Any med S/E: None noted Mental Status Exam Appearance: Clean, green scrubs Eye contact: Good Behavior: Isolates, naps and walks in the hallway. Speech: Normal rate and rhythm, but minimal response to questions Mood: calm Affect: flat Thought Process: thought Blocking, Thought Content: poor Cognition: A/Ox 4 Insight: Poor Judgment: Poor Interventions PRN's used: None Therapeutic interventions: 1:1 therapeutic assessment, active listening, medication administration and education, therapeutic milieu, and maintained Q 15 min checks. Restraints/seclusion/emergency medication: N/A Justification of Continued Inpatient. Pt in [facility] by court order. Patient sent to [facility] in lieu of senior living.
[2018-11-03 20:00] VITALS: BP 109/68
[2018-11-03] MEDS: olanzapine 10mg tablet PO SCH (20:25)
[2018-11-03] MEDS: acetaminophen 325mg tablet PO PRN (20:26)
[2018-11-03 21:50] VITALS: BP 109/68
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
[2018-11-04 07:42] LABS: BASOPHILS # (AUTO) 0.1 X10'3 (0-0.2); BASOPHILS % (AUTO) 1.3 % (0-1); EOSINOPHILS # (AUTO) 0.2 X10'3 (0-0.9); EOSINOPHILS % (AUTO) 4.1 % (0-6); HEMATOCRIT 43.1 % (42.0-52.0); HEMOGLOBIN 15.1 g/dl (14.0-17.9); LYMPHOCYTES # (AUTO) 2.1 X10'3 (1.1-4.8); LYMPHOCYTES % (AUTO) 35.6 % (21-51); MEAN CORPUSCULAR HEMOGLOBIN 30.4 PG (27.0-31.0); MEAN CORPUSCULAR VOLUME 86.7 FL (78-98); MEAN PLATELET VOLUME 8.3 FL (7.4-10.4); MONOCYTES # (AUTO) 0.5 X10'3 (0-0.9); MONOCYTES % (AUTO) 8.2 % (2-12); NEUTROPHILS % (AUTO) 50.8 % (42-75); PLATELET COUNT 201 X10'3 (140-440); RED BLOOD COUNT 4.97 X10'6 (4.70-6.10); RED CELL DISTRIBUTION WIDTH 13.1 % (11.5-14.5); WHITE BLOOD COUNT 5.9 X10'3 (4.5-11.0)
[2018-11-04] MEDS: OLANZAPINE 5 MG TABLET PO SCH (07:47)
[2018-11-04 07:57] LABS: ALANINE AMINOTRANSFERASE 124 U/L (12-78); ALBUMIN 3.7 G/DL (3.4-5.0); ALKALINE PHOSPHATASE 69 IU/L (20-180); ANION GAP 10 (8-16); ASPARTATE AMINO TRANSFERASE 39 U/L (10-37); BILIRUBIN,TOTAL 0.4 MG/DL (0.1-1.0); BLOOD UREA NITROGEN 22 MG/DL (7-18); BUN/CREATININE RATIO 23.2 (5.4-32.0); CALCIUM 9.5 MG/DL (8.5-10.1); CHLORIDE 106 MMOL/L (99-107); CHOL/HDL RATIO 3.6 (0.00-4.99); CHOLESTEROL 151 MG/DL (0-200); CREATININE 0.95 MG/DL (0.60-1.10); GLUCOSE 86 MG/DL (70-104); HDL CHOLESTEROL 42 MG/DL (35-60); LDL CHOLESTEROL 103 MG/DL (50-100); SODIUM 141 MMOL/L (135-145); TOTAL CARBON DIOXIDE 25.4 MMOL/L (24-32); TOTAL PROTEIN 7.3 G/DL (6.4-8.2); TRIGLYCERIDES 38 MG/DL (20-135); eGFR > 90 ML/MIN
[2018-11-04 08:00] VITALS: BP 100/64
--- NOTE | 2018-11-04 10:35 | NUR ---
Nursing Progress Note Legal hold: 1370 (Court Ordered, [facility] for Competency) Client on involuntary status for: Competency Report received with SBAR from: MAGGIE Brownfinancial professional What happened on this shift: Patient sleeping at change fo shift. Up for breakfast and med compliant. Lays down after breakfast to nap. Does not attend groups. Able to make brief appropriate eye contact. Court date 11/10. Patient hoping to go home with parents. S/I, H/I: Denies A/VH: Denies Sleep: Naps ADL's: Independent Group attendance: None Were meds taken: Y Any med S/E: None reported, None observed Mental Status Exam Appearance: Clean, wearing unit green scrubs Eye contact: minimal but appropriate Behavior: Walks the hallway, isolates Speech: WNL; minimal/limited responses to questions Mood: WNL Affect: Constricted Thought Process: Poverty of thought Thought Content: Unable to determine Cognition: A/Ox4 Insight: Poor Judgment: Poor Interventions PRN's used: None Therapeutic interventions: 1:1 therapeutic assessment, active listening, medication administration and education, therapeutic milieu, and maintained Q 15 min checks. Restraints/seclusion/emergency medication: N/A Justification of Continued Inpatient Tx: Pt in [facility] by court order. Patient sent to [facility] in lieu of snf. Will DC to parents after court, which will be on 11/10 or 11/14.
[2018-11-04 20:00] VITALS: BP 140/80
[2018-11-04] MEDS: olanzapine 10mg tablet PO SCH (20:46)
--- NOTE | 2018-11-04 23:11 | NUR ---
Nursing Progress Note Legal hold: 1370 (Court Ordered, [facility] for Competency) Client on involuntary status for: Competency Report received with SBAR from: MAGGIE Hernandezbromination equipment operator What happened on this shift: Patient up and pacing the halls at the change of shift. Patient paces throughout shift until he goes to bed. He is cooperative for a 1:1 assessment at his bedside. HE Denies SI, HI, VH, and AH. He states he hopes to "go home" after his court hearing on "the ." He is compliant with his evening medications. S/I, H/I: Denies A/VH: Denies Sleep: Currently sleeping, see sleep assessment ADL's: Independent Group attendance: None Were meds taken: Y Any med S/E: None reported, None observed Mental Status Exam Appearance: Clean, wearing unit green scrubs Eye contact: minimal but appropriate Behavior: Walks the hallway, isolates Speech: WNL; minimal/limited responses to questions Mood: WNL Affect: Constricted Thought Process: Poverty of thought Thought Content: Wanting to go home Cognition: A/Ox4 Insight: Poor Judgment: Poor Interventions PRN's used: None Therapeutic interventions: 1:1 therapeutic assessment, active listening, medication administration and education, therapeutic milieu, and maintained Q 15 min checks. Restraints/seclusion/emergency medication: N/A Justification of Continued Inpatient Tx: Pt in [facility] by court order. Patient sent to [facility] in lieu of assisted. Will DC to parents after court, which will be on 11/10 or 11/14.
[2018-11-05 08:00] VITALS: BP 95/48
[2018-11-05] MEDS: OLANZAPINE 5 MG TABLET PO SCH (08:00)
--- NOTE | 2018-11-05 13:20 | NUR ---
Nursing Progress Note Legal hold: 1370 (Court Ordered, [facility] for Competency) Client on involuntary status for: Competency Report received with SBAR from: MAGGIE Parkerradiology asst What happened on this shift: Patient sleeping at change fo shift. Up for breakfast and informs nurse that MD has changed the frequency of his Zyprexa. He is adamant and advocates for himself. Record did not reflect what patient was saying but upon further review the patient was completely correct showing an ability to understand and remember conversations and material presented previously. Lays down after breakfast to nap. Attends groups intermittently. Able to make brief appropriate eye contact. Court date 11/10. Patient hoping to go home with parents. S/I, H/I: Denies A/VH: Denies Sleep: Naps ADL's: Independent Group attendance: Partial Were meds taken: None this shift ordered Any med S/E: None reported, None observed Mental Status Exam Appearance: Clean, wearing unit green scrubs Eye contact: minimal but appropriate Behavior: Walks the hallway, isolates Speech: WNL; minimal/limited responses to questions Mood: WNL Affect: Constricted Thought Process: Able to effectively advocate for self Thought Content: Regarding medications Cognition: A/O Insight: fair Judgment: fair Interventions PRN's used: None Therapeutic interventions: 1:1 therapeutic assessment, active listening, medication administration and education, therapeutic milieu, and maintained Q 15 min checks. Restraints/seclusion/emergency medication: N/A Justification of Continued Inpatient Tx: Pt in [facility] by court order. Patient sent to [facility] in lieu of custodial. Will DC to parents after court, which will be on 11/10 or 11/14.
[2018-11-05 19:51] VITALS: BP 113/66
[2018-11-05 20:01] VITALS: BP 113/76
[2018-11-05] MEDS: olanzapine 10mg tablet PO SCH (20:52)
[2018-11-05] MEDS: acetaminophen 325mg tablet PO PRN (20:52)
--- NOTE | 2018-11-06 00:55 | NUR ---
Nursing Progress Note Legal hold: 1370 (Court Ordered, [facility] for Competency) Client on involuntary status for: Competency Report received with SBAR from: MAGGIE Centenohydraulic punch press operator What happened on this shift: Patient up and pacing the halls at the change of shift, he does this all shift before turning to bed. He is cooperative for a 1:1 assessment. He has complaints of general body/back pain this evening and asks for Tylenol. Tylenol 650 mg PO administered with good effect. Educated patient on the importance of medication compliance, he verbalized understanding to this. He is cooperative with evening medications and turns to bed after HS meds. S/I, H/I: Denies A/VH: Denies Sleep: Currently sleeping, see sleep assessment ADL's: Independent Group attendance: No groups this shift Were meds taken: Y Any med S/E: None reported, None observed Mental Status Exam Appearance: Clean, wearing unit green scrubs Eye contact: Minimal but appropriate Behavior: Paces the hallway, isolates Speech: Normal volume, rate and rhythm; minimal/limited responses to questions Mood: "Good" Affect: Constricted Thought Process: Poverty of thought Thought Content: Pain, wanting to go home, medication compliance Cognition: A/Ox4 Insight: Poor Judgment: Poor Interventions PRN's used: None Therapeutic interventions: 1:1 therapeutic assessment, active listening, medication administration and education, therapeutic milieu, and maintained Q 15 min checks. Restraints/seclusion/emergency medication: N/A Justification of Continued Inpatient Tx: Pt in [facility] by court order. Patient sent to [facility] in lieu of penitentiary. Will DC to parents after court, which will be on 11/10 or 11/14.
[2018-11-06 07:46] VITALS: BP 92/46
--- NOTE | 2018-11-06 11:35 | NUR ---
Nursing Progress Note Legal hold: 1370 (Court Ordered, [facility] for Competency) Client on involuntary status for: Competency Report received with SBAR from: MAGGIE Colemanapplication programmer analyst What happened on this shift: Pt denied all symptoms, cooperative with physical assessment, no routine am meds ordered. Pt is aware when his next court date is, "the ." When asked pt where he will go from here he replied that he will go live in his dad's apartment, clarified that it was not a separate apartment but the one his dad is living in. Asked pt if mom and dad were or . Pt appeared to be thought blocking, replied, "no." Asked if they live together, "no." Asked how long they have lived separately, pt replied, "I don't remember." Asked pt if his parents live with anyone else, "my older brother." Asked pt if his older brother lives with his mom or his dad, pt appeared to be thought blocking again then "my dad goes with his family." Asked pt if he was planning on going to groups today, he shook his said while saying, "no." When asked why not, pt replied, "I've already been to all of the groups." Noted a paperback book on the pt's night stand, asked him if he had been reading it, "no." Asked if it was difficult to focus on reading, pt replied, "no." S/I, H/I: Pt denies A/VH: Pt denies Sleep: slept 8.75 hours per noc shift report, naps after meals ADL's: Independent Group attendance: Pt did not attend morning group Were meds taken: No routine meds ordered in the morning Any med S/E: None reported or observed Mental Status Exam Appearance: Clean, wearing unit green scrubs Eye contact: fair Behavior: Paces the hallway, isolates to self Speech: soft spoken, poverty of speech Mood: Pt reports his mood is good Affect: Constricted, somewhat avoidant Thought Process: thought blocking, poverty of thought Thought Content: awaiting pending court date, bored with groups Cognition: A/O x 4 Insight: Poor Judgment: Poor Interventions PRN's used: None Therapeutic interventions: 1:1 therapeutic assessment, therapeutic conversation, encouragement to express thoughts feelings, concerns, encouragement to maintain personal hygiene and attend groups, Q 15 min checks safety checks. Restraints/seclusion/emergency medication: N/A Justification of Continued Inpatient Tx: Pt in [facility] by court order. Patient sent to [facility] in lieu of [facility]. Will be discharged after next court date on 11/10 or 11/14, states he will go to dad's apartment.
--- NOTE | 2018-11-06 11:44 | NUR ---
Reassessment: Pt PO 100% on regular diet w/ occasional refusal of one meal every couple days still meeting nutrient needs. [facility] 11/05. Will continue to follow. Recommend: 1. Continue regular diet 2. Bowel care as needed 3. Weekly wts Addendum: 11/06/18 at [address] Amended: Links added.
[2018-11-06 20:00] VITALS: BP 135/88
[2018-11-06] MEDS: olanzapine 10mg tablet PO SCH (20:25)
--- NOTE | 2018-11-06 20:57 | NUR ---
Nursing Progress Note Legal hold: 1370 (Court Ordered, [facility] for Competency) Client on involuntary status for: Competency Report received with SBAR from: Kevin script supervisor What happened on this shift: Pt was pacing in the ybarra at change of shift, spent most of the evening pacing. 1:1 assessment completed at bedside. Pt states he is hopeful he can go home after his court date. He reports not attending groups today because theyre repeating some of the same things over. He reports sleeping well, appetite is good and he is med compliant. States its Thursday today so he didnt do too much. pt seems depressed, but denies depression, he is quiet today and doesnt say much. S/I, H/I: Pt denies A/VH: Pt denies Sleep: reports sleeing good ADL's: Independent Group attendance: no evening groups offered Were meds taken: yes Any med S/E: None reported or observed Mental Status Exam Appearance: Clean, wearing unit green scrubs Eye contact: fair Behavior: Paces the hallway, isolates to self Speech: soft spoken, poverty of speech Mood: seems depressed, pleasant, denies depression Affect: Constricted, somewhat avoidant Thought Process: thought blocking, poverty of thought Thought Content: hopeful he can go home after court , bored with groups Cognition: A/O x 4 Insight: Poor Judgment: Poor Interventions PRN's used: None Therapeutic interventions: 1:1 therapeutic assessment, therapeutic conversation, encouragement to express thoughts feelings, concerns, encouragement to maintain personal hygiene and attend groups, Q 15 min checks safety checks. Restraints/seclusion/emergency medication: N/A Justification of Continued Inpatient Tx: Pt in [facility] by court order. Patient sent to [facility] in lieu of long term. Will be discharged after next court date on 11/10 or 11/14, states he will go to dad's apartment.
[2018-11-07 08:08] VITALS: BP 113/60
--- NOTE | 2018-11-07 12:01 | NUR ---
Nursing Progress Note Legal hold: 1370 (Court Ordered, [facility] for Competency) Client on involuntary status for: Competency Report received with SBAR from: MAGGIE Newfood service order clerk What happened on this shift: Pt stated that he was "fine" today although appears restless and depressed, denied all symptoms, continues to pace in the hallways, dad came for a visit; it went well. Pt remains somewhat avoidant but is pleasant and cooperative when approached. S/I, H/I: Pt denies A/VH: Pt denies Sleep: Pt slept well per noc shift report ADL's: Independent Group attendance: Pt did not attend morning group Were meds taken: No routine meds ordered in the morning Any med S/E: None reported or observed Mental Status Exam Appearance: Clean, wearing green scrubs with long sleeved shirt underneath Eye contact: fair, avoids eye contact unless directly engaged Behavior: Paces the hallway, isolates to self Speech: soft spoken, poverty of speech Mood: "fine" Affect: Constricted, somewhat avoidant Thought Process: thought blocking, poverty of thought Thought Content: awaiting pending court date, enjoyed visit with father Cognition: A/O x 4 Insight: Poor Judgment: Poor Interventions PRN's used: None Therapeutic interventions: 1:1 therapeutic assessment, therapeutic conversation, encouragement to express thoughts feelings, concerns, encouragement to maintain personal hygiene and attend groups, Q 15 min checks safety checks. Restraints/seclusion/emergency medication: N/A Justification of Continued Inpatient Tx: Pt in [facility] by court order. Patient sent to [facility] in lieu of [facility]. Will be discharged after next court date on 11/10 or 11/14, states he will go to dad's apartment.
[2018-11-07 19:56] VITALS: BP 131/79
[2018-11-07] MEDS: olanzapine 10mg tablet PO SCH (20:11)
[2018-11-07] MEDS: acetaminophen 325mg tablet PO PRN (20:16)
--- NOTE | 2018-11-07 21:34 | NUR ---
Nursing Progress Note Legal hold: 1370 (Court Ordered, [facility] for Competency) Client on involuntary status for: Competency Report received with SBAR from: Kevin electroencephalographic technologist What happened on this shift: Pt was walking in the hallway at change of shift. 1:1 assessment completed at bedside. Pt denies s/i, denies h/i. pt states he isnt going to groups anymore because he's done them all. I asked pt where he is going to walk when he goes home and doesn't have our hallway anymore? Pt laughed and said "I know, Im going to miss this hallway." Pt states he didnt eat dinner tonight because he wasnt hungry at dinner and has a big appetite at snack asking for a burrito. Pt requested PRN tylenol for pain. When asked what his pain number was he said zero, then changed the number to 8. Pt was pleasant tonight, denies depression. Said his visit today with his dad was "good". S/I, H/I: Pt denies A/VH: Pt denies Sleep: reports sleeping well ADL's: Independent Group attendance: Pt did not attend morning group Were meds taken: yes Any med S/E: None reported or observed Mental Status Exam Appearance: pt showered this evening, adequately groomed and dressed Eye contact: fair, avoids eye contact unless directly engaged Behavior: Paces the hallway, isolates to self Speech: soft spoken, poverty of speech Mood: Restless, Affect: Constricted, somewhat avoidant Thought Process: thought blocking, poverty of thought Thought Content: going home Cognition: A/O x 4 Insight: Poor Judgment: Poor Interventions PRN's used: None Therapeutic interventions: 1:1 therapeutic assessment, therapeutic conversation, encouragement to express thoughts feelings, concerns, encouragement to maintain personal hygiene and attend groups, Q 15 min checks safety checks. Restraints/seclusion/emergency medication: N/A Justification of Continued Inpatient Tx: Pt in [facility] by court order. Patient sent to [facility] in lieu of [facility]. Will be discharged after next court date on 11/10 or 11/14, states he will go to dad's apartment.
[2018-11-08 08:00] VITALS: BP 126/66
--- NOTE | 2018-11-08 17:00 | NUR ---
Nursing Progress Note Legal hold: 1370 (Court Ordered, [facility] for Competency) Client on involuntary status for: Competency Report received with SBAR from: MAGGIE Brownpublic relations account supervisor What happened on this shift: Pt. in bed at beginning of shift. Pt. ate his breakfast. Pt. pacing frequently up and down the hallway. Pt. reports his mood is, "Good". RN asked pt. why he was not attending groups, pt. reports that he has been to many groups and has "too many papers". Pt. reports he is not so sleepy in the day since his AM dose of Zyprexa was d/c'd. Pt. reports he is excited to go home and watch basketball on TV. S/I, H/I: Pt denies A/VH: Pt denies Sleep: Pt. did not nap on this shift today. ADL's: Independent Group attendance: Pt did not attend morning or afternoon group. Were meds taken: n/a Any med S/E: None reported or observed Mental Status Exam Appearance: Pt. showered yesterday evening, adequately grommed. Eye contact: fair, avoids eye contact unless directly engaged Behavior: Paces the hallway, isolates to self Speech: soft spoken, poverty of speech Mood: Restless, Affect: Constricted, somewhat avoidant Thought Process: thought blocking, poverty of thought Thought Content: going home Cognition: A/O x 4 Insight: Poor Judgment: Poor Interventions PRN's used: None Therapeutic interventions: 1:1 therapeutic assessment, therapeutic conversation, encouragement to express thoughts feelings, concerns, encouragement to maintain personal hygiene and attend groups, Q 15 min checks safety checks. Restraints/seclusion/emergency medication: N/A Justification of Continued Inpatient Tx: Pt in [facility] by court order. Patient sent to [facility] in lieu of skilled nursing. Will be discharged after next court date on 11/10 or 11/14, states he will go to dad's apartment
[2018-11-08 20:00] VITALS: BP 114/62
[2018-11-08] MEDS: olanzapine 10mg tablet PO SCH (20:18)
--- NOTE | 2018-11-08 21:34 | NUR ---
Nursing Progress Note Legal hold: 1370 (Court Ordered, [facility] for Competency) Client on involuntary status for: Competency Report received with SBAR from: Renato therapeutic sales specialist What happened on this shift: Pt was pacing in the ybarra at change of shift. Mood is pleasant, denies s/i, h/i, avh. Pt is looking forward to his court date and going home. Pt is pleasant, cooperative. Pt reports appetite is good and he has been sleeping good. S/I, H/I: Pt denies A/VH: Pt denies Sleep: Pt. reports sleeping well ADL's: Independent Group attendance: Pt did not attend morning or afternoon group. Were meds taken: n/a Any med S/E: None reported or observed Mental Status Exam Appearance: Pt. showered yesterday evening, adequately groomed. Eye contact: fair, avoids eye contact unless directly engaged Behavior: Paces the hallway, isolates to self Speech: soft spoken, poverty of speech Mood: Restless, Affect: Constricted, somewhat avoidant Thought Process: thought blocking, poverty of thought Thought Content: going home Cognition: A/O x 4 Insight: Poor Judgment: Poor Interventions PRN's used: None Therapeutic interventions: 1:1 therapeutic assessment, therapeutic conversation, encouragement to express thoughts feelings, concerns, encouragement to maintain personal hygiene and attend groups, Q 15 min checks safety checks. Restraints/seclusion/emergency medication: N/A Justification of Continued Inpatient Tx: Pt in [facility] by court order. Patient sent to [facility] in lieu of [facility]. Will be discharged after next court date on 11/10 or 11/14, states he will go to dad's apartment
[2018-11-09 08:00] VITALS: BP 95/53
--- NOTE | 2018-11-09 13:36 | NUR ---
Nursing Progress Note Legal hold: 1370 (Court Ordered, [facility] for Competency) Client on involuntary status for: Competency Report received with SBAR from: MAGGIE Newplasma table operator What happened on this shift: Received pt. in bed at beginning of shift. Pt. Awoke and ate his breakfast. Watched TV after breakfast and talked with him about possible discharge tomorrow and he states he is not nervous and is OK living with his dad. He paced the hallways with minimal interaction with staff or peers. He did appear to enjoy talking in uzbek with another client who can also speak it, for a short time. Reports being in good mood and excited to leave and go live with dad. S/I, H/I: Pt denies A/VH: Pt denies Sleep: Pt. did not nap on this shift today. ADL's: Independent Group attendance: Pt did not attend morning or afternoon group. Were meds taken: n/a Any med S/E: None reported or observed Mental Status Exam Appearance: Adequately groomed. States he will shower tonite for DC tomorrow. Eye contact: fair. Behavior: Paces the hallway, isolates to self Speech: soft spoken, poverty of speech Mood: Restless, Affect: Constricted, somewhat avoidant Thought Process: thought blocking, poverty of thought Thought Content: going home Cognition: A/O x 4 Insight: Poor Judgment: Poor Interventions PRN's used: None Therapeutic interventions: 1:1 therapeutic assessment, therapeutic conversation, encouragement to express thoughts feelings, concerns, encouragement to maintain personal hygiene and attend groups, Q 15 min checks safety checks. Restraints/seclusion/emergency medication: N/A Justification of Continued Inpatient Tx: Pt in [facility] by court order. Patient sent to [facility] in lieu of halfway. Will be discharged after next court date on 11/10 or 11/14, states he will go to dad's apartment
[2018-11-09] MEDS ORDERED: OLAN15TA17 PO (14:26)
[2018-11-09 20:34] VITALS: BP 124/80
[2018-11-09] MEDS: olanzapine 10mg tablet PO SCH (20:51)
--- NOTE | 2018-11-10 01:18 | NUR ---
Nursing Progress Note: Legal hold: Court Order Client on voluntary/involuntary status for bahai to competency Report received from nurse with use of MADISON Gupta RN Why are they here: The patient was admitted on 08/06/18 from the [facility] system[facility] after it was determined that he could not participate appropriately in court proceedings. Assessment What has happened this shift: The patient refused his evening meal and was intently pacing in the hallway. He was not observed socializing with others however he was cooperative with the evening assessment. His replies to questions are minimal and vague. He had a meeting with the doctor and his family and during the family meeting he was told that a good friend of his had several months ago. The patient did not appear distraught or upset but was observed to be back pacing in the hallway. At that time he was asked if he would like an ativan but he declined. He was given an HS snack S/I, H/I: The patient denies A/VH: Denied by the patient Sleep:[] ADL's: Independent Group attendance: No PM group held Were meds taken: The patient is medication compliant Any med S/E The patient denies medication side effects Mental Status Exam Appearance: Dressed appropriately for the unit. Appears his stated age Eye contact:Fair Behavior: Withdrawn from others. Repeatedly pacing in the ybarra Speech: Minimal, spontaneous, coherent Mood: Denies feeling depressed or anxious Affect: Blunted Thought process: Difficult to assess as the patient gives minimal verbal replies. He is aware that he is being discharged tomorrow. Thought Content:[] Cognition: Alert Insight: impaired Judgment: impaired Interventions PRN's used: no Therapeutic interventions: One to one with the patient to assess mood and thought process. Restraints/seclusion/emergency medication:[] Justification of Continued Inpatient Treatment: The patient is expected to discharge tomorrow am to [facility]
[2018-11-10 08:13] VITALS: BP 124/66
--- NOTE | 2018-11-10 16:07 | NUR ---
Nursing Progress Note Legal hold: 1370 (Court Ordered, [facility] for Competency) Client on involuntary status for: Competency Report received with SBAR from: MAGGIE Galindohuman resources advisor What happened on this shift: Received pt. in bed at beginning of shift. Pt. Awoke, did adls and got dressed his own clothing. He ate his breakfast in group room and paced the hallways. Pt excited to discharge and was supposed to be picked up by [facility] at 0800. Factors involving his family and [place] [facility] caused his discharge not to happen. He continues to pace and mildly disappointed about the days events. S/I, H/I: Pt denies A/VH: Pt denies Sleep: Pt. did not nap on this shift today. ADL's: Independent Group attendance: Pt did not attend morning or afternoon group. Were meds taken: n/a Any med S/E: None reported or observed Mental Status Exam Appearance: Adequately groomed. States he will shower tonite for DC tomorrow. Eye contact: fair. Behavior: Paces the hallway, isolates to self Speech: soft spoken, poverty of speech Mood: Restless, Affect: Constricted, somewhat avoidant Thought Process: thought blocking, poverty of thought Thought Content: going home Cognition: A/O x 4 Insight: Poor Judgment: Poor Interventions PRN's used: None Therapeutic interventions: 1:1 therapeutic assessment, therapeutic conversation, encouragement to express thoughts feelings, concerns, encouragement to maintain personal hygiene and attend groups, Q 15 min checks safety checks. Restraints/seclusion/emergency medication: N/A Justification of Continued Inpatient Tx: Pt in [facility] by court order. Patient sent to [facility] in lieu of nursing home. Will be discharged after next court date on 11/10 or 11/14, states he will go to [facility] apartment Addendum: 11/10/18 at 1618 by Alonso Gupta RN Spoke with pt more about disapointment of not leaving today, and he stated that he now has a new court date of 12/01/18 and may have to stay here during that time.
[2018-11-10 20:22] VITALS: BP 110/65
[2018-11-10] MEDS: acetaminophen 325mg tablet PO PRN (20:33)
[2018-11-10] MEDS: OLANZAPINE 5 MG TABLET PO SCH (20:33)
--- NOTE | 2018-11-10 22:46 | NUR ---
Nursing Progress Note: Legal hold: Court Order Client on voluntary/involuntary status for jewish to competency Report received from nurse with use of MADISON Gupta RN Why are they here: The patient was admitted on 08/06/18 from the [facility] after it was determined that he could not participate appropriately in court proceedings. Assessment What has happened this shift: The patient was up and intently pacing the hallway. He was cooperative with coming to his room for the evening assessment. He stated that he was not released today because "the van broke down" He has not showered for at least the past 3 days and was prompted to shower tonight. When asked where he was at he replied, "I don't know" When asked why he was here he replied, "To be able to receive treatment and program" The patient states he is unsure if he needs to be here and feels he does not have any mental health issues. When asked why he was taking zyprexa he replied, "To help the drowsiness to clear up or for allergies" S/I, H/I: The patient denies A/VH: Denied by the patient Sleep:[] ADL's: Requires prompting for ADLs Group attendance: No PM group held Were meds taken: The patient is medication compliant Any med S/E The patient denies medication side effects Mental Status Exam Appearance: Dressed appropriately for the unit. Appears his stated age Eye contact:Fair Behavior: Withdrawn from others. Repeatedly pacing in the ybarra Speech: Minimal, spontaneous, coherent Mood: Denies feeling depressed or anxious Affect: Blunted Thought process: Minimal understanding of care. Thought Content: the patient only answers questions put to him and does not engage socially Cognition: Alert Insight: very poor Judgment: Poor Interventions PRN's used: no Therapeutic interventions: One to one with the patient to assess mood and thought process. Provided medication education and reoriented as needed. Restraints/seclusion/emergency medication:[] Justification of Continued Inpatient Treatment: The patient is not able to independently provide for his self care. He has not insight into his need for medications and he has to be prompting for basic ADLs such as showering.
[2018-11-11 08:00] VITALS: BP 119/59
--- NOTE | 2018-11-11 10:48 | NUR ---
Nursing Progress Note: Legal hold: Court Order Client on voluntary/involuntary status for jehovah's witness to competency Report received from nurse with use of MADISON Galindo RN Why are they here: The patient was admitted on 08/06/18 from the [facility] system after it was determined that he could not participate appropriately in court proceedings. Assessment What has happened this shift: The patient was asleep at change of shift. Was up for breakfast with others. Stated he was "sad" about not going to court yesterday and "the van broke down." Sad mood with flat affect. Can not say why he is here or what his medications are for, "I don't know." Isolates to room, paces the hallway, comes to meals. He does not initiate conversations or interactions with others. Denies suicidal thoughts or hallucinations. S/I, H/I: The patient denies A/VH: Denied by the patient Sleep:Naps ADL's: Self Group attendance: None Were meds taken: None ordered this shift Any med S/E The patient denies medication side effects Mental Status Exam Appearance: Disheveled at times Eye contact: Fair Behavior: Isolates to room, paces hallway Speech: Minimal Mood: Denies feeling depressed or anxious Affect: Flat Thought process: Minimal understanding of care. Thought Content: the patient only answers questions put to him and does not engage socially Cognition: Alert Insight: very poor Judgment: Poor Interventions PRN's used: no Therapeutic interventions: One to one with the patient to assess mood and thought process. Provided medication education and reoriented as needed. Restraints/seclusion/emergency medication:[] Justification of Continued Inpatient Treatment: The patient is not able to independently provide for his self care. He has not insight into his need for medications and he has to be prompting for basic ADLs such as showering.
[2018-11-11 19:00] VITALS: BP 126/73
[2018-11-11] MEDS: OLANZAPINE 5 MG TABLET PO SCH (20:17)
--- NOTE | 2018-11-11 22:34 | NUR ---
Nursing Progress Note: Legal hold: Court Order Client on voluntary/involuntary status for adventist to competency Report received from nurse with use of MADISON Hernandez RN Why are they here: The patient was admitted on 08/06/18 from the [facility] after it was determined that he could not participate appropriately in court proceedings. Assessment What has happened this shift: Pt paced the hallways until around 2100. Pt was pleasant on approach and smiles occasionally. Pt makes good eye contact and asks life underwriter how her day was. When asked how his day wet, pt responds, "it was okay." Pattern Changer And Repairer asked if he attended any groups, he responded, "no, I just kept myself busy." He denies any SI/HI/AH/VH. S/I, H/I: The patient denies A/VH: Denies Sleep: see sleep assessment notation ADL's: Requires prompting for ADLs Group attendance: No PM group held Were meds taken: The patient is medication compliant Any med S/E : none reported none observed Mental Status Exam Appearance: wearing green scrubs Eye contact: good Behavior: paces the halls Speech: Minimal, spontaneous Mood: "good" Affect: flat Thought process: Minimal understanding of care. Thought Content:linear Cognition: Alert Insight: poor Judgment: Poor Interventions PRN's used: none Therapeutic interventions: One to one with the patient to assess mood and thought process. Provided medication education and reoriented as needed. Restraints/seclusion/emergency medication: NA Justification of Continued Inpatient Treatment: The patient is not able to independently provide for his self care. He has not insight into his need for medications and he has to be prompting for basic ADLs such as showering.
[2018-11-12 08:00] VITALS: BP 84/47
[2018-11-12 10:35] VITALS: BP 91/55
--- NOTE | 2018-11-12 13:01 | NUR ---
Reassessment: PO intake remains unchanged since last RD assessment. [facility] 11/11. Will continue to follow. Recommend: 1. Continue regular diet 2. Bowel care as needed 3. Weekly wts Addendum: 11/12/18 at [address] Amended: Links added.
--- NOTE | 2018-11-12 15:34 | NUR ---
Nursing Progress Note: Legal hold: Court Order Client on voluntary/involuntary status for denominational to competency Report received from nurse with use of MADISON Parker RN Why are they here: The patient was admitted on 08/06/18 from the [facility] system after it was determined that he could not participate appropriately in court proceedings. Assessment What has happened this shift: The patient was asleep at change of shift. Was up for breakfast with others. Able to handle disappointment of not going to court on intended date. Isolates to room, paces the hallway, comes to meals. He does not initiate conversations or interactions with others. Denies suicidal thoughts or hallucinations. No other changes. S/I, H/I: The patient denies A/VH: Denied by the patient Sleep:Naps ADL's: Self Group attendance: None Were meds taken: None ordered this shift Any med S/E The patient denies medication side effects Mental Status Exam Appearance: Disheveled at times Eye contact: Fair Behavior: Isolates to room, paces hallway Speech: Minimal Mood: Blunted Affect: Flat Thought process: Minimal understanding of care. Thought Content: the patient only answers questions put to him and does not engage socially Cognition: Alert Insight: very poor Judgment: Poor Interventions PRN's used: no Therapeutic interventions: One to one with the patient to assess mood and thought process. Provided medication education and reoriented as needed. Restraints/seclusion/emergency medication:[] Justification of Continued Inpatient Treatment: The patient is not able to independently provide for his self care. He has not insight into his need for medications and he has to be prompting for basic ADLs such as showering.
[2018-11-12] MEDS: OLANZAPINE 5 MG TABLET PO SCH (20:01)
[2018-11-12] MEDS: acetaminophen 325mg tablet PO PRN (20:04)
[2018-11-12 20:51] VITALS: BP 113/69
--- NOTE | 2018-11-12 23:27 | NUR ---
Nursing Progress Note: Legal hold: Court Order Client on voluntary/involuntary status for zoroastrianism to competency Report received from nurse with use of MADISON Hernandez RN Why are they here: The patient was admitted on 08/06/18 from the [facility] after it was determined that he could not participate appropriately in court proceedings. Assessment What has happened this shift: Pt paces the hallway and avoids engaging in conversation unless directly addressed. He denies any SI/HI/AH/VH. S/I, H/I: The patient denies A/VH: Denies Sleep: see sleep assessment notation ADL's: Requires prompting for ADLs Group attendance: No PM group held Were meds taken: The patient is medication compliant Any med S/E : none reported none observed Mental Status Exam Appearance: wearing green scrubs Eye contact: good Behavior: paces the halls Speech: Minimal, spontaneous Mood: "good" Affect: flat Thought process: Minimal understanding of care. Thought Content:linear Cognition: Alert Insight: poor Judgment: Poor Interventions PRN's used: tylenol Therapeutic interventions: One to one with the patient to assess mood and thought process. Provided medication education and reoriented as needed. Restraints/seclusion/emergency medication: NA Justification of Continued Inpatient Treatment: The patient is not able to independently provide for his self care. He has not insight into his need for medications and he has to be prompting for basic ADLs such as showering.
[2018-11-13 08:00] VITALS: BP 102/64
--- NOTE | 2018-11-13 12:54 | NUR ---
Nursing Progress Note: Legal hold: Court Order Client on voluntary/involuntary status for anglican to competency Report received from nurse with use of MADISON Parker RN Why are they here: The patient was admitted on 08/06/[address] [facility] system after it was determined that he could not participate appropriately in court proceedings. Assessment What has happened this shift: The patient was asleep at change of shift. Was up for breakfast with others. Isolates to room, paces the hallway, comes to meals. He does not initiate conversations or interactions with others, but will answer simple questions when asked. Denies pain, suicidal thoughts or hallucinations. No other changes. S/I, H/I: The patient denies A/VH: Denied by the patient Sleep:Naps ADL's: Self Group attendance: None Were meds taken: None ordered this shift Any med S/E The patient denies medication side effects Mental Status Exam Appearance: wnl Eye contact: Fair Behavior: Isolates to room, paces hallway Speech: Minimal Mood: Blunted Affect: Flat Thought process: Minimal understanding of care. Thought Content: the patient only answers questions put to him and does not engage socially Cognition: Alert Insight: very poor Judgment: Poor Interventions PRN's used: none Therapeutic interventions: One to one with the patient to assess mood and thought process. Provided medication education and reoriented as needed. Restraints/seclusion/emergency medication:[] Justification of Continued Inpatient Treatment: The patient is not able to independently provide for his self care. He has not insight into his need for medications and he has to be prompting for basic ADLs such as showering.
[2018-11-13 20:00] VITALS: BP 123/74
[2018-11-13] MEDS: OLANZAPINE 5 MG TABLET PO SCH (20:28)
--- NOTE | 2018-11-13 23:59 | NUR ---
Nursing Note: Chief Complaint: Competency Legal hold: Court Ordered, [facility] for Competency Client on involuntary status for competency Report received from nurse with use of SBAR: Mary secret code expert Patient paces the halls. He is compliant with medications and assessment. He denies any SI,HI,A/VH. Personnel Placement Specialist does not see him interact with any of his peers, but does say hello to staff. S/I, H/I: Denies A/VH: denies Sleep:see sleep assessment notation ADL's: Independent Group attendance: regional guide, no groups Were meds taken:yes Any med S/E: None reported, none observed Mental Status Exam Appearance:clean Eye contact: avoids Behavior: paces Speech: Soft, sparse Mood: anxious Affect: flat to pleasant Thought process: Poverty of thought, blocking Thought Content: unable to assess Cognition: improving Insight: Poor Judgment: Poor Interventions PRN's used: none Therapeutic interventions: 1:1 provided active listening, maintained a safe and therapeutic environment, and maintained Q 15 min safety checks. Restraints/seclusion/emergency medication: N/A Justification of Continued Inpatient Treatment: Court ordered treatment.
[2018-11-14 08:00] VITALS: BP 98/59
--- NOTE | 2018-11-14 11:41 | NUR ---
Nursing Progress Note: Legal hold: Court Order Client on voluntary/involuntary status for congregational to competency Report received from nurse with use of MDAISON Parker RN Why are they here: The patient was admitted on 08/06/18 from the [facility] system after it was determined that he could not participate appropriately in court proceedings. Assessment What has happened this shift: Received Pt sleeping in bed w/o distress at change of shift. He awoke for breakfast and ate with others. Isolated to his room, and paces the hallway. He did not initiate conversations or interactions with others, but answers questions when asked. Pt appeared to have a pleasant visit with his father. Attended AM group but left early. Denies pain, suicidal thoughts or hallucinations. No other changes. S/I, H/I: Patient denies A/VH: Patient denies Sleep:Naps ADL's: Self Group attendance: Partial Were meds taken: None ordered this shift Any med S/E The patient denies medication side effects Mental Status Exam Appearance: Groomed in green scrubs Eye contact: Fair Behavior: Isolates to room, paces hallway Speech: Minimal Mood: Blunted Affect: Flat Thought process: Minimal understanding of care. Thought Content: the patient only answers questions put to him and does not engage socially Cognition: Alert Insight: poor Judgment: Poor Interventions PRN's used: none Therapeutic interventions: One to one with the patient to assess mood and thought process. Provided medication education and reoriented as needed. Restraints/seclusion/emergency medication prn Justification of Continued Inpatient Treatment: The patient is not able to independently provide for his self care. He has not insight into his need for medications and he has to be prompting for basic ADLs such as showering.
[2018-11-14 19:53] VITALS: BP 111/69
[2018-11-14] MEDS: OLANZAPINE 5 MG TABLET PO SCH (20:26)
[2018-11-14] MEDS: acetaminophen 325mg tablet PO PRN (20:30)
--- NOTE | 2018-11-14 21:06 | NUR ---
Nursing Progress Note: Legal hold: Court Order Client on voluntary/involuntary status for denominational to competency Report received from nurse with use of MADISON Centeno RN Why are they here: The patient was admitted on 08/06/[address] [facility] system after it was determined that he could not participate appropriately in court proceedings. Assessment What has happened this shift: Pt paces the hallway and avoids engaging in conversation unless directly addressed. He had a visit with his mother gi which he said, "went good" and smiled. He denies any SI/HI/AH/VH. S/I, H/I: The patient denies A/VH: Denies Sleep: see sleep assessment notation ADL's: Requires prompting for ADLs Group attendance: No PM group held Were meds taken: The patient is medication compliant Any med S/E : none reported none observed Mental Status Exam Appearance: wearing green scrubs Eye contact: good Behavior: paces the halls Speech: Minimal, spontaneous Mood: "good" Affect: flat Thought process: Minimal understanding of care. Thought Content:linear Cognition: Alert Insight: poor Judgment: Poor Interventions PRN's used: tylenol Therapeutic interventions: One to one with the patient to assess mood and thought process. Provided medication education and reoriented as needed. Restraints/seclusion/emergency medication: NA Justification of Continued Inpatient Treatment: The patient is not able to independently provide for his self care. He has not insight into his need for medications and he has to be prompting for basic ADLs such as showering.
[2018-11-15 08:00] VITALS: BP 112/66
--- NOTE | 2018-11-15 17:30 | NUR ---
Nursing Progress Note: Legal hold: Court Order Client on voluntary/involuntary status for oriental orthodox to competency Report received from nurse with use of MADISON Centeno RN Why are they here: The patient was admitted on 08/06/[address] [facility] system after it was determined that he could not participate appropriately in court proceedings. Assessment What has happened this shift: Pt paces the hallway and avoids engaging in conversation unless directly addressed. 1:1 done at bedside. Pt. cooperative but gives 1 word answers. He denies any SI/HI/AH/VH. S/I, H/I: The patient denies A/VH: Denies Sleep: see sleep assessment notation ADL's: Requires prompting for ADLs Group attendance: Were meds taken: The patient is medication compliant Any med S/E : none reported none observed Mental Status Exam Appearance: wearing green scrubs Eye contact: good Behavior: paces the halls Speech: Minimal, spontaneous Mood: "good" Affect: flat Thought process: Minimal understanding of care. Thought Content:linear Cognition: Alert Insight: poor Judgment: Poor Interventions PRN's used: tylenol Therapeutic interventions: One to one with the patient to assess mood and thought process. Provided medication education and reoriented as needed. Restraints/seclusion/emergency medication: NA Justification of Continued Inpatient Treatment: The patient is not able to independently provide for his self care. He has not insight into his need for medications and he has to be prompting for basic ADLs such as showering.
[2018-11-15 19:00] VITALS: BP 116/67
[2018-11-15] MEDS: OLANZAPINE 5 MG TABLET PO SCH (21:29)
--- NOTE | 2018-11-16 01:04 | NUR ---
Nursing Note: Chief Complaint: Competency Legal hold: Court Ordered, [facility] for Competency Client on involuntary status for competency Report received from nurse with use of SBAR: Mary SERRANOhealth care legal assistant Patient watches TV in the rec room. He is compliant with medications and assessment. He denies any SI,HI,A/VH. Senior Quality Engineer does not see him interact with any of his peers, but does say hello to staff. S/I, H/I: Denies A/VH: denies Sleep:see sleep assessment notation ADL's: Independent Group attendance: wash plant operator, no groups Were meds taken:yes Any med S/E: None reported, none observed Mental Status Exam Appearance:clean Eye contact: avoids Behavior: watches TV in rec room Speech: Soft, sparse Mood: anxious Affect: flat to pleasant Thought process: Poverty of thought, blocking Thought Content: unable to assess Cognition: improving Insight: Poor Judgment: Poor Interventions PRN's used: none Therapeutic interventions: 1:1 provided active listening, maintained a safe and therapeutic environment, and maintained Q 15 min safety checks. Restraints/seclusion/emergency medication: N/A Justification of Continued Inpatient Treatment: Court ordered treatment.
[2018-11-16 08:00] VITALS: BP 101/57
--- NOTE | 2018-11-16 13:29 | NUR ---
Nursing Progress Note: Legal hold: Court Order Client on voluntary/involuntary status for sikh to competency Report received from nurse with use of MADISON Andrade RN Why are they here: The patient was admitted on 08/06/18 from the [facility] system after it was determined that he could not participate appropriately in court proceedings. Assessment What has happened this shift: The patient was asleep at change of shift. Was up for breakfast. Patient denies suicidal ideation and depression, however patient appears depressed. Patient does not give information freely. Patient went to group today but did not participate. Patient's next court date in December 01. S/I, H/I: The patient denies A/VH: Denied by the patient Sleep:Naps ADL's: Self Group attendance: Yes Were meds taken: None ordered this shift Any med S/E The patient denies medication side effects Mental Status Exam Appearance: Disheveled at times Eye contact: Fair Behavior: Isolates to room, paces hallway Speech: Minimal Mood: Denies feeling depressed or anxious Affect: Flat Thought process: Minimal understanding of care. Thought Content: the patient only answers questions put to him and does not engage socially Cognition: Alert Insight: very poor Judgment: Poor Interventions PRN's used: no Therapeutic interventions: One to one with the patient to assess mood and thought process. Provided medication education and reoriented as needed. Restraints/seclusion/emergency medication:[] Justification of Continued Inpatient Treatment: The patient is not able to independently provide for his self care. He has not insight into his need for medications and he has to be prompting for basic ADLs such as showering.
[2018-11-16 19:55] VITALS: BP 126/69
[2018-11-16] MEDS: acetaminophen 325mg tablet PO PRN (20:44)
[2018-11-16] MEDS: OLANZAPINE 5 MG TABLET PO SCH (20:44)
--- NOTE | 2018-11-17 00:36 | NUR ---
Nursing Progress Note: Legal hold: Court Order Client on voluntary/involuntary status for pentecostalism to competency Report received from nurse with use of MADISON Hernandez RN Why are they here: The patient was admitted on 08/06/18 from the [facility] system after it was determined that he could not participate appropriately in court proceedings. Assessment What has happened this shift: Pt paces the hallway and avoids engaging in conversation unless directly addressed. He denies any SI/HI/AH/VH. S/I, H/I: The patient denies A/VH: Denies Sleep: see sleep assessment notation ADL's: Requires prompting for ADLs Group attendance: No PM group held Were meds taken: The patient is medication compliant Any med S/E : none reported none observed Mental Status Exam Appearance: wearing green scrubs Eye contact: good Behavior: paces the halls Speech: Minimal, spontaneous Mood: "good" Affect: flat Thought process: Minimal understanding of care. Thought Content:linear Cognition: Alert Insight: poor Judgment: Poor Interventions PRN's used: tylenol Therapeutic interventions: One to one with the patient to assess mood and thought process. Provided medication education and reoriented as needed. Restraints/seclusion/emergency medication: NA Justification of Continued Inpatient Treatment: The patient is not able to independently provide for his self care. He has not insight into his need for medications and he has to be prompting for basic ADLs such as showering.
[2018-11-17 07:45] VITALS: BP 107/60
--- NOTE | 2018-11-17 17:30 | NUR ---
Nursing Progress Note: Legal hold: Court Order Client on voluntary/involuntary status for temple to competency Report received from nurse with use of MADISON Rodriguez RN Why are they here: The patient was admitted on 08/06/18 from the [facility] system after it was determined that he could not participate appropriately in court proceedings. Assessment What has happened this shift: Pt. Seen pacing the hallways, will stop and talk if engaged but gives one word response. RN asked pt. What he will miss when he leaves, pt. States, I will miss the nurses and staff. Pt. denies any SI/HI/AH/VH. S/I, H/I: The patient denies A/VH: Denies Sleep: see sleep assessment notation ADL's: Pt. Showered today. Group attendance: Pt. Does not attend groups. Were meds taken: The patient is medication compliant Any med S/E : none reported none observed Mental Status Exam Appearance: wearing green scrubs Eye contact: good Behavior: paces the halls Speech: Minimal, spontaneous Mood: "good" Affect: flat Thought process: thought blocking Thought Content:linear Cognition: Alert Insight: poor Judgment: Poor Interventions PRN's used: Therapeutic interventions: One to one with the patient to assess mood and thought process. Provided medication education and reoriented as needed. Restraints/seclusion/emergency medication: NA Justification of Continued Inpatient Treatment: The patient is not able to independently provide for his self care. He has not insight into his need for medications and he has to be prompting for basic ADLs such as showering.
[2018-11-17 19:45] VITALS: BP 121/69
[2018-11-17] MEDS: OLANZAPINE 5 MG TABLET PO SCH (20:48)
--- NOTE | 2018-11-17 21:00 | NUR ---
Nursing Progress Note: Legal hold: Court Order - 1370 Client on voluntary/involuntary status for sabianism to competency Report received from nurse with use of MADISON Hernandez RN Why are they here: The patient was admitted on 08/06/18 from the [facility] system after it was determined that he could not participate appropriately in court proceedings. Assessment What has happened this shift: Pt pacing hallways during most of shift; retired to room at 2045 to sleep. Pt called his grandma and spoke to her; pt stated this was the first time he has spoken with his grandma since admit. Pt's mother visited with pt in group room. Pt occasionally smiles appropriately during conversation, and RN able to elicit an occasional laugh. While responses continue to be minimal, often one to two words only, Alonso did state a full sentence prior to RN completing a 1:1: "I need to have a phone call first" (in response to grandma conversation). S/I, H/I: Denies A/VH: Denies Sleep: See Sleep Hour Charting ADL's: Requires prompting for ADLs Group attendance: Y - HS Snack Were meds taken: Y Any med S/E : None reported, None observed Mental Status Exam Appearance: wearing green scrubs, nonskid socks, clean Eye contact: Direct Behavior: Davila pacing with occasional break for water, food, or rest Speech: Minimal, Spontaneous Mood: "Good" Affect: Blunted Thought process: Pt can answer direct questions, but needs guidance at times at clarify POC Thought Content: Linear Cognition: A&O x4 Insight: Poor Judgment: Poor Interventions PRN's used: None Therapeutic interventions: One to one with the patient to assess mood and thought process. Provided medication education and reoriented as needed. Restraints/seclusion/emergency medication: NA Justification of Continued Inpatient Treatment: The patient is not able to independently provide for his self care. He has not insight into his need for medications and he has to be prompting for basic ADLs such as showering.
--- NOTE | 2018-11-18 17:30 | NUR ---
Nursing Progress Note: Legal hold: Court Order - 1370 Client on voluntary/involuntary status for confucianist to competency Report received from nurse with use of MADISON Hernandez RN Why are they here: The patient was admitted on 08/06/18 from the [facility] system after it was determined that he could not participate appropriately in court proceedings. Assessment What has happened this shift: Pt. pacing hallways. Pt. reports he is well and is looking forward to discharge. Pt. does not attend group because he says he has been to many groups. Pt. made his needs known to this RN, stating, "I would like to watch basketball. Pt. denies SI/HI, A/V H. S/I, H/I: Denies A/VH: Denies Sleep: Slept 7 hours and took no naps on day shift. ADL's: Requires prompting for ADLs Group attendance: N Were meds taken: NA Any med S/E : None reported, None observed Mental Status Exam Appearance: wearing green scrubs, nonskid socks, clean Eye contact: Direct Behavior: Davila pacing with occasional break for water, food, or rest Speech: Minimal, Spontaneous Mood: "Good" Affect: flat Thought process: Thought blocking at times. Thought Content: Linear Cognition: A&O x4 Insight: Poor Judgment: Poor Interventions PRN's used: None Therapeutic interventions: One to one with the patient to assess mood and thought process. Provided medication education and reoriented as needed. Restraints/seclusion/emergency medication: NA Justification of Continued Inpatient Treatment: The patient is not able to independently provide for his self care. He has not insight into his need for medications and he has to be prompting for basic ADLs such as showering.
[2018-11-18 20:57] VITALS: BP 135/84
[2018-11-18] MEDS: acetaminophen 325mg tablet PO PRN (21:23)
[2018-11-18] MEDS: OLANZAPINE 5 MG TABLET PO SCH (21:24)
--- NOTE | 2018-11-18 23:52 | NUR ---
Nursing Progress Note: Legal hold: Court Order - 1370 Client on voluntary/involuntary status for quaker to competency Report received from nurse with use of MADISON Rene RN Why are they here: The patient was admitted on 08/06/[address] [facility] system after it was determined that he could not participate appropriately in court proceedings. Assessment What has happened this shift: Pt walking hallway at shift change. Pt is cooperative and engages in conservation when spoken too. Pt occasionally smile approximately during conversation. Pt is medication compliant. Pt c/o of generalized pain and was given Tylenol, which was effective. 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 Provided medication education and reoriented as needed. Provide safe and therapeutic environment Restraints/seclusion/emergency medication: N/A Justification of Continued Inpatient Treatment: The patient is not able to independently provide for his self care. He has not insight into his need for medications and he has to be prompting for basic ADLs such as showering.
[2018-11-19 08:17] VITALS: BP 101/58
--- NOTE | 2018-11-19 09:55 | NUR ---
Reassessment: Documented PO intake fluctuates with 100% and some refusals on 11/17 and 11/18; pt still likely meeting nutrient needs. Pt with no decrease in wt since admit. [facility] 11/18. No nutrition diagnosis at this time. Will continue to follow. Recommend: 1. Continue regular diet 2. Bowel care as needed 3. Weekly wts Addendum: 11/19/18 at [address] Amended: Links added.
--- NOTE | 2018-11-19 16:14 | NUR ---
Nursing Progress Note: Legal hold: Court Order - 1370 Client on voluntary/involuntary status for rastafari to competency Report received from nurse with use of MADISON Hernandez RN Why are they here: The patient was admitted on 08/06/18 from the [facility] system after it was determined that he could not participate appropriately in court proceedings. Assessment What has happened this shift: Patient visible on the unit, pacing the unit a lot of the day. Patient up for all meals but did not attend groups. Patient states he is anxious to get to court and move on to life out of the hospital. Patient denies suicidal thoughts and denies depression. Patient also denies auditory hallucinations at this time. Patient does not initiate interaction with peers or staff, but is pleasant upon approach. S/I, H/I: Denies A/VH: Denies Sleep: Slept 6.25 hours and took no naps on day shift. ADL's: Requires prompting for ADLs Group attendance: N Were meds taken: NA Any med S/E : None reported, None observed Mental Status Exam Appearance: wearing green scrubs, nonskid socks, clean Eye contact: Direct Behavior: Davila pacing with occasional break for water, food, or rest Speech: Minimal, Spontaneous Mood: "Good" Affect: flat Thought process: Thought blocking at times. Thought Content: Linear Cognition: A&O x4 Insight: Poor Judgment: Poor Interventions PRN's used: None Therapeutic interventions: One to one with the patient to assess mood and thought process. Provided medication education and reoriented as needed. Restraints/seclusion/emergency medication: NA Justification of Continued Inpatient Treatment: The patient is not able to independently provide for his self care. He has not insight into his need for medications and he has to be prompting for basic ADLs such as showering.
[2018-11-19 20:00] VITALS: BP 111/63
[2018-11-19] MEDS: OLANZAPINE 5 MG TABLET PO SCH (20:53)
--- NOTE | 2018-11-20 00:50 | NUR ---
Nursing Progress Note: Legal hold: Court Order - 1370 Client on voluntary/involuntary status for baptism to competency Report received from nurse with use of MADISON Rene RN Why are they here: The patient was admitted on 08/06/18 from the [facility] system after it was determined that he could not participate appropriately in court proceedings. Assessment What has happened this shift: Pt walking hallway at shift change. Pt is cooperative and engages in conservation when spoken too. 1;1 assessment performed at bedside. Pt is medication compliant. Pt said "thank you" to this policy writer typist after medication administration and told her to have "a good night." Pt retired to bed around 2100, which is earlier then usual. Pt later awoke and asked if he could have a burrito. 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 Provided medication education and reoriented as needed. Provide safe and therapeutic environment Restraints/seclusion/emergency medication: N/A Justification of Continued Inpatient Treatment: The patient is not able to independently provide for his self care. He has not insight into his need for medications and he has to be prompting for basic ADLs such as showering.
[2018-11-20 08:00] VITALS: BP 106/58
--- NOTE | 2018-11-20 18:46 | NUR ---
Nursing Progress Note: Legal hold: Court Order - 1370 Client on involuntary status for buddhism to competency Report received from nurse with use of MADISON Brown RN Why are they here: The patient was admitted on 08/06/18 from the [facility] system after it was determined that he could not participate appropriately in court proceedings. Assessment What has happened this shift: Received patient already up in the hallway pacing. Patient pleasant upon approach, but keeps conversations short and does not initiate interaction with staff or peers. Patient did attend all meals but did not attend the one group. Patient managed frustration well when his lunch tray was completely wrong. Patient denies depression, suicidal thoughts and auditory hallucinations. S/I, H/I: Denies A/VH: Denies Sleep: Slept 6.25 hours and took no naps on day shift. ADL's: Requires prompting for ADLs Group attendance: N Were meds taken: NA Any med S/E : None reported, None observed Mental Status Exam Appearance: wearing green scrubs, nonskid socks, clean Eye contact: Direct Behavior: Davila pacing with occasional break for water, food, or rest Speech: Minimal, Spontaneous Mood: "Good" Affect: flat Thought process: Thought blocking at times. Thought Content: Linear Cognition: A&O x4 Insight: Poor Judgment: Poor Interventions PRN's used: None Therapeutic interventions: One to one with the patient to assess mood and thought process. Provided medication education and reoriented as needed. Restraints/seclusion/emergency medication: NA Justification of Continued Inpatient Treatment: The patient is not able to independently provide for his self care. He has not insight into his need for medications and he has to be prompting for basic ADLs such as showering.
[2018-11-20 20:00] VITALS: BP 137/68
[2018-11-20] MEDS: OLANZAPINE 5 MG TABLET PO SCH (20:34)
[2018-11-20] MEDS: acetaminophen 325mg tablet PO PRN (20:36)
--- NOTE | 2018-11-21 01:54 | NUR ---
Nursing Progress Note: Legal hold: Court Order - 1370 Client on involuntary status for confucianism to competency Report received from nurse with use of MADISON Brown RN Why are they here: The patient was admitted on 08/06/18 from the [facility] system after it was determined that he could not participate appropriately in court proceedings. Assessment What has happened this shift: Received patient awake pacing the unit. Patient denies depression and suicidal thoughts and patient denies auditory hallucinations. Patient friendly Tiffani but does not initiate interaction with others. Patient asleep in bed by 2215. S/I, H/I: Denies A/VH: Denies Sleep: Slept 6.25 hours and took no naps on day shift. ADL's: Requires prompting for ADLs Group attendance: N Were meds taken: NA Any med S/E : None reported, None observed Mental Status Exam Appearance: wearing green scrubs, nonskid socks, clean Eye contact: Direct Behavior: Davila pacing with occasional break for water, food, or rest Speech: Minimal, Spontaneous Mood: "Good" Affect: flat Thought process: Thought blocking at times. Thought Content: Linear Cognition: A&O x4 Insight: Poor Judgment: Poor Interventions PRN's used: None Therapeutic interventions: One to one with the patient to assess mood and thought process. Provided medication education and reoriented as needed. Restraints/seclusion/emergency medication: NA Justification of Continued Inpatient Treatment: The patient is not able to independently provide for his self care. He has not insight into his need for medications and he has to be prompting for basic ADLs such as showering.
[2018-11-21 08:00] VITALS: BP 106/47
--- NOTE | 2018-11-21 13:40 | NUR ---
NURSING PROGRESS NOTE: Legal hold: Court Order - 1370 Client on involuntary status for restorationism to competency Report received from nurse Stephanie SERRANO, with use of SBAR Why are they here: The patient was admitted on 08/06/18 from the [facility] after it was determined that he could not participate appropriately in court proceedings. Assessment What has happened this shift: Pt sleeping in bed had to be woke up and encouraged to come out for breakfast. He spent the morning on his bed until visitation time then after visiting w/his father remained out of his room most of the rest of the afternoon. Pt paces the length of both halls after lunch. Alonso spent time watching sports. He denies A/H today. S/I, H/I: Denies A/VH: Denies Sleep: Naps ADL's: Independent Group attendance: Y Were Meds taken: None ordered this AM; pt dosage changed due to changes in liver enzymes. Pt now on qhs dose of olanzapine. Any med S/E: None observed or reported Mental Status Exam Appearance: clean, well groomed Eye contact: direct occasionally, looks around often Behavior: paces the hallways, reserved Speech: Soft tone, answers most questions, not conversational Mood: Calm Affect: restricted Thought process: unknown does not engage in conversation Thought Content: unable to formally assess Cognition: A/O Insight: Poor Judgment: fair Interventions PRN's used: N/A Therapeutic interventions: 1:1 assessment established rapport, provided active listening, maintained a safe and therapeutic environment, encouraged ADLs and group attendance, maintained Q 15 min safety checks. Restraints/seclusion/emergency medication: N/A Justification of Continued Inpatient Treatment: Court ordered treatment.
[2018-11-21 19:55] VITALS: BP 126/77
[2018-11-21] MEDS: OLANZAPINE 5 MG TABLET PO SCH (20:52)
--- NOTE | 2018-11-21 23:17 | NUR ---
NURSING PROGRESS NOTE: Legal hold: Court Order - 1370 Client on involuntary status for zoroastrianism to competency Report received from nurse Edgard RN with use of SBAR Why are they here: The patient was admitted on 08/06/18 from the [facility] system after it was determined that he could not participate appropriately in court proceedings. Assessment What has happened this shift: Pt pacing the halls with occasional rest breaks during change of shift. During 1:1, dinner was offered but pt declined once more. He did attend snack group but only had a juice. Pt smiling appropriately during conversation and answered questions in short sentences. He denied AH/VH, and said he feels "Okay". He said he misses the window in his old room, and relayed the story of how he asked a nurse if he could go look out of it but she said no. Current RN explained it's because there is a new patient in that room now, to which Alonso said "Yeah." RN stated the "window view in the TV room is one of the best" and the pt smiled, saying "Yeah, that one is good." RN stated he can look out that window anytime but thanked pt for being accommodating to the move. S/I, H/I: Denies A/VH: Denies Sleep: See Sleep Hour Charting ADL's: Independent Group attendance: Y - HS Snack Were Meds taken: Y Any med S/E: None observed or reported Mental Status Exam Appearance: Clean, well groomed in green unit scrubs Eye contact: Direct, with intermittent looking around Behavior: Paces the hallways, withdrawn Speech: Soft tone, answers most questions (and now with longer sentences) but is not conversational Mood: "Okay"; Pt appears calm Affect: Blunted Thought process: Unknown does not engage in conversation Thought Content: Missing window in old room Cognition: A&Ox4 Insight: Poor Judgment: Fair Interventions PRN's used: N/A Therapeutic interventions: 1:1 assessment established rapport, provided active listening, maintained a safe and therapeutic environment, encouraged ADLs and group attendance, maintained Q 15 min safety checks. Restraints/seclusion/emergency medication: N/A Justification of Continued Inpatient Treatment: Court ordered treatment.
[2018-11-22 08:00] VITALS: BP 113/60
--- NOTE | 2018-11-22 14:19 | NUR ---
NURSING PROGRESS NOTE: Legal hold: Court Order - 1370 Client on involuntary status for jew to competency Report received from nurse Jennifer RN, with use of SBAR Why are they here: The patient was admitted on 08/06/18 from the [facility] system after it was determined that he could not participate appropriately in court proceedings. Assessment What has happened this shift: Pt assessed at bedside. He denies voices. Denies medical issues or pain. Shakes his head yes and responds verbally, "yes" when asked if he slept good last night. Spent the day pacing the halls or eating his meals. Declined to go to groups. S/I, H/I: Denies A/VH: Denies Sleep: Naps ADL's: Independent Group attendance: Y Were Meds taken: None ordered this AM; pt dosage changed due to changes in liver enzymes. Pt now on hs dose of Zyprexa. Any med S/E: None observed or reported Mental Status Exam Appearance: declined shower this shift Eye contact: direct occasionally, looks around often Behavior: paces the hallways, reserved Speech: Soft tone, answers most questions, not conversational Mood: Calm Affect: restricted Thought process: unknown does not engage in conversation Thought Content: unable to formally assess Cognition: A/O Insight: Poor Judgment: fair Interventions PRN's used: N/A Therapeutic interventions: provided therapeutic communication and listening, encouraged ADLs and group attendance, maintained Q 15 min safety checks. Restraints/seclusion/emergency medication: N/A Justification of Continued Inpatient Treatment: Court ordered treatment.
[2018-11-22 20:00] VITALS: BP 124/74
[2018-11-22] MEDS: OLANZAPINE 5 MG TABLET PO SCH (21:10)
[2018-11-22] MEDS: acetaminophen 325mg tablet PO PRN (21:13)
--- NOTE | 2018-11-23 00:28 | NUR ---
NURSING PROGRESS NOTE: Legal hold: Court Order - 1370 Client on involuntary status for amish to competency Report received from nurse Edgard RN with use of SBAR Why are they here: The patient was admitted on 08/06/[address] [facility] after it was determined that he could not participate appropriately in court proceedings. Assessment What has happened this shift: Pt pacing the halls with occasional rest breaks during change of shift. During 1:1, pt smiling appropriately during conversation and answered questions with minimal responses; pt not talking as much this evening. He denied AH/VH, and said he feels "Okay". Pt compliant with medications. S/I, H/I: Denies A/VH: Denies Sleep: See Sleep Hour Charting ADL's: Independent Group attendance: Y - HS Snack Were Meds taken: Y Any med S/E: None observed or reported Mental Status Exam Appearance: Clean, well groomed in green unit scrubs Eye contact: Direct, with intermittent looking around Behavior: Paces the hallways, withdrawn Speech: Soft tone, answers questions with minimal responses Mood: "Okay"; Pt appears calm Affect: Blunted Thought process: Unknown does not engage in conversation Thought Content: Unable to determine this evening as pt is not offering more than one word responses Cognition: A&Ox4 Insight: Poor Judgment: Fair Interventions PRN's used: Tylenol Therapeutic interventions: 1:1 assessment established rapport, provided active listening, maintained a safe and therapeutic environment, encouraged ADLs and group attendance, maintained Q 15 min safety checks. Restraints/seclusion/emergency medication: N/A Justification of Continued Inpatient Treatment: Court ordered treatment.
[2018-11-23 07:00] VITALS: BP 91/60
--- NOTE | 2018-11-23 15:45 | NUR ---
NURSING PROGRESS NOTE Legal hold: Court Order - 1370 Client on involuntary status for restorationism to competency Report received from nurse Stephanie RN, with use of SBAR Why are they here: The patient was admitted on 08/06/18 from the [facility] system after it was determined that he could not participate appropriately in court proceedings. Assessment What has happened this shift: Pt sleeping upon change of shift. Awakened for breakfast and then went back to bed. He states that the things he likes best about this facility is the food and his bed. Afternoon pacing hallways. Asked regarding court trial and patient feels that he is ready. Spoke more to this television script writer today, than prior. S/I, H/I: Denies A/VH: Denies Sleep: Naps ADL's: Independent Group attendance: No Were Meds taken: No meds ordered during daytime. Any med S/E: None observed or reported Mental Status Exam Appearance: Young male, well groomed, wearing hospital scrubs. Eye contact: Minimal Behavior: paces the hallways and naps, reserved Speech: Soft tone, clear. Mood: Calm Affect: Blunted. Thought process: unknown does not engage in conversation Thought Content: unable to formally assess Cognition: A/O Insight: Poor Judgment: fair Interventions PRN's used: N/A Therapeutic interventions: provided therapeutic communication and listening, encouraged ADLs and group attendance, encouraged increase hydration, maintained Q 15 min safety checks. Restraints/seclusion/emergency medication: N/A Justification of Continued Inpatient Treatment: Court ordered treatment.
[2018-11-23 19:55] VITALS: BP 143/84
[2018-11-23] MEDS: OLANZAPINE 5 MG TABLET PO SCH (21:38)
--- NOTE | 2018-11-24 02:22 | NUR ---
NURSING PROGRESS NOTE Legal hold: Court Order - 1370 Client on involuntary status for jain to competency Report received from nurse Edgard Carmona RN, with use of SBAR Why are they here: The patient was admitted on 08/06/18 from the [facility] system after it was determined that he could not participate appropriately in court proceedings. Assessment What has happened this shift: Pt seen pacing the unit which is his norm. He is pleasant upon approach, but continues to have limited conversation. He visited with his mother during visiting hours. He denies any pain, thoughts of suicide, denies current hallucinations and does not appear to be responding to internal stimuli. S/I, H/I: Denies A/VH: Denies Sleep: sleeping well ADL's: Independent Group attendance: No group with shift Were Meds taken: yes Any med S/E: None observed or reported Mental Status Exam Appearance:well groomed, wearing hospital scrubs. Eye contact: Minimal Behavior: pt continues to pace hallways, is pleasant and cooperative Speech: Soft tone, clear. Mood: even Affect: Blunted Thought process: unable to assess Thought Content: unable to assess Cognition: impaired Insight: Poor Judgment: fair Interventions PRN's used: N/A Therapeutic interventions: provided therapeutic communication and listening, encouraged ADLs and group attendance, encouraged increase hydration, maintained Q 15 min safety checks. Restraints/seclusion/emergency medication: N/A Justification of Continued Inpatient Treatment: Court ordered treatment.
[2018-11-24 07:51] VITALS: BP 98/60
--- NOTE | 2018-11-24 11:48 | NUR ---
NURSING PROGRESS NOTE Legal hold: Court Order - 1370 Client on involuntary status for oriental orthodox to competency Report received from nurse Stephanie RN, with use of SBAR Why are they here: The patient was admitted on 08/06/18 from the [facility] system after it was determined that he could not participate appropriately in court proceedings. Assessment What has happened this shift: Asleep at change of shift. Up for breakfast and then returns to bed for a nap. Mid morning up on unit pacing about. Does not attend groups. Denies SI, AH/VH. Answers questions with short one or two word answers. No other changes. Pt. awaiting court date. S/I, H/I: Denies A/VH: Denies Sleep: Naps ADL's: Independent Group attendance: None Were Meds taken: None schedules this shift Any med S/E: None observed or reported Mental Status Exam Appearance: WNL Eye contact: Minimal Behavior: pt continues to pace hallways, is pleasant and cooperative Speech: Soft tone, clear. Mood: Calm Affect: Blunted Thought process: unable to assess Thought Content: unable to assess Cognition: impaired Insight: Poor Judgment: fair Interventions PRN's used: N/A Therapeutic interventions: provided therapeutic communication and listening, encouraged ADLs and group attendance, encouraged increase hydration, maintained Q 15 min safety checks. Restraints/seclusion/emergency medication: N/A Justification of Continued Inpatient Treatment: Court ordered treatment.
[2018-11-24 20:41] VITALS: BP 121/65
[2018-11-24] MEDS: OLANZAPINE 5 MG TABLET PO SCH (20:54)
[2018-11-24] MEDS: acetaminophen 325mg tablet PO PRN (20:59)
--- NOTE | 2018-11-24 22:52 | NUR ---
Nursing Note: Chief Complaint: Psychosis Legal hold: 1350-Court Ordered, [facility] for Competency Client on involuntary status for GD/Competency to stand trial Report received from nurse with use of SBAR: MAGGIE Tan Why are they here: Pt. sent to [facility] for evaluation from [facility] in order to assess his competency to stand trial for shoplifting, showing false ID, and indecent exposure. Per report pt. has been "Zoning out" at home, exhibiting possible s/s of psychosis. Pt. has been attending mock trials and is able to voice to staff that he understands what he is being charged for and feels ashamed for what he did. Pt. now awaiting to stand trial, next court date scheduled for 12/01/18. Assessment What has happened this shift: Pt. up sitting in the Recreation Room watching baseball throughout most of the shift, his focus on tasks is much improved and he is able to maintain focus for greater than ten minutes at a time. 1:1 completed, pt. is cooperative, however remains somewhat restless and guarded. He continues to deny anxiety, depression, or h/a (not observed to be muttering to self while pacing this shift). When questioned regarding group attendance, pt. reports he has been going to groups, and he is anxiously awaiting his court date and feels prepared. Pt's participation in reciprocal interactions and eye contact continue to improve; however he continues to have difficulty with interactions with others, speaks only when directly questioned, and answers questions with minimal word responses. S/I, H/I: Denies A/VH: Denies ADL's: Pt. preforms tasks independently, however requires some prompting and encouragement by staff. Group attendance: Pt. reports he is attending groups Were meds taken: Yes Any med S/E: None Mental Status Exam Appearance: Neat, cleanly shaven, and appropriately dressed in hospital attire. Eye contact: Fair to good Behavior: Cooperative, restless, and guarded. Psychomotor activity WNL Speech: Soft, minimally responsive, but WNL. Mood: Pleasant, however guarded Affect: Constricted Thought process: Thought blocking and poverty of thought r/t mental illness, however thought process is linear Thought Content: Continued preoccupation with own thoughts Cognition: A&O X4 Insight: Fair Judgment: Fair to good Interventions PRN's used: Tylenol X1 for generalized body pain Therapeutic interventions: Provided active listening, maintained a safe and therapeutic environment, provided clear and simple instructions, monitored behaviors and assessed need for intervention, provided encouragement regarding performance of ADLs, and maintained Q 15 min safety checks. Restraints/seclusion/emergency medication: N/A Justification of Continued Inpatient Treatment: Pt. continues to require a safe and supportive environment while he awaits court date. Per Dr. Lemus, [facility] will work with [facility] to develop an outpatient treatment program for the pt.
[2018-11-25 08:00] VITALS: BP 98/51
--- NOTE | 2018-11-25 09:50 | NUR ---
NURSING PROGRESS NOTE Legal hold: Court Order - 1370 Client on involuntary status for jehovah's witness to competency Report received from nurse Stephanie RN, with use of SBAR Why are they here: The patient was admitted on 08/06/18 from the [facility] system after it was determined that he could not participate appropriately in court proceedings. Assessment What has happened this shift: Asleep at change of shift. Up for breakfast and then returns to bed for a nap. Mid morning up on unit pacing about. Does not attend groups. Denies SI, AH/VH. Answers questions with short one or two word answers. No other changes. Pt. awaiting court date. S/I, H/I: Denies A/VH: Denies Sleep: Naps ADL's: Independent Group attendance: None Were Meds taken: None schedules this shift Any med S/E: None observed or reported Mental Status Exam Appearance: WNL Eye contact: Minimal Behavior: pt continues to pace hallways, is pleasant and cooperative Speech: Soft tone, clear. Mood: Calm Affect: Blunted Thought process: unable to assess Thought Content: unable to assess Cognition: impaired Insight: Poor Judgment: fair Interventions PRN's used: N/A Therapeutic interventions: provided therapeutic communication and listening, encouraged ADLs and group attendance, encouraged increase hydration, maintained Q 15 min safety checks. Restraints/seclusion/emergency medication: N/A Justification of Continued Inpatient Treatment: Court ordered treatment.
--- NOTE | 2018-11-25 10:51 | NUR ---
Reassessment: Pt continues with fluctuating PO intake with recent 75-100% meeting nutrient needs. LB 11/24. No nutrition diagnosis at this time. Will continue to follow. Recommend: 1. Continue regular diet 2. Bowel care as needed 3. Weekly wts 4. Monitor need for ONS Addendum: 11/25/18 at [address] Amended: Links added.
[2018-11-25 19:00] VITALS: BP 101/71
[2018-11-25] MEDS: acetaminophen 325mg tablet PO PRN (21:07)
[2018-11-25] MEDS: OLANZAPINE 5 MG TABLET PO SCH (21:12)
--- NOTE | 2018-11-25 23:45 | NUR ---
Nursing Note: Chief Complaint: Psychosis Legal hold: 1350-Court Ordered, [facility] for Competency Client on involuntary status for GD/Competency to stand trial Report received from nurse with use of SBAR: MAGGIE Hernandez Why are they here: Pt. sent to [facility] for evaluation from [facility] in order to assess his competency to stand trial for shoplifting, showing false ID, and indecent exposure. Per report pt. has been "Zoning out" at home, exhibiting possible s/s of psychosis. Pt. has been attending mock trials and is able to voice to staff that he understands what he is being charged for and feels ashamed for what he did. Pt. now awaiting to stand trial, next court date scheduled for 12/01/18. Assessment What has happened this shift: Pt. up sitting in the Recreation Room watching TV with his roommate throughout most of the shift, later he attends HS snack. Pt's focus on tasks remains much improved, he is A&O, and appears much less restless (no pacing observed this shift). 1:1 completed, pt. is cooperative, however remains guarded and withdrawn. He continues to deny anxiety, depression, or h/a (not observed to be muttering to self as previously noted). Pt's participation in reciprocal interactions and eye contact continue to improve; however he continues to have difficulty with interactions with others, speaks only when directly questioned, and answers questions with minimal word responses. Pt. c/o feeling "like I have a fever and a scratchy throat." V/S are WNL and pt. denies having a cough or any other s/s. He admits he might have allergies, as he has had them before. PRN Tylenol administered upon request, will continue to monitor and endorse to AM shift. S/I, H/I: Denies A/VH: Denies ADL's: Pt. preforms tasks independently, however requires some prompting and encouragement by staff. Group attendance: Pt. reports he did not attend groups today because he didn't feel like it Were meds taken: Yes Any med S/E: Pt. c/o feeling "like I have a fever and a scratchy throat." Mental Status Exam Appearance: Neat, cleanly shaven, and appropriately dressed in hospital attire. Eye contact: Fair Behavior: Cooperative, withdrawn, guarded. Psychomotor activity WNL Speech: Soft, minimally responsive, but WNL. Mood: Guarded with decreased restlessness Affect: Constricted Thought process: Thought blocking and poverty of thought r/t mental illness, however thought process is linear Thought Content: Continued preoccupation with own thoughts Cognition: A&O X4 Insight: Fair Judgment: Fair Interventions PRN's used: Tylenol X1 Therapeutic interventions: Provided active listening, maintained a safe and therapeutic environment, provided clear and simple instructions, monitored behaviors and assessed need for intervention, provided encouragement regarding performance of ADLs, and maintained Q 15 min safety checks. Restraints/seclusion/emergency medication: N/A Justification of Continued Inpatient Treatment: Pt. continues to require a safe and supportive environment while he awaits court date. Per Dr. Lemus, [facility] will work with [facility] to develop an outpatient treatment program for the pt.
[2018-11-26 08:00] VITALS: BP 105/54
--- NOTE | 2018-11-26 10:34 | NUR ---
Nursing Note: Chief Complaint: Psychosis Legal hold: 1350-Court Ordered, [facility] for Competency Client on involuntary status for GD/Competency to stand trial Report received from MAGGIE Parker with use of SBAR: Why are they here: Pt. sent to [facility] for evaluation from [facility] in order to assess his competency to stand trial for shoplifting, showing false ID, and indecent exposure. Per report pt. has been "Zoning out" at home, exhibiting possible s/s of psychosis. Pt. has been attending mock trials and is able to voice to staff that he understands what he is being charged for and feels ashamed for what he did. Pt. now awaiting to stand trial, next court date scheduled for 12/01/18. Assessment What has happened this shift: The patient is asleep at change of shift. VSS. States he feels fine today and is not complaining of being "ill." He is more focused when speaking to nurse, calm and cooperative. Does some pacing in hallway. Isolates at times and is guarded with others and continues to have difficulty with interactions with others. He continues to deny anxiety, depression, or hallucinations. S/I, H/I: Denies A/VH: Denies ADL's: Pt. preforms tasks independently, however requires some prompting and encouragement by staff. Group attendance: None Were meds taken: None scheduled Any med S/E: N/A Mental Status Exam Appearance: Neat, clean Eye contact: Poor Behavior: Cooperative, withdrawn, guarded. Psychomotor activity WNL Speech: Soft, minimally responsive, but WNL. Mood: Guarded Affect: Flat Thought process: Thought blocking and poverty of thought r/t mental illness, however thought process is linear Thought Content: Continued preoccupation with own thoughts Cognition: A&O X4 Insight: Poor Judgment: Fair Interventions PRN's used: None Therapeutic interventions: Provided active listening, maintained a safe and therapeutic environment, provided clear and simple instructions, monitored behaviors and assessed need for intervention, provided encouragement regarding performance of ADLs, and maintained Q 15 min safety checks. Restraints/seclusion/emergency medication: N/A Justification of Continued Inpatient Treatment: Pt. continues to require a safe and supportive environment while he awaits court date. Per Dr. Lemus, [facility] will work with [facility] to develop an outpatient treatment program for the pt.
[2018-11-26] MEDS: acetaminophen 325mg tablet PO PRN ×2 (17:09→21:31)
[2018-11-26 19:00] VITALS: BP 109/66
[2018-11-26] MEDS: OLANZAPINE 5 MG TABLET PO SCH ×2 (21:25→21:32)
--- NOTE | 2018-11-27 00:17 | NUR ---
Nursing Note: Chief Complaint: Psychosis Legal hold: 1350-Court Ordered, [facility] for Competency Client on involuntary status for GD/Competency to stand trial Report received from nurse with use of SBAR: MAGGIE Hernandez Why are they here: Pt. sent to [facility] for evaluation from [facility] in order to assess his competency to stand trial for shoplifting, showing false ID, and indecent exposure. Per report pt. has been "Zoning out" at home, exhibiting possible s/s of psychosis. Pt. has been attending mock trials and is able to voice to staff that he understands what he is being charged for and feels ashamed for what he did. Pt. now awaiting to stand trial, next court date scheduled for 12/01/18. Assessment What has happened this shift: Pt. up sitting in the Recreation Room watching TV with others at the beginning of the shift, later received a visit from his mother and friend, he appeared very pleased throughout the visit and reported it went well. After visit he accepted HS snack and began pacing the halls with a smile on his face. HS medications administered and he again requested PRN Tylenol for generalized pain, administered with effectiveness. 1:1 completed, pt. is cooperative, with increased restlessness, and remains guarded and withdrawn. However, he reports his mood is good and he is "feeling better," physically. Pt. 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 He continues to deny anxiety, depression, or h/a. Pt. continues to have difficulty with interactions with others, speaks only when directly questioned, and answers questions with minimal word responses. S/I, H/I: Denies A/VH: Denies ADL's: Pt. preforms tasks independently, however requires some prompting and encouragement by staff. Group attendance: Pt. reports he did not attend groups today Were meds taken: Yes Any med S/E: None Mental Status Exam Appearance: Neat, cleanly shaven, and appropriately dressed in hospital attire. Eye contact: Fair Behavior: Cooperative, restless, withdrawn, guarded. Psychomotor activity WNL Speech: Soft, minimally responsive, but WNL. Mood: Guarded, however pleasant and upbeat today Affect: Blunted Thought process: Thought blocking and poverty of thought r/t mental illness, however thought process is linear Thought Content: Continued preoccupation with own thoughts Cognition: A&O X4 Insight: Fair Judgment: Fair Interventions PRN's used: Tylenol X1 Therapeutic interventions: Provided active listening, maintained a safe and therapeutic environment, provided clear and simple instructions, monitored behaviors and assessed need for intervention, provided encouragement regarding performance of ADLs, and maintained Q 15 min safety checks. Restraints/seclusion/emergency medication: N/A Justification of Continued Inpatient Treatment: Pt. continues to require a safe and supportive environment while he awaits court date. Per Dr. Lemus, [facility] will work with [facility] to develop an outpatient treatment program for the pt.
[2018-11-27 08:00] VITALS: BP 106/52
--- NOTE | 2018-11-27 17:06 | NUR ---
Nursing Note: Chief Complaint: Psychosis Legal hold: 1350-Court Ordered, [facility] for Competency Client on involuntary status for GD/Competency to stand trial Report received from MAGGIE Parker with use of SBAR: Why are they here: Pt. sent to [facility] for evaluation from [facility] in order to assess his competency to stand trial for shoplifting, showing false ID, and indecent exposure. Per report pt. has been "Zoning out" at home, exhibiting possible s/s of psychosis. Pt. has been attending mock trials and is able to voice to staff that he understands what he is being charged for and feels ashamed for what he did. Pt. now awaiting to stand trial, next court date scheduled for 12/01/18. Assessment What has happened this shift: Received patient lying in bed. Patient remained in bed until breakfast time when he jumped up as soon as he was told breakfast is ready and went quickly to the dining room. Patient appears to care less or his personal hygiene than he has. Patient spent much of the day as normal in that he was pacing the hallways. Patient refused groups but did attend all meals. Patient denies depression and suicidal thoughts and denies auditory hallucinations. S/I, H/I: Denies A/VH: Denies ADL's: Pt. preforms tasks independently, however requires some prompting and encouragement by staff. Group attendance: None Were meds taken: None scheduled Any med S/E: N/A Mental Status Exam Appearance: Neat, clean Eye contact: Poor Behavior: Cooperative, withdrawn, guarded. Psychomotor activity WNL Speech: Soft, minimally responsive, but WNL. Mood: Guarded Affect: Flat Thought process: Thought blocking and poverty of thought r/t mental illness, however thought process is linear Thought Content: Continued preoccupation with own thoughts Cognition: A&O X4 Insight: Poor Judgment: Fair Interventions PRN's used: None Therapeutic interventions: Provided active listening, maintained a safe and therapeutic environment, provided clear and simple instructions, monitored behaviors and assessed need for intervention, provided encouragement regarding performance of ADLs, and maintained Q 15 min safety checks. Restraints/seclusion/emergency medication: N/A Justification of Continued Inpatient Treatment: Pt. continues to require a safe and supportive environment while he awaits court date. Per Dr. STEPHON Lemus will work with [facility] to develop an outpatient treatment program for the pt.
[2018-11-27 19:00] VITALS: BP 116/71
[2018-11-27] MEDS: OLANZAPINE 5 MG TABLET PO SCH (21:30)
--- NOTE | 2018-11-27 23:05 | NUR ---
Nursing Note: Chief Complaint: Psychosis Legal hold: 1350-Court Ordered, [facility] for Competency Client on involuntary status for GD/Competency to stand trial Report received from MAGGIE Hernandez with use of SBAR: Why are they here: Pt. sent to [facility] for evaluation from [facility] in order to assess his competency to stand trial for shoplifting, showing false ID, and indecent exposure. Per report pt. has been "Zoning out" at home, exhibiting possible s/s of psychosis. Pt. has been attending mock trials and is able to voice to staff that he understands what he is being charged for and feels ashamed for what he did. Pt. now awaiting to stand trial, next court date scheduled for 12/01/18. Assessment What has happened this shift: Pt pacing in halls at start of shift. Pt easily engaged in conversation makes good eye contact. Rarely initiates conversation answers questions and elaborates at times. Aware of date of Hearing and that it will be on Thursday he said "only a couple of days left" Pt questioned dosage of Zyprexa "Dr said he will be decreasing it" Md Note said he will be continuing dose, pt decided to take tonight's dose. Encouraged to discuss dose with MD in am. Patient denies depression and suicidal thoughts and denies auditory hallucinations. S/I, H/I: Denies A/VH: Denies ADL's: Pt. preforms tasks independently, however requires some prompting and encouragement by staff. Group attendance: Comes to group room for snack. Were meds taken: None scheduled Any med S/E: N/A Mental Status Exam Appearance: Neat, clean Eye contact: Good Behavior: Cooperative, withdrawn, guarded. Psychomotor activity WNL Speech: Soft, minimally responsive, but WNL. Mood: Guarded Affect: Flat Thought process: Thought blocking and poverty of thought r/t mental illness, however thought process is linear Thought Content: Continued preoccupation with own thoughts Cognition: A&O X4 Insight: Poor Judgment: Fair Interventions PRN's used: None Therapeutic interventions: Medication administration, Education and Monitoring. Provided active listening, maintained a safe and therapeutic environment, provided clear and simple instructions, monitored behaviors and assessed need for intervention, provided encouragement regarding performance of ADLs, and maintained Q 15 min safety checks. Restraints/seclusion/emergency medication: N/A Justification of Continued Inpatient Treatment: Pt. continues to require a safe and supportive environment while he awaits court date. Per Dr. Lemus, [facility] will work with [facility] to develop an outpatient treatment program for the pt.
[2018-11-28 08:00] VITALS: BP 98/55
--- NOTE | 2018-11-28 13:55 | NUR ---
Nursing Progress Note: Chief Complaint: Psychosis Legal hold: 1350-Court Ordered, [facility] for Competency Client on involuntary status for GD/Competency to stand trial Report received from MAGGIE Rodriguez with use of SBAR Why are they here: Pt. sent to [facility] for evaluation from [facility] in order to assess his competency to stand trial for shoplifting, showing false ID, and indecent exposure. Per report pt. has been "Zoning out" at home, exhibiting possible s/s of psychosis. Pt. has been attending mock trials and is able to voice to staff that he understands what he is being charged for and feels ashamed for what he did. Pt. now awaiting to stand trial, next court date scheduled for 12/01/18. Assessment What has happened this shift: Patient laying in bed at shift change. Pt. awakened for breakfast who gets up, eats very fast, then takes a nap. Pacing hallways during group. Patient does give small smile now when he is greeted. Pt. to go to court on Thursday, states he is ready. S/I, H/I: Denies A/VH: Denies ADL's: Pt. preforms tasks independently, however requires some prompting by staff. Group attendance: None Were meds taken: None scheduled Any med S/E: N/A Mental Status Exam Appearance: Neat, clean Eye contact: Minimal Behavior: Cooperative, withdrawn, guarded. Speech: Soft, minimally responsive. Mood: Pleasant, euthymic Affect: Flat Thought process: Thought blocking. linear Thought Content: Continued preoccupation with own thoughts Cognition: A&O X4 Insight: Poor Judgment: Fair Interventions PRN's used: None Therapeutic interventions: Provided active listening, maintained a safe and therapeutic environment, provided clear and simple instructions, monitored behaviors and assessed need for intervention, provided encouragement regarding performance of ADLs, and maintained Q 15 min safety checks. Restraints/seclusion/emergency medication: N/A Justification of Continued Inpatient Treatment: Pt. continues to require a safe and supportive environment while he awaits court date. Per Dr. Lemus, [facility] will work with [facility] to develop an outpatient treatment program for the pt.
[2018-11-28 19:36] VITALS: BP 152/90
[2018-11-28] MEDS: acetaminophen 325mg tablet PO PRN (21:47)
--- NOTE | 2018-11-29 01:08 | NUR ---
Nursing Note: Chief Complaint: Psychosis Legal hold: 1350-Court Ordered, [facility] for Competency Client on involuntary status for GD/Competency to stand trial Report received from MAGGIE Hernandez with use of SBAR: Why are they here: Pt. sent to [facility] for evaluation from [facility] in order to assess his competency to stand trial for shoplifting, showing false ID, and indecent exposure. Per report pt. has been "Zoning out" at home, exhibiting possible s/s of psychosis. Pt. has been attending mock trials and is able to voice to staff that he understands what he is being charged for and feels ashamed for what he did. Pt. now awaiting to stand trial, next court date scheduled for 12/01/18. Assessment What has happened this shift: Pt walking in halls at start of shift. Asked about family visit this afternoon his affect brightened said his father and grandfather came to visit. He said the visit was "very nice". Pt continued to pace in halls. Came to group room for snack. Interacted pleasantly for short times with other pts. Patient denies depression and suicidal thoughts and denies auditory hallucinations. Cooperative with all care took HS meds. Went to sleep around 2200 sleeping at this time. S/I, H/I: Denies A/VH: Denies ADL's: Pt. preforms tasks independently, however requires some prompting and encouragement by staff. Group attendance: Comes to group room for snack. Were meds taken: None scheduled Any med S/E: N/A Mental Status Exam Appearance: Neat, clean Eye contact: Good Behavior: Cooperative, withdrawn, guarded. Psychomotor activity WNL Speech: Soft, minimally responsive, but WNL. Mood: Guarded Affect: Flat Thought process: Thought blocking and poverty of thought r/t mental illness, however thought process is linear Thought Content: Continued preoccupation with own thoughts Cognition: A&O X4 Insight: Poor Judgment: Fair Interventions PRN's used: None Therapeutic interventions: Medication administration, Education and Monitoring. Provided active listening, maintained a safe and therapeutic environment, provided clear and simple instructions, monitored behaviors and assessed need for intervention, provided encouragement regarding performance of ADLs, and maintained Q 15 min safety checks. Restraints/seclusion/emergency medication: N/A Justification of Continued Inpatient Treatment: Pt. continues to require a safe and supportive environment while he awaits court date. Per Dr. Lemus, [facility] will work with [facility] to develop an outpatient treatment program for the pt.
[2018-11-29 07:00] VITALS: BP 103/69
[2018-11-29 08:00] VITALS: BP 103/69
--- NOTE | 2018-11-29 13:06 | NUR ---
Nursing Progress Note: Chief Complaint: Psychosis Legal hold: 1350-Court Ordered, [facility] for Competency Client on involuntary status for GD/Competency to stand trial Report received from MAGGIE Husain with use of SBAR Why are they here: Pt. sent to [facility] in order to assess his competency to stand trial for shoplifting, showing false ID, and indecent exposure. Per report pt. has been "Zoning out" at home, exhibiting possible s/s of psychosis. Pt. has been attending mock trials and is able to voice to staff that he understands what he is being charged for and feels ashamed for what he did. Pt. now awaiting to stand trial, next court date scheduled for 12/01/18. Assessment What has happened this shift: Received pt. sleeping in his bed. Pt. awakened for breakfast, quickly eats, then takes a nap. Discussed court, acid cutter advice. Pt. states that his acid cutter told him that he could be discharged, might come back here or go to [facility]. Reports that he is ready for trial. States that he will discharge to his father's apartment or home with his mom if released. Pt. says that he will sleep when he gets home. Pt. more conversational with each day, smiles appropriately at times. S/I, H/I: Denies A/VH: Denies ADL's: Pt. performs tasks independently, however requires some prompting by staff. Group attendance: Yes Were meds taken: None scheduled Any med S/E: N/A Mental Status Exam Appearance: Neat, clean Eye contact: Makes more eye contact than previously Behavior: Cooperative, withdrawn, guarded. Speech: Soft, clear. Mood: Pleasant, euthymic Affect: Flat Thought process: Thought blocking. linear Thought Content: Court and discharge. Cognition: A&O X4 Insight: Fair. Judgment: Fair Interventions PRN's used: None Therapeutic interventions: Provided active listening, maintained a safe and therapeutic environment, provided clear and simple instructions, monitored behaviors and assessed need for intervention, provided encouragement regarding performance of ADLs, and maintained Q 15 min safety checks. Restraints/seclusion/emergency medication: N/A Justification of Continued Inpatient Treatment: Pt. continues to require a safe and supportive environment while he awaits court date. Per Dr. Lemus [facility] will work with [facility] to develop an outpatient treatment program for the pt.
[2018-11-29 20:00] VITALS: BP 133/72
[2018-11-29] MEDS: OLANZAPINE 5 MG TABLET PO SCH (21:35)
--- NOTE | 2018-11-30 00:35 | NUR ---
Nursing Progress Note: Chief Complaint: Psychosis Legal hold: 1350-Court Ordered, [facility] for Competency Client on involuntary status for GD/Competency to stand trial Report received from MAGGIE Hernandez with use of SBAR Why are they here: Pt. sent to [facility] for evaluation from [facility] in order to assess his competency to stand trial for shoplifting, showing false ID, and indecent exposure. Per report pt. has been "Zoning out" at home, exhibiting possible s/s of psychosis. Pt. has been attending mock trials and is able to voice to staff that he understands what he is being charged for and feels ashamed for what he did. Pt. now awaiting to stand trial, next court date scheduled for 12/01/18. Assessment What has happened this shift: Pt walking in halls at start of shift. Asked about todays meeting with his obstetrics nurse. Pt stopped made eye contacts became animated and conversational. The pt believes he may be released on bail with his mom at Thursday's hearing. He was obviously happy about this possibility. Rest of the shift pt walked in halls spent some time socializing with other pts came to group room for snack. Cooperative with care took all meds sleeping at this time. S/I, H/I: Denies A/VH: Denies ADL's: Pt. performs tasks independently, however requires some prompting by staff. Group attendance: Yes Were meds taken: yes Any med S/E: N/A Mental Status Exam Appearance: Neat, clean Eye contact: Makes more eye contact than previously Behavior: Cooperative, withdrawn, guarded. Speech: Soft, clear. Mood: Pleasant, euthymic Affect: Flat Thought process: Thought blocking. linear Thought Content: Court and discharge. Cognition: A&O X4 Insight: Fair. Judgment: Fair Interventions PRN's used: None Therapeutic interventions: Provided active listening, maintained a safe and therapeutic environment, provided clear and simple instructions, monitored behaviors and assessed need for intervention, provided encouragement regarding performance of ADLs, and maintained Q 15 min safety checks. Restraints/seclusion/emergency medication: N/A Justification of Continued Inpatient Treatment: Pt. continues to require a safe and supportive environment while he awaits court date. Per Dr. Lemus, [facility] will work with [facility] to develop an outpatient treatment program for the pt.
[2018-11-30 07:38] VITALS: BP 114/55
--- NOTE | 2018-11-30 11:37 | NUR ---
Nursing Progress Note: Chief Complaint: Psychosis Legal hold: 1350-Court Ordered, [facility] for Competency Client on involuntary status for GD/Competency to stand trial Report received from MAGGIE Brown with use of SBAR Why are they here: Pt. sent to [facility] for evaluation from [facility] in order to assess his competency to stand trial for shoplifting, showing false ID, and indecent exposure. Per report pt. has been "Zoning out" at home, exhibiting possible s/s of psychosis. Pt. has been attending mock trials and is able to voice to staff that he understands what he is being charged for and feels ashamed for what he did. Pt. now awaiting to stand trial, next court date scheduled for 12/01/18. Assessment What has happened this shift: Received pt sleeping in bed. Up for breakfast then took a nap. Pt has no complaints. Compliant with treatment. Avoidance, does not appear to be in a talkative mood today. Ready for court tomorrow, where he wishes to be released home with his mother. S/I, H/I: Denies A/VH: Denies ADL's: Pt. performs tasks independently. States he will shower tonight. Group attendance: Yes Were meds taken: None scheduled Any med S/E: N/A Mental Status Exam Appearance: Neat, clean Eye contact: Makes more eye contact than previously Behavior: Cooperative, withdrawn, guarded. Speech: Soft, clear. Mood: Pleasant, euthymic Affect: Flat Thought process: Thought blocking. linear Thought Content: Court and discharge. Cognition: A&O X4 Insight: Fair. Judgment: Fair PRN's used: None Therapeutic interventions: Provided active listening, maintained a safe and therapeutic environment, provided clear and simple instructions, monitored behaviors and assessed need for intervention, provided encouragement regarding performance of ADLs, and maintained Q 15 min safety checks. Restraints/seclusion/emergency medication: N/A Justification of Continued Inpatient Treatment: Pt. continues to require a safe and supportive environment while he awaits court date. Per Dr. Lemus, [facility] will work with [facility] to develop an outpatient treatment program for the pt.
[2018-11-30 20:00] VITALS: BP 111/64
[2018-11-30] MEDS: OLANZAPINE 5 MG TABLET PO SCH (21:08)
--- NOTE | 2018-12-01 00:57 | NUR ---
Nursing Progress Note: Chief Complaint: Psychosis Legal hold: 1350-Court Ordered, [facility] for Competency Client on involuntary status for GD/Competency to stand trial Report received from MAGGIE Brown with use of SBAR Why are they here: Pt. sent to [facility] for evaluation from [facility] in order to assess his competency to stand trial for shoplifting, showing false ID, and indecent exposure. Per report pt. has been "Zoning out" at home, exhibiting possible s/s of psychosis. Pt. has been attending mock trials and is able to voice to staff that he understands what he is being charged for and feels ashamed for what he did. Pt. now awaiting to stand trial, next court date scheduled for 12/01/18. Assessment What has happened this shift: Pt ambulating in halls at start of shift. Pt aware and very excited about court date tomorrow. He hopes to be released home with his mother from his court appearance. One of the staff members bought pizza for all the pts in honor of Alonso's last day. Pt was pleased when told it was his goodbye pizza and he also referred to it as his goodbye pizza. Pt took a shower to get ready for tomorrow. Pleasant and cooperative with all care. S/I, H/I: Denies A/VH: Denies ADL's: Pt. performs tasks independently. Group attendance: Yes Were meds taken: yes Any med S/E: N/A Mental Status Exam Appearance: Neat, clean Eye contact: Makes more eye contact than previously Behavior: Cooperative, withdrawn, guarded. Speech: Soft, clear. Mood: Pleasant, euthymic Affect: Flat Thought process: Thought blocking. linear Thought Content: Court and discharge. Cognition: A&O X4 Insight: Fair. Judgment: Fair PRN's used: None Therapeutic interventions: Provided active listening, maintained a safe and therapeutic environment, provided clear and simple instructions, monitored behaviors and assessed need for intervention, provided encouragement regarding performance of ADLs, and maintained Q 15 min safety checks. Restraints/seclusion/emergency medication: N/A Justification of Continued Inpatient Treatment: Pt. continues to require a safe and supportive environment while he awaits court date. Per Dr. Lemus, [facility] will work with [facility] to develop an outpatient treatment program for the pt.
--- NOTE | 2018-12-01 07:05 | NUR ---
Pt. discharged at 07 to [facility] escorted by 2 [facility] Spanish Speaking Nanny. Pt. ambulated off unit with officers. Pt. denies SI/HI, A/V H. [facility] to schedule pt.'s f/u care. Pt. given script for medication.
[2018-12-01 07:30] VITALS: BP 111/68
--- NOTE | 2018-12-01 11:00 | NUR ---
Pt. [facility] from [facility] this AM Pt. escorted by two [facility]. Pt. reports that he has further days to serve for his sentence. Pt. denies SI/HI, A/V H. Pt. is calm and cooperative and requesting to speak with his lwayer. Pt. given phone to contact mastic sprayer.
--- NOTE | 2018-12-01 17:00 | NUR ---
Nursing Progress Note: Chief Complaint: Psychosis Legal hold: 1350-Court Ordered, [facility] for Competency Client on involuntary status for GD/Competency to stand trial Report received from MAGGIE Brown with use of SBAR Why are they here: Pt. sent to [facility] for evaluation from [facility] in order to assess his competency to stand trial for shoplifting, showing false ID, and indecent exposure. Per report pt. has been "Zoning out" at home, exhibiting possible s/s of psychosis. Pt. has been attending mock trials and is able to voice to staff that he understands what he is being charged for and feels ashamed for what he did. Pt. now awaiting to stand trial, next court date scheduled for 12/01/18. Assessment What has happened this shift: Pt ambulating in halls at start of shift. Pt. discharged to court this AM but then was readmitted as pt. has further sentence to serve. Pt reports he spoke with his mother who infromed him that he may be here until December 20. Pt. pleasent and cooperative. Pt. did not attend group today. S/I, H/I: Denies A/VH: Denies ADL's: Pt. performs tasks independently. Group attendance: Yes Were meds taken: yes Any med S/E: N/A Mental Status Exam Appearance: Neat, clean Eye contact: good eye contact Behavior: Cooperative, guarded. Speech: Soft, clear. Mood: Pleasant, anxious Affect: Flat Thought process: Thought blocking. linear Thought Content: Court and discharge. Cognition: A&O X4 Insight: Fair. Judgment: Fair PRN's used: None Therapeutic interventions: Provided active listening, maintained a safe and therapeutic environment, provided clear and simple instructions, monitored behaviors and assessed need for intervention, provided encouragement regarding performance of ADLs, and maintained Q 15 min safety checks. Restraints/seclusion/emergency medication: N/A Justification of Continued Inpatient Treatment: Pt. continues to require a safe and supportive environment while he awaits court date. Per Dr. Lemus, [facility] will work with [facility] to develop an outpatient treatment program for the pt.
[2018-12-01] MEDS: OLANZAPINE 5 MG TABLET PO SCH (20:47)
[2018-12-01] MEDS: acetaminophen 325mg tablet PO PRN (20:49)
[2018-12-01 20:57] VITALS: BP 108/64
--- NOTE | 2018-12-02 01:16 | NUR ---
Nursing Progress Note: Legal hold: 1370-Court Ordered, [facility] for Competency Client on involuntary status for GD/Competency to stand trial Report received with SBAR from: MAGGIE Hernandez Why are they here: Pt. sent to [facility] for evaluation from [facility] in order to assess his competency to stand trial for shoplifting, showing false ID, and indecent exposure. Per report pt. has been "Zoning out" at home, exhibiting possible s/s of psychosis. Pt. has been attending mock trials and is able to voice to staff that he understands what he is being charged for and feels ashamed for what he did. . Pt. now awaiting to stand trial, next court date scheduled for 12/20/18. Assessment What has happened this shift: Pt ambulating in halls at start of shift. Pt attended snack, requesting a burrito. He denies voices, and states he is "okay" even with the extension of his time here. He smiles and laughs occasionally during assessment. Pt remains agreeable and cooperative with peers and staff. S/I, H/I: Denies A/VH: Denies ADL's: Independent Group attendance: Y - HS Snack Were meds taken: Y Any med S/E: None reported, None observed Mental Status Exam Appearance: Neat, clean, wearing personal sweatpants and shirt Eye contact: Direct; Pt sustains contact longer than before Behavior: Cooperative, Pacing halls Speech: Soft, WNL Mood: Pleasant Affect: Flat Thought process: Linear Thought Content: Wanting a burrito Cognition: A&OX4 Insight: Fair Judgment: Fair PRN's used: Tylenol Therapeutic interventions: Provided active listening, maintained a safe and therapeutic environment, provided clear and simple instructions, monitored behaviors and assessed need for intervention, and maintained Q 15 min safety checks. Restraints/seclusion/emergency medication: N/A Justification of Continued Inpatient Treatment: Pt. continues to require a safe and supportive environment while he awaits court date. Per Dr. Lemus, [facility] will work with [facility] to develop an outpatient treatment program for the pt.
[2018-12-02 08:24] VITALS: BP 106/66
--- NOTE | 2018-12-02 10:25 | NUR ---
Reassessment: Patient's diet order was completed, d/w RN to activate regular diet. Documented PO intake continues to fluctuate however with average 75-100% meeting nutrient needs. Noted that pt receiving double eggs at breakfast and double entree and meat TID. LBM 12/01. No nutrition diagnosis at this time. Will continue to follow. Recommend: 1. Continue regular diet 2. Continue double eggs at breakfast; double entree & double meat TID 3. Bowel care as needed 4. Weekly wts 5. Monitor need for ONS Addendum: 12/02/18 at [address] Amended: Links added.
--- NOTE | 2018-12-02 16:40 | NUR ---
Nursing Progress Note: Legal hold: 1370-Court Ordered, [facility] for Competency Client on involuntary status for GD/Competency to stand trial Report received with SBAR from: MAGGIE Brown Why are they here: Pt. sent to [facility] for evaluation from [facility] in order to assess his competency to stand trial for shoplifting, showing false ID, and indecent exposure. Per report pt. has been "Zoning out" at home, exhibiting possible s/s of psychosis. Pt. has been attending mock trials and is able to voice to staff that he understands what he is being charged for and feels ashamed for what he did. Pt. now awaiting to stand trial, next court date scheduled for 12/20/18. Assessment What has happened this shift: Pt. sleeping at beginning of shift. 1:1 done at bedside. Pt. reports feeling "good". Pt. does not attend groups. Pt. pacing halls. Pt. seen in community room watching TV with other pts. S/I, H/I: Denies A/VH: Denies ADL's: Independent Group attendance: N Were meds taken: Y Any med S/E: None reported, None observed Mental Status Exam Appearance: Neat, clean, wearing personal sweatpants and shirt Eye contact: Direct; better, but brief eye contact. Behavior: Cooperative, Pacing halls Speech: Soft, WNL Mood: Pleasant Affect: Flat Thought process: Linear Thought Content: Wanting a burrito Cognition: A&OX4 Insight: Fair Judgment: Fair PRN's used: Tylenol Therapeutic interventions: Provided active listening, maintained a safe and therapeutic environment, provided clear and simple instructions, monitored behaviors and assessed need for intervention, and maintained Q 15 min safety checks. Restraints/seclusion/emergency medication: N/A Justification of Continued Inpatient Treatment: Pt. continues to require a safe and supportive environment while he awaits court date. Per Dr. Lemus, [facility] will work with [facility] to develop an outpatient treatment program for the pt.
[2018-12-02 19:00] VITALS: BP 165/86
[2018-12-02] MEDS: OLANZAPINE 5 MG TABLET PO SCH (20:50)
--- NOTE | 2018-12-03 02:15 | NUR ---
Nursing Progress Note: Legal hold: 1370-Court Ordered, [facility] for Competency Client on involuntary status for GD/Competency to stand trial Report received with SBAR from: MAGGIE Hernandez Why are they here: Pt. sent to [facility] for evaluation from [facility] in order to assess his competency to stand trial for shoplifting, showing false ID, and indecent exposure. Per report pt. has been "Zoning out" at home, exhibiting possible s/s of psychosis. Pt. has been attending mock trials and is able to voice to staff that he understands what he is being charged for and feels ashamed for what he did. Pt. now awaiting to stand trial, next court date scheduled for 12/20/18. Assessment What has happened this shift: Pt ambulating in halls at start of shift. Pt attended snack, requesting a burrito. He denies voices, and states he is "okay" with a smile. When RN inquired as to the phone call he had with his mom he said, "My mom is coming to get me Thursday." RN states perhaps there should be another pizza libertarian, to which the pt replies with a sheepish grin, "Oh no, it was really nice. They don't have to do it again." Pt remains agreeable and cooperative with peers and staff, he paced the halls longer than last night, only turning in to sleep around 2300 at the suggestion of the RN. S/I, H/I: Denies A/VH: Denies ADL's: Independent Group attendance: Y - HS Snack Were meds taken: Y Any med S/E: None reported, None observed Mental Status Exam Appearance: Neat, clean, wearing personal sweatpants and shirt Eye contact: Direct; Pt sustains contact longer than before Behavior: Cooperative, Pacing halls Speech: Soft, WNL Mood: Pleasant Affect: Blunted Thought process: Linear Thought Content: Wanting a burrito, looking forward to going home Cognition: A&Ox4 Insight: Fair Judgment: Fair PRN's used: None Therapeutic interventions: Provided active listening, maintained a safe and therapeutic environment, provided clear and simple instructions, monitored behaviors and assessed need for intervention, and maintained Q 15 min safety checks. Restraints/seclusion/emergency medication: N/A Justification of Continued Inpatient Treatment: Pt. continues to require a safe and supportive environment while he awaits court date. Per Dr. Lemus, [facility] will work with [facility] to develop an outpatient treatment program for the pt. Addendum: 12/03/18 at 0222 by Keri Cunningham RN Report received from MAGGIE Rene with use of [place].
[2018-12-03 08:00] VITALS: BP 98/44
--- NOTE | 2018-12-03 17:17 | NUR ---
Nursing Progress Note: Legal hold: 1370-Court Ordered, [facility] for Competency Client on involuntary status for GD/Competency to stand trial Report received with SBAR from: Virginia Andrade RN Why are they here: Pt. sent to [facility] for evaluation from [facility] in order to assess his competency to stand trial for shoplifting, showing false ID, and indecent exposure. Per report pt. has been "Zoning out" at home, exhibiting possible s/s of psychosis. Pt. has been attending mock trials and is able to voice to staff that he understands what he is being charged for and feels ashamed for what he did. Dr. Pt. now awaiting to stand trial, next court date scheduled for 12/20/18. Assessment What has happened this shift: Patient is observed sleeping at change of shift. He gets up and attends breakfast with others in the group room. After breakfast he quietly returns to his room. When asked if he is going to attend group this morning he nods no, but he does smile when talking about leaving unit with his mother on Thursday. He states that they do not have plans other than spending time together. He does not attend groups but is observed walking the halls and watching t.v. with others. S/I, H/I: none reported A/VH: none reported ADL's: Independent Group attendance: no Were meds taken: n/a Any med S/E: None reported, None observed Mental Status Exam Appearance: Neat, clean, wearing own clothing Eye contact: Direct Behavior: Cooperative Speech: Soft tone, not conversational but answers questions Mood: content Affect: restricted with brightening Thought process: Linear Thought Content: looking forward to going home Cognition: A&Ox4 Insight: Fair Judgment: Fair PRN's used: None Therapeutic interventions:1:1 therapeutic assessment, maintained therapeutic milieu, provided active listening with positive feedback, provided medication education as needed, monitored for change in behavior and needed interventions. Q15 minute safety checks. Restraints/seclusion/emergency medication: N/A Justification of Continued Inpatient Treatment: Pt. continues to require a safe and supportive environment while he awaits court date. Per Dr. Lemus, [facility] will work with [facility] to develop an outpatient treatment program for the pt.
[2018-12-03 19:00] VITALS: BP 112/68
[2018-12-03] MEDS: OLANZAPINE 5 MG TABLET PO SCH (21:02)
[2018-12-03] MEDS: acetaminophen 325mg tablet PO PRN (21:03)
--- NOTE | 2018-12-03 23:50 | NUR ---
Nursing Progress Note: Legal hold: 1370-Court Ordered, [facility] for Competency Client on involuntary status for GD/Competency to stand trial Report received with SBAR from: MAGGIE Rene Why are they here: Pt. sent to [facility] for evaluation from [facility] in order to assess his competency to stand trial for shoplifting, showing false ID, and indecent exposure. Per report pt. has been "Zoning out" at home, exhibiting possible s/s of psychosis. Pt. has been attending mock trials and is able to voice to staff that he understands what he is being charged for and feels ashamed for what he did. Pt. now awaiting to stand trial, next court date scheduled for 12/20/18. Assessment What has happened this shift: ambulating on unit at start of shift--Mood calm--interactive sith staff c/o body aches at bedtime, requested tylenol--good effect--sleeping well at this time S/I, H/I: none reported A/VH: none reported ADL's: Independent Group attendance: n/a Were meds taken: yes Any med S/E: None reported, None observed Mental Status Exam Appearance: Neat, clean, wearing own clothing Eye contact: Direct Behavior: Cooperative Speech: Soft tone, not conversational but answers questions Mood: content Affect: restricted with brightening Thought process: Linear Thought Content: looking forward to going home Cognition: A&Ox4 Insight: Fair Judgment: Fair PRN's used: tylenol for c/o body pain Therapeutic interventions:1:1 therapeutic assessment, maintained therapeutic milieu, provided active listening with positive feedback, provided medication education as needed, monitored for change in behavior and needed interventions. Q15 minute safety checks. Restraints/seclusion/emergency medication: N/A Justification of Continued Inpatient Treatment: Pt. continues to require a safe and supportive environment while he awaits court date. Per Dr. Lemus, [facility] will work with [facility] to develop an outpatient treatment program for the pt.
[2018-12-04 08:00] VITALS: BP 111/65
[2018-12-04 19:00] VITALS: BP 129/79
[2018-12-04] MEDS: OLANZAPINE 5 MG TABLET PO SCH (20:15)
--- NOTE | 2018-12-04 22:50 | NUR ---
Nursing Progress Note: Legal hold: 1370-Court Ordered, [facility] for Competency Client on involuntary status for GD/Competency to stand trial Report received with SBAR from: LUANN Rene. Why are they here: Pt. sent to [facility] for evaluation from [facility] in order to assess his competency to stand trial for shoplifting, showing false ID, and indecent exposure. Per report pt. has been "Zoning out" at home, exhibiting possible s/s of psychosis. Pt. has been attending mock trials and is able to voice to staff that he understands what he is being charged for and feels ashamed for what he did. Pt. now awaiting to stand trial, next court date scheduled for 12/20/18. Assessment What has happened this shift: The patient was seen pacing the halls at shift change. He has made gains in how he presents to people. The patient responds with a smile when spoken to, he answers questions with more than yes or no. He starts a conversation, instead of responding to one, and he's making good eye contact. The patient continues to pace the halls for exercise. He will sit and watch TV, but will only stay if it's basketball. The patient looks forward to his birthday on [birth year], when he turns 23. The patient continues to be compliant with medications, He has gone to bed. S/I, H/I: Denies A/VH: Denies ADL's: Independent Group attendance: no groups at night. Were meds taken: Yes. Any med S/E: None reported, None observed Mental Status Exam Appearance: Neat, clean, wearing street clothes. Eye contact: Direct. Behavior: Cooperative, Pacing halls Speech: Normal. Mood: Pleasant Affect: Restricted Thought process: Linear Thought Content: Looking forward to going home. Cognition: A&Ox4 Insight: Fair Judgment: Fair PRN's used: None Therapeutic interventions: Provided active listening, maintained a safe and therapeutic environment, provided clear and simple instructions, monitored behaviors and assessed need for intervention, and maintained Q 15 min safety checks. Restraints/seclusion/emergency medication: N/A Justification of Continued Inpatient Treatment: Pt. continues to require a safe and supportive environment while he awaits court date. Per Dr. Lemus, [facility] will work with [facility] to develop an outpatient treatment program for the pt.
[2018-12-05 08:00] VITALS: BP 98/55
--- NOTE | 2018-12-05 18:28 | NUR ---
Nursing Progress Note: Legal hold: 1370-Court Ordered, [facility] for Competency Client on involuntary status for GD/Competency to stand trial Report received with SBAR from: Virginia Andrade RN Why are they here: Pt. sent to [facility] for evaluation from [facility] in order to assess his competency to stand trial for shoplifting, showing false ID, and indecent exposure. Per report pt. has been "Zoning out" at home, exhibiting possible s/s of psychosis. Pt. has been attending mock trials and is able to voice to staff that he understands what he is being charged for and feels ashamed for what he did. Pt. now awaiting to stand trial, next court date scheduled for 12/20/18. Assessment What has happened this shift: Pt paced the hallways throughout the shift. He attended groups. Pt reports he is happy to go home tomorrow. He is medication compliant. Denies A/H. S/I, H/I: none reported A/VH: none reported ADL's: Independent Group attendance: Yes Were meds taken: n/a Any med S/E: None reported, None observed Mental Status Exam Appearance: Neat, clean, wearing sweats Eye contact: Direct Behavior: Cooperative Speech: Soft tone, not conversational but answers questions Mood: content Affect: restricted with brightening Thought process: Linear Thought Content: looking forward to going home Cognition: A&Ox4 Insight: Fair Judgment: Fair PRN's used: None Therapeutic interventions:1:1 therapeutic assessment, maintained therapeutic milieu, provided active listening with positive feedback, provided medication education as needed, monitored for change in behavior and needed interventions. Q15 minute safety checks. Restraints/seclusion/emergency medication: N/A Justification of Continued Inpatient Treatment: Pt plans on being discharged tomorrow after his mother pays his bail.
[2018-12-05 19:24] VITALS: BP 129/68
[2018-12-05] MEDS: OLANZAPINE 5 MG TABLET PO SCH (20:17)
[2018-12-05] MEDS: acetaminophen 325mg tablet PO PRN (20:20)
--- NOTE | 2018-12-05 21:34 | NUR ---
Nursing Progress Note: Legal hold: 1370-Court Ordered, [facility] for Competency Client on involuntary status for GD/Competency to stand trial Report received with SBAR from: LUANN Rene. Why are they here: Pt. sent to [facility] for evaluation from [facility] in order to assess his competency to stand trial for shoplifting, showing false ID, and indecent exposure. Per report pt. has been "Zoning out" at home, exhibiting possible s/s of psychosis. Pt. has been attending mock trials and is able to voice to staff that he understands what he is being charged for and feels ashamed for what he did. Dr. Pt. now awaiting to stand trial, next court date scheduled for 12/20/18. Assessment What has happened this shift: The patient spent the evening pacing the halls. His whole affect has changed to openness and smiling often. He stops occasionally to check out a ball game, but goes back to pacing. He reports that his mother will take care of his "bail" tomorrow, so he can go home to wait for whatever happens next. The patient has always been compliant with medications. He took the HS meds, asked for Tylenol for generalized pain, then went to bed. He expects to DC home tomorrow. S/I, H/I: Denies A/VH: Denies ADL's: Independent Group attendance: no groups at night. Were meds taken: Yes. Any med S/E: None reported, None observed Mental Status Exam Appearance: Neat, clean, wearing street clothes. Eye contact: Direct. Behavior: Cooperative, Pacing halls Speech: Normal. Mood: Pleasant Affect: Bright. Thought process: Linear Thought Content: Looking forward to going home. Cognition: A&Ox4 Insight: Fair Judgment: Fair PRN's used: Tylenol for pain. Therapeutic interventions: Provided active listening, maintained a safe and therapeutic environment, provided clear and simple instructions, monitored behaviors and assessed need for intervention, and maintained Q 15 min safety checks. Restraints/seclusion/emergency medication: N/A Justification of Continued Inpatient Treatment: Pt. continues to require a safe and supportive environment while he awaits court date. Per Dr. Lemus, [facility] will work with [facility] to develop an outpatient treatment program for the pt.
[2018-12-06 08:01] VITALS: BP 99/67
--- NOTE | 2018-12-06 16:59 | NUR ---
Nursing Progress Note: Legal hold: 1370-Court Ordered, [facility] for Competency Client on involuntary status for GD/Competency to stand trial Report received from nurse Virgen RN with use from SBAR Why are they here: Pt. sent to [facility] for evaluation from [facility] in order to assess his competency to stand trial for shoplifting, showing false ID, and indecent exposure. Per report pt. has been "Zoning out" at home, exhibiting possible s/s of psychosis. Pt. has been attending mock trials and is able to voice to staff that he understands what he is being charged for and feels ashamed for what he did. Dr. Darden. now awaiting to stand trial, next court date scheduled for 12/20/18. Assessment What has happened this shift: Pt paced the hallways throughout the shift. He attended groups. He ate 100% of his meals. He waited all shift for his mother to pick him up after she paid his bail. S/I, H/I: Denies A/VH: none reported ADL's: Independent Group attendance: Yes Were meds taken: n/a Any med S/E: None reported, None observed Mental Status Exam Appearance: Neat, clean, wearing sweats Eye contact: Direct Behavior: Cooperative Speech: Soft tone, not conversational but answers questions Mood: content Affect: restricted with brightening Thought process: Linear Thought Content: looking forward to going home Cognition: A&Ox4 Insight: Fair Judgment: Fair PRN's used: None Therapeutic interventions:1:1 therapeutic assessment, maintained therapeutic milieu, provided active listening with positive feedback, provided medication education as needed, monitored for change in behavior and needed interventions. Q15 minute safety checks. Restraints/seclusion/emergency medication: N/A Justification of Continued Inpatient Treatment: Pt awaiting discharge at this moment. He continues to pace the halls waiting for someone to pick him up.
== END 2018-12-06 18:00 | disposition home or self-care (01) | DRG 885 ==
LOC: EEVIPCON → ADULT MH 10:58 → UNDODISIN 12-01 07:05
PROVIDERS: ADMIT Psychiatry & Neurology Psychiatry; ATTEND Psychiatry & Neurology Psychiatry
DX: F20.3 Undifferentiated schizophrenia (principal); F29 Unspecified psychosis not due to a substance or known physiological condition; F12.10 Cannabis abuse, uncomplicated; F60.9 Personality disorder, unspecified; F41.1 Generalized anxiety disorder; R45.1 Restlessness and agitation
CPT/HCPCS: 36415; 80053; 80061; 83036; 84443; 85025; 87070; 93005; J3490